=== PATIENT | male | born 1940 | race Caucasian/White ===

== ENCOUNTER 2017-05-12 06:38 | Emergency (ER) | payer MEDICARE, OTHER ==
[~2017-05-12] VITALS: Ht 177.8 cm; Wt 79.4 kg
[~2017-05-12 06:38] MED LIST: ACETAMINOPHEN500 M1 PO; AMLODIPINE BESYL5 MG PO; ASPIRIN EC81 MG PO; ATENOLOL100 MG PO; ATENOLOL50 MG PO; CELECOXIB200 MG PO; CIPRO500 MG PO; COUMADIN2.5 MG PO; COZAAR25 MG PO; FLAGYL500 MG PO; HYDROCODON-ACE1 EA11 PO; LOVENOX80 MG SUB-Q; MIRALAX17 GM PO; NORCO 5-325 TA1 EACH PO; NUCYNTA50 MG PO; OMEGA 3-6-9 11200 M1 PO; OMEPRAZOLE20 MG PO; OXYCODONE HCL5 MG PO; SIMVASTATIN80 MG PO; WARFARIN SODIU2.5 MG PO; XARELTO10 MG PO; XARELTO20 MG PO
== END 2017-05-12 07:12 | disposition home or self-care (01) ==
LOC: ED 06:38
DX: S00.411A Abrasion of right ear, initial encounter (principal); I48.91 Unspecified atrial fibrillation; E78.00 Pure hypercholesterolemia, unspecified; I25.2 Old myocardial infarction; I10 Essential (primary) hypertension; Z95.5 Presence of coronary angioplasty implant and graft; Z96.641 Presence of right artificial hip joint; Z85.828 Personal history of other malignant neoplasm of skin; Z87.891 Personal history of nicotine dependence; Z79.82 Long term (current) use of aspirin; Z79.01 Long term (current) use of anticoagulants; Z79.899 Other long term (current) 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; X58.XXXA Exposure to other specified factors, initial encounter
CPT/HCPCS: 99282

== ENCOUNTER 2017-11-28 11:13 | Inpatient (IN) | payer MEDICARE, OTHER ==
[~2017-11-28] VITALS: Ht 177.8 cm; Wt 79.4 kg
[~2017-11-28 11:13] MED LIST changes: +COZAAR100 MG PO; -COZAAR25 MG PO
[2017-11-28] MEDS ORDERED: ELIQUIS5 MG PO (11:33)
[2017-11-28] MEDS ORDERED: AMLODIPINE BESYL5 MG PO (11:34)
--- NOTE | 2017-11-28 18:40 | NUR ---
PT ARRIVED TO FLOOR FROM ED VIA STRETCHER. ORIENTED TO ROOM AND CALL LIGHT. ASSESSMENT COMPLETE. VITAL SIGNS TAKEN. PLACED ON TELE.
--- NOTE | 2017-11-28 19:00 | NUR ---
BEDSIDE REPORT RECEIVED FROM MICHELLE JAQUEZ. PT AWAKE, LYING IN BED, IV BOLUS INFUSING WNL. GIVEN BLANKET REQUESTED. CALL LIGHT IN REACH.
--- NOTE | 2017-11-28 20:31 | NUR ---
VITALS AND I&OS DONE AND CHARTED. FRESH ICE GIVEN. BEDSIDE TABLE AND CALL LIGHT WITHIN REACH.
--- NOTE | 2017-11-28 20:31 | NUR ---
PT ASSESSMENT COMPLETE AT THIS TIME, HR IRREGULAR 80S, BP 94/57 (65), AFEBRILE. PT DENIES ANY PAIN. IV MAGNESIUM AND IVF INFUSING WNL, FLUID BOLUS COMPLETE. PT ALERT AND ORIENTED X 4. BRUISING NOTED IN LOWER BACK POST OP, INCISIONS CDI NO REDNESS NOTED. LUNGS CLEAR THROUGHOUT ALL LOBES. PT HAS ICE WATER, PERSONAL SUPPLIES IN REACH. ON TELE. CALL LIGHT IN REACH. EDUCATED PT ON VS MONITORING, VERBALIZED UNDERSTANDING.
--- NOTE | 2017-11-28 20:42 | NUR ---
DR. LOPEZ NOTIFIED OF BP 98/58 MANUAL, URINE OUTPUT 250 MLS LAST FOUR HOURS. TLEPHONE ORDER TO LEAVE FLUID AT 100 ML/HR. WILL CONTINUE TO MONITOR.
--- NOTE | 2017-11-28 21:19 | NUR ---
SECOND BAG MG PIGGYBACK INFUSING WITH IVF AT THIS TIME WNL. URINAL EMPTIED 275 ML CLEAR YELLOW URINE. PT HAS NO REQUESTS AT THIS TIME, AWAKE, WATCHING TV. CALL LIGHT NEXT TO PT.
--- NOTE | 2017-11-28 21:28 | NUR ---
VITALS DONE AND CHARTED. PT NEEDS NOTHING ELSE AT THIS TIME.
--- NOTE | 2017-11-28 22:52 | NUR ---
PHONE CALL FROM PTS , UPDATED ON PT STATUS. PT APPEARS TO BE SLEEPING AT THIS TIME, EYES CLOSED BREATHING NON-LABORED.
--- NOTE | 2017-11-28 23:29 | NUR ---
MAGNESIUM PIGGYBACK COMPLETE AT THIS TIME, IVF INFUSING WNL. PT AWAKENS TO VOICE. VITALS COMPLETE AT THIS TIME BP 93/70 (76), HR IRREGULAR 68-74. URINAL EMPTIED AT THIS TIME. CALL LIGHT IN REACH, LIGHTS OFF IN ROOM.
--- NOTE | 2017-11-28 23:33 | NUR ---
VITALS DONE AND CHARTED. INFORMED HIS RN GILDARDO.
--- NOTE | 2017-11-28 23:39 | NUR ---
PHONED, NOTIFIED OF BP 93/70 (76), URINE OUTPUT 625 ML OVER LAST FOUR HOURS. ORDER TO CONTINUE IVF AT 100 ML/HR, CALL WITH MG LEVEL, NOTIFY MD OF BP <90.
--- NOTE | 2017-11-29 00:08 | NUR ---
LAB CALLED, NOTIFIED OF MG ORDER FOR 0005, JAVIER WILL BE UP TO DRAW LAB.
--- NOTE | 2017-11-29 00:30 | NUR ---
BURNING SUPERVISOR NOW IN PT ROOM FOR MAGNESIUM LAB DRAW.
--- NOTE | 2017-11-29 01:25 | NUR ---
PHONED, NOTIFIED OF PT'S MAGNESIUM LAB 2.9, ORDER TO KEEP IVF AT 100 ML/HR UNLESS BP <90 SYSTOLIC, THEN TO ADMINISTER IVF BOLUS 500 ML LR OVER HOUR. ORDER READ BACK.
--- NOTE | 2017-11-29 01:36 | NUR ---
PT ASSESSMENT COMPLETE. BP 101/64, HR 77-85 IRREGULAR, LUNGS CLEAR THROUGHOUT ALL LOBES. IVF INFUSING WNL, LINE FLUSHED PT REPORTS SOME DISCOMFORT, GOOD BLOOD RETURN, FLUSHED WNL, ASSISTED PT TO REPOSITION ARM ON PILLOW. URINAL EMPTIED 300 ML CLEAR YELLOW URINE. PT HAS NO C/O PAIN. CALL LIGHT IN REACH. NO REQUESTS AT THIS TIME. WILL CONTINUE TO MONITOR.
--- NOTE | 2017-11-29 03:35 | NUR ---
PT APPEARS TO BE SLEEPING, EYES CLOSED, VISIBLE CHEST RISE EQUAL BILATERALLY. IVF INFUSING. HR 70-78 ON TELE. LIGHTS OFF IN ROOM.
--- NOTE | 2017-11-29 05:26 | NUR ---
VITALS AND I&O DONE AND CHARTED. GARBAGES EMPTIED. ROOM CLEANED UP. BEDSIDE TABLE AND CALL LIGHT WITHIN REACH. PT NEEDS NOTHING ELSE AT THIS TIME.
--- NOTE | 2017-11-29 05:43 | NUR ---
URINAL EMPTIED, 275 YELLOW URINE. VITALS COMPLETE, BP 104/67, AFEBRILE, HR 84-88, SPO2 95% ON RA. PT REQUESTING HEARING AID BATTERIES, WILL CONTACT TO BRING IN. PHOTO GRAPHICS LIBRARIAN IN ROOM AT THIS TIME FOR LAB DRAW. PT GIVEN MENU. CALL LIGHT IN REACH.
--- NOTE | 2017-11-29 05:51 | NUR ---
PT RECEIVED 3 2G MAGNESIUM PIGGYBACKS THIS SHIFT, IVF INFUSING THROUGHOUT SHIFT. HR IRREGULAR, ON TELE 5. PT DENIES PAIN. IN BED THROUGHOUT SHIFT, USING URINAL FOR QUANITY SUFFICIENT VOIDS.
--- NOTE | 2017-11-29 06:16 | NUR ---
PT GIVEN COFFEE REQUESTED, ASSISTED TO REPOSITION IN BED. BREAKFAST ORDER TAKEN. CALL LIGHT IN REACH, IVF INFUSING.
--- NOTE | 2017-11-29 06:56 | NUR ---
PT REPORTED 5/10 PAIN IN RIGHT SHOLDER. PRN TYLENOL GIVEN.
--- NOTE | 2017-11-29 08:45 | NUR ---
PATIENT RESTING IN BED, FAMILY AND RN IN ROOM. CALL LIGHT IN REACH. NO OTHER NEEDS AT THIS TIME.
--- NOTE | 2017-11-29 09:15 | NUR ---
PT AWAKE IN BED, ATE ALL OF BREAKFAST. AT BEDSIDE. PT ALERT AND ORIENTED. DENIES PAIN, NAUSEA, SOB, OR OTHER CONCERNS. ORTHOSTATIC BP OBTAINED. PT DENIED DIZZINESS OR LIGHT HEADEDNESS. IV INFUSING IN RIGHT AC. CALL LIGHT WITHIN REACH.
--- NOTE | 2017-11-29 09:25 | NUR ---
PATIENT RESTING IN BED, TALKING ON PHONE. FAMILY IN ROOM. PATIENT CALL LIGHT INREACH. RN COMING AND GOING FROM ROOM. NO OTHER NEEDS AT THIS TIME.
--- NOTE | 2017-11-29 09:30 | NUR ---
PT MEDICATED WITH TYLENOL FOR C/O OF RIGHT SHOULDER PAIN. PT STATES IT IS ARHTRITIS THAT IS FLARED UP FROM THE POSTITION OF IV. REQUESTS NEW IV IF POSSIBLE. WILL ATTEMPT.
--- NOTE | 2017-11-29 10:01 | NUR ---
PATIENT SITTING UP IN BED. PATIENT WASHED HANDS AND FACE AND PERFORMED ORAL CARE. PATIENTS IN ROOM. RN NOTIFIED OF BLOOD PRESSURE OUT OF NORMAL LIMITS. CALL LIGHT IN REACH, FRESH ICE WATER AT BEDSIDE TABLE. NO OTHER NEEDS AT THIS TIME.
--- NOTE | 2017-11-29 11:28 | NUR ---
PT IN BED, ALERT AND ORIENTED. HIS IS BY HIS SIDE. BOTH VERY PLEASANT AND WELCOMING. THIS APPEARS TO BE A LITTLE DIFFICULT FOR BOTH OF THEM, YESTERDAY WAS PT'S 'S .DAY. GOOD VISIT, WAITING FOR DR LOPEZ-PT REQUESTED PRAYER. I WILL CONTINUE TO FOLLOW NEEDED
--- NOTE | 2017-11-29 11:30 | NUR ---
NEW IV ATTEMPTED TWICE BY THIS RN UNSUCCESSFUL. NEW 22G IV STARTED IN RIGHT FOREARM BY JULIO CESAR Taylor RN. OLD RIGHT AC IV DC'D BY ASSOCIATE PROFESSOR OF COMMUNICATION STUDENT WITH SUPERVISION BY CARLA MARTINEZ.
--- NOTE | 2017-11-29 13:10 | NUR ---
PT RESTING IN BED WATCHING TV. IV INFUSING WNL IN RIGHT FA. AT BEDSIDE. PT GIVEN WARM PACK FOR RIGHT SHOULDER AND FRESH ICE WATER. CALL LIGHT WITHIN REACH.
[2017-11-29] MEDS ORDERED: TENORMIN100 MG PO (14:37)
--- NOTE | 2017-11-29 14:38 | NUR ---
Medications reconciled with patient. Discrepancies correct to reflect patient's current home medications at admission
--- NOTE | 2017-11-29 16:21 | EKG ---
[facility] [address] [place], [place] [address] Signed Atrial fibrillation Low voltage QRS Abnormal ECG When compared with ECG of 28-NOV-2017 11:28, (Unconfirmed) No significant change was found Confirmed by DO LOPEZ MD ([id number]) on 11/29/2017 4:21:33 PM Electronically Signed By: DO LOPEZ MD 11/29/17 1621 PATIENT NAME: HUMZA ETIENNE Electrocardiogram DATE OF : 40 PHYSICIAN: DO LOPEZ MD REPORT #: [id number] REPORT IS CONFIDENTIAL AND NOT TO BE RELEASED WITHOUT AUTHORIZATION
--- NOTE | 2017-11-29 16:21 | EKG ---
[facility] [address] [facility] [place], [place] [address] Signed Atrial fibrillation Low voltage QRS Abnormal ECG No previous ECGs available Confirmed by DO LOPEZ MD ([id number]) on 11/29/2017 4:21:08 PM Electronically Signed By: DO LOPEZ MD 11/29/17 1621 PATIENT NAME: HUMZA ETIENNE Electrocardiogram DATE OF : 40 PHYSICIAN: DO LOPEZ MD REPORT #: [id number] REPORT IS CONFIDENTIAL AND NOT TO BE RELEASED WITHOUT AUTHORIZATION
--- NOTE | 2017-11-29 16:30 | NUR ---
PT CONT TO C/O RIGHT SHOULDER PAIN. NOTIFIED DR. LOPEZ OF INCREASE IN CHRONIC RIGHT SHOULDER ARTHRITIS PAIN. ORDER FOR VOLTAREN CREAM. CREAM APPLIED AND MEDICATED WITH TYLENOL. AT BEDSIDE. CALL LIGHT WITHIN REACH.
--- NOTE | 2017-11-29 18:24 | NUR ---
PT ATE ALL OF DINNER, DESIREE WELL. ORTHOSTATIC VS TAKEN, PT DENIED DIZZINESS OR LIGHT HEADEDNESS UPON STANDING. LINENS CHANGED PT HAD SMALL SMEAR OF BM IN BED. PT BACK TO BED. AT BEDSIDE. CALL LIGHT WITHIN REACH.
--- NOTE | 2017-11-29 19:00 | NUR ---
BEDSIDE REPORT RECEIVED FROM MICHELLE NEGRETE. PT AKAKE, LYING IN BED, IVF INFUSING WNL. ON TELE 5, HR 78-86, IRREGULAR. PT REQUESTING ICE WATER, NO ADDL REQUESTS, CALL LIGHT IN REACH.
--- NOTE | 2017-11-29 20:16 | NUR ---
PT ASSESSMENT COMPLETE AT THIS TIME, HR IRREGULAR 82-91, PT ALERT AND ORIENTED X 4, HEARING AIDS IN. VITALS COMPLETE AT THIS TIME, BP 95/60, SPO2 97% ON RA. LUNGS CLEAR THROUGHOUT ALL LOBES. PT C/O 4/10 SHOULDER PAIN, PRN TYLENOL ADMINISTERED AT THIS TIME. URINAL EMPTIED. IVF INFSUING WNL, FLUSHED WNL, GOOD BLOOD RETURN. PT HAS CALL LIGHT IN REACH. NO ADDL REQUESTS AT THIS TIME.
--- NOTE | 2017-11-29 21:46 | NUR ---
CALL LIGHT ANSWERED, IV PUMP BEEPING, INFUSING WNL AT THIS TIME, PT AWAKE WATCHING TV, NO REQUESTS. LIGHTS OFF IN ROOM.
--- NOTE | 2017-11-29 23:52 | NUR ---
CHECKED ON PT, APPEARS TO BE SLEEPING, EYES CLOSED, BREATHING NON-LABORED. HR 89-94, IRREGULAR ON TELE 5. LIGHTS OFF IN ROOM.
--- NOTE | 2017-11-30 01:26 | NUR ---
CALL LIGHT ANSWERED, URINAL EMPTIED 700 ML CLEAR YELLOW URINE. PT RATES PAIN IN RIGHT SHOULDER /, PRN DICLOFENAC APPLIED PER PT REQUEST. NEW BAG IVF INFUSING WNL. HR IRREGULAR, 74-84. LUNGS CLEAR THROUGHOUT. BTS ACTIVE X 4, ABD SOFT. VITALS COMPLETE. NO REQUESTS AT THIS TIME, LIGHTS OFF IN ROOM. CALL LIGHT IN REACH.
--- NOTE | 2017-11-30 04:24 | NUR ---
PT APPEARS TO BE SLEEPING AT THIS TIME, EYES CLOSED, BREATHING NON-LABORED, IVF INFUSING. LIGHTS OFF IN ROOM.
--- NOTE | 2017-11-30 05:00 | NUR ---
IVF INFUSING THROUGHOUT SHIFT WNL, SUFFICIENT URINARY OUTPUT, USING URINAL. PT IN BED THROUGHOUT SHIFT. VITALS Q4H. ON TELE 5. PRN TYLENOL AND DICLOFENAC FOR R SHOULDER PAIN.
--- NOTE | 2017-11-30 06:15 | NUR ---
ORTHOSTATIC VITALS COMPLETE AT THIS TIME, PT TOLERATED WELL, DENIES DIZZINESS AND WEAKNESS, FWW FOR SUPPORT. PRN TYLENOL ADMINISTERED AT THIS TIME FOR SHOULDER PAIN. PT GIVEN COFFEE REQUESTED. URINAL EMPTIED. IVF INFUSING WNL. CALL LIGHT IN REACH.
--- NOTE | 2017-11-30 07:35 | NUR ---
BEDSIDE REPORT RECEIVED FROM GILDARDO MARTINEZ. WHITE BOARD UPDATED. PATIENT LYING AWAKE IN BED. TELE [address] REFUSING BEERS WITH MEALS. IVF INFUSING AT 100ML/HR.
--- NOTE | 2017-11-30 08:05 | NUR ---
PATIENT CALLED TO BE ASSISTED TO CHAIR. USED FWW AND SBA TO TRANSFER. PT EATING BREAKFAST SITTING UP IN CHAIR. IVF INFUSING. BELONGINGS WITHIN REACH. CALL LIGHT NEXT TO PATIENT'S LEFT HIP. PATIENT HAS TV ON. LINENS CHANGED BY THIS RN. URINE EMPTIED AND MARKED ON I&O SHEET. ADMINISTERED MORNING MEDICATIONS.
--- NOTE | 2017-11-30 09:41 | NUR ---
AMBULATED PATIENT IN HALLWAY. SBA WITH FWW. TOLERATED WELL. NO DIZZINESS OR SOB NOTED. VISITOR AT BEDSIDE.
[2017-11-30] MEDS ORDERED: METOPROLOL SUC100 MG PO (10:09)
[2017-11-30] MEDS ORDERED: DICLOFENAC SOD100 G1 TOP (10:10)
[2017-11-30] MEDS ORDERED: CALCIUM CARBON500 MG PO (10:10)
[2017-11-30] MEDS ORDERED: VITAMIN D1000 UNIT PO (10:11)
--- NOTE | 2017-11-30 11:00 | NUR ---
PT SITTING IN CHAIR, BY HIS SIDE. PT STATED HE WAS WAITING FOR DR LOPEZ- HOPING TO GET CLEARANCE FOR DC. DURING VISIT-DR LOPEZ CAME IN. I LEFT TO ALLOW DR TO CARE FOR PT. WILL FOLLOW NEEDED
== END 2017-11-30 11:50 | disposition home or self-care (01) | DRG 312 ==
LOC: ED 11:13 → MS 11:15
PROVIDERS: ADMIT Internal Medicine
DX: I95.2 Hypotension due to drugs (principal); N17.9 Acute kidney failure, unspecified; E86.0 Dehydration; D63.8 Anemia in other chronic diseases classified elsewhere; E83.42 Hypomagnesemia; E87.6 Hypokalemia; I10 Essential (primary) hypertension; I25.10 Atherosclerotic heart disease of native coronary artery without angina pectoris; I48.2 Chronic atrial fibrillation; E78.5 Hyperlipidemia, unspecified; K21.9 Gastro-esophageal reflux disease without esophagitis; E83.51 Hypocalcemia; E55.9 Vitamin D deficiency, unspecified
CPT/HCPCS: 36415; 80053; 81001; 82306; 82607; 82728; 82746; 83540; 83735; 84466; 84484; 85025; 85045; 93005; 93010; J3475; J7040; J7120

== ENCOUNTER 2019-05-16 19:15 | Emergency (ER) | payer MEDICARE, OTHER ==
[~2019-05-16] VITALS: Ht 175.3 cm; Wt 74.8 kg
--- OUTSIDE RECORDS SUMMARY | ~2019-05-16 | XMS | Encounter Summary ---
Demographics + + + | Address | [address] | | | [place] [address] | + + + | Home Phone | | + + + | Preferred Language | Unknown | + + + | Marital Status | | + + + | Pentecostalism Affiliation | Unknown | + + + | Race | Unknown | + + + | Ethnic Group | Unknown | + + + Author + + + | Author | [facility] | | | and [place] | + + + | Organization | [facility] | | | and [place] | + + + | Address | Unknown | + + + | Phone | Unavailable | + + + Support + + + + + | Name | Relationship | Address | Phone | + + + + + | Uday Oconnell | ECON | Unknown | | + + + + + | Eulalia Oconnell | ECON | [address] | | | | | [place] | | | | | [phone] | | + + + + + | Anthony Oconnell | ECON | Unknown | | + + + + + | Sari Marina | ECON | Unknown | | + + + + + Care Team Providers + +------+ + | Care Decker Operator Name | Role | Phone | + +------+ + | Niki Will MD | PCP | | + +------+ + Encounter Details +--------+ + + + + | Date | Type | Department | Care Team | Description | +--------+ + + + + | 02/16/ | Orders Only | [facility] | Provider, | Mixed | | 2019 | | GENERIC OP | MD [address] | hyperlipidemia; | | | | CONVERSION [address] | [address] | Encounter for | | | | [address], | [place] [address] | therapeutic drug | | | | [place] [address] | | level monitoring; | | | | [phone] | | Encounter for | | | | | | screening for other | | | | | | suspected endocrine | | | | | | disorder; Essential | | | | | | (primary) | | | | | | hypertension | +--------+ + + + + Social History + + + +--------+ + | Tobacco Use | Types | Packs/Day | Years | Date | | | | | Used | | + + + +--------+ + | Former Smoker | Cigarettes | 1 | 15 | Quit: 07/12/1991 | + + + +--------+ + + +-------+---+--------+ | Smokeless Tobacco: | Snuff | | Quit: | | Former User | | | 1991 | + +-------+---+--------+ + + +---------+ + | Alcohol Use | Drinks/We | oz/Week | Comments | | | ek | | | + + +---------+ + | Yes | 14 | 8.4 | Alcoholic Drinks/day: 3 balck velvets and | | | Shots of | | coke per night | | | liquor | | | + + +---------+ + + + + | Sex Assigned at | Date Recorded | | | | + + + | Not on file | | + + + + + + + | Job Start Date | Occupation | Industry | + + + + | Not on file | Not on file | Not on file | + + + + + + + + | Travel History | Travel Start | Travel End | + + + + + + | No recent travel history available. | + + documented as of this encounter Plan of Treatment + +--------+ + + | Name | Priori | Associated Diagnoses | Order Schedule | | | ty | | | + +--------+ + + | Comprehensive Metabolic Panel | Routin | Mixed | Expected: | | | e | hyperlipidemia | 09/08/2018, Expires: | | | | Encounter for | 09/01/2019 | | | | therapeutic drug | | | | | level monitoring | | + +--------+ + + | Lipid Panel | Routin | Mixed | Expected: | | | e | hyperlipidemia | 09/08/2018, Expires: | | | | | 03/01/2020 | + +--------+ + + | Thyroid Panel with TSH | Routin | Encounter for | Expected: | | | e | screening for other | 09/08/2018, Expires: | | | | suspected endocrine | 09/01/2019 | | | | disorder | | + +--------+ + + | Basic Metabolic Panel | Routin | Encounter for | Expected: | | | e | therapeutic drug | 10/16/2018, Expires: | | | | level monitoring | 09/15/2019 | | | | Essential (primary) | | | | | hypertension | | + +--------+ + + | Digoxin Level | Routin | Encounter for | Expected: | | | e | therapeutic drug | 10/16/2018, Expires: | | | | level monitoring | 09/16/2019 | + +--------+ + + documented as of this encounter Visit Diagnoses + + | Diagnosis | + + | Mixed hyperlipidemia | + + | Encounter for therapeutic drug level monitoring Encounter for therapeutic drug | | monitoring | + + | Encounter for screening for other suspected endocrine disorder | + + | Essential (primary) hypertension Unspecified essential hypertension | + + documented in this encounter"
--- OUTSIDE RECORDS SUMMARY | ~2019-05-16 | XMS | Clinical Summary ---
Demographics + + + | Address | [address] | | | [place] [address] | + + + | Home Phone | | + + + | Preferred Language | Unknown | + + + | Marital Status | | + + + | Voodoo Affiliation | Unknown | + + + | Race | Unknown | + + + | Ethnic Group | Unknown | + + + Author + + + | Author | [facility] | | | and [place] | + + + | Organization | [facility] | | [...] [place] | | | | | [place] | | | | | [address] | | + + + + + | Anthony Oconnell | ECON | Unknown | | + + + + + | Sari Marina | ECON | Unknown | | + + + + + Care Team Providers + +------+ + | Care Pantry Cook Name | Role | Phone | + +------+ + | Niki Will MD | PCP | | + +------+ + Allergies No Known Allergies Medications + + + +---------+------+------+-------+ | Medication | Sig | Dispensed | Refills | Star | End | Statu | | | | | | t | Date | s | | | | | | Date | | | + + + +---------+------+------+-------+ | simvastatin | Take 80 mg by mouth | | 0 | | | Activ | | (ZOCOR) 80 mg tablet | Daily. | | | | | e | + + + +---------+------+------+-------+ | omeprazole | Take 40 mg by mouth | | 0 | | | Activ | | (PRILOSEC) 40 MG | every morning | | | | | e | | capsule | (before breakfast). | | | | | | + + + +---------+------+------+-------+ | [place]-3 Fatty | Take 1 capsule by | | 0 | | | Activ | | Acids (FISH OIL) | mouth Daily. | | | | | e | | 1200 MG CAPS | | | | | | | + + + +---------+------+------+-------+ | apixaban (ELIQUIS) | Take 5 mg by mouth 2 | | 0 | | | Activ | | 5 mg tablet | times daily. | | | | | e | + + + +---------+------+------+-------+ | metoprolol | Take 200 mg by mouth | | 0 | 07/2 | | Activ | | succinate | Daily. | | | 6/20 | | e | | (TOPROL-XL) 100 mg | | | | 18 | | | | ER tablet | | | | | | | + + + +---------+------+------+-------+ | aspirin 81 mg | Take 81 mg by mouth | | 0 | | | Activ | | chewable tablet | Daily. | | | | | e | + + + +---------+------+------+-------+ | metoprolol | Take 150 mg by | | 0 | 03/12 | | Activ | | succinate | mouth. | | | 08/31 | | e | | (TOPROL-XL) 50 mg 24 | | | | 18 | | | | hr tablet | | | | | | | + + + +---------+------+------+-------+ | albuterol 90 | | | 0 | 04/2 | | Activ | | mcg/puff inhaler | | | | 03/31 | | e | | | | | | 19 | | | + + + +---------+------+------+-------+ | Aspirin-Calcium | Take 81 mg by mouth | | 0 | | | Activ | | Carbonate (LEROY | daily | | | | | e | | WOMENS) 81-777 MG | | | | | | | | TABS | | | | | | | + + + +---------+------+------+-------+ | atorvaSTATin | Take 1 tablet by | | 0 | /1 | | Activ | | (LIPITOR) 40 mg | mouth nightly. | | | 0/20 | | e | | tablet | | | | 19 | | | + + + +---------+------+------+-------+ | digoxin (LANOXIN) | Take 1 tablet by | | 0 | 04/1 | 1 | Activ | | 125 mcg tablet | mouth daily. | | | 5/20 | 4 | e | | | | | | 19 | 20 | | + + + +---------+------+------+-------+ | digoxin (LANOXIN) | | | 11 | 04/2 | | Activ | | 125 mcg tablet | | | | 8/20 | | e | | | | | | 19 | | | + + + +---------+------+------+-------+ | furosemide (LASIX) | Take 1 tablet by | | 0 | 02/2 | 06/0 | Activ | | 20 mg tablet | mouth 3 (three) | | | 2/20 | 9/20 | e | | | times a week. | | | 19 | 20 | | + + + +---------+------+------+-------+ | furosemide (LASIX) | | | 4 | 05/0 | | Activ | | 40 mg tablet | | | | 20 | | e | | | | | | 19 | | | + + + +---------+------+------+-------+ | hydrocortisone | Take 10 mg by mouth | | 0 | 04/2 | | Activ | | (CORTEF) 10 mg | 2 (two) times daily. | | | 2/20 | | e | | tablet | Take 10 mg in am | | | 19 | | | | | and 5 mg at night | | | | | | + + + +---------+------+------+-------+ | hydrocortisone | | | 3 | 04/2 | | Activ | | (CORTEF) 10 mg | | | | 2/20 | | e | | tablet | | | | 19 | | | + + + +---------+------+------+-------+ | magnesium oxide | Take 100 mg by mouth | | 0 | | | Activ | | (MAG-OX) 400 mg | daily. | | | | | e | | tablet | | | | | | | + + + +---------+------+------+-------+ | potassium chloride | Take 1 tablet by | | 0 | 02/2 | | Activ | | (KLOR-CON M20) 20 | mouth 3 (three) | | | 2/20 | | e | | mEq ER tablet | times a week. take | | | 19 | | | | | with furosemide 20 | | | | | | | | mg three time per | | | | | | | | week | | | | | | + + + +---------+------+------+-------+ | apixaban (ELIQUIS | Take 5 mg by mouth | | 0 | | | Activ | | STARTER PACK) 5 mg | daily | | | | | e | | tablet | | | | | | | + + + +---------+------+------+-------+ | aspirin 81 MG | Take 81 mg by mouth | | 0 | | | Activ | | tablet | daily with | | | | | e | | | breakfast. | | | | | | + + + +---------+------+------+-------+ | metoprolol | Take 1 tablet by | | 0 | 07/2 | | Activ | | succinate | mouth 2 (two) times | | | 6/20 | | e | | (TOPROL-XL) 100 mg | daily. | | | 18 | | | | ER tablet | | | | | | | + + + +---------+------+------+-------+ | omeprazole | Take 20 mg by mouth | | 0 | | | Activ | | (PRILOSEC) 20 mg | every morning before | | | | | e | | capsule | breakfast. 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 | 09/16/2018 | + + + | History of PTCA | 09/16/2018 | + + + | Essential hypertension | 09/15/2018 | + + + | Adrenal insufficiency | 09/02/2018 | + + + | Atrial fibrillation | 09/02/2018 | + + + | Coronary atherosclerosis | 09/02/2018 | + + + + + | Overview: Overview: status post stenting of left circumflex | | coronary artery with a bare-metal stent in 1999 following acute | | inferior myocardial infarction, with most recent cardiac | | catheterization on August 28 2014 showed mild in-stent | | restenosis and the moderate disease in the left anterior | | descending artery with negative FFR., | + + + + + | Pituitary abnormality | 09/02/2018 | + + + | Anticoagulant long-term use | 09/01/2018 | + + + | Chronic atrial fibrillation with RVR | 09/01/2018 | + + + + + | Overview: Overview: | | Per 08/2018 event monitor with average HR 110 bpm | + + + + + | Osteoarthritis of multiple joints | 09/01/2018 | + + + | Risk factors for obstructive sleep apnea | 09/01/2018 | + + + | S/P angioplasty with stent | | + + + | Arthritis | | + + + | High cholesterol | | + + + | High blood pressure | | + + + | Heart attack | | + + + Encounters +--------+ + + + + | Date | Type | Specialty | Care Team | Description | +--------+ + + + + | 02/16/ | Orders Only | | Provider, | Mixed | | 2019 | | | Historical, MD | hyperlipidemia; | | | | | | Encounter for | | | | | | therapeutic drug | | | | | | level monitoring; | | | | | | Encounter for | | | | | | screening for other | | | | | | suspected endocrine | | | | | | disorder; Essential | | | | | | (primary) | | | | | | hypertension | +--------+ + + + + from Last 3 Months Family History + + +------+ + | Medical History | Relation | Name | Comments | + + +------+ + | No known problems | Brother | | | + + +------+ + | Diabetes | Father | | | + + +------+ + | Heart failure | Father | | | + + +------+ + | High blood pressure | Father | | | + + +------+ + | Heart failure | Father | | | + + +------+ + | Hypertension | Father | | | + + +------+ + | No known problems | Maternal | | | | | Grandfath | | | | | er | | | + + +------+ + | No known problems | Maternal | | | | | Grandmoth | | | | | er | | | + + +------+ + | Osteoporosis | Mother | | | + + +------+ + | Heart disease | Mother | | | + + +------+ + | No known problems | Paternal | | | | | Grandfath | | | | | er | | | + + +------+ + | No known problems | Paternal | | | | | Grandmoth | | | | | er | | | + + +------+ + | No known problems | Sister | | | + + +------+ + | Coronary artery | Neg Hx | | | | disease | | | | + + +------+ + + +------+ + + | Relation | Name | Status | Comments | + +------+ + + | Brother | | | | + +------+ + + | Father | | | | + +------+ + + | Father | | | CHF | | | | (Age | | | | | 95) | | + +------+ + + | Father | | | | + +------+ + + | Maternal Grandfather | | | | + +------+ + + | Maternal Grandmother | | | | + +------+ + + | Mother | | | | + +------+ + + | Mother | | Alive | heart disease | + +------+ + + | Mother | | | | + +------+ + + | Paternal Grandfather | | | | + +------+ + + | Paternal Grandmother | | | | + +------+ + + | Sister | | | | + +------+ + + Social History + + + [...] | | Former User | | | 1990 | + +-------+---+--------+ + + +---------+ + [...] recent travel history available. | + + Last Filed Vital Signs + + + + | Vital Sign | Reading | Time Taken | + + + + | Blood Pressure | 122/76 | 02/16/2019 1013 PDT | + + + + | Pulse | 74 | 02/16/20191012 PDT | + + + + | Temperature | 35.7 C (96.2 F) | 11/07/2017729 PDT | + + + + | Respiratory Rate | 18 | 02/16/20191012 PDT | + + + + | Oxygen Saturation | 98% | 11/07/2017834 PDT | + + + + | Inhaled Oxygen | - | - | | Concentration | | | + + + + | Weight | 75.2 kg (165 lb 11.2 | 02/16/20191012 PDT | | | oz) | | + + + + | Height | 175.3 cm (5' 9") | 02/16/2019 1013 PDT | + + + + | Body Mass Index | 24.47 | 02/16/2019 1013 PDT | + + + + Plan of Treatment + + + + + | Health Maintenance | Due Date | Last Done | Comments | + + + + + | Vaccine: | | | | | Dtap/Tdap/Td (1 - | 0 | | | | Tdap) | | | | + + + + + | Vaccine: Zoster (2 | | 08/21/2008 | | | of 3) | 9 | | | + + + + + | Adult Annual | | | | | Wellness Visit | 5 | | | + + + + + | Vaccine: | | 06/25/2016 | | | Pneumococcal 65+ | 7 | | | | Low/Medium Risk (2 | | | | | of 2 - PCV13) | | | | + + + + + | Vaccine: Influenza | | 03/13/2018, 02/18/2017, | | | (#1) | 9 | 04/15/2016, Additional history | | | | | exists | | + + + + + Implants + +--------+--------+ +--------+--------+--------+ | Implanted | Type | Area | Manufacture | Device | Shelf | Model | | | | | r | | Expira | / | | | | | | Identi | tion | Serial | | | | | | fier | Date | / Lot | + +--------+--------+ +--------+--------+--------+ | Jose Sext Solera [id number] - | Generi | Left: | MEDTRONIC - | | | [id number] | | [id number]: Qty: 2 on | c | Spine | MEDT | | | [id number] / | | 11/05/2017 by Diego Toro | | Lumbar | | | | / | | DO Janene | | | | | | | + +--------+--------+ +--------+--------+--------+ | Spcr Trnscntl 22 Wd Lg 10d 11 | Generi | Left: | GLOBUS | | 05/26/ | 375.57 | | - [id number]: Qty: 1 | c | Spine | MEDICAL - | | 2021 | 1 / | | on 11/05/2017 by Muna, | | Lumbar | GLBU | | | /[id number] | | Diego A, DO | | | | | | KD | + +--------+--------+ +--------+--------+--------+ | Putty Kathe 5cc Dbm - | Graft | Left: | [employer]IC - | | 07/14/ | [id number] | | [id number]: Qty: 1 | | Spine | MEDT | | 2021 | /[id number] | | on 11/05/2017 by Muna, | | Lumbar | | | | [id number] | | Diego Watters DO | | | | | | / | + +--------+--------+ +--------+--------+--------+ | Screw Cn Mas 6.5x65 Cc - | Screw | Left: | [employer]IC - | | | [id number] | | [id number]: Qty: 2 on | | Spine | MEDT | | | [id number] | | 11/05/2017 by Diego Toro | | Lumbar | | | | / / | | DO Janene | | | | | | | + +--------+--------+ +--------+--------+--------+ | Screw Cn Mas 8.5x60 Cc - | Screw | Left: | [employer] - | | | [id number] | | [id number]: Qty: 2 on | | Spine | MEDT | | | [id number] | | 11/05/2017 by Diego Toro | | Lumbar | | | | / / | | DO Janene | | | | | | | + +--------+--------+ +--------+--------+--------+ | Set Scrw Ns G5 Brk Off Ti | Screw | Left: | [employer] - | | | [id number] | | 4.75 - [id number]: | | Spine | MEDT | | | 0 / / | | Qty: 4 on 11/05/2017 by | | Lumbar | | | | | | Diego Toro DO | | | | | | | + +--------+--------+ +--------+--------+--------+ | Graft Infuse Bone Kit Xs - | | | SOFAMOR | | 10/09/ | [id number] | | [id number]: Qty: 1 on | | | LINETTEEK - DIV | | 2014 | 0 / | | 11/28/2013 by Diego Toro | | | [employer]IC | | | /[id number] | | DO Janene | | | - SFDK | | | 06AAA | + +--------+--------+ +--------+--------+--------+ | Imp Spn Cage Cpstn 26x9mm - | | | [employer] - | | 09/29/ | [id number] | | [id number]: Qty: 2 on | | | MEDT | | 2021 | 6 / | | 11/28/2013 by Diego Toro | | | | | | /[id number] | | A, DO | | | | | | 513 | + +--------+--------+ +--------+--------+--------+ | Screw 7.5x50mm Sextant - | | | [employer]IC - | | | [id number] | | [id number]: Qty: 2 on | | | MEDT | | | [id number] | | 11/28/2013 by Diego Toro | | | | | | / / | | DO Janene | | | | | | | + +--------+--------+ +--------+--------+--------+ | Set Scrw Ns G5 Brk Off Ti | | | SOFAMOR | | | [id number] | | 4.75 - [id number]: | | | LINETTEEK - DIV | | | 0 / / | | Qty: 5 on 11/28/2013 by | | | [employer] | | | | | Diego Toro DO | | | - SFDK | | | | + +--------+--------+ +--------+--------+--------+ | Cannulated ScrewImplanted: | | N/A: | [employer]IC - | | | [id number] | | Qty: 3 on 11/28/2013 by | | Spine | MEDT | | | [id number] | | Diego Toro DO | | Lumbar | | | | / / | + +--------+--------+ +--------+--------+--------+ | Imp Jose Sext 4.75x65 Solera - | | N/A: | SOFAMOR | | | [id number] | | [id number]: Qty: 2 | | Spine | DANEK - DIV | | | 5065 / | | on 11/28/2013 by Muna, | | Lumbar | [employer] | | | / | | Diego Watters DO | | | - SFDK | | | | + +--------+--------+ +--------+--------+--------+ | Chips Cancellous 30cc - | | | OSTEOTECH - | | | [id number] | | [id number]: Qty: 1 on | | | OSTT | | | / / | | 11/28/2013 | | | | | | | + +--------+--------+ +--------+--------+--------+ Results Not on filefrom Last 3 Months Insurance + +--------+ +--------+ +---------+--------+ | Payer | Benefi | Subscriber | Effect | Phone | Address | Type | | | t Plan | ID | eric | | | | | | / | | Dates | | | | | | Group | | | | | | + +--------+ +--------+ +---------+--------+ | MEDICARE | MEDICA | [id number] | 07/12/19 | [phone] | | Medica | | | RE | | 06-Pre | 5 | | re | | | PART A | | sent | | | | | | AND B | | | | | | + +--------+ +--------+ +---------+--------+ | [employer] | MUTUAL | [id number] | 09/10/19 | [phone] | | Indemn | | | OF | | 19-Pre | 0 | | ity | | | [place] | | sent | | | | + +--------+ +--------+ +---------+--------+ + +--------+ +--------+ + + | Guarantor Name | Accoun | Relation to | Date | Phone | Billing Address | | | t Type | Patient | of | | | | | | | | | | + +--------+ +--------+ + + | Luis Fernando Oconnell | Person | Self [birth year] | [address] | | | al/Fam | | 1941 | [phone] | [place] | | | [place] | | | [address] (Home) | [phone] | + +--------+ +--------+ + + | Luis Fernando Oconnell | Person | Self [birth year] | [address] | | | al/Fam | | 1941 | [phone] | [place] | | | [place] | | | [address] (Home) | [phone] | + +--------+ +--------+ + + Advance Directives Patient has advance care planning documents, and code status on file. For more information, please contact:[facility] [place] [address] + + + + + | Code Status | Date | Date | Comments | | | Activated | Inactivated | | + + + + + | Full Code | 11/05/2017 | 11/07/2017 | | | | 21:17 | 12:40 | | + + + + + + + + +---+ | | | | | + + + +---+ | Full Code | 11/28/2013 | 11/30/2013 | | | | 18:06 | 13:03 | | + + + +---+
--- OUTSIDE RECORDS SUMMARY | ~2019-05-16 | XMS | Clinical Summary ---
Demographics + + + | Address | [address] | | | [place] [address] | + + + | Home Phone | | + + + | Preferred Language | Unknown | + + + | Marital Status | | + + + | Hindu Affiliation | Unknown | + + + | Race | Unknown | + + + | Ethnic Group | Unknown | + + + Author + + + | Author | [facility] (Historical as of | | | 02-25-19) | + + + | Organization | [facility] (Historical as of | | | 02-25-19) | + + + | Address | Unknown | + + + | Phone | Unavailable | + + + Support + + + + + | Name | Relationship | Address | Phone | + + + + + | Eulalia Oconnell | ECON | [address] | | | | | [place] | | | | | [phone] | | + + + + + | Uday Oconnell | ECON | Unknown | | + + + + + Care Team Providers + +------+ + | Care Yarn Twister Name | Role | Phone | + +------+ + | Niki Will MD | PP | | + +------+ + Allergies No Known Allergies Current Medications + + +--------+---------+------+------+-------+ | Prescription | Sig. | Disp. | Refills | Star | End | Statu | | | | | | t | Date | s | | | | | | Date | | | + + +--------+---------+------+------+-------+ | acetaminophen | Take 500 mg by mouth | | | | | Activ | | (TYLENOL) 500 MG | every 6 (six) hours | | | | | e | | tablet | as needed for Pain. | | | | | | + + +--------+---------+------+------+-------+ | aspirin 81 MG | Take 81 mg by mouth | | | | | Activ | | tablet | daily with | | | | | e | | | breakfast. | | | | | | + + +--------+---------+------+------+-------+ | omeprazole | Take 20 mg by mouth | | | | | Activ | | (PRILOSEC) 20 MG | every morning before | | | | | e | | capsule | breakfast. | | | | | | + + +--------+---------+------+------+-------+ | apixaban (ELIQUIS) | Take 5 mg by mouth 2 | | | | | Activ | | 5 MG tablet | (two) times daily. | | | | | e | + + +--------+---------+------+------+-------+ | hydrocortisone | Take 10 mg by mouth | | | | | Activ | | (CORTEF) 10 MG | 2 (two) times daily. | | | | | e | | tablet | Take 10 mg in am | | | | | | | | and 5 mg at night | | | | | | + + +--------+---------+------+------+-------+ | magnesium oxide | Take 400 mg by mouth | | | | | Activ | | (MAG-OX) 400 MG | daily. | | | | | e | | tablet | | | | | | | + + +--------+---------+------+------+-------+ | digoxin (LANOXIN) | Take 1 tablet by | 90 | 3 | 04/1 | 04/1 | Activ | | 0.125 MG tablet | mouth daily. | tablet | | 5/20 | 4/20 | e | | | | | | 19 | 20 | | + + +--------+---------+------+------+-------+ | metoprolol | Take 1 tablet by | 180 | 3 | 04/1 | | Activ | | (TOPROL-XL) 100 MG | mouth 2 (two) times | tablet | | 5/20 | | e | | 24 hr tablet | daily. | | | 19 | | | + + +--------+---------+------+------+-------+ | atorvastatin | Take 1 tablet by | 90 | 3 | 06/1 | | Activ | | (LIPITOR) 40 MG | mouth nightly. | tablet | | 0/20 | | e | | tablet | | | | 19 | | | + + +--------+---------+------+------+-------+ | potassium chloride | Take 10 mEq by mouth | | | | | Activ | | (K-DUR) 10 MEQ | 3 (three) times a | | | | | e | | tablet | week. | | | | | | + + +--------+---------+------+------+-------+ | furosemide (LASIX) | Take 40 mg by mouth | | | | | Activ | | 40 MG tablet | 3 (three) times a | | | | | e | | | week. 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) | 09/16/2018 | + + + | Essential hypertension | 09/15/2018 | + + + | Adrenal insufficiency (HCC) | 09/02/2018 | + + + | Pituitary abnormality (HCC) | 09/02/2018 | + + + | Anticoagulant long-term use | 09/01/2018 | + + + | Osteoarthritis of multiple joints | 09/01/2018 | + + + | Risk factors for obstructive sleep apnea | 09/01/2018 | + + + | Persistent atrial fibrillation (HCC) | 12/05/2014 | + + + | Chronic back pain | | + + + | CAD (coronary artery disease) | | + + + + + | Overview: status post stenting of left circumflex coronary | | artery with a bare-metal stent in 2000 following acute inferior | | myocardial infarction, with most recent cardiac catheterization | | on August 28 2014 showed mild in-stent restenosis and the | | moderate disease in the left anterior descending artery with | | negative FFR., | + + + +---+ | Hyperlipidemia | | + +---+ | Arrhythmia | | + +---+ + + | Overview: ? Atrial Fib/flutter | + + Resolved Problems + + + + | Problem | Noted | Resolved | | | Date | Date | + + + + | Chronic atrial fibrillation with RVR ([facility]) | 09/01/19 | | | | 19 | 9 | + + + + + + | Overview: Per 08/2018 event monitor with average HR 110 bpm | + + + + + + | History of adrenal insufficiency | 09/01/19 | | | | 19 | 9 | + + + + + + | Overview: 06/[address] [facility] 06/28 when | | diagnosed with adrenal insufficiency treated with hydrocortisone. | + + + + + + | Tachycardia with heart rate 121-140 beats per minute | 07/28/19 | | | | 19 | 9 | + + + + | CAD in [place] artery | 08/31/19 | | | | 17 | 8 | + + + + | Encounter for pre-operative cardiovascular clearance | 08/31/19 | | | | 17 | 9 | + + + + | A-fib | 12/06/19 | | | | 15 | 9 | + + + + | Abnormal stress ECG | 08/22/19 | | | | 15 | 9 | + + + + Encounters +--------+---------+ + + + | Date | Type | Specialty | Care Team | Description | +--------+---------+ + + + | 02/16/ | Office | | Frances Junior | Persistent atrial | | 2019 | Visit | | MANPREET Smith | fibrillation (HCC) | | | | | | (Primary Dx); | | | | | | Coronary artery | | | | | | disease involving | | | | | | [place] coronary | | | | | | artery of [place] | | | | | | heart without angina | | | | | | pectoris; History | | | | | | of PTCA; Essential | | | | | | hypertension; Mixed | | | | | | hyperlipidemia; | | | | | | Anticoagulant | | | | | | long-term use; | | | | | | Ascending aorta | | | | | | dilatation (HCC); | | | | | | Encounter for | | | | | | monitoring digoxin | | | | | | therapy; Mild | | | | | | pulmonary | | | | | | hypertension (HCC); | | | | | | Adrenal | | | | | | insufficiency (HCC); | | | | | | Hypopituitarism due | | | | | | to empty sella | | | | | | syndrome (HCC) | +--------+---------+ + + + from Last 3 Months Family History + + +------+ + | Medical History | Relation | Name | Comments | + + +------+ + | Heart failure | Father | | | + + +------+ + | Hypertension | Father | | | + + +------+ + | Heart disease | Mother | | | + + +------+ + | Coronary Artery | Neg Hx | | | | Disease | | | | + + +------+ + + +------+ + + | Relation | Name | Status | Comments | + +------+ + + | Father | | | CHF | | | | (Age | | | | | 95) | | + +------+ + + | Mother | | Alive | heart disease | + +------+ + + Social History + +-------+ +--------+ + | Tobacco Use | Types | Packs/Day | Years | Date | | | | | Used | | + +-------+ +--------+ + | Former Smoker | | 1 | 30 | Quit: 09/01/1989 | + +-------+ +--------+ + + +---+---+--------+ | Smokeless Tobacco: | | | Quit: | | Former User | | | 1985 | + +---+---+--------+ + + +---------+ + | Alcohol Use | Drinks/We | oz/Week | Comments | | | ek | | | + + +---------+ + | Yes | 21 | 12.6 | 3 balck velvets and coke per night | | | Standard | | | | | drinks or | | | | | | | | | | equivalen | | | | | t | | | + + +---------+ + + + + | Sex Assigned at | Date Recorded | | | | + + + | Not on file | | + + + Last Filed Vital Signs + + + + | Vital Sign | Reading | Time Taken | + + + + | Blood Pressure | 122/76 | 02/16/2019 10:05 AM PDT | + + + + | Pulse | 74 | 02/16/2019 10:05 AM PDT | + + + + | Temperature | 36.7 C (98 F) | 08/28/2014 8:13 PM PST | + + + + | Respiratory Rate | 18 | 02/16/2019 10:05 AM PDT | + + + + | Oxygen Saturation | 99% | 02/16/2019 10:05 AM PDT | + + + + | Inhaled Oxygen | - | - | | Concentration | | | + + + + | Weight | 75.2 kg (165 lb 11.2 | 02/16/2019 10:05 AM PDT | | | oz) | | + + + + | Height | 175.3 cm (5' 9") | 02/16/2019 10:05 AM PDT | + + + + | Body Mass Index | 24.47 | 02/16/2019 10:05 AM PDT | + + + + Plan of Treatment + + + + + | Health Maintenance | Due Date | Last Done | Comments | + + + + + | Vaccine: | | | | | Dtap/Tdap/Td (1 - | 0 | | | | Tdap) | | | | + + + + + | Vaccine: Zoster (1 | | | | | of 2) | 1 | | | + + + + + | Vaccine: | | | | | Pneumococcal 65+ | 6 | | | | Low/Medium Risk (1 | | | | | of 2 - PCV13) | | | | + + + + + | Vaccine: Influenza | | | | | (#1) | 9 | | | + + + + + Procedures + +--------+ + + + | Procedure Name | Priori | Date/Time | Associated Diagnosis | Comments | | | ty | | | | + +--------+ + + + | EKG STANDARD 12 LEAD | Routin | 02/16/2019 | Persistent atrial | Results for this | | | e | 10:11 AM | fibrillation (HCC) | procedure are in the | | | | PDT | Coronary artery | results section. | | | | | disease involving | | | | | | [place] coronary | | | | | | artery of [place] | | | | | | heart without angina | | | | | | pectoris History | | | | | | of PTCA Essential | | | | | | hypertension Mixed | | | | | | hyperlipidemia | | | | | | Anticoagulant | | | | | | long-term use | | | | | | Ascending aorta | | | | | | dilatation (HCC) | | | | | | Encounter for | | | | | | monitoring digoxin | | | | | | therapy Mild | | | | | | pulmonary | | | | | | hypertension (HCC) | | | | | | Adrenal | | | | | | insufficiency (HCC) | | | | | | Hypopituitarism due | | | | | | to empty sella | | | | | | syndrome (HCC) Risk | | | | | | factors for | | | | | | obstructive sleep | | | | | | apnea | | + +--------+ + + + from Last 3 Months Results EKG STANDARD 12 LEAD (02/16/2019 10:11 AM) + + + + + | Component | Value | Ref Range | Performed At | + + + + + | Ventricular Rate | 74 | BPM | [facility] | + + + + + | Atrial Rate | 62 | BPM | [facility] | + + + + + | QRS Duration | 80 | ms | [facility] | + + + + + | Q-T Interval | 362 | ms | [facility] | + + + + + | QTC Calculation | 401 | ms | [facility] | | (Jefry) | | | | + + + + + | Calculated T [place] | -26 | degrees | [facility] | + + + + + | Diagnosis | Please refer to | | [facility] | | | Providers office visit | | | | | note for Providers | | | | | Interpretation.Confirmed | | | | | by [facility] [place] Read Only, | | | | | [facility] Mindy ([id number]), | | | | | assistant editor Toni Cooney | | | | | ([id number]) on 02/16/2019 | | | | | 11:10:03 AM | | | + + + + + + + + + + | Performing | Address | City/State/Zipcode | Phone Number | | Organization | | | | + + + + + | [facility] | [address] | [place] [address] | | + + + + + from Last 3 Months Insurance + +--------+ +------+-------+ + | Payer | Benefi | Subscriber | Type | Phone | Address | | | t Plan | ID | | | | | | / | | | | | | | Group | | | | | + +--------+ +------+-------+ + | MEDICARE | MEDICA | [id number] | | | [place] [phone] | | | RE | | | | [place] [id number] | | | IP-OP | | | | | + +--------+ +------+-------+ + | [employer] [place] | MUTUAL | [id number] | | | | | | [place] | | | | | | | [place] | | | | | + +--------+ +------+-------+ + + +--------+ +--------+ + + | Guarantor Name | Accoun | Relation to | Date | Phone | Billing Address | | | t Type | Patient | of | | | | | | | | | | + +--------+ +--------+ + + | LUIS FERNANDO OCONNELL | Person | Self [birth year] Home: | [address] | | | al/Fam | | 1941 | [phone] | [place] | | | [place]aln | | | [phone] | [phone] | + +--------+ +--------+ + +
--- OUTSIDE RECORDS SUMMARY | ~2019-05-16 | XMS | Clinical Summary ---
Demographics + + + | Address | [address] | | | [place] [address] | + + + | Home Phone | | + + + | Preferred Language | Unknown | + + + | Marital Status | | + + + | Alevism Affiliation | Unknown | + + + | Race | Unknown | + + + | Ethnic Group | Unknown | + + + Author + + + | Author | [facility] [employer] [facility] (Historical as of | | | 02-25-19) | + + + | Organization | [facility] [employer] (Historical as of | | | 02-25-19) [...] [place] | | | | | [address] | | + + + + + | Uday Oconnell | ECON | Unknown | | + + + + + Care Team Providers + +------+ + | Care Sales Vendor Name | Role | Phone | + [...] + | Chronic atrial fibrillation with RVR ([facility]) | 09/01/19 | | | | 19 [...] + + + + | CAD in [place] artery | 08/31/19 | | | | [...] | 02/16/ | Office | | Frances Juniro | Persistent atrial | | 2019 | Visit | | MANPREET Smith | fibrillation (HCC) | | | | | | (Primary Dx); | | | | | | Coronary artery | | | | | | disease involving | | | | | | [place] coronary | | | | | | artery of [place] | | | | | | heart [...] involving | | | | | | [place] coronary | | | | | | artery of [place] | | | | | | heart [...] + + + + | Calculated T [place] | -26 | degrees | [facility] | + + + + + | Diagnosis | Please refer to | | [facility] | | | Providers office visit | | | | | note for Providers | | | | | Interpretation.Confirmed | | | | | by [facility] [place] Read Only, | | | | | [facility] Mindy ([id number]), | | | | | design editor Toni Cooney | | | | | ([id number]) on 02/16/2019 | | | | | 11:10:03 AM | | | + + + + + + + + + + | Performing | Address | City/State/Zipcode | Phone Number | | Organization | | | | + + + + + | [facility] | [address] | [place] [address] | | + + + + + [...] +------+-------+ + | MEDICARE | MEDICA | [id number] | | | [place] [phone] | | | RE | | | | [place] [phone] | | | IP-OP | | | | | + +--------+ +------+-------+ + | [employer] [place] | MUTUAL | [id number] | | | | | | [place] | | | | | | | [place] | | | | | + +--------+ [...] Self | [birth year] | Home: | [address] | | | al/Fam | | 1941 | [phone] | [place] | | | [place] | | | [phone] | [phone] | + +--------+ +--------+ + +
--- OUTSIDE RECORDS SUMMARY | ~2019-05-16 | XMS | Encounter Summary ---
Demographics + + + | Address | [address] | | | [place] [address] | + + + | Home Phone | | + + + | Preferred Language | Unknown | + + + | Marital Status | | + + + | Advent Affiliation | Unknown | + + + | Race | Unknown | + + + | Ethnic Group | Unknown | + + + Author + + + | Author | [facility] (Historical as of | | | 02-25-19) | + + + | Organization | [facility] (Historical as of | | | 02-25-19) [...] [place] | | | | | [id number] | | + + + + + | Uday Oconnell | ECON | Unknown | | + + + + + Care Team Providers + +------+ + | Care Display Coordinator Name | Role | Phone | + +------+ + | Niki Will MD | PCP | | + +------+ + Reason for Visit + + + | Reason | Comments | + + + | Follow-up | 2 month | + + + Encounter Details +--------+---------+ + + + | Date | Type | Department | Care Team | Description | +--------+---------+ + + + | 02/16/ | Office | [facility] | Frances Junior | Persistent atrial | | 2019 | Visit | Cardiology [facility] | [address] | fibrillation (HCC) | | | | [address] | Mindy Fenton | (Primary Dx); | | | | [facility] [address] | [place] [address] | Coronary artery | | | | [place] [address] | [phone] | disease involving | | | | [phone] | | [place] coronary | | | | | | artery of [place] | | | | | | heart [...] syndrome (HCC) | +--------+---------+ + + + Social History + +-------+ +--------+ [...] on file | | + + + as of this encounter Last Filed Vital Signs + + + + | Vital Sign | Reading | Time Taken | + + + + | Blood Pressure | 122/76 | 02/16/2019 10:05 AM PDT | + + + + | Pulse | 74 | 02/16/2019 10:05 AM PDT | + + + + | Temperature | - | - | + + + + | Respiratory [...] AM PDT | + + + + in this encounter Instructions Patient Instructions - Frances Junior ARNP - 02/16/2019 10:[address] Metcalf if you should have steroid injection to your shoulder Your Echo looked improved today , and your heart rate better controlled See me back in 6 months, and bring medications again, that was really helpfulin this encoun ter Progress Notes Frances Junior ARNP - 02/16/2019 10:00 AM PDTFormatting of this note may be differen t from the original. Date of visit: 02/16/2019 Primary Care Physician: Niki Will CHIEF COMPLAINT: Chief Complaint Patient presents with Follow-up 2 month HISTORY OF PRESENT ILLNESS: Mr. Luis Fernando Parnell is a 78 year old man who is here today for 6 month follow up, and for the results of his Echo He is a patient of who is his primary kitchen steward/stewardess ,and last seen by him on when he ordered event monitor for Afib with RVR . I saw him last 12/19/2018, when I ordered him an Echo to follow-up on his enlarged ascend ing aorta, and mild pulmonary hypertension, and asked him to bring in medications to all cl inic visits, as missing some of prescribed medications, and told him to reduce or quit his a lcohol consumption to decrease his risk of bleeding with chronic anticoagulation. 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 Shakila Metcalf, and degenerative j oint disease, and poor short term memory. His [id number] VASC score is 5( age, HTN, CAD, TIA) and anticoagulated on Eliquis 5 mg BID, a nd again denies any bleeding today. His current and previous testing and procedures are detailed below Per Dr. Patiño's documentation, he was admitted to [facility] in [facility] on in mid 06/2018 for muscle weakness and generalized malaise with colitis that was complica melonie by diarrhea and dehydration. Eventually, he was also diagnosed with Daljit's disease with adrenal insufficiency, and he was treated with hydrocortisone. Today he reports overall he feels well, and denies any chest pain, palpitations, dizzi ness,or syncope. He also denies any signs or symptoms of stroke or TIA, or any ER visits, barber rgery, or hospitalization since last seen. He reports he has not noticed much difference to his heart rate, but also reports he did n ot notice when it was in the 140's . He reports his previous pedal edema remains resolved with furosemide 3 times per week. He reports continues to seeing wire brush operator, Dr. 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 He brought all his medications to the clinic, and personally reviewed by me, and he see ms to be taking all of his prescriptions as ordered. 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 . He quit smoking in 1989 with a 36-grjb-pxva history, and also previously chewed tobacco wh ich he quit in 1984. He reports has reduced his alcohol to 1-2 mixed drinks per day with less alcohol , as prev iously drank 3 mixed drinks per day, but not interested in quitting. He denies any use of recreational or illicit drugs, and drinks 2 servings of coffee karen y.. 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 REVIEW OF SYSTEMS: Negative except for pertinent items noted in HPI. Constitutional: Denies fatigue or unexplained weight loss. Appetite is good. Weight is st able. Denies night sweats fevers or chills HENT: Denies nosebleeds. Bilateral hearing aids . Denies dysphagia Eyes: Early cataracts . Denies visual disturbance or double vision. Respiratory/Sleep:reports ongoing mild GARRETT: Denies cough . Denies hemoptysis or excessive sputum production. His reports snoring and apnea spells ,denies orthopnea, PND. Cardiovascular: lower leg swelling edema improved with lasix 3 times per week. Denies chest pain, palpitations. Denies history of rheumatic fever. Denies claudication .Gastrointestina l: history of GERD, on PPI . Denies nausea, vomiting, abdominal pain and blood in stool. Genitourinary: Denies hematuria. 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 Denies rash or lesions Neurological: Reports possible TIA around 2010 when in [place] with transient visual disturb ance ,resolved, did not seek ER f/u. Denies history of stroke. Denies history of seizures. Denies dizziness, syncope and numbness. Hematological/Oncology . Bruises easily. Denies bleeding history of Skin cancer only Endocrine: Eureka's disease with adrenal insuffiencey diagnosed 06/[address] Metcalf in [place] Denies diabetes or thyroid disease. Denies excessive thirst or hunger. Psychiatric/Behavioral: denies any history of depression or anxiety or other psychiatric il lness. Vaccines: Current on 04/2018 flu vaccine. Current on post 65 pneumonia vaccine. Habits/Social : history of smoking, quit 1989, smoked 1 ppd x 30 years, also chewed tobacco , and quit 1984, . EtOH use: drinks 2 black velvet and cokes per day . Drinks 2 servings of caffeine daily . Denies recreational or illicit drug use. . Lives in [place] . 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 to 2nd 27 years . 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 Outpatient Medications Prior to Visit Medication Sig Dispense Refill acetaminophen (TYLENOL) 500 MG tablet Take 500 mg by mouth every 6 (six) hours as neede d for Pain. apixaban (ELIQUIS) 5 MG tablet Take 5 mg by mouth 2 (two) times daily. aspirin 81 MG tablet Take 81 mg by mouth daily with breakfast. atorvastatin (LIPITOR) 40 MG tablet Take 1 tablet by mouth nightly. 90 tablet 3 digoxin (LANOXIN) 0.125 MG tablet Take 1 tablet by mouth daily. 90 tablet 3 hydrocortisone (CORTEF) 10 MG tablet Take 10 mg by mouth 2 (two) times daily. Take 10 m g in am and 5 mg at night magnesium oxide (MAG-OX) 400 MG tablet Take 400 mg by mouth daily. metoprolol (TOPROL-XL) 100 MG 24 hr tablet Take 1 tablet by mouth 2 (two) times daily. 180 tablet 3 omeprazole (PRILOSEC) 20 MG capsule Take 20 mg by mouth every morning before breakfast. furosemide (LASIX) 20 MG tablet Take 1 tablet by mouth 3 (three) times a week. (Patient not taking: Reported on 02/16/2019) 39 tablet 3 potassium chloride SA (K-DUR,KLOR-CON) 20 MEQ tablet Take 1 tablet by mouth 3 (three) t imes a week. take with furosemide 20 mg three time per week (Patient not taking: Reported on 02/16/2019) 39 tablet 3 No facility-administered medications prior to visit. PHYSICAL EXAM: Wt Readings from Last 3 Encounters: 02/16/19 75.2 kg (165 lb 11.2 oz) 12/19/18 76.9 kg (169 lb 9.6 oz) 10/24/18 78.5 kg (173 lb) Temp Readings from Last 3 Encounters: 08/28/14 98 F (36.7 C) (Oral) BP Readings from Last 3 Encounters: 02/16/19 122/76 12/19/18 120/74 10/24/18 132/76 Pulse Readings from Last 3 Encounters: 02/16/19 74 12/19/18 88 10/24/18 93 GENERAL: Well developed, well nourished, in no distress. Appears approximately stated age . HEENT: Normocephalic, atraumatic. EYES: PERRL, EOM normal. MOUTH: Oral mucosae moist, dentition adequate, no lesions noted NECK: No JVD, lymphadenopathy, thyromegaly, bruits. Carotid pulses are 2+ bilaterally LUNGS/CHEST: Clear bilaterally, with no rales, rhonchi or wheezing noted, respirations unl abored HEART: Nondisplaced PMI, irregularly irregular rhythm with controlled rate, accelerating a nd decelerating during auscultation, S2 normal. soft 2/6 murmur LLB towards apex,no rubs o r gallops noted. ABDOMEN: Soft, nontender, no organomegaly, masses or bruits. Bowel sounds are normal in a ll 4 quadrants. The abdominal aortic pulsation is not palpable. EXTREMITIES: No pedal edema. Radial pulses 2+ bilaterally. Femoral pulses are 2+ bilater ally without bruits. DP and PT pulses are 2+ bilaterally. No clubbing. Venous insufficienc y. SKIN: Warm and dry, capillary refill is normal, no lesions. NEUROLOGIC: Awake, alert and oriented x 3. No focal motor or sensory deficits. PSYCHIATRIC: Appropriate, affect appears normal DATA: Blood tests: Lab Results Component Value Date WBC 7.1 08/28/2014 RBC 4.35 08/28/2014 HGB 13.7 08/28/2014 HCT 41.2 08/28/2014 PLT 212 08/28/2014 Lab Results Component Value Date NA 139 08/28/2014 K 3.9 08/28/2014 CL 105 08/28/2014 CO2 27 08/28/2014 ANIONGAP 12 08/28/2014 GLUF 92 08/28/2014 BUN 17 08/28/2014 CREATININE 1.20 08/28/2014 BCR 14 08/28/2014 CA 8.7 08/28/2014 EGFR >60 08/28/2014 Lab Results Component Value Date GLUF 92 08/28/2014 No results found for: BNP, CKTOTAL, TSH, CRP No results found for: METF, NMETFX, TFNMFX, [id number], [id number], TOTEPI CARDIAC PROCEDURES/IMAGING Last angiogram : 08/28/2014: ( post positive stress test) : Ttsw-tn-orlyeylg 3-vessel coron harry artery disease with mild in-stent restenosis in the left circumflex artery and only a mo derate lesion by fractional flow reserve (0.88)on the mid-LAD, EF 60%. CORONARY ANGIOGRAPHY: right dominant .Left Main: bifurcates into LAD and left circumflex, no Disease.LAD: gqci-ro-ytpfscjc st enosis Proximally, more wjtjjpoc-vn-olcpez stenosis in mid-vessel ,rest of the vessel was fr ee of disease.Principal diagonal branches free of disease.Left CX: 30% stenosis, stent in th e mid-vessel 30% in-stent restenosis, rest of the vessel was free of disease. RCA: domina nt vessel and had a 20% to 30% diffuse disease with no obstructive lesion. Last Stress test: 12/28/2017: low-risk stress test with no significant perfusion defect wright jose ejection fraction is reduced. Of note the patient is in atrial flutter with rapid ventri cular response. REST DATA: HR: 130 bpm BP: 131/98. Resting EKG showed atrial flutter with low voltage and rapid ventricular rate. STRESS DATA: Peak heart rate 169 bpm, Peak BP: 139/105. Symptoms alicja rtness of breath and lightheaded Stress EKG showed atrial flutter with rapid ventricular rat e. EJECTION FRACTION: Rest EF: 38% Stress EF: 42% IMAGING: SPECT images showed normal perfu sarah pattern both at rest and during exercise. (SSS: 0 SRS: 0 SDS: 0 TID: 1.11). Gated SPEC T images showed lysed hypokinesis and normal wall thickening. RV function appears normal.Co mparison with previous Nuclear stress test from 07/2014 showed the reversible anterior wall is no longer seen. Stress test 07/26/2014: Abnormal stress test with reversible anterior defect . DATA: REST D GILMA: HR: 75 bmp BP: 141 / 89. Resting EKG showed atrial fibrillation with controlled ventric ular rate. STRESS DATA: Peak heart rate 97 bpm, Peak BP: 144/91. Symptoms none Stress EKG showed age o f fibrillation with nonspecific ST abnormalities.EJECTION FRACTION: Rest EF: 54% Stress EF: 58% IMAGING:SPECT images showed moderate size reversible anterior apical defect with mild in tensity. (SSS: 3 SRS: 0 SDS: 3 TID: 0.97).Gated SPECT images showed normal wall motions, alicja wed thickening. RV function appears normal. VASCULAR TESTING AND PROCEDURES: none ECHO Last echo: 12/19/2018: ([facility]) atrial fibrillation. Technically adequate study. EF 55-60%. LV normal in size and wall thickness. No regional wall motion abnormalities. Atrial fibri llation prevents assessment of diastolic function. RV normal in size and function. Mild LA E. RA WNL. Aortic valve trileaflet, mild AI, mild calcification, no aortic stenosis. Mode rate MR, mild thickening and calcification of anterior mitral valve leaflet. Tricuspid valv e normal, mild TR. No pulmonary hypertension, RVSP 30.51 mmHg. Trace PI. No pericardial e ffusion. IVC WNL, normal CVP. Aortic root is dilated limited to sinus of Valsalva measurin g up to 4.2 cm. No mass, no clot, no ASD, no VSD. Echo: 12/16/2017: Atrial fib. Technically adequate study. EF 55-60 percent. LV normal in s ize and wall thickness. No regional wall motion abnormalities. RV normal in size and funct ion. Moderate left atrial enlargement, mild LETY. Aortic valve trileaflet, trace AI, no aor tic stenosis. Mitral valve normal, mild MR. Tricuspid valve normal, mild TR. Borderline p ulmonary hypertension, RVSP 35.64 mmHg. Trace PI. No pericardial or pleural effusion. IVC WNL, CVP 5-10. Sinus of Valsalva dilatation measuring 42 mm. Echo 07/20/2014: Atrial fibrillation, technically adequate study, EF 60-65 percent. LV pierce l in size with mild left ventricular hypertrophy. No regional wall motion abnormalities. R V normal in size. Mild right atrial enlargement, RA 5.3 cm. Aortic valve trileaflet, trace AI, no aortic stenosis. Mitral valve normal, mild MR. Tricuspid valve normal, mild TR. M ild pulmonary hypertension, RVSP 37.86 mmHg. IVC WNL, CVP 5-10. Aortic root, ascending aor ta, and aortic arch are normal EKG/EVENT MONITOR Holter Monitor: 24-hour: 08/11/2018-08/12/2018:( metoprolol XL 150 mg daily) Atrial fib 65 pe rcent, average rate 130 bpm, range 110-152 bpm, longest episode 15 hours and 46 minutes. No sinus rhythm, no pauses or blocks, 0.03 % ventricular ectopy with fastest beat 159 bpm, no supraventricular tachycardia EK08/31/2016: Atrial fib with CVR. Low voltage QRS to limb leads, and V1 Rate 79 bpm, QR S 70 ms, QTC 454 ms, tracing personally reviewed by ct EK07/28/2018: Atrial fibrillation with RVR, low voltage QRS to limb leads, and V1. Rate 141 bpm, QRS 76 ms, QTC 499 ms, tracing personally reviewed by ct EK09/14/2018:(metoprolol XL 100 mg BID) atrial fibrillation with RVR, low voltage QRS to l imb leads, and V1. Rate 102 bpm, QRS 76 ms, QTC 466 ms, tracing personally reviewed by ct EK10/24/2018: (metoprolol XL 100 mg BID and Digoxin 125 mcg)Atrial fibrillation w/ contro lled ventricular response and one PVC. Rate 90 bpm, QRS 82 ms, QTC 418 ms , tracing person ally reviewed by me, and compared to EKG performed in September, rate is better controlled and s table low voltage QRS EK12/19/2018:(metoprolol XL 100 mg BID and Digoxin 125 mcg) Atrial fibrillation controlle d ventricular response low voltage QRS leads II, V1, V3 and lateral leads. Rate 90 bpm, QRS 82 ms, QTC 430 ms, tracing personally reviewed by me, and compared to EKG performed in [facility], rate is better controlled and stable low voltage QRS. Similar morphology to EKG perfo rmed in October EK02/16/2019:(metoprolol XL 100 mg BID and Digoxin 125 mcg) Atrial fib with controlled negra tricular response. Low voltage QRS, stable, nonspecific ST and T wave abnormalities, stable . Rate 74 bpm, QRS 80 ms, QTC 401 ms, tracing personally reviewed by me and no significant change since EKG performed in December 2018, except rate better controlled LABS Labs: 08/01/2018: CMP: Sodium 141, potassium 3.8, chloride 100, glucose 97, BUN 15, creatini ne 1.19, GFR 59, AST 16, ALT 13, alk phos 80, total bilirubin 0.6, albumin 3.3, magnesium 1. 2 Labs: 09/12/2018: Lipids:( atorvastatin 40 mg) Cholesterol 186, triglycerides 106, HDL 69, LD L 96, VLDL 21, ratio 2.7, non-HDL cholesterol 117. CMP: Sodium 139, potassium 4.4, chloride 101, glucose 125, BUN 27, creatinine 1.07, GFR 67, AST 14, ALT 11, alk phos 82, albumin 4. Thyroid: TSH 3.76, T4 1 0.35, T3 81.41 Labs: 10/13/2018: Lipids::( atorvastatin 40 mg) Cholesterol 184, triglycerides 186, HDL 51.9, LDL 95. CMP: Sodium 137, potassium 4.2, chloride 97, glucose 125, BUN 19, creatinine 1.24, AST 19, ALT 21, alk phos 65, total bili 0.6, GFR 56, albumin 3.8 Labs: : 10/20/2018: BMP: Sodium 141, potassium 4, chloride 101, glucose 122, BUN 26, creatin ine 1.18, GFR 60. Digoxin 1.21 Labs: 11/24/2018: Thyroid: TSH 2.89, T4 1.38. T3 3.26 prolactin 14.74. FSH 9.23, LH 3.92 I GF-1:57.07. Cortisol a.m. 2.27. ACTH 2.94. ASSESSMENT & PLAN: He was here today for 6 month follow up, and for the results of his Echo. He has problems as detailed below. His Echo performed on January 17 as detailed above, and reports a normal EF of 55-60%, RV norm al in size and function, mildly enlarged left atrium, improved from moderate enlargement pre viously, normal right atrium, improved from mildly enlarged previously, mild AI increased fr om trace previously moderate MR increased from mild previously mild TR which is stable, and resolution of previous borderline pulmonary hypertension, and sinus of Valsalva dilatation i s stable at 42 mm His EKG performed today shows atrial fib with now controlled ventricular response at 74 bpm, and otherwise no significant change from previous EKG's. I reviewed Echo and EKG with him, and discussed with him that his heart rate now seems well controlled on current medications, and with treatment of his Eureka's disease. I made no changes to cardiac medications today, and he should continue digoxin 125 mcg, m etoprolol XL 100 mg BID for heart function and rate control, magnesium oxide 400 mg daily, atorvastatin 40 mg qhs for hyperlipidemia, aspirin 81 mg daily for coronary artery disease,a nd Eliquis 5 mg bid for stroke prevention, furosemide 20 mg 3 times a week, with potassium 10 mEq 3 times per week for pedal edema, I again advised him to decrease his alcohol to 1 per day or stop ,and he reports has red uced to 2 mixed drinks per day with much less alcohol, but not interested in quitting. I will see him back in 6 months, but sooner if needed. 1. Persistent atrial fibrillation (HCC) 2. Coronary artery disease involving [place] coronary artery of [place] heart without angina pectoris 3. History of PTCA 4. Essential hypertension 5. Mixed hyperlipidemia 6. Anticoagulant long-term use 7. Ascending aorta dilatation (HCC) 8. Encounter for monitoring digoxin therapy 9. Mild pulmonary hypertension (HCC) 10. Adrenal insufficiency (HCC) 11. 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 Risk factors for obstructive sleep apnea Orders Placed This Encounter Procedures Electrocardiogram, 12-lead The following portions of the patient's history were personally reviewed by me and updated as appropriate: EKG tracings, other specialty provider and PCP notes,any Hospital admission and discharge summaries, any ER records , current and previous cardiac testing and procedure reports and d gilma, medication bottles brought to visit today Allergies, current medications.labs Family history, past medical history, past social history, past surgical history. Problem list. MANPREET Lance [facility] Cardiology 02/16/2019in this encounter Plan of Treatment Not on fileas of this encounter Procedures + +--------+ + + + | [...] involving | | | | | | [place] coronary | | | | | | artery of [place] | | | | | | heart [...] | | + +--------+ + + + in this encounter Results EKG STANDARD 12 LEAD (02/16/2019 10:11 [...] | ms | [facility] | | (Bezet) | | | | + + + + + | Calculated T [place] | -26 | degrees | [facility]KG | + + + + + | Diagnosis | Please refer to | | [facility] | | | Providers office visit | | | | | note for Providers | | | | | Interpretation.Confirmed | | | | | by [facility] [place] Read Only, | | | | | [facility] Mindy ([id number]), | | | | | visual effects editor Toni Cooney | | | | | ([id number]) on 02/16/2019 | | | | | 11:10:03 AM | | | + + + + + + + + + + | Performing | Address | City/State/Zipcode | Phone Number | | Organization | | | | + + + + + | [facility] | [address] | [place] [phone] | | + + + + + in this encounter Visit Diagnoses + + | Diagnosis | + + | Persistent atrial fibrillation (HCC) - Primary | + + | Atrial fibrillation | + + | Coronary artery disease involving [place] coronary artery of [place] heart without | | angina pectoris | + + | History of PTCA | + + | Postsurgical percutaneous transluminal coronary angioplasty status | + + | Essential hypertension | + + | Unspecified essential hypertension | + + | Mixed hyperlipidemia | + + | Anticoagulant long-term use | + + | Encounter for long-term (current) use of anticoagulants | + + | Ascending aorta dilatation (HCC) | + + | Thoracic aortic ectasia | + + | Encounter for monitoring digoxin therapy | + + | Encounter for therapeutic drug monitoring | + + | Mild pulmonary hypertension (HCC) | + + | Other chronic pulmonary heart diseases | + + | Adrenal insufficiency (HCC) | + + | Glucocorticoid deficiency | + + | 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
--- OUTSIDE RECORDS SUMMARY | ~2019-05-16 | XMS | Encounter Summary ---
Demographics + + + | Address | [address] | | | [place] [address] | + + + | Home Phone | | + + + | Preferred Language | Unknown | + + + | Marital Status | | + + + | Hoahaoism Affiliation | Unknown | + + + | Race | Unknown | + + + | Ethnic Group | Unknown | + + + Author + + + | Author | [facility] [employer] (Historical as of | | | 02-25-19) | + + + | Organization | [facility] [employer] (Historical as of | | | 02-25-19) [...] [place] | | | | | [address] | | + + + + + | Uday Oconnell | ECON | Unknown | | + + + + + Care Team Providers + +------+ + | Care Import Customer Service Manager Name | Role | Phone | + [...] | | 2019 | Visit | Cardiology [place] | MANPREET [address] | fibrillation (HCC) | | | | [address] | Mindy Fenton | (Primary Dx); | | | | [facility] [address] | [place] [address] | Coronary artery | | | | [place] [address] | [phone] | disease involving | | | | [phone] | | miami coronary | | | | | | artery of miami | | | | | | heart [...] a patient of who is 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 Shakila Metcalf, and degenerative j oint disease, and poor short term memory. His [id number] VASC score is 5( age, HTN, CAD, TIA) and anticoagulated on Eliquis 5 mg BID, a nd again denies any bleeding today. His current and previous testing and procedures are detailed below Per Dr. Patiño's documentation, he was admitted to [facility] in [facility] on in mid 06/2018 for muscle weakness [...] per week. He reports continues to seeing collision estimator, Dr. Metcalf in [place] for follow-up on h is Arion's disease. He brought all his medications to the clinic, and personally reviewed by me, and he see ms to be taking all of his prescriptions as ordered. 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 . 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 REVIEW OF SYSTEMS: [...] bleeding history of Skin cancer only Endocrine: Arion's disease with adrenal insuffiencey diagnosed 06/[address] Metcalf in [place] Denies diabetes or thyroid disease. Denies excessive [...] or illicit drug use. . Lives in [place] . Owns [employer] with brother, and runs 2 [employer], and pretty active. to 2nd 27 years . 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 Outpatient Medications Prior to [...] No results found for: METF, NMETFX, TFNMFX, [id number], YOJLBR42BRT, TOTEPI CARDIAC PROCEDURES/IMAGING Last angiogram : 08/28/2014: ( post positive stress test) : Kcpk-pd-cahyyjnt 3-vessel coron harry artery disease with mild in-stent restenosis in the left circumflex artery and only a mo derate lesion by fractional flow reserve (0.88)on the mid-LAD, EF 60%. CORONARY ANGIOGRAPHY: right dominant .Left Main: bifurcates into LAD and left circumflex, no Disease.LAD: akcf-si-rwkqfmuh st enosis Proximally, more ksawsvxz-qn-tnjqec stenosis in mid-vessel ,rest of the vessel [...] QTC 454 ms, tracing personally reviewed by pr EK07/28/2018: Atrial fibrillation with RVR, low voltage QRS to limb leads, and V1. Rate 141 bpm, QRS 76 ms, QTC 499 ms, tracing personally reviewed by pr EK09/14/2018:(metoprolol XL 100 mg BID) atrial fibrillation with RVR, low voltage QRS to l imb leads, and V1. Rate 102 bpm, QRS 76 ms, QTC 466 ms, tracing personally reviewed by pr EK10/24/2018: (metoprolol XL 100 mg BID and [...] me, and compared to EKG performed in [facility], rate is better controlled and stable low [...] current medications, and with treatment of his Arion's disease. I made no changes to cardiac [...] fibrillation (HCC) 2. Coronary artery disease involving miami coronary artery of miami heart without angina pectoris 3. History of [...] past surgical history. Problem list. MANPREET Lance [facility] Cardiology 02/16/2019in this encounter Plan of [...] involving | | | | | | miami coronary | | | | | | artery of miami | | | | | | heart [...] + + + + | Calculated T [place] | -26 | degrees | [facility] EKG | + + + + + | Diagnosis | Please refer to | | [facility] EKG | | | Providers office visit | | | | | note for Providers | | | | | Interpretation.Confirmed | | | | | by [facility] Read Only, | | | | | [facility] ([id number]), | | | | | department editor Toni Cooney | | | | | ([id number]) on 02/16/2019 | | | | | 11:10:03 AM | | | + + + + + + + + + + | Performing | Address | City/State/Zipcode | Phone Number | | Organization | | | | + + + + + | [facility] | [address] | [place] [address] | | + + + + + in this encounter Visit Diagnoses + + | Diagnosis | + + | Persistent atrial fibrillation (HCC) - Primary | + + | Atrial fibrillation | + + | Coronary artery disease involving miami coronary artery of miami heart without | | angina pectoris | [...]
--- OUTSIDE RECORDS SUMMARY | ~2019-05-16 | XMS | Encounter Summary ---
Demographics + + + | Address | [address] | | | [place] [address] | + + + | Home Phone | | + + + | Preferred Language | Unknown | + + + | Marital Status | | + + + | Alevism Affiliation | Unknown | + + + | Race | Unknown | + + + | Ethnic Group | Unknown | + + + Author + + + | Author | [facility] | | | and [place] | + + + | Organization | [facility] | | | and [...] [place] | | | | | [address] | | + + + + + | Anthony Oconnell | ECON | Unknown | | + + + + + | Sari Marina | ECON | Unknown | | + + + + + Care Team Providers + +------+ + | Care Recycler Forklift Driver Truck Driver Name | Role | Phone | + [...] Encounter for | | | | [address], | [place] [address] | therapeutic drug | | | | [place] [address] | | level monitoring; | | | | [phone] | | Encounter for | | | [...]
--- OUTSIDE RECORDS SUMMARY | ~2019-05-16 | XMS | Clinical Summary ---
Demographics + + + | Address | [address] | | | [place] [address] | + + + | Home Phone | | + + + | Preferred Language | Unknown | + + + | Marital Status | | + + + | Mandaeism Affiliation | Unknown | + + + | Race | Unknown | + + + | Ethnic Group | Unknown | + + + Author + + + | Author | [facility] | | | and [place] | + + + | Organization | [facility] | | | and [...] [place] | | | | | [address] | | + + + + + | Anthony Oconnell | ECON | Unknown | | + + + + + | Sari Marina | ECON | Unknown | | + + + + + Care Team Providers + +------+ + | Care Kennel Helper Name | Role | Phone | + [...] | | + + + +---------+------+------+-------+ | [place]-3 Fatty | Take 1 capsule by | [...] + +--------+--------+ +--------+--------+--------+ | Jose Sext Solera [id number] - | Generi | Left: | [employer] - | | | [id number] | | [id number]: Qty: 2 on | c | Spine [...] | 05/26/ | 375.57 | | - [id number]: Qty: 1 | c | Spine | MEDICAL - | | 2021 | 1 / | | on 11/05/2017 by Muna, | | Lumbar | GLBU | | | /[id number] | | Diego A, DO | | | | | | KD | + +--------+--------+ +--------+--------+--------+ | Putty Kathe 5cc Dbm - | Graft | Left: | [employer] - | | 07/14/ | [id number] | | [id number]: Qty: 1 | | Spine | MEDT | | 2021 | [id number] | | on 11/05/2017 by Muna, | | Lumbar | | | | 3-047 | | Diego Watters DO | | | | | | / | + +--------+--------+ +--------+--------+--------+ | Screw Cn Mas 6.5x65 Cc - | Screw | Left: | [employer] - | | | [id number] | | [id number]: Qty: 2 on | | Spine | MEDT | | | [id number] | | 11/05/2017 by Diego Toro | | Lumbar | | | | / / | | DO Janene | | | | | | | + +--------+--------+ +--------+--------+--------+ | Screw Cn Mas 8.5x60 Cc - | Screw | Left: | [employer] - | | | [id number] | | [id number]: Qty: 2 on | | Spine | MEDT | | | [id number] | | 11/05/2017 by Diego Toro | | Lumbar | | | | / / | | DO Janene | | | | | | | + +--------+--------+ +--------+--------+--------+ | Set Scrw Ns G5 Brk Off Ti | Screw | Left: | [employer] - | | | [id number] | | 4.75 - [id number]: | | Spine | MEDT | | | 0 / / | | Qty: 4 on 11/05/2017 by | | Lumbar | | | | | | Diego Toro DO | | | | | | | + +--------+--------+ +--------+--------+--------+ | Graft Infuse Bone Kit Xs - | | | SOFAMOR | | 10/09/ | [id number] | | [id number]: Qty: 1 on | | | LINETTEEK - DIV | | 2014 | 0 / | | 11/28/2013 by Diego Toor | | | [employer] | | | /[id number] | | DO Janene | | | - SFDK | | | 06AAA | + +--------+--------+ +--------+--------+--------+ | Imp Spn Cage Cpstn 26x9mm - | | | [employer] - | | 09/29/ | [id number] | | [id number]: Qty: 2 on | | | MEDT | | 2021 | 6 / | | 11/28/2013 by Diego Toro | | | | | | /[id number] | | A, DO | | | | | | 513 | + +--------+--------+ +--------+--------+--------+ | Screw 7.5x50mm Sextant - | | | [employer] - | | | [id number] | | [id number]: Qty: 2 on | | | MEDT | | | [id number] | | 11/28/2013 by Diego Toro | | | | | | / / | | DO Janene | | | | | | | + +--------+--------+ +--------+--------+--------+ | Set Scrw Ns G5 Brk Off Ti | | | SOFAMOR | | | [id number] | | 4.75 - [id number]: | | | LINETTEEK - DIV | | | 0 / / | | Qty: 5 on 11/28/2013 by | | | [employer] | | | | | Diego Toro DO | | | - SFDK | | | | + +--------+--------+ +--------+--------+--------+ | Cannulated ScrewImplanted: | | N/A: | [employer]IC - | | | [id number] | | Qty: 3 on 11/28/2013 by | | Spine | MEDT | | | [id number] | | Diego Toro DO | | Lumbar | | | | / / | + +--------+--------+ +--------+--------+--------+ | Imp Jose Sext 4.75x65 Solera - | | N/A: | SOFAMOR | | | [id number] | | [id number]: Qty: 2 | | Spine | DANEK - DIV | | | 5065 / | | on 11/28/2013 by Muna, | | Lumbar | [employer] | | | / | | Diego Watters DO | | | - SFDK | | | | + +--------+--------+ +--------+--------+--------+ | Chips Cancellous 30cc - | | | OSTEOTECH - | | | [id number] | | [id number]: Qty: 1 on | | | OSTT [...] +--------+ +---------+--------+ | MEDICARE | MEDICA | [id number] | 07/12/19 | [phone] | | Medica | | | RE | | 06-Pre | 5 | | re | | | PART A | | sent | | | | | | AND B | | | | | | + +--------+ +--------+ +---------+--------+ | [employer] [place] | MUTUAL | [id number] | 09/10/19 | [phone] | | Indemn | | | OF | | 19-Pre | 0 | | ity | | | [place] | | sent | | | | [...] | | al/Fam | | 1941 | [phone] | [place] | | | [place] | | | 5 (Home) | [phone] | + +--------+ +--------+ + + | Luis Fernando Oconnell | Person | Self | [birth year] | [address] | | | al/Fam | | 1941 | [phone] | [place] | | | [place] | | | 5 (Home) | [phone] | + +--------+ +--------+ + + Advance Directives Patient has advance care planning documents, and code status on file. For more information, please contact:[facility] [place] [address] + + + + + | Code [...]
[~2019-05-16 19:15] MED LIST changes: +CALCIUM CARBON500 MG PO; +DICLOFENAC SOD100 G1 TOP; +ELIQUIS5 MG PO; +HYDROCORTISONE10 MG PO; +METOPROLOL SUC100 MG PO; +METOPROLOL SUC200 MG PO; +TENORMIN100 MG PO; +TOPROL XL100 MG PO; +VITAMIN D1000 UNIT PO
[2019-05-16] MEDS ORDERED: IMIQUIMOD1 EACH TOP (19:36)
== END 2019-05-16 21:09 | disposition home or self-care (01) ==
LOC: ED 19:15
DX: L76.22 Postprocedural hemorrhage of skin and subcutaneous tissue following other procedure (principal); I48.91 Unspecified atrial fibrillation; E78.00 Pure hypercholesterolemia, unspecified; I25.2 Old myocardial infarction; I10 Essential (primary) hypertension; Z87.891 Personal history of nicotine dependence; Z79.899 Other long term (current) 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; Z79.82 Long term (current) use of aspirin
CPT/HCPCS: 85025; 99283

== ENCOUNTER 2020-12-02 07:54 | Emergency (ER) | payer MEDICARE, OTHER ==
[~2020-12-02] VITALS: Ht 175.3 cm; Wt 75.8 kg
[~2020-12-02 07:54] MED LIST changes: +IMIQUIMOD1 EACH TOP
[2020-12-02] MEDS ORDERED: LIPITOR40 MG PO (08:49)
[2020-12-02] MEDS ORDERED: PREDNISONE20 MG PO (10:46)
--- NOTE | 2020-12-03 09:36 | EKG ---
[facility] [address] [place], [place] [address] Signed Atrial fibrillation Nonspecific ST abnormality Abnormal ECG When compared with ECG of 28-NOV-2017 15:21, No significant change was found Confirmed by DO LOPEZ MD ([id number]) on 12/03/2020 9:36:39 AM Electronically Signed By: DO LOPEZ MD 12/03/20 0936 PATIENT NAME: HUMZA ETIENNE Electrocardiogram DATE OF : 40 PHYSICIAN: DO LOPEZ MD REPORT #: [id number] REPORT IS CONFIDENTIAL AND NOT TO BE RELEASED WITHOUT AUTHORIZATION
== END 2020-12-02 11:07 | disposition home or self-care (01) ==
LOC: ED 07:54
DX: M54.5 Low back pain (principal); R06.02 Shortness of breath; X50.1XXA Overexertion from prolonged static or awkward postures, initial encounter; I48.91 Unspecified atrial fibrillation; E78.00 Pure hypercholesterolemia, unspecified; I25.2 Old myocardial infarction; I10 Essential (primary) hypertension; Z85.828 Personal history of other malignant neoplasm of skin; Z87.891 Personal history of nicotine dependence; Z79.899 Other long term (current) 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; Z79.82 Long term (current) use of aspirin
CPT/HCPCS: 71046; 72100; 80053; 83880; 84484; 85025; 93005; 93010; 96374; 99284-25; J1100

== ENCOUNTER 2020-12-11 12:04 | Emergency (ER) | payer MEDICARE, OTHER ==
[~2020-12-11 12:04] MED LIST changes: +LIPITOR40 MG PO; +PREDNISONE20 MG PO
--- OUTSIDE RECORDS SUMMARY | 2020-12-11 12:10 | XMS ---
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 Security Spanish Translator Events No recent Security Events currently on file CRITERIA MET - [facility] - 2 Visits in 30 Days CARE PROVIDERS [place] [facility] 12/02/2020-Current PHONE: [phone] Adonis has no Care Guidelines for this patient. Care History Medical/Surgical 12/02/2020 [facility] - Patient is currently established with [facility]. If patient is seen in the ED during business hours. Please contact CHWs at [facility]. Care Recommendation: If this patient has had 5 or more Emergency Department visits in the last 12 months.\T\nbsp; Patient will require education on the scope and purpose of the ED as an acute care provider not a Primary Care Provider and should not be utilized for chronic conditions.\T\nbsp; These are guidelines and the provider should exercise clinical judgment when providing care. E.D. VISIT COUNT (12 MO.) 2 [facility] TOTAL 2 NOTE: Visits indicate total known visits. 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
--- NOTE | 2020-12-11 16:38 | EKG ---
[facility] [address] [place], [place] [address] Signed Atrial fibrillation with rapid ventricular response Inferior infarct , age undetermined Abnormal ECG When compared with ECG of 02-DEC-2020 08:16, No significant change was found Confirmed by JOSE BELTRAN MD ([id number]) on 12/11/2020 4:38:12 PM Electronically Signed By: JOSE BELTRAN MD 12/11/20 1638 PATIENT NAME: HUMZA ETIENNE Electrocardiogram DATE OF : 40 PHYSICIAN: JOSE BELTRAN MD REPORT #: [id number] REPORT IS CONFIDENTIAL AND NOT TO BE RELEASED WITHOUT AUTHORIZATION
== END 2020-12-11 14:28 | disposition home or self-care (01) ==
LOC: ED 12:04
DX: S00.93XA Contusion of unspecified part of head, initial encounter (principal); S00.01XA Abrasion of scalp, initial encounter; W18.39XA Other fall on same level, initial encounter; I48.91 Unspecified atrial fibrillation; E78.00 Pure hypercholesterolemia, unspecified; I25.10 Atherosclerotic heart disease of native coronary artery without angina pectoris; I10 Essential (primary) hypertension; Z79.899 Other long term (current) 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; Z79.82 Long term (current) use of aspirin; Z85.828 Personal history of other malignant neoplasm of skin
CPT/HCPCS: 70450; 71045; 72070; 72125; 80053; 81001; 83735; 84484; 85025; 85610; 85730; 90471; 90715; 93005; 93010; 99284-25

== ENCOUNTER 2020-12-14 07:24 | Emergency (ER) | payer MEDICARE, OTHER ==
[~2020-12-14] VITALS: Ht 175.3 cm; Wt 75.8 kg
--- OUTSIDE RECORDS SUMMARY | 2020-12-14 07:28 | XMS ---
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 Security Auto Air Conditioning Installer Events No recent Security Events currently on file CRITERIA MET - [facility] - 2 Visits in 30 Days CARE PROVIDERS [place] [facility] 12/02/2020-Current PHONE: [phone] Adonis has no Care Guidelines for this patient. Care History Medical/Surgical 12/02/2020 [facility] - Patient is currently established with [facility]. If patient is seen in the ED during business hours. Please contact CHWs at [facility]. Care Recommendation: If this patient has had [...] providing care. E.D. VISIT COUNT (12 MO.) 4 [facility] TOTAL 4 NOTE: Visits indicate total known visits. ED/C VISIT TRACKING (12 MO.) 12/14/2020 07:25 [facility] [place] TYPE: Emergency COMPLAINT: - FOOT PAIN/ SWELLING 12/13/2020 17:38 [facility] [place] TYPE: Emergency COMPLAINT: - FALL, LT FOOT BRUISING 12/11/2020 12:05 [facility] [place] TYPE: Emergency COMPLAINT: - FALL 12/02/2020 07:55 [facility] [place] TYPE: Emergency COMPLAINT: - BACK PN DIAGNOSES: - Personal history of nicotine dependence - Low back pain - Essential (primary) hypertension - care home (current) use of aspirin - Personal history of other malignant neoplasm of skin - Unspecified atrial fibrillation - Overexertion from prolonged static or awkward postures, initial encounter - 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
[2020-12-14] MEDS ORDERED: LOSARTAN POTASS50 MG PO (07:46)
[2020-12-14] MEDS ORDERED: BACITRACIN28.4 GM TOP (09:50)
== END 2020-12-14 10:16 | disposition home or self-care (01) ==
LOC: ED 07:24
DX: S90.32XA Contusion of left foot, initial encounter (principal); S90.31XA Contusion of right foot, initial encounter; W18.31XA Fall on same level due to stepping on an object, initial encounter; I48.91 Unspecified atrial fibrillation; E78.00 Pure hypercholesterolemia, unspecified; I25.2 Old myocardial infarction; I10 Essential (primary) hypertension; Z79.899 Other long term (current) 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; Z79.82 Long term (current) use of aspirin; Z85.828 Personal history of other malignant neoplasm of skin
CPT/HCPCS: 73610; 73630; 73700; 80048; 85025; 85610; 85730; 99283-25

== ENCOUNTER 2020-12-17 14:21 | Inpatient (IN) | payer MEDICARE, OTHER ==
[~2020-12-17] VITALS: Ht 175.3 cm; Wt 71.7 kg
[~2020-12-17 14:21] MED LIST changes: +BACITRACIN28.4 GM TOP; +LOSARTAN POTASS50 MG PO
--- OUTSIDE RECORDS SUMMARY | 2020-12-17 14:24 | XMS ---
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 Security Box Car Loader Events No recent Security Events currently on file CRITERIA MET - [facility] - 2 Visits in 30 Days CARE PROVIDERS [place] [facility] 12/02/2020-Current PHONE: [phone] Adonis has no Care Guidelines for this patient. Care History Medical/Surgical 12/02/2020 [facility] - Patient is currently established with [facility]. If patient is seen in the ED during business hours. Please contact CHWs at [facility]. Care Recommendation: If this patient has had [...] providing care. E.D. VISIT COUNT (12 MO.) 5 [facility] TOTAL 5 NOTE: Visits indicate total known visits. ED/C VISIT TRACKING (12 MO.) 12/17/2020 14:[address] 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 - Essential (primary) hypertension - Contusion of right foot, initial encounter - Pure hypercholesterolemia, unspecified - Personal history of other malignant neoplasm of skin - Old myocardial infarction - Contusion of left foot, initial encounter - Other [facility] (current) 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 - Fall on same level due to stepping on an object, initial encounter - Unspecified atrial fibrillation 12/13/2020 17:38 [facility] [place] TYPE: Emergency COMPLAINT: - FALL, LT FOOT BRUISING 12/11/2020 12:05 [facility] [place] TYPE: Emergency COMPLAINT: - FALL DIAGNOSES: - Abrasion of scalp, initial encounter - Personal history of other malignant neoplasm of skin - Pure hypercholesterolemia, unspecified - Other fall on same level, initial encounter - Atherosclerotic heart disease of holy cross coronary artery without angina pectoris - Unspecified atrial fibrillation - Other roasterman (current) 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 - Contusion of unspecified part of head, initial encounter - Essential (primary) hypertension - [facility] (current) use of aspirin 12/02/2020 07:55 [facility] [place] TYPE: Emergency COMPLAINT: - BACK PN DIAGNOSES: - Personal history of nicotine dependence - Low back pain - Essential (primary) hypertension - [facility] (current) use of aspirin - Personal history of other malignant neoplasm of skin - Unspecified atrial fibrillation - Overexertion from prolonged static or awkward postures, initial encounter - Other roasterman (current) 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 - Shortness of breath - Old myocardial infarction - Pure hypercholesterolemia, unspecified INPATIENT VISIT TRACKING (12 MO.) No inpatient visits to display in this time frame [id number]
--- NOTE | 2020-12-17 20:21 | NUR ---
ADMIT THIS 80 YR OLD MALE TO CCU FROM ED PER STRETCHER AT 1900. IS AWAKE ALERT, NO ACUTE DISTRESS. HR 120-130 AFIB. GIVEN PO 50MG METOPROLOL, MAGNESIUM REPLACEMENT STARTED. GIVEN 40MG LASIX IV AND HAS VOIDED X2 ALREADY. BREATH TONES HAVE CRACKLES R BASE 1/3 UP, CLEAR LEFT. HAS MULT BRUISES NAKUL ON ARMS. MULT SCABS ON ARMS. L ELBOW HAS REDDENED AREA UNDERNEATH ALONG WITH BRUISING. BRUISE ANT CHEST. THE TOP OF THE LEFT FOOT HAS A HEMATOMA FROM RECENT FALL, AREA IS OPEN AND OOZING BLOOD. COVERED WITH VASELINE GAUZE, GAUZE AND WRAPPED WITH KERLEX. FOOT IS COOL AND EDEMATOUS. R FOOT ASLO BRUISED WITH SMALLER OPEN AREA THAT IS OOZING BLOOD, DRESSED L FOOT. LOWER EXREMETIES ARE BRUISED TO KNEES AND ARE COOL WITH QUESTIONABLE MOTTLING AROUND KNEES. HANDS ARE ALSO COOL TO TOUCH. HR WILL INC TO 160'S BRIEFLY WHEN PT IS USING URINAL. GIVEN GRANOLA BARS PER REQUEST. INFORMED OF FLUID RESTRICTION.
--- NOTE | 2020-12-17 21:45 | NUR ---
RESTING BED WATCHING TV. HR NOW 90'S. HAS HAD GOOD RESPONSE TO LASIX .
--- NOTE | 2020-12-18 00:05 | NUR ---
SLEEPING OFF AND ON. VOIDING FREQ. ASSESSMENT DONE.
--- NOTE | 2020-12-18 02:20 | NUR ---
AWAKENED FOR MED. HR HAS BEEN 100-115. C/O INC PAIN L ELBOW, GIVEN 500MG TYLENOL PO.
--- NOTE | 2020-12-18 04:34 | NUR ---
SLEEPING AT THIS TIME. HR 80-90'S
--- NOTE | 2020-12-18 07:26 | NUR ---
REPORT RECEIVED FROM NIGHTSHIFT RN. PT LAYING IN BED AWAKE WATCHING TV. PT IN NO APPARENT DISTRESS AT THIS TIME, WILL CONTINUE PLAN OF CARE.
--- NOTE | 2020-12-18 08:10 | NUR ---
THIS RN IN TO ASSESS PT AND ADMINISTER ORDERED MEDICATIONS. PT LAYING IN BED AND IS ALERT AND ORIENTED WATCHING TV. ORDERED MEDICATIONS ADMINISTERED AT THIS TIME ALONG WITH PRN TYLENOL. PT HAD COMPLAINTS OF PAIN IN HIS LEFT ELBOW 01/18. PT WAS THEN REPOSITIONED UP IN BED FOR HIS BREAKFAST. ASSESSMENT COMPLETED AT THIS TIME. REDNESS NOTED AT LEFT ELBOW AND DRAINAGE PRESENT ON ON TOP OF L FOOT OVER DRESSING. PT NOW SITTING UP IN BED AT THIS TIME AWAKE AND ALERT. PT REPORTS NO FURTHER NEEDS AT THIS TIME, WILL CONTINUE PLAN OF CARE. CALL LIGHT IN REACH, BED IN LOWEST POSITION.
--- NOTE | 2020-12-18 08:39 | NUR ---
breakfast taken in to pt. graphics production specialist put butter and jam on muffins for him.
--- NOTE | 2020-12-18 09:40 | NUR ---
DR. LOPEZ IN ROOM TO ASSESS PT AND UPDATE ON PLAN OF CARE. PHYSICAL THERAPY ALSO IN ROOM TO WORK WITH PT. PT REPORTS NO FURTHER NEEDS AT THIS TIME, WILL CONTINUE PLAN OF CARE.
--- NOTE | 2020-12-18 10:01 | NUR ---
pt. walked using a walker and help from OT to sit in chair. bed linens changed, room picked up. television service engineer noticed right lower leg was starting to weep in one spot, rn was notified. no other needs at this time. call light with in reach
--- NOTE | 2020-12-18 10:18 | NUR ---
THIS RN IN TO ADMINISTER ADDITIONAL 25 MG OF METOPROLOL. PT SITTING IN BEDSIDE CHAIR WATCHING TV ALERT AND ORIENTED. MEDICATION ADMINISTERED AT THIS TIME. PT REPORTS HAVING 5/10 PAIN AT THIS TIME BUT DENIES WANTING ANY HOT OR COLD PACKS. PT ASSISTED IN REPOSITIONING IN CHAIR FOR COMFORT. PT REPORTS NO FURTHER NEEDS AT THIS TIME WHEN ASKED, WILL CONTINUE PLAN OF CARE. CALL LIGHT IN REACH, BED IN LOWEST POSITION.
--- NOTE | 2020-12-18 10:56 | NUR ---
P.T WORKING WITH PT. AT THIS TIME. HR NOTED TO INCREASE OT 150'S WITH EXERTION. RN IN TO CHECK ON PT. PT STANDING UP WALKING WITH PHYSICAL THERAPIST USING THE FWW. PT IS ALERT AND ORIENTED AND DENIES ANY DIZZYNESS OR LIGHTHEADEDNESS. PT REPORTS NO FURTHER NEEDS AT THIS TIME, WILL CONTINUE PLAN OF CARE.
[2020-12-18] MEDS ORDERED: METOPROLOL SUC100 MG PO (11:04)
[2020-12-18] MEDS ORDERED: CLOPIDOGREL75 MG PO (11:05)
--- NOTE | 2020-12-18 11:09 | NUR ---
THIS RN IN TO CHECK ON PT AFTER DOING PHYSICAL THERAPY. PT SITTING AT BEDSIDE CHAIR AWAKE AND ALERT. PT REPORTS NO LIGHTHEADEDNESS OR DIZZYNESS AT THIS TIME, HR AT 100-115. PT VITALS TAKEN AT THIS TIME. PT REPORTS NO FURTHER NEEDS AT THIS TIME WHEN ASKED. WILL CONTINUE PLAN OF CARE. CALL LIGHT IN REACH, BED IN LOWEST POSITION.
[2020-12-18] MEDS ORDERED: LASIX40 MG PO (11:43)
[2020-12-18] MEDS ORDERED: K-TAB ER20 MEQ PO (11:47)
[2020-12-18] MEDS ORDERED: MAGOX 400400 MG PO (11:48)
--- NOTE | 2020-12-18 12:02 | NUR ---
Medications reconciled using pharmacy records and patient interview
--- NOTE | 2020-12-18 12:10 | NUR ---
THIS RN IN TO ASSESS PT AND TAKE VITALS. PT SITTING AT BEDSIDE CHAIR AT THIS TIME AWAKE AND ALERT. PT ASSESSED AT THIS TIME. HANDS AND FEET ARE COLD, PULSES PRESENT, CAP REFILL UNDER 2 SECONDS. LUNGS SOUND MORE CLEAR BUT SPORADIC CRACKLES PRESENT IN LOWER BASES. PT DENIES SOB AT THIS TIME. IMAGING IN TO DO AN ECHO AT THIS TIME. PT HELPED TO STAND UP. PT USED URINAL AT THIS TIME TO VOID AND THEN WAS ABLE TO USED THE FWW TO WALK OVER TO THE BED. PT NOW LAYING IN BED ON SIDE GETTING AN ECHO DONE. PT REPORTS NO FURTHER NEEDS AT THIS TIME, WILL CONTINUE PLAN OF CARE.
--- NOTE | 2020-12-18 12:45 | NUR ---
ECHO COMPLETED AT THIS TIME. THIS RN IN TO BRING PT'S LUNCH TO HIM AND HELP HIM SIT UP. PT NOW IN BED SITTING UP EATING LUNCH, AT BEDSIDE. PT REPORTS NO FURTHER NEEDS AT THIS TIME WHEN ASKED, WILL CONTINUE PLAN OF CARE. CALL LIGHT IN REACH, BED IN LOWEST POSITION.
--- NOTE | 2020-12-18 13:13 | NUR ---
THIS RN IN TO CHECK ON PT. PT LAYING IN BED EATING LUNCH AT THIS TIME, AT BEDSIDE. PT REPORTS NO NEEDS AT THIS TIME. PT STATES HIS LEFT ELBOW PAIN IS ONLY AT A 3/10 AT THIS TIME AND DENIES THE NEED FOR PRN PAIN MEDICATION. PT SPO2 SPOT CHECKED AND WAS 100% ON ROOM AIR. PT REPORTS NO FURTHER NEEDS AT THIS TIME, WILL CONTINUE PLAN OF CARE. CALL LIGHT IN REACH.
--- NOTE | 2020-12-18 13:34 | EKG ---
[facility] [address] [facility] [place] [address] Signed Atrial fibrillation with rapid ventricular response Nonspecific ST abnormality Abnormal ECG When compared with ECG of 11-DEC-2020 12:42, Criteria for Inferior infarct are no longer present Nonspecific T wave abnormality, worse in Inferior leads Confirmed by DO LOPEZ MD ([id number]) on 12/18/2020 1:34:35 PM Electronically Signed By: DO LOPEZ MD 12/18/20 1334 PATIENT NAME: LOWELLHUMZA Electrocardiogram DATE OF : 40 PHYSICIAN: DO LOPEZ MD REPORT #: [id number] REPORT IS CONFIDENTIAL AND NOT TO BE RELEASED WITHOUT AUTHORIZATION
--- NOTE | 2020-12-18 15:05 | NUR ---
THIS RN IN TO CHECK ON PT. PT LAYING IN BED AWAKE AND ALERT. DRESSING ON L FOOT WAS SOILED WITH BLOOD AND WAS CHANGED. ALLEVYNS PLACED ON BOTH FEET AND WRAPPED WITH GUAZE TO HOLD IN PLACE. PT REPORTS NO FURTHER NEEDS AT THIS TIME AND WAS PROVIDED WITH WARM BLANKETS. CALL LIGHT IN REACH, BED IN LOWEST POSITION, WILL CONTINUE PLAN OF CARE.
--- NOTE | 2020-12-18 16:17 | NUR ---
PT IS SEEN FOR A WOUND CONSULT OF BILATERAL FEET. PT HAS HEMATOMAS WITH BLISTERS PRESENT AFTER A FALL. THE WOUND IS CURRENTLY DRESSED IN ALLEVYN AND WRAPPED IN GAUZE. THESE DRESSINGS ARE REMOVED AND REPLACED WITH SILVER NON-ADHESIVE FOAM, SECURED IN PLACE WITH KERLEX. DRESSINGS TO BE CHANGED EVERY 3-4 DAYS OR NEEDED FOR SOILAGE.
--- NOTE | 2020-12-18 16:34 | NUR ---
THIS RN IN TO ASSESS PT AND TAKE VITALS. PT LAYING IN BED AWAKE AND ALERT. VITALS TAKEN AT THIS TIME AND PT ASSESSED. LUNGS ARE MORE CLEAR WITH FINE CRACKLES PRESENT IN BASES BILATERALLY. PT REPORTS NO SHORTNESS OF BREATH WHEN ASKED. MICHELLE SANDOVAL IN TO HELP REPOSITION PT UP IN BED. PT NOW SITTING UP IN BED AND REPORTS NO FURTHER NEEDS WHEN ASKED, WILL CONTINUE PLAN OF CARE. CALL LIGHT IN REACH, BED IN LOWEST POSITION.
--- NOTE | 2020-12-18 17:10 | NUR ---
THIS RN IN TO ADMINISTER SCHEDULED MEDICATION. PT AWAKE AND ALERT LAYING IN BED. PT STARTED ON SCHEDULED IV ABX AND SCHEDULED MED ADMINISTERED (SEE MAR). PT DINNER ALSO BROUGHT IN AT THIS TIME. PT REPORTS NO FURTHER NEEDS AND IS NOW SITTING UP IN BED EATING DINNER, WILL CONTINUE PLAN OF CARE, CALL LIGHT IN REACH.
--- NOTE | 2020-12-18 18:58 | NUR ---
THIS RN IN TO CHECK ON PT. IV ABX COMPLETE, PT SALINE LOCKED AT THIS TIME. PT AWAKE AND ALERT LAYING IN BED. PT REPORTS NO FURTHER NEEDS WHEN ASKED, WILL CONTINUE PLAN OF CARE.
--- NOTE | 2020-12-18 20:41 | NUR ---
PATIENT PROVIDED WITH EVENING MEDICATIONS. VERBALIED UNDERSTANDING OF EACH MED. VS STABLE. HR 108-112. ASSISTED PATIENT TO REPOSITION IN BED. LUNG SOUNDS ARE CLEAR IN UPPER LOBES AND FINE CRACKLES IN DARCI BASES. TOLERATING ROOM AIR. DENIES PAIN. DRESSING ON DARCI FEET ARE INTACT. REDNESS NOTED ON LEFT ELBOW, ELEVATED ON A PILLOW. URNAL EMPTIED FOR SMALL AMOUNT OF CLEAR YELLOW URINE. PATIENT DENIED ANY FURTHER NEEDS AT THIS TIME. CALL LIGHT IN REACH.
--- NOTE | 2020-12-18 22:30 | NUR ---
PATIENT APPEARS TO BE SLEEPING SOUNDLY. VS STABLE. HR 95-105. CALL LIGHT IN REACH.
--- NOTE | 2020-12-19 00:15 | NUR ---
PATIENT SLEEPING SOUNDLY. URNAL EMPTIED. VS STABLE. PATIENT APPEARS COMFORTABLE. DRESSING ON FOOT CDI. ALLOWED PATIENT TO SLEEP. CALL LIGHT IN REACH.
--- NOTE | 2020-12-19 02:28 | NUR ---
IN TO GIVE SCHEDULE METOPROLOL PER EMAR, VITAL SIGNS STABLE. PT SLEEPING BUT WOKE EASILY AND SWALLOWED PILLS WITHOUT ISSUE. URINAL EMPTIED. PT DENIES FURTHER NEEDS.
--- NOTE | 2020-12-19 03:51 | NUR ---
RECEIVED REPORT FROM CCU RN. PATIENT AND BELONGINGS XFERED TO ROOM 119 FORM CCU. PATIENT EDUCATED ON NEW ROOM AND PLAN OF CARE. PATIENT DENIES ANY QUESTIONS. PATIENT DENIES ANY NEEDS. CALL ELI RIVERA.
--- NOTE | 2020-12-19 05:40 | NUR ---
IN TO ASSIST WITH I&Os, STANDING WEIGHT TAKEN, PT BOOSTED, FRESH ICE WATER GIVEN, NO FURTHER NEEDS AT THIS TIME
--- NOTE | 2020-12-19 05:57 | NUR ---
PATIENT ASSESMENT COMPLETED. PATIENTS WEIGHT OBTAINED AND RECORDED. VITALS TAKEN AND RECORDED. INTAKE AND OUPUT RECORDED. PATIENT IS RESTING IN BED WATCHING TV. PATIENT DENIES ANY NEEDS AT THIS TIME. CALL LIGHT AND BELINGINGS ARE WITHIN REACH.
--- NOTE | 2020-12-19 09:30 | NUR ---
PT UP WORKING W/ PHYSICAL THERAPY. CCU CALLED, HR 187. PT BACK TO CHAIR. POST PONING THERAPY. DR LOPEZ AWARE, 45 MG PO CARDIZEM ORDERED AND GIVEN.
--- NOTE | 2020-12-19 09:40 | NUR ---
It was my pleasure to round with Mr. Oconnell this morning. Mr. Oconnell reports that he is happy with his care in the facility, and he feels like "the nurse's are treating me well." He is concerned with the infection in his elbow, while he admits that the pain has been "pretty well controlled" he is concerned with the healing process, and expresses concern with the slowness of the healing. He is aware that he is on antibiotics for the infection, and I encouraged him to express his concerns with the physician when he is in the room to check on Mr. Oconnell. No other concerns were expressed at this time.
--- NOTE | 2020-12-19 11:09 | NUR ---
DR LOPEZ IN TO SEE PT. BLE BRUISING AND SKIN ALSO APPEARS MOTTLED ON LOWER EXT, W/ CAP REFILL 5 SEC. PT SOB W/ ACTIVTY, SATING 91% ON RA. HR 95-115 ON TELE 8, RHYTHM SHOWS A FIB. PT DENIES CHEST PAIN. MD AWARE. PULSE OX FOR NARE OR EAR LOBE ORDERED FOR [facility].
--- NOTE | 2020-12-19 17:03 | NUR ---
Spoke with Luis Fernando and he lives with his in a 1 story home. He has ramp, walker, and shower chair. They have a house keeper 2 x per week Pt does the shopping. He denies financial issues. Discussed place- ment on discharge for rehab. Pt does not want to discuss this at this time. Informed this was a suggestion by the Dr. Tripp. Pt states he will consider rehab.
--- NOTE | 2020-12-19 19:15 | NUR ---
SHIFT REPORT RECEIVED FROM DAYSHIFT MICHELLE PARRISH AT BEDSIDE, pt AWAKE AND RESTING IN BED. NO NEEDS VERBALIZED, CALL LIGHT IN REACH. BOARD UPDATED.
--- NOTE | 2020-12-19 20:18 | NUR ---
PATIENTS IV PUMP IS ALARMING. PATIENTS ABX HAS COMPLETED INFUSING. PATIENT IS NOW SL PER ORDER. URINAL EMPTIED. PATIENT DENIES ANY NEEDS. CALL LIGHT IN REACH.
--- NOTE | 2020-12-19 20:30 | NUR ---
ASSESSMENT COMPLETE, SCHEDULED MEDS GIVEN (SEE EMAR). VSS, pt AWAKE AND ON RA. NO DISTRESS NOTED, DENIES PAIN AND NAUSEA. NO FURTHER NEEDS, CALL LIGHT IN REACH. pt BOOSTED IN BED, ALARM ON FOR SAFETY. IV SITE WNL, FLUSHES EASILY.
--- NOTE | 2020-12-20 00:38 | NUR ---
pt RESTING QUIETLY IN BED WITH EYES CLOSED, RR EVEN AND UNLABORED. NO DISTRESS NOTED. pt APPEARS COMFORTABLE, CALL LIGHT IN REACH.
--- NOTE | 2020-12-20 01:32 | NUR ---
IN TO EMPTY URINAL FOR PT, PT BACK TO RESTIGN AT THIS TIME WITH NO FURTHER NEEDS
--- NOTE | 2020-12-20 01:58 | NUR ---
REPORT GIVEN TO MICHELLE CAMPOS TO RESUME CARE FOR pt AT THIS TIME.
--- NOTE | 2020-12-20 02:19 | NUR ---
PATIENTS VITALS TAKEN AND RECORDED. PATIENTS SCHEDULED MEDICATIONS GIVEN PER ORDER. PATIENT HAS BEEN HAVING PAUSES NOTICED ON THE TELE. DISCUSSED WITH CANDELARIA MARTINEZ IN CCU AND BOTTLE PACKER. PATIENTS LOPRESSOR WITHHELD AT THIS TIME. PATIENT DENIES ANY PAIN. NO NEEDS NOTED. CALL LIGHT IN REACH.
--- NOTE | 2020-12-20 03:48 | NUR ---
PATIENT IS RESTING IN BED WITH EYES CLOSED. PATIENT IS ON TELE#8 , HR 79
--- NOTE | 2020-12-20 05:30 | NUR ---
VITALS TAKEN AND RECORDED. INTAKE AND OUPUT RECORDED. PATIENT IS RESTING IN BED. PATIENT DENIES ANY NEEDS. CALL LIGHT IN REACH.
--- NOTE | 2020-12-20 09:45 | NUR ---
PT WAS STANDING AT SIDE OF BED WORKING WITH OT WHEN HR INCREASED TO 190. DR. DAWSON AWARE AND CALLUM DOSE ADJUSTED.
--- NOTE | 2020-12-20 09:49 | NUR ---
PATIENT UP WITH PT, NOTIFIED BY CCU THAT PATIENTS HR WAS ELEVATED. 2PA, GOT PATIENT BACK INTO BED, LEFT ARM PROPPED ON PILLOW. VITALS AND I&OS CHARTED. ICE WATER PROVIDED. MICHELLE PARRISH NOTIFIED OF CCU CALL. CALL LIGHT IN REACH
--- NOTE | 2020-12-20 11:23 | NUR ---
HELPED PHYSICAL THERAPY PULL PATIENT UP IN BED. EMPTIED PATIENT'S URINAL. CHANGED HIS PILLOW CASE ON HIS CHAIR.
--- NOTE | 2020-12-20 11:52 | NUR ---
PT ALERT, ORIENTED AND LAYING IN BED WITH TV ON. PT REMEMBERED ME FROM PREVIOUS ADMISSION. 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 CAN'T CLIMB ON BIG EQUIP- MENT BUT HAS ADJUSTED TO OTHER JOBS LESS STRENUOUS. C/O LEG SWELLING AND INFECTION IN HIS L ELBOW. DOES FEEL GOOD [facility]. HOPES TO IMPROVE ENOUGH TO DC THIS WEEKEND. GAVE PT A G.POST, HE REQUESTED PRAYER. WILL CONTINUE TO FOLLOW AND THANKED ME FOR THE VISIT
--- NOTE | 2020-12-20 16:00 | NUR ---
DRESSING TO BILAT FEET CHANGED. CLEANSED W/ NS. PICTURES TAKEN AND PLACED ON CHART. UNABLE TO COMPARE LEFT FOOT WOUND THERE WERE NO PRIOR PICTURES. A&D OINTMENT TO FEET, ALLEVYN SILVER FOAM PLACED TO TOP OF LEFT FOOT AND WRAPPED W/ KERLIX, SECURED W/ TAPE. DR. DAWSON SHOWN PICTURES. ATTEMPTED TO REACH WOUND NURSE THAT IS FOLLOWING PT IN DAY SURGERY TO F/U W/ PT, RN NOT WORKING TODAY. RIGHT FOOT HAS BLISTER SMALLER THAN DIME SIZE ON TOP OF FOOT, LEFT OPEN TO AIR. PT TOLERATED WELL. PT UP TO CHAIR AND GROUND SUPPORT AGENT TO CHANGE LINENS AND GOWN.
--- NOTE | 2020-12-20 16:57 | NUR ---
Spoke with pt and reminded of our discussion from yesterday. He states he will not go to a SNF, he will consider OP therapy, but has not made up his mind. Pt states he has been in a SNF and has also been with his in a SNF, he never wants to go back. Will discuss with and review plan on Wednesday.
--- NOTE | 2020-12-20 19:34 | NUR ---
SHIFT REPORT RECEIVED FROM FRANCOIS MARTINEZ. PT RESTING IN BED. NO NEEDS AT THIS TIME. CALL LIGHT IN REACH.
--- NOTE | 2020-12-20 20:00 | NUR ---
VS COMPLETED. SCHEDULED MED PROVIDED. NO OTHER NEEDS. CALL LIGHT IN REACH.
--- NOTE | 2020-12-20 21:55 | NUR ---
IN TO GET VITALS WITH RN, URINAL EMPTIED AT THIS TIME, NO FURTHER NEEDS
--- NOTE | 2020-12-20 22:00 | NUR ---
ASSESSMENT, VS AND I&O COMPLETED. GCS 15, A&O X4. PT IS [place]. LUNGS CLEAR IN UPPER LOBES, DIMINISHED IN LOWER LOBES. HEART TONES IRREGULAR, HR AFIB @ 100. ABD SOFT, NONTENDER, BOWEL TONES ACTIVE. CMS INTACT. ARMS AND LEGS HAVE MANY AREAS OF BRUISING, ABRASIONS AND SCABS ALL OPEN TO AIR. MOTTLING NOTED FEET TO KNEES. ALLEVYN ON COCCYX RED BUT BLANCHABLE AREA. FEET HAVE BRUISING ON TOP AND BOTTOM. DORSAL LEFT FOOT HAS RED OPEN WOUND COVERED IN GAUZE AND WRAPPED, 2+ EDEMA. RIGHT DORSAL FOOT HAS SMALL INTACT BLISTER, COVERED WITH SOCK. PULSES STEADY BUT FAINT. IV WNL, CDI, FLUSHED WELL. PT DENIES PAIN. SCHEDULED MEDS PROVIDED. NO OTHER NEEDS AT THIS TIME. PT ENCOURAGED TO LAY SIDE TO SIDE TO GET OFF COCCYX, PT VERBALIZES UNDERSTANDING. CALL LIGHT IN REACH.
--- NOTE | 2020-12-20 23:00 | NUR ---
PT RESTING IN BED, CALL LIGHT IN REACH.
--- NOTE | 2020-12-21 01:00 | NUR ---
PT RESTINDG IN BED, CALL LIGHT IN REACH.
--- NOTE | 2020-12-21 02:45 | NUR ---
ASSESSMNET AND VS COMPLETED. SCHEDULED MED PROVIDED. TELE HR AFIB @ 80. HEART TONES IRREGULAR. LUNGS CLEAR IN UPPER LOBES, DIMINISHED IN LOWER LOBES. ABD SOFT, NONTENDER, BOWEL TONES ACTIVE. PT REPORTS TINGLING IN TIPS OF FINGERS AND TOES, SAYS HE HAS TINGLING OFTEN. RLE 1+ EDEMA, LLE TRACE EDEMA. WOUNDS AND DRESSING UNCHANGED, PULSE AND MOTOR INTACT IN FEET AND HANDS. BRUISING AND ABRASIONS UNCHANGED. REDNESS NOTED AT ELBOW. IV WNL. NO OTHER NEEDS. CALL LIGHT IN REACH.
--- NOTE | 2020-12-21 05:00 | NUR ---
PT RESTING IN BED, EYES CLOSED. CALL LIGHT IN REACH.
--- NOTE | 2020-12-21 06:30 | NUR ---
IN TO GET VITALS, I&Os, DAILY WEIGHT, EMPTIED URINAL, ICE WATER REFILLED AT THIS TIME, NO FURTHER NEEDS
--- NOTE | 2020-12-21 08:40 | NUR ---
IN TO GIVE PT MORNING MEDICATIONS. SITTING UP IN CHAIR FOR BREAKFAST. VSS. HR STABLE W/ AMBULATION EVEN PRIOR TO MORNING DOSE OF CARDIZEM AND METOPROLOL. BUN AND CR ELEVATED THIS MORNING AND DR DAWSON REDUCED LASIX DOSE TO 40 MG IV. ASSESSMENT COMPLETE. LUNG SOUNDS CLEAR, DIM IN BASES. PT IS ALERT AND ORIENTED X4, VERY [place] AND HAS HEARING AIDS IN PLACE. BOWELS ARE ACTIVE, PT CONTINUES TO TOLERATE REGULAR DIET AND DENIES NAUSEA. LAST BM 12/20. +2 PITTING EDEMA IN BILAT ANKLES, LLE DRESSING REMAINS C,D,I. PT SBA W/ FWW. TELE 8 CONTINUES TO SHOW A FIB W/ HR 90-105. PT GIVEN CALL LIGHT, DENIES FURTHER NEEDS.
--- NOTE | 2020-12-21 09:30 | NUR ---
MAGNESIUM LAB 1.6, ORDERS TO GIVE 3 G IV MAG, NOW INFUSING.
--- NOTE | 2020-12-21 10:47 | NUR ---
PATIENT IN CHAIR TALKING WITH VISITOR. VITALS AND I&O'S CHARTED. AM CARE DONE. CALL LIGHT IN REACH. NO FURTHER NEEDS AT THIS TIME.
--- NOTE | 2020-12-21 11:30 | NUR ---
PHYSICAL THERAPY IN WORKING WITH PT. HR STABLE, PT TOLERATING WELL.
--- NOTE | 2020-12-21 13:00 | NUR ---
IN TO HANG IV VANCO FOR INFUSION, LAC IV REMAINS PATENT, NO REDNESS OR SWELLING TO SITE. PT IS BACK IN BED HE HAS BEEN UP IN CHAIR FOR MOST THE MORNING. TOLERATED PHYSICAL THERAPY WELL AND IS REPORTEDLY PROGRESSING PER PT. CONTINUES TO BE 1PA SBA, ALTHOUGH HE IS AT TIMES ABLE TO GET UP FROM CHAIR ON HIS OWN W/ WALKER. PT CALLS APPROPRIATELY. REMAINS ALERT AND ORIENTED X4. ALLEVYN TO COCCYX CDI. PT C/O LESS OF BOTTOM SORENESS TODAY. STATES HE WOULD LIKE TO REST FOR A BIT IN BED. CALL LIGHT IN REACH.
--- NOTE | 2020-12-21 14:51 | NUR ---
VANCO INFUSION COMPLETE, LAC IV SALINE LOCKED. PT SLEEPING, CHEST RISE/FALL VISUALIZED. HR IN 60'S WHILE SLEEPING.
--- NOTE | 2020-12-21 18:27 | NUR ---
DR CAMPOS IN TO DRAIN HEMATOMAS ON BOTH FEET. DRESSED W/ PACKING, XEROFORM, GAUZE, ABD, KERLIX AND COBAN ON BOTH FEET. PT TOLERATED MODERATELY WELL. TYLENOL GIVEN FOR BILAT FEET PAIN, PT DENIED NEED FOR FURTHER PAIN MEDICATION. SITTING UP IN BED. VSS. I/0'S CHARTED. PT HAS HAD SUFFICIENT URINE OUTPUT AND REMAINS WELL WITHIN THE 1600 ML FLUID RESTRICTION. DENIES FURTHER NEEDS. CALL LIGHT IN REACH.
--- NOTE | 2020-12-21 19:30 | NUR ---
SHIFT REPORT FROM NURSE PARRISH. PT IS AWAKE AND ALERT IN BED, REQUESTS A WARM BLANKET WHICH IS PROVIDED. CALL LIGHT WITHIN REACH.
--- NOTE | 2020-12-21 20:31 | NUR ---
IN ROOM FOR EVENING ASSESSMENT AND SATURATOR. PT IS AWAKE AND ALERT IN BED, REPORTS NO PAIN. VSS ALTHOUGH SYSTOLIC BP 101 WHICH REQUIRES HOLDING CARDIZEM AT THIS TIME. BLE EDEMA REMAINS PITTING MID CALF TO FEET. WOUND DRESSINGS BILATERAL FEET CDI. PT IS TOLERATING FLUID RESTRICTION WELL. IV FLUSHES WELL. LUNG SOUNDS CLEAR, CMS INTACT, BOWEL TONES ACTIVE. PER DAY SHIFT, PT HAD LARGE BM SO HELD EVENING BOWEL MEDS. REPOSITIONED PT IN BED, PT DENIES FURTHER NEEDS AT THIS TIME. CALL LIGHT WITHIN REACH.
--- NOTE | 2020-12-21 21:50 | NUR ---
CALL LIGHT ANSWERED, HOB LOWERED FOR pt COMFORT. URINAL EMPTIED, 150MLS CLEAR YELLOW URINE NOTED. NO FURTHER NEEDS, CALL LIGHT IN REACH.
--- NOTE | 2020-12-21 23:59 | NUR ---
CHECKED ON PT. PT APPEARS TO BE SLEEPING WITH EYES CLOSED, EVEN UNLABORED BREATHING NOTED. CALL LIGHT WITHIN REACH.
--- NOTE | 2020-12-22 02:10 | NUR ---
0200 CARDIZEM ADMINISTERED. PT WAS USING URINAL THIS PT ENTERED ROOM. 300ML URINE EMPTIED. BP SYSTOLICALLY 124 SO CARDIZEM GIVEN. NO FURTHER NEEDS AT THIS TIME. CALL LIGHT WITHIN REACH.
--- NOTE | 2020-12-22 04:52 | NUR ---
IN ROOM TO CHANGE TELE BATTERY, EMPTY URINAL. PT WAS ASLEEP THIS ENTERS ROOM BUT DOES AWAKE TO ACTIVITY. NO CARE NEEDS AT THIS TIME. CALL LIGHT WITHIN REACH.
--- NOTE | 2020-12-22 06:19 | NUR ---
IN ROOM FOR MORNING ASSESSMENT, VITALS, WEIGHT. VSS. NO CHANGE TO BLE EDEMA, LUNG SOUNDS CLEAR. URINE OUTPUT GOOD; FLUID RESTRICTION WAY UNDER DAILY LIMIT. PT DENIES FURTHER NEEDS, CALL LIGHT WITHIN REACH.
--- NOTE | 2020-12-22 08:58 | NUR ---
Patient sitting up in bed eating breakfast. alert and oriented x4. Patient denies pain at this time. Patient on tele; heart rate 80-90's. Patient reports he slept well last night. Personal supplies and call light within reach.
--- NOTE | 2020-12-22 10:01 | NUR ---
Patient walked in hallway with this RN. Pt tolerated well, standby assist with walker.
--- NOTE | 2020-12-22 11:25 | NUR ---
Patient had an 8 beat run of v-tach per CCU report. Vital signs taken at this time and stable. Patient denies sob and chest pain. Patient is asymptomatic at this time. Patient reports feeling well. Dr. Altamirano to be notified.
--- NOTE | 2020-12-22 14:01 | NUR ---
Patient sitting up in chair visiting with his . Patient denies pain at this time. Patient has no reported needs. Personal supplies and call light within reach.
--- NOTE | 2020-12-22 16:53 | NUR ---
DRESSING CHANGE COMPLETED WITH DR CAMPOS TO DORSUM OF LEFT AND RIGHT FOOT WOUNDS. CLEANED WITH WOUND CLEANSER AND GAUZE. FLUSHED WOUNDS WITH NORMAL SALINE. COVERED WITH XERFORM, GAUZE, ABD AND WRAPPED WITH CAST PADDING AND COBAN. PT TOLERATED DRESSING CHANGE WITH C/O OF PAIN.
--- NOTE | 2020-12-22 19:10 | NUR ---
SHIFT REPORT FROM NURSE COLLIER. PT AWAKE IN BED, DENIES NEEDS AT THIS TIME. CALL LIGHT WITHIN REACH.
--- NOTE | 2020-12-22 19:44 | NUR ---
PT C/O "STINGING" PAIN IN FEET. 500MG PO TYLENOL ADMINISTERED AT THIS TIME.
--- NOTE | 2020-12-22 20:56 | NUR ---
IN ROOM FOR EVENING MEDS, VITALS, ASSESSMENT. PT IS A/O X4, AWAKE BUT STATES HE IS READY TO SLEEP. THIS RN OFFERED TO WALK PT IN HALLS; PT DECLINES. VSS. FEET BANDAGES CDI. BLE 2+ PITTING STILL. PT REFUSES BOWEL MEDS HE "DOESNT WANT TO GET UP TO HAVE A BM" TONIGHT. PT STATES HE IS LOOKIG FORWARD TO GOING HOME TOMORROW. CALL LIGHT WITHIN REACH. BED ADJUSTED. NO FURTHER NEEDS AT THIS TIME.
--- NOTE | 2020-12-22 23:28 | NUR ---
ROUNDS: PT APPEARS TO BE SLEEPING; EYES CLOSED, EVEN BREATHING NOTED. CALL LIGHT WITHIN REACH.
--- NOTE | 2020-12-23 01:25 | NUR ---
CHECKED ON PT: PT AWAKE; EMPTIED URINAL OF CLEAR YELLOW URINE. PT DENIES NEEDS AT THIS TIME. CALL LIGHT WITHIN REACH.
--- NOTE | 2020-12-23 04:41 | NUR ---
ROUNDS: PT AWAKE THIS NURSE ENTERS ROOM. URINAL EMPTIED; DENIES FURTHER NEEDS AT THIS TIME. CALL LIGHT WITHIN REACH.
--- NOTE | 2020-12-23 05:27 | NUR ---
IN ROOM FOR MORNING ASSESSMENT, VITALS. VSS. PT UP TO STANDING SCALE, BED REFRESHED. FRESH WARM BLANKET PROVIDED PER REQUEST. BLE 2-3+ PITTING DESPITE FURTHER KILO WEIGHT LOSS. FEET BANDAGES CDI. CMS INTACT, BOWEL TONES ACTIVE, LUNG SOUNDS CLEAR. COFFEE PROVIDED WITHIN 1600ML FLUID RESTRICTION. CALL LIGHT WITHIN REACH.
--- NOTE | 2020-12-23 07:05 | NUR ---
Report received from Maty MARTINEZ. Pt resting in bed, A+O, states no needs at this time. Will continue plan of care.
--- NOTE | 2020-12-23 07:52 | NUR ---
PT AWAKE IN BED WATCHING TV. WHITE BOARD UPDATED, COFFEE GIVEN, WARM CLOTH GIVEN FOR FACE. CALL LIGHT WITHIN REACH. NO FURTHER NEEDS AT THIS TIME.
--- NOTE | 2020-12-23 08:25 | NUR ---
Scheduled medications administered, assessment complete. Pt states no pain at this time, no needs. Breakfast completed. VSS, A+O. Dressings to BLE C/D/I. Reviewed plan of care with pt who is agreeable. Call light in reach
[2020-12-23] MEDS ORDERED: METOPROLOL SUC100 MG PO (08:55)
[2020-12-23] MEDS ORDERED: CEPHALEXIN500 MG PO (08:55)
[2020-12-23] MEDS ORDERED: DILTIAZEM 24HR180 M1 PO (08:56)
[2020-12-23] MEDS ORDERED: HYDROCORTISONE10 MG PO (09:05)
[2020-12-23] MEDS ORDERED: LASIX40 MG PO (09:05)
[2020-12-23] MEDS ORDERED: LIPITOR40 MG PO (09:05)
[2020-12-23] MEDS ORDERED: MAGOX 400400 MG PO (09:05)
[2020-12-23] MEDS ORDERED: K-TAB ER20 MEQ PO (09:05)
[2020-12-23] MEDS ORDERED: ELIQUIS5 MG PO (09:05)
--- NOTE | 2020-12-23 10:30 | NUR ---
Spoke with Luis Fernando, he plans on dc to home today. He has seen Dr. Bird and has an appt. His will pick him up when he gets dressed. He states pharmacy was here and explained meds. He denies questions and just wants to go home. Staff state they are awaiting his for dc. Updated Luis Fernando and he states his broke her leg a year ago and she will not walk into the hospital. Rn notified and will given instructions to pt abd in the car.
--- NOTE | 2020-12-23 10:39 | NUR ---
PT DISCHARGED TO HOME, TEACHING AND INSTRUCTIONS PROVIDED, PT VERBALIZES UNDERSTANDING AND ALL QUESTIONS ANSWERED. DISCHARGED VIA WHEELCHAIR WITH ALL BELONGINGS IN HAND. VITALS STABLE, A+O WITH NO PAIN OR NEEDS.
--- NOTE | 2020-12-24 13:19 | NUR ---
Heart Failure follow up phone call: Spoke to Luis Fernando Oconnell , previously he wanted to DC cardiac rehab due to other problems. I encouraged him to call op PT as ordered upon DC . He wants to get his feet healed first and agrees to see Dr Bird tomorrow. No questions about DC med changes. Recommended he continue daily weight monitoring.
--- NOTE | 2021-01-14 10:30 | NUR ---
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 He has 4 steps with rails into his trialer . He uses a cpap and has 02 in the home. He also has a walker from a previous surgery. He does not use his walker, but holds onto asencio and furniture when he walks. He uses inhalers. Plans on dc to home when cleared medically. works, but he does not see this as an issues. 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
== END 2020-12-23 10:39 | disposition home or self-care (01) | DRG 988 ==
LOC: ED 14:21 → MS 18:31 → CCU 18:31 → MS 12-19 04:01
PROVIDERS: ADMIT Internal Medicine; ATTEND Internal Medicine
PROC: 0J9R0ZZ Drainage of Left Foot Subcutaneous Tissue and Fascia, Open Approach (ICD-10-PCS; principal; 2020-12-21)
PROC: 0JCQ0ZZ Extirpation of Matter from Right Foot Subcutaneous Tissue and Fascia, Open Approach (ICD-10-PCS; 2020-12-21)
DX: I11.0 Hypertensive heart disease with heart failure (principal); E27.40 Unspecified adrenocortical insufficiency; L03.114 Cellulitis of left upper limb; I96 Gangrene, not elsewhere classified; I50.33 Acute on chronic diastolic (congestive) heart failure; Z20.822 Contact with and (suspected) exposure to COVID-19; I48.91 Unspecified atrial fibrillation; K21.9 Gastro-esophageal reflux disease without esophagitis; E78.5 Hyperlipidemia, unspecified; R29.6 Repeated falls; S90.822A Blister (nonthermal), left foot, initial encounter; S90.821A Blister (nonthermal), right foot, initial encounter; S90.31XA Contusion of right foot, initial encounter; W19.XXXA Unspecified fall, initial encounter; Z79.899 Other long term (current) 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; Z79.01 Long term (current) use of anticoagulants; Z79.82 Long term (current) use of aspirin
CPT/HCPCS: 36415; 80048; 80053; 80202; 82550; 83605; 83735; 83880; 84484; 85025; 85610; 93005; 93010; 93306; 93925; 97110; 97116; 97162; 97165; 97530; 99285-25; C9803; J1940; J3370; J3475; J7060; U0003

== ENCOUNTER 2021-04-23 07:30 | Day surgery (SDC) | payer MEDICARE, OTHER ==
[~2021-04-23] VITALS: Ht 175.3 cm; Wt 69.1 kg
[~2021-04-23 07:30] MED LIST changes: +BAYER CHEWABLE81 MG PO; +CEPHALEXIN500 MG PO; +CLOPIDOGREL75 MG PO; +DIGOX125 MCG PO; +DILTIAZEM 24HR180 M1 PO; +K-TAB ER20 MEQ PO; +LASIX40 MG PO; +LIPITOR80 MG GT; +MAGOX 400400 MG PO; +VENTOLIN HFA18 GM INH
--- NOTE | 2021-04-23 10:19 | NUR ---
04/23/21 Sonia9 Thania Gramajo 1012-PATIENT ARRIVED TO PACU ON 6L MASK RR EVEN NONAROUSABLE, LAYING LEFT LATERAL. ABDOMEN SOFT. IVF INFUSING. AFIB
--- NOTE | 2021-04-24 07:31 | OR ---
[facility] [address], [place] [address] Signed DATE OF OPERATION: 04/23/2021 SURGEON: Nubia Yu MD PREOPERATIVE DIAGNOSES: 1. Personal history of colonic polyps. 2. Diverticulosis. POSTOPERATIVE DIAGNOSES: 1. 10 mm polyp at 80 cm (snare). 2. 4 mm polyps x3, proximal right colon. 3. 4 mm polyp distal right colon. 4. 4 mm polyp at 32 cm. 5. Moderate sigmoid diverticulosis. 6. Moderate internal hemorrhoids. PROCEDURE: Colonoscopy with hot biopsy and snare polypectomy. ESTIMATED BLOOD LOSS: None. INDICATIONS: Luis Fernando is an 80-year-old gentleman, asked to see me for followup colonoscopy. In 2011, he underwent a colonoscopy with Dr. Mosqueda and had an adenomatous polyp removed along with hyperplastic polyps. He was also known to have diverticulosis. Apparently, he has a history of adenomatous polyps prior to that. He thinks he had one colonoscopy prior to 2011. I helped him with a colonoscopy in 2016. We removed an adenomatous polyp from the cecum and of course we noted his diverticulosis. Luis Fernando currently has no specific lower GI complaints. In the office, I gave Luis Fernando a booklet on colonoscopy. We had reviewed the nature of that test. He understands there is risk including, but not limited to gas bloating, crampy abdominal pain, bleeding, perforation requiring surgery, and missed diagnosis. We also discussed the need for IV conscious sedation. Luis Fernando's health has been declining and he has chronic atrial fibrillation along with Daljit's disease. He is known to have coronary artery disease with a prior [place] and has a cardiac stent. Given those findings, we asked that he has monitored anesthesia care with propofol infusion. He had expressed understanding and wished to proceed. PROCEDURE NOTE: Luis Fernando was taken into our endoscopy suite and placed in the left lateral decubitus Electronically Signed By: NUBIA YU MD 04/24/21 0731 PATIENT NAME: LUIS FERNANDO ETIENNE OPERATIVE REPORT DATE OF : 40 REPORT #: [id number] PHYSICIAN: NUBIA YU MD PCP: NIKI DRAKE MD REPORT IS CONFIDENTIAL AND NOT TO BE RELEASED WITHOUT AUTHORIZATION [facility] [address] [place], [place] [address] Signed position. He was given IV sedation with propofol per our nurse drum tester. A digital rectal exam was performed and this showed moderate induration to the prostate gland. The adult colonoscope was introduced and advanced under direct visualization of the camera. We approached the polyp at 80 cm in spasm, so we gave 1 mg IV glucagon. That helped with the colonic spasm. He also received 60 mg of Solu-Medrol IV preop. He also received preoperative antibiotics because of his hip replacements. We used a combination of a snare and hot biopsy forceps to remove the polyp at 80 cm. The scope was then bent, advanced all around into the cecum itself. We could easily see the appendiceal orifice and the ileocecal valve. The scope was then slowly withdrawn. We took pictures throughout for photodocumentation. The rest of the polyps were removed with the help of hot biopsy forceps. Again, he has moderate diverticula in the sigmoid colon. They were moderate in size, moderate in number, and scattered about. Once in the rectum, the scope had been retroflexed, he does have moderate internal hemorrhoid columns. After this, the gas was suctioned out and colonoscope removed. Luis Fernando tolerated the procedure quite well. RECOMMENDATIONS: I will see Luis Fernando back in my office in 7 to 14 days to review his results. He would generally stay on the 5-year rotation. If he is within 8-10 years of the end of his life, he can discontinue colonoscopies. Nubia Yu MD ALB/MODL /[id number] cc: MD Niki Esparza MD Copies: NUBIA YU MD ~ Electronically Signed By: NUBIA YU MD 04/24/21 0731 PATIENT NAME: LUIS FERNANDO ETIENNE OPERATIVE REPORT DATE OF : 40 REPORT #: [id number] PHYSICIAN: NUBIA YU MD PCP: NIKI DRAKE MD REPORT IS CONFIDENTIAL AND NOT TO BE RELEASED WITHOUT AUTHORIZATION
== END 2021-04-23 11:04 | disposition home or self-care (01) ==
LOC: OPS 07:30 → DS 07:30 → OPS 08:55 → DS 09:30 → OPS 11:04
PROVIDERS: ATTEND Colon & Rectal Surgery
PROC: 0DBE8ZZ Excision of Large Intestine, Via Natural or Artificial Opening Endoscopic (ICD-10-PCS; 2021-04-23)
PROC: 0DBF8ZZ Excision of Right Large Intestine, Via Natural or Artificial Opening Endoscopic (ICD-10-PCS; principal; 2021-04-23 08:55)
DX: D12.2 Benign neoplasm of ascending colon (principal); K57.30 Diverticulosis of large intestine without perforation or abscess without bleeding; K64.8 Other hemorrhoids; I25.10 Atherosclerotic heart disease of native coronary artery without angina pectoris; I48.20 Chronic atrial fibrillation, unspecified; E27.1 Primary adrenocortical insufficiency; I25.2 Old myocardial infarction; I10 Essential (primary) hypertension; Z95.5 Presence of coronary angioplasty implant and graft; Z96.643 Presence of artificial hip joint, bilateral; Z87.891 Personal history of nicotine dependence; Z79.01 Long term (current) use of anticoagulants; Z79.82 Long term (current) use of aspirin
CPT/HCPCS: 88305; J0690; J1610; J2704; J2920; J7121

== ENCOUNTER 2021-09-05 14:29 | Emergency (ER) | payer MEDICARE, OTHER ==
[~2021-09-05] VITALS: Ht 175.3 cm; Wt 70.8 kg
[~2021-09-05 14:29] MED LIST changes: +ACETAMINOPHEN500 MG PO; +FUROSEMIDE40 MG PO; -LIPITOR80 MG GT; +LIPITOR80 MG PO
[2021-09-05] MEDS ORDERED: DOXYCYCLINE MO100 MG PO (14:51)
== END 2021-09-05 16:31 | disposition home or self-care (01) ==
LOC: ED 14:29
DX: S41.111A Laceration without foreign body of right upper arm, initial encounter (principal); M70.22 Olecranon bursitis, left elbow; I48.91 Unspecified atrial fibrillation; E78.00 Pure hypercholesterolemia, unspecified; I25.2 Old myocardial infarction; I10 Essential (primary) hypertension; Z85.828 Personal history of other malignant neoplasm of skin; Z79.01 Long term (current) use of anticoagulants; Z79.899 Other long term (current) 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; X58.XXXA Exposure to other specified factors, initial encounter
CPT/HCPCS: 99283

== ENCOUNTER 2021-12-22 12:00 | Emergency (ER) | payer MEDICARE, OTHER ==
[~2021-12-22] VITALS: Ht 175.3 cm; Wt 70.8 kg
[~2021-12-22 12:00] MED LIST changes: +DOXYCYCLINE MO100 MG PO
[2021-12-22] MEDS ORDERED: K-TAB10 MEQ PO (14:46)
--- NOTE | 2021-12-22 21:29 | EKG ---
[facility] [address] [place] [address] Signed Atrial fibrillation Inferior infarct , age undetermined Abnormal ECG When compared with ECG of 17-DEC-2020 17:23, Vent. rate has decreased BY 45 BPM Inferior infarct is now present Confirmed by JOSE BELTRAN MD ([id number]) on 12/22/2021 9:29:43 PM Electronically Signed By: JOSE BELTRAN MD 12/22/212128 PATIENT NAME: LOWELLHUMZA REYMUNDO Electrocardiogram DATE OF : 40 PHYSICIAN: JOSE BELTRAN MD REPORT #: [id number] REPORT IS CONFIDENTIAL AND NOT TO BE RELEASED WITHOUT AUTHORIZATION
== END 2021-12-22 15:07 | disposition home or self-care (01) ==
LOC: ED 12:00
DX: I11.0 Hypertensive heart disease with heart failure (principal); I50.9 Heart failure, unspecified; I48.91 Unspecified atrial fibrillation; E78.00 Pure hypercholesterolemia, unspecified; I25.2 Old myocardial infarction; I10 Essential (primary) hypertension; Z79.899 Other long term (current) 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
CPT/HCPCS: 36415; 71045; 80053; 83735; 83880; 84484; 85025; 85060; 93005; 93010; 99285-25

== ENCOUNTER 2022-03-25 10:20 | Day surgery (SDC) | payer MEDICARE, OTHER ==
[~2022-03-25] VITALS: Ht 175.3 cm; Wt 68.2 kg
[~2022-03-25 10:20] MED LIST changes: +B COMPLEX1 EACH PO; +COZAAR50 MG PO; +JARDIANCE25 MG PO; +K-TAB10 MEQ PO
--- NOTE | 2022-03-27 14:07 | PATH ---
[facility] [address] [place], [place] [address] Signed SPECIMEN(S): A BONE MARROW - CORE SPECIMEN(S): B BONE MARROW - ASPIRATION SPECIMEN(S): C FLOW CYTOMETRY IN BM EDTA CLINICAL HISTORY: 81-year-old male with chronic leukocytosis and anemia. 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 - Granulocytic shift toward immaturity including myelocytes. - Negative for circulating blasts. - Mild normocytic, normochromic anemia. Bone marrow aspirate smears, clot section/cell block, and trephine biopsy: - Slightly hypercellular bone marrow with minimal dyspoiesis. - Mild increase in bone marrow reticulin fibrosis (MF-1). - Negative for increase in plasma cells or infiltrative bone marrow processes. - Please see Diagnostic Comment. DIAGNOSTIC COMMENT: Patient history of leukocytosis and negative BCR/ABL is noted. The current bone marrow evaluation is significant for slight hypercellularity and minimal dyserythropoiesis. Findings are not diagnostic of myelodysplastic syndrome (MDS). Correlation with pending cytogenetic studies and FISH panel for MDS will be helpful for further classification/diagnosis. This case is reviewed and dictated by Alee Butts MD. A board-certified hematopathologist. NA:smn:C2NR PERIPHERAL BLOOD: HEMOGRAM ([facility]; 03/25/2022): WBC 16.1 K/uL, RBC 4.07 M/uL, HGB 10.7 g/dL, HCT 34.2%, MCV 84.0 fL, MCH 26.2 pg, MCHC 31.2 g/dL, RDW 18.3%, PLT 295 K/uL. DIFFERENTIAL COUNT (manual): 75% neutrophils, 4% myelocytes, 15% lymphocytes, 6% monocytes. Review of peripheral blood smear and CBC data demonstrate that the RBCs are slightly decreased in number with mild normocytic, normochromic anemia present. No nucleated RBCs are encountered. No rouleaux formation is identified. WBCs are increased in number with neutrophilia present. The granulocytes show shift toward immaturity including PATIENT NAME: HUMZA ETIENNE PATHOLOGY DATE OF : 40 REPORT #: [id number] PHYSICIAN: CAROL PATHOLOGY PCP: ORLANDO DRAKE MD REPORT IS CONFIDENTIAL AND NOT TO BE RELEASED WITHOUT AUTHORIZATION [facility] [address] [place], [place] [address] Signed occasional metamyelocytes. No blasts are identified. The platelets are normal in number and unremarkable in morphology. BONE MARROW: BONE MARROW ASPIRATE SMEARS AND TOUCH IMPRINTS: The bone marrow aspirate smears are adequately cellular for evaluation. Trilineage hematopoiesis is present with progressive ordinary maturation. The M:E ratio appears normal. No increase of blasts is identified. Minimal dyserythropoiesis is noted characterized by occasional nuclear budding. The megakaryocytes are scattered with occasional evenly lobated forms seen. BONE MARROW DIFFERENTIAL: 2% blasts, 2% promyelocytes, 7% myelocytes, 46% segmented neutrophils, 8% lymphocytes, 1% monocytes, 2% eosinophils, 1% basophils, 1% plasma cells, and 30% erythroid. BONE MARROW CORE BIOPSY AND CLOT SECTION: The bone marrow core biopsy demonstrates slightly hypercellular bone marrow for age with an averaging cellularity of 30%. Trilineage hematopoiesis is present with ordinary maturation. There is no increase in blasts noted. No lymphoid aggregates, granulomas, or metastatic tumor cells present. The megakaryocytes are scattered and appear normal in number and distribution. The clot section shows similar findings. SPECIAL STAINS (with appropriately active control): - Iron (aspirate smears): Present, decreased, negative for ring sideroblasts. - Iron (clot section): Absent, negative for ring sideroblasts. - Reticulin stain (block A1): Mild increase in bone marrow reticulin fibrosis (MF-1). IMMUNOHISTOCHEMICAL STAINS (performed on block A1 with appropriately active control): - CD34: Highlights scattered positive cells with no increase in blasts noted. - CD117: Highlights scattered positive cells with no increase in blasts noted. - MPO: Highlights myeloid precursors. - CD71: Highlights erythroid precursors. - Factor VIII: Highlights megakaryocytes. NA:smn FLOW CYTOMETRY: Bone marrow aspirate, flow cytometry: - No increase in blasts (0.4% myeloblasts). - Normal myeloid maturation. - Monocytes with variable marking. PATIENT NAME: HUMZA ETIENNE PATHOLOGY DATE OF : 40 REPORT #: [id number] PHYSICIAN: CAROL PATHOLOGY PCP: ORLANDO DRAKE MD REPORT IS CONFIDENTIAL AND NOT TO BE RELEASED WITHOUT AUTHORIZATION [facility] [address] [place], [place] [address] Signed - No atypical lymphoid cell population. - See Comment. COMMENT: The monocytes are not increased with some increase in CD56 expression noted. No other hematopoietic abnormality is detected in this study. Correlation with clinical, morphologic, and genetic findings is recommended for full interpretation and to assess for disease processes not fully examined by flow cytometry analysis, including myelodysplastic syndrome and myeloproliferative neoplasm. FLOW CYTOMETRY ANALYSIS: FLOW DIFFERENTIAL (% Total CD45 vs. SSC gating): Myeloid 86%; Lymphoid 7%; Monocyte 3%; Dim CD45/Blast: 0.4%. Cell Count: 3.8 x 10*3/uL. POPULATION ANALYSIS: BLASTS: Analysis of the dim CD45 gate demonstrates 0.4% myeloblasts by CD34/CD117. LYMPHOID CELLS: The lymphocyte gate comprises 7% of total events and includes 65% T-cells with a CD4:CD8 ratio of 1.7:1 and normal farnsworth T-cell antigen expression. 5% of lymphocytes are polyclonal B-cells with a kappa:lambda ratio of 2.0:1. The remainders are NK-cells. MYELOID CELLS: The myeloid population comprises 86% of the total events. No aberrant immunophenotypic expression is detected. MONOCYTES: The monocyte population comprises 3% of the total events. Monocytes are not increased. Some increased CD56 expression is observed. PLASMA CELLS: 0.4% plasma cells are detected in the screening gate neg-dimCD45/CD38. Plasma cells are CD45 dim and positive for CD19. ANTIBODIES USED: KAPPA, LAMBDA, CD20, CD10, CD19, CD23, CD38, CD16, CD56, CD8, CD5, CD2, CD4, CD7, CD3, CD14, CD33, CD13, HLADR, CD34, CD117, CD15, CD45. TOTAL ANTIBODIES USED: 23. JNB FINAL DIAGNOSIS PERFORMED BY: Alee Butts MD, FACP, Mar 26 2022 10:59AM CYTOGENETICS: Pending, to be reported by addendum. FISH ANALYSIS: Pending, to be reported by addendum. GROSS DESCRIPTION: Two specimens are received in two containers, labeled "JH." A. The specimen, labeled "JH, bone marrow core biopsy," is received in PATIENT NAME: HUMZA ETIENNE PATHOLOGY DATE OF : 40 REPORT #: [id number] PHYSICIAN: CAROL PATHOLOGY PCP: ORLANDO DRAKE MD REPORT IS CONFIDENTIAL AND NOT TO BE RELEASED WITHOUT AUTHORIZATION [facility] [address] [place], [place] [address] Signed formalin and consists of one pink-reeder, needle core, bone tissue fragment that measures 1.4 cm in length and up to 0.1 cm in diameter. Specimen is left for decalcification in Immunocal prior to processing. Specimen is entirely submitted in cassette (A1). B. The specimen, labeled "JH, bone marrow clot," is received in formalin and consists of coagulated blood that measures 2.0 x 1.2 x 0.6 cm. Specimen is entirely submitted in cassette (B1). JS (under the direct supervision of a pathologist) The Gross Description was prepared using a voice recognition system. The report was reviewed for accuracy; however, sound-alike word errors, addition and/or deletions may occur. If there is any question about this report, please contact Client Services. ADDITIONAL NOTES: Immunohistochemical and/or in situ hybridization studies were performed on this case with the appropriate positive controls that react as expected. This test was developed and its performance characteristics determined by [facility]. It has not been cleared or approved by the U.S. Food and Drug Administration. The FDA has determined that such clearance or approval is not necessary. This test is used for clinical purposes. It should not be regarded as investigational or for research. [facility] is certified under the Clinical Laboratory Improvement Amendments of 1988 (CLIA) as qualified to perform high complexity clinical laboratory testing. This assay has not been validated for specimens that have been decalcified. In this case, certain antibodies were performed by both immunohistochemistry and flow cytometry analysis because flow cytometry analysis did not fully explain all the light microscopic findings. Immunohistochemistry aided in the analysis. Both methods are deemed medically necessary in this case. This test was developed and its performance characteristics determined by [facility]. It has not been cleared or approved by the US Food and Drug Administration. The FDA does not require this test to go through premarket FDA review. This test is used for clinical purposes. It should not be regarded as investigational or for research. This laboratory is certified under the Clinical Laboratory Improvement Amendments (CLIA) as qualified to perform high complexity clinical laboratory testing. PERFORMING LABORATORY: PATIENT NAME: HUMZA ETIENNE PATHOLOGY DATE OF : 40 REPORT #: [id number] PHYSICIAN: CAROL RICE PCP: ORLANDO DRAKE MD REPORT IS CONFIDENTIAL AND NOT TO BE RELEASED WITHOUT AUTHORIZATION [address] [address] Signed The technical component was performed by [facility], [address] [place] [address] (CLIA#: [id number]). Professional interpretation was performed by [facility], [facility], [address] [place], [place] [id number] (CLIA#: [id number]) The technical component was performed by [facility], [address] [place] [id number] (CLIA# [id number]). Professional interpretation was performed by [facility], [facility], [address] [place] [address] (CLIA#: [id number]) IMAGES: [id number]: [id number]: [id number] Diagnostician: Mann Cano MD Pathologist Electronically Signed 03/27/2022 Copies: ~ PATIENT NAME: LOWELLHUMZA REYMUNDO PATHOLOGY DATE OF : 40 REPORT #: [id number] PHYSICIAN: CAROL PATHOLOGY PCP: ORLANDO DRAKE MD REPORT IS CONFIDENTIAL AND NOT TO BE RELEASED WITHOUT AUTHORIZATION
== END 2022-03-25 12:55 | disposition home or self-care (01) ==
LOC: OPS 10:20 → DS 10:20 → OPS 12:00
PROVIDERS: ATTEND Specialist
PROC: 07JT3ZZ Inspection of Bone Marrow, Percutaneous Approach (ICD-10-PCS; principal; 2022-03-25 12:00)
DX: D46.9 Myelodysplastic syndrome, unspecified (principal); I25.2 Old myocardial infarction; I11.0 Hypertensive heart disease with heart failure; I48.91 Unspecified atrial fibrillation; I50.9 Heart failure, unspecified; I25.10 Atherosclerotic heart disease of native coronary artery without angina pectoris; Z95.5 Presence of coronary angioplasty implant and graft; Z96.641 Presence of right artificial hip joint; Z87.891 Personal history of nicotine dependence
CPT/HCPCS: 00520; 36415; 80053; 82668; 82728; 83540; 83550; 83615; 84466; 85025; 85045; 88184; 88185; 88305; 88311; 88313; 88341; 88342; 88377; J2704; J7121

== ENCOUNTER 2022-04-22 07:58 | Day surgery (SDC) | payer MEDICARE, OTHER ==
[~2022-04-22] VITALS: Ht 175.3 cm; Wt 67.3 kg
--- NOTE | 2022-04-22 10:13 | NUR ---
04/22/22 Thania Lozano 1007-PATIENT ARRIVED TO PACU ON 3L NC RR EVEN. PATIENT LAYING SUPINE HOB SLIGHTLY ELEVATED. AFIB. PATIENT NONAROUSABLE. ABDOMEN SOFT. IVF INFUSING. 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 GLUCOSE 109
--- NOTE | 2022-04-23 06:49 | OR ---
[facility] [address] [place], [place] [address] Signed DATE OF OPERATION: 04/22/2022 SURGEON: Nubia Yu MD PREOPERATIVE DIAGNOSIS: Normocytic anemia. POSTOPERATIVE DIAGNOSES: 1. Hiatal hernia (43-39 cm). 2. GE junction at 39 cm. 3. Diffuse gastritis. 4. proximal pyloric bulb. 5. Retained food in stomach. 6. 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 PROCEDURE: EGD with CLOtest and biopsies of the pyloric bulb and antrum. ESTIMATED BLOOD LOSS: None. INDICATIONS: Luis Fernando is an 81-year-old gentleman asked to see me for upper endoscopy. He has been under evaluation for normocytic anemia. He underwent colonoscopy [place] [address] Mosqueda. He had colon polyps and diverticulosis. I helped him with colonoscopy in 2015 and 2020. He had polyps and diverticulosis both times. He has been under evaluation by his head tennis professional, Dr. Roscoe Palomo. Initially, there was some concern for myelodysplastic syndrome. He is still awaiting the final results of his bone marrow biopsy on March 25, 2022. However, from the pathology report, this seemed less likely. In the meantime, he was asked to see me for upper endoscopy because of the ongoing anemia. He has no upper GI complaints. He is extremely hard of hearing, having been around heavy equipment his whole life. In fact, he is waiting to undergo cochlear implant in [place], [place] here soon. In the office, I gave Luis Fernando a pamphlet on upper endoscopy. We had reviewed the nature of that test. He understands there is risk including, but not limited to gas bloating, crampy abdominal pain, bleeding, perforation requiring surgery, and missed diagnosis. Because of his advanced age, frail nature and advanced medical issues including coronary artery disease, hypertension, atrial fibrillation, diabetes, and so forth, we did have an anesthesia provider help us with increased monitoring and sedation with propofol. He had expressed understanding and wished to proceed. Electronically Signed By: NUBIA YU MD 04/23/22 0649 PATIENT NAME: LUIS FERNANDO ETIENNE OPERATIVE REPORT DATE OF : 40 REPORT #: [id number] PHYSICIAN: NUBIA YU MD PCP: ORLANDO DRAKE MD REPORT IS CONFIDENTIAL AND NOT TO BE RELEASED WITHOUT AUTHORIZATION [facility] [address] [place], [place] [address] Signed PROCEDURE NOTE: Luis Fernando was taken into our endoscopy suite and placed in the supine semi-recumbent position. He was given preoperative antibiotics for his hip replacements. A bite block was utilized for the case. He was given monitored anesthesia care with propofol per our nurse liner checker. The adult gastroscope was introduced and advanced under direct visualization of the camera without difficulty. We found that he had retained food in his stomach. Apparently, he had some coffee this morning as well. I am not sure when he ate last. He had diffuse erythematous changes in the stomach. The adult gastroscope took some pressure to get through a slightly stenotic opening to the pyloric channel. We were out in the 2nd portion of the duodenum. The duodenum was unremarkable. As we came back into the pyloric channel, just inside the pyloric channel appears to be a small lobulated mass. We took three biopsies of this mass. It seemed to be soft and little friable. We went ahead and took a biopsy of the antrum for pathologic review and it seemed a little firm. We also took another biopsy from the antrum for CLOtest. Upon retroflexion of the scope, we can see he has a moderate sized hiatal hernia. It measured out around 43 back to 39 cm. The scope was withdrawn up through the area of the GE junction, which was compliant without stricture. We saw no gastric or esophageal varices. The Z-line is not particularly disrupted. There was no Gutiérrez's mucosa. No distal esophagitis. The middle and upper esophagus were unremarkable. After this, the gas was suctioned out and the adult gastroscope was removed. Luis Fernando tolerated this procedure quite well. RECOMMENDATIONS: We are going to order a CEA level, alpha fetoprotein level and CA 19-9 level in our recovery room. I will have Luis Fernando back in my office in the next week or two for followup. Nubia Yu MD ALB/MODL /[id number] cc: MD Roscoe Slade MD Electronically Signed By: NUBIA YU MD 04/23/22 0649 PATIENT NAME: LUIS FERNANDO ETIENNE OPERATIVE REPORT DATE OF : 40 REPORT #: [id number] PHYSICIAN: NUBIA YU MD PCP: ORLANDO DRAKE MD REPORT IS CONFIDENTIAL AND NOT TO BE RELEASED WITHOUT AUTHORIZATION [facility] [address] [place], [place] [address] Signed Nubia Yu MD Copies: ROSCOE PALOMO MD, ANDREW L MD ~ Electronically Signed By: NUBIA YU MD 04/23/22 0649 PATIENT NAME: LUIS FERNANDO ETIENNE OPERATIVE REPORT DATE OF : 40 REPORT #: [id number] PHYSICIAN: NUBIA YU MD PCP: ORLANDO DRAKE MD REPORT IS CONFIDENTIAL AND NOT TO BE RELEASED WITHOUT AUTHORIZATION
--- NOTE | 2022-04-28 10:47 | PATH ---
[facility] [address] [place], [place] [address] Signed SPECIMEN(S): A PYLORIC BIOPSY SPECIMEN(S): B ANTRUM BIOPSY SPECIMEN SOURCE: A. PYLORIC BIOPSY B. ANTRUM BIOPSY CLINICAL HISTORY: Anemia. Post-op DX: Pyloric bulb mass, hiatal hernia. Esophagogastroduodenoscopy. FINAL PATHOLOGIC DIAGNOSIS: A. Pylorus, biopsy: - Peptic duodenitis. B. Antrum, biopsy: - No significant histopathologic alterations. COMMENT: Regarding specimen A, sections show a chronic active duodenitis, Gilda gland hyperplasia and focal foveolar metaplasia. These findings are consistent with the diagnosis of peptic duodenitis. Blunted finger-like villi are present, and there is no villous atrophy or crypt hyperplasia. There is no evidence of microorganisms, abnormal infiltrates or neoplasia. The mild Gilda gland hyperplasia may have made this lesion appear as a mass at the time of endoscopy. Regarding specimen B, the sections through the gastric biopsies show fragments of histologically unremarkable antral and oxyntic mucosa. There is no evidence of acute or chronic inflammation. There is no evidence of H. pylori, intestinal metaplasia, abnormal infiltrates or neoplasia. TWK:caw:C2NR MICROSCOPIC EXAMINATION: Histologic sections of all submitted blocks are examined by light microscopy. These findings, together with the gross examination, support the pathologic diagnosis. GROSS DESCRIPTION: Two specimens are received in two containers, labeled "HJ ." A. The specimen, labeled "HJ #1," is received in formalin and consists of three reeder soft tissue fragments that measure 0.3 cm in greatest dimension. The PATIENT NAME: HUMZA ETIENNE PATHOLOGY DATE OF : 40 REPORT #: [id number] PHYSICIAN: CAROL RICE PCP: ORLANDO DRAKE MD REPORT IS CONFIDENTIAL AND NOT TO BE RELEASED WITHOUT AUTHORIZATION [facility] [address] [place], [place] [address] Signed specimen is entirely submitted in cassette (A1). B. The specimen, labeled "HJ #2," is received in formalin and consists of one reeder soft tissue fragment that measures 0.2 cm in greatest dimension. The specimen is entirely submitted in cassette (B1). KV (under the direct supervision of a pathologist) The Gross Description was prepared using a voice recognition system. The report was reviewed for accuracy; however, sound-alike word errors, addition and/or deletions may occur. If there is any question about this report, please contact Client Services. PERFORMING LABORATORY: The technical component was performed by [facility], [address] [place] [id number] (CLIA# [id number]). The professional interpretation was performed by [facility], [facility], [address] [place] [address] (CLIA#: [id number]). Diagnostician: Mann Cano MD Pathologist Electronically Signed 04/28/2022 Copies: ~ PATIENT NAME: HUMZA ETIENNE PATHOLOGY DATE OF : 40 REPORT #: [id number] PHYSICIAN: CAROL RICE PCP: ORLANDO DRAKE MD REPORT IS CONFIDENTIAL AND NOT TO BE RELEASED WITHOUT AUTHORIZATION
== END 2022-04-22 10:55 | disposition home or self-care (01) ==
LOC: OPS 07:58 → DS 07:58 → OPS 08:50 → DS 10:30 → OPS 10:55
PROVIDERS: ATTEND Colon & Rectal Surgery
PROC: 0DB78ZX Excision of Stomach, Pylorus, Via Natural or Artificial Opening Endoscopic, Diagnostic (ICD-10-PCS; principal; 2022-04-22 08:50)
DX: D64.9 Anemia, unspecified (principal); K44.9 Diaphragmatic hernia without obstruction or gangrene; K29.70 Gastritis, unspecified, without bleeding; K31.1 Adult hypertrophic pyloric stenosis; K29.80 Duodenitis without bleeding; I48.91 Unspecified atrial fibrillation; I11.0 Hypertensive heart disease with heart failure; I50.9 Heart failure, unspecified; E11.9 Type 2 diabetes mellitus without complications; I25.2 Old myocardial infarction; I25.10 Atherosclerotic heart disease of native coronary artery without angina pectoris
CPT/HCPCS: 36415; 82105; 82378; 86301; 87077; 88305; J0690; J2704; J7121

== ENCOUNTER 2022-05-10 15:51 | Emergency (ER) | payer MEDICARE, OTHER ==
[~2022-05-10] VITALS: Ht 175.3 cm; Wt 67.1 kg
[2022-05-10] MEDS ORDERED: COLACE100 MG PO (17:29)
[2022-05-10] MEDS ORDERED: HYDROCODON-ACE1 EA10 PO (17:29)
--- NOTE | 2022-05-13 15:30 | EKG ---
[facility] [address] [place] [address] Signed Atrial fibrillation Minimal voltage criteria for LVH, may be normal variant ( R in aVL ) Inferior infarct (cited on or before 11-DEC-2020) Anterior infarct , age undetermined Abnormal ECG When compared with ECG of 22-DEC-2021 12:43, No significant change was found Confirmed by DO LOPEZ MD ([id number]) on 05/13/2022 3:29:59 PM Electronically Signed By: DO LOPEZ MD 05/13/22 1530 PATIENT NAME: HUMZA ETIENNE Electrocardiogram DATE OF : 40 PHYSICIAN: DO LOPEZ MD REPORT #: [id number] REPORT IS CONFIDENTIAL AND NOT TO BE RELEASED WITHOUT AUTHORIZATION
== END 2022-05-10 18:29 | disposition home or self-care (01) ==
LOC: ED 15:51
DX: M19.012 Primary osteoarthritis, left shoulder (principal); I48.91 Unspecified atrial fibrillation; E78.00 Pure hypercholesterolemia, unspecified; I25.2 Old myocardial infarction; I10 Essential (primary) hypertension; Z79.899 Other long term (current) 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
CPT/HCPCS: 36415; 73030; 80053; 84484; 85025; 93005; 93010; 99284-25; A9270

== ENCOUNTER 2022-06-27 12:09 | Inpatient (IN) | payer OTHER, MEDICARE ==
[~2022-06-27] VITALS: Ht 175.3 cm; Wt 64.5 kg
[~2022-06-27 12:09] MED LIST changes: +COLACE100 MG PO; +HYDROCODON-ACE1 EA10 PO; +TOPROL XL25 MG PO
--- OUTSIDE RECORDS SUMMARY | 2022-06-27 12:12 | XMS ---
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 Events No recent Security Events currently on file CRITERIA MET - [facility] - [facility] - 2 Visits in 30 Days CARE PROVIDERS HENRIK WALLACE Financial Services Associate: Foot \T\ Ankle Surgery Current PHONE: [phone] PATRICE CAMERON Internal Medicine Current PHONE: [phone] ORLANDO DRAKE [facility] 12/02/2020-Current PHONE: Unknown MIGUELANGEL OATES Nurse Practitioner: Family Current PHONE: Unknown ELIZABETH LOO Internal Medicine Current PHONE: [phone] YANI SNIDER Nurse Practitioner: Family Current PHONE: [phone] GRICELDA TINSLEY Nurse Practitioner Current FRACIS[place] PHONE: [phone] [facility] Current PHONE: Unknown SINA GRANT Family Medicine Current PHONE: [phone] Adonis has no Care Guidelines for this patient. Care History Medical/Surgical 12/02/2020 [facility] - Patient is currently established with [facility]. If patient is seen in the ED during business hours. Please contact CHWs at [facility]. Care Recommendation: If this patient has had [...] providing care. E.D. VISIT COUNT (12 MO.) [address] [place], [place] [address] [facility] TOTAL 7 NOTE: Visits indicate total known visits. ED/UCC VISIT TRACKING (12 MO.) 06/27/2022 12:09 [facility] TYPE: Emergency COMPLAINT: - FALL 06/08/2022 15:21 [facility] TYPE: Emergency COMPLAINT: - EMS P3 Transfer: Femur Fx DIAGNOSES: - Fracture of unspecified part of neck of unspecified femur, initial encounter for closed fracture - femur fx - Fall 06/07/2022 20:12 [facility] TYPE: Emergency COMPLAINT: - FALL DIAGNOSES: - Essential (primary) hypertension - Old myocardial infarction - shelter (current) use of anticoagulants - Fall on same level from slipping, tripping and stumbling without subsequent striking against object, initial encounter - Other [facility] (current) 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 - Periprosthetic fracture around internal prosthetic right hip joint, initial encounter - Pain in right hip - Contact with and (suspected) exposure to COVID-19 - Laceration without foreign body of right elbow, initial encounter - Unspecified fracture of shaft of right femur, initial encounter for closed fracture - Unspecified atrial fibrillation 05/10/2022 15:51 [facility] [place] TYPE: Emergency COMPLAINT: - LT SHOULDER PAIN DIAGNOSES: - Pain in left shoulder - Old myocardial infarction - Other [facility] (current) 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 - Primary osteoarthritis, left shoulder - Pure hypercholesterolemia, unspecified - Unspecified atrial fibrillation - Essential (primary) hypertension 12/22/2021 12:00 [facility] [place] TYPE: Emergency COMPLAINT: - HIGH B/P, SOB DIAGNOSES: - Essential (primary) hypertension - Hypertensive heart disease with heart failure - Heart failure, unspecified - Shortness of breath - Pure hypercholesterolemia, unspecified - Unspecified atrial fibrillation - Other [facility] (current) 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 - Old myocardial infarction 09/05/2021 14:30 [facility] [place] TYPE: Emergency COMPLAINT: - WOUND CHECK DIAGNOSES: - Laceration without foreign body of right upper arm, initial encounter - Pure hypercholesterolemia, unspecified - Olecranon bursitis, left elbow - Old myocardial infarction - Essential (primary) hypertension - Personal history of other malignant neoplasm of skin - Other [facility] (current) 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 - Exposure to other specified factors, initial encounter - Unspecified atrial fibrillation - shelter (current) use of anticoagulants 07/07/2021 18:16 [facility] [place] TYPE: Emergency COMPLAINT: - FALL INPATIENT VISIT TRACKING (12 MO.) 06/08/2022 15:21 [facility] TYPE: General Medicine COMPLAINT: - EMS P3 Transfer: Femur Fx DIAGNOSES: - Atherosclerotic heart disease of [place] coronary artery without angina pectoris 07/09/2021 13:15 [facility] TYPE: Medical Surgical COMPLAINT: - INTRACTABLE PAIN DIAGNOSES: - Gastro-esophageal reflux disease without esophagitis - Old myocardial infarction - Contusion of right hip, initial encounter - Repeated falls - Atherosclerotic heart disease of [place] coronary artery without angina pectoris - Acute kidney failure, unspecified - Acute kidney failure, unspecified - Pain in right hip - Paroxysmal atrial fibrillation - Unspecified fall, initial encounter - Atherosclerotic heart disease of [place] coronary artery without angina pectoris - Chronic kidney disease, unspecified - Presence of right artificial hip joint - Elevation of levels of liver transaminase levels - Cellulitis of unspecified part of limb - Paroxysmal atrial fibrillation - Other [facility] (current) 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 - Unspecified adrenocortical insufficiency - Presence of right artificial hip joint - Cellulitis of unspecified part of limb - Other specified postprocedural states - Gastro-esophageal reflux disease without esophagitis - Hyperlipidemia, unspecified - Chronic diastolic (congestive) heart failure - Personal history of other malignant neoplasm of skin - Unspecified adrenocortical insufficiency - Hypertensive heart and chronic kidney disease with heart failure and stage 1 through stage 4 chronic kidney disease, or unspecified chronic kidney disease - Repeated falls - Hyperlipidemia, unspecified - Chronic diastolic (congestive) heart failure - Chronic kidney disease, unspecified - Contact with and (suspected) exposure to COVID-19 - shelter (current) use of anticoagulants - Personal history of other malignant neoplasm of skin - Other [facility] (current) 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 - shelter (current) use of anticoagulants - Presence of coronary angioplasty implant and graft - Hypertensive heart and chronic kidney disease with heart failure and stage 1 through stage 4 chronic kidney disease, or unspecified chronic kidney disease - Old myocardial infarction - Presence of coronary angioplasty implant and graft - Unspecified fall, initial encounter - Other specified postprocedural states - Elevation of levels of liver transaminase levels - Contusion of right hip, initial encounter [email or web address]
[2022-06-27] MEDS ORDERED: HYDROCORTISONE5 MG PO (12:42)
[2022-06-27] MEDS ORDERED: ELIQUIS2.5 MG PO (12:43)
[2022-06-27] MEDS ORDERED: FERROUS SULFAT325 M2 PO (12:44)
[2022-06-27] MEDS ORDERED: ROXICODONE15 MG PO (12:45)
[2022-06-27] MEDS ORDERED: TAMIFLU75 MG PO (12:46)
--- NOTE | 2022-06-27 16:45 | NUR ---
REPORT RECIEVED FROM ER NURSE. I TRANSPORTED PATIENT FROM ER TO CCU VIA STRETCHER. IS PALE, IS ABLE TO FOLLOW COMMANDS. C/O RIGHT HIP PAIN AND OVERALL DISCOMFORT. ACCUCHECK 100. PATIENT RECIEVED 3 LITER OF IVF IN ER. WILL RECIEVE 3 UNITS OF PRBC'S THIS EVENING. 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 ABOD IS TENDER WITH PALPATION. DENIES NAUSEA. PATIENT SAID HE HAS BEEN HAVING DARK TARRY STOOLS FOR THE PAST 3 DAYS. PATEINT WAS FOUND ON THE FLOOR THIS AM AROUNG 0500. PATIENT SAID HE WAS LAYING ON THE FLOOR FOR 6 HOURS. HAD RECENT SURGERY ON RIGHT HIP. HAS A WHITE LONG DRESSING TO HIP. SKIN TEAR X 2 TO RIGHT FA, SKINNED RIGHT KNEE, SKINNED AREA ON LEFT TOP OF FOOT. ALLEVYN PLACED TO COCCYX, AREA IS REDDENED, WITH 2 SMALL OPEN AREAS. PHOTO TAKEN. MOST RECENT HGB-4. FAMILY MEMBERS ARE IN ROOM.
--- NOTE | 2022-06-27 17:00 | NUR ---
ALLRED CATH PLACED PER ORDERS. FIRST UNIT PRBC'S HUNG. TXA.VITK, IVABX X 2 TO BE INFUSED.
--- NOTE | 2022-06-27 19:02 | EKG ---
[facility] [address] [place] [address] Signed Atrial fibrillation with rapid ventricular response Low voltage QRS Inferior infarct (cited on or before 11-DEC-2020) Cannot rule out Anterior infarct (cited on or before 22-DEC-2021) Abnormal ECG When compared with ECG of 10-MAY-2022 16:20, Vent. rate has increased BY 49 BPM Nonspecific T wave abnormality has replaced inverted T waves in Inferior leads Nonspecific T wave abnormality now evident in Lateral leads Confirmed by DO LOPEZ MD ([id number]) on 06/27/2022 7:02:36 PM Electronically Signed By: DO LOPEZ MD 06/27/221901 PATIENT NAME: HUMZA ETIENNE Electrocardiogram DATE OF : 40 PHYSICIAN: DO LOPEZ MD REPORT #: [id number] REPORT IS CONFIDENTIAL AND NOT TO BE RELEASED WITHOUT AUTHORIZATION
--- NOTE | 2022-06-27 20:15 | NUR ---
2 OF 3 UNIT PRBC FINISHED; PATIENT RESTING IN BED WITH FAMILY IN ROOM. VS STABLE. TOLERATING 2L NC. REPORTS PAIN IN RIGHT HIPS. ASSISTED TO REPOSITIION PATIENT. IV ABX INFUSING; SITES WNL X2. ALLRED HAS ADEQUATE HOURLY URINE OUTPUT. RIGHT HIP DRESSING NOTED TO HAVE SMALL AMOUNT OF DRAINAGE. SKIN TEARS ON RIGHT UPPER ARM COVERED WITH NON-ADHEARANT AND COBAN.
--- NOTE | 2022-06-27 21:00 | NUR ---
3 0F 3 UNITS PRBC STARTED AND NO SIGN OF REACTION AFTER THE FIRST 15 MINS. INCREASED RATE TO 200 ML/HR. IV SITE WNL. IV ABX FINISHED. PATIENT REPORTS BEING INCONTINENT OF STOOL. 2PA TO TURN PATIENT. SMALL SMEAR OF BLACK BM NOTED, NOT ENOUGH FOR OCCULT STOOL TEST IT HAS MOSTLY ABSORBED INTO ATTEND. BARRIER CREAM APPLIED TO GROIN AND TESTICLES. ALYVEN IN PLACE ON COCCYX. ALLRED CARE DONE. PATIENT TURNED SLIGHTLY TO HIS LEFT SIDE. CALL LIGHT IN REACH. PATIENT DENIED FURTHER NEEDS.
--- NOTE | 2022-06-27 22:45 | NUR ---
3 OF 3 UNITS OF PRBC FINISHED. NO SIGN OF RECATION. VS STABLE. LAB IN TO DRAW BLOOD. PATIENT SL FOR THIS. DR. DELANEY ALSO IN TO SEE PATIENT.
--- NOTE | 2022-06-28 00:54 | NUR ---
PATIENT RESTING IN BED. WAKES EASILY WHEN RN ENTERS ROOM. DENIES ANY CONCERNS. HOB ELEAVTED IN BED. OCCATIONALLY WATCHING TV. LIGHTS DIMMED. VS STABLE. HR 80'S; A.FIB. ADEQUATE URINE OUTPUT. IV SITE WNL; IVF PER ORDER. PATIENT DENIED PAIN OR GI UPSET. REPOSITIONED SLIGHTLY FOR SKIN PROTECTION. CALL LIGHT IN REACH.
--- NOTE | 2022-06-28 01:42 | NUR ---
PATIENT REPORTS PAIN IN HIS PENIS. ALLRED TUBING MIGHT HAVE BEEN PULLING SLIGHTLY; PATIENT FELT RELEIF WITH ALLRED WAS FLUSHED AND REPOSITIONED. PATIENT ASSISTED TO REPOSITION IN BED. VS STABLE. CALL LIGHT IN REACH.
--- NOTE | 2022-06-28 03:00 | NUR ---
accu check done. patient resting in bed with eyes closed. wakes easily when rn enters the room. assisted to reposition. patient denied further needs. call light in reach.
--- NOTE | 2022-06-28 04:42 | NUR ---
scheduled meds provided per order. patient woke briefly while RN in room; denied any needs. vs stable. urine output qs; more clear yellow now. iv site wnl, fluids per order. call light in reach. tolerating room air. hr 80's; A fib
--- NOTE | 2022-06-28 07:14 | NUR ---
patient had small black stool; attends changed. barrier cream applied. bishop emptied. patient repositioned.
--- NOTE | 2022-06-28 07:30 | NUR ---
REPORT RECIEVED. PATIENT IS RESTFUL IN BED. IVF PATENT.
--- NOTE | 2022-06-28 08:00 | NUR ---
AWAKE, ASSESSMENT DONE, STATES HE IS FEELING BETTER THIS MORNING. DENIES PAIN. ALLRED CATH PATENT WITH CLEAR YELLOW URINE NOTED. ASKING FOR COFFEE, EXPLAINED TO PATIENT TO WHY HE IS NOT ABLE TO HAVE COFFEE. ICE CHIPS GIVEN FOR ORAL COMFORT. NO ACTIVE BLEEDING NOTED.
--- NOTE | 2022-06-28 08:05 | NUR ---
ACCUCHECK 139. NO INSULIN GIVEN.
--- NOTE | 2022-06-28 09:24 | NUR ---
WATCHING TV, IS W/O COMPLAINTS. NO CHANGES.
--- NOTE | 2022-06-28 11:50 | NUR ---
LEFT HIP DRESSING CHANGED. DR LOPEZ LOOKED AT INCISION, ASHER ARE INTACT, IRRITATION AT PROXIMAL AREA OF INCISION IS NOTED.
--- NOTE | 2022-06-28 12:00 | NUR ---
DR. LOPEZ HERE TO SEE PATEINT. ORDERS RECIEVED. PATIENT IN ROOM, IS AWARE OF PLAN. ASSESSMENT UNCHANGED.
--- NOTE | 2022-06-28 12:43 | NUR ---
WATCHING TV, IS IN THE ROOM.
[2022-06-28] MEDS ORDERED: SENOKOT8.6 MG PO (14:15)
[2022-06-28] MEDS ORDERED: MIRALAX17 GM PO (14:17)
[2022-06-28] MEDS ORDERED: VITAMIN C500 M1 PO (14:19)
[2022-06-28] MEDS ORDERED: ONDANSETRON ODT8 MG PO (14:38)
--- NOTE | 2022-06-28 14:49 | NUR ---
MED REC COMPLETE
--- NOTE | 2022-06-28 19:26 | NUR ---
PATIENT IS RESTING. REPORT TO NEXT SHIFT. HAS BEEN SLEEPING SINCE CLEAR LIQUIDS ORDERED. HAS ONLY TAKEN LIQIDS WITH MEDICATIONS. BRIGIDA PATENT.
--- NOTE | 2022-06-28 20:30 | NUR ---
PT MOVED TO ROOM 107. REPORT RECIEVED FROM CANDELARIA MARTINEZ. IV FLUIDS AND MEDS INFUSING. CALL LIGHT IN REACH, RAILS UP.
--- NOTE | 2022-06-28 22:30 | NUR ---
PT RESTING IN BED, WATCHING TV. NO NEEDS AT THIS TIME. CALL LIGHT IN REACH.
--- NOTE | 2022-06-28 23:00 | NUR ---
ASSESSMENT, VS AND I&O COMPLETED. PT VERY [place] TRIBE, IV SAFETY AND CARE EDUCATION PROVIDED. GCS 15, A&O TO ALL BUT DATE. LUNGS DIM IN ALL LOBES, OCCASSIONAL NONPRODUCTIVE COUGH. ABD SOFT, TENDER, BOWEL TONES ACTIVE. PT HAS COOL EXTREMITIES, FRAGILE SKIN. SKIN TEARS ON ARMS AND BUTTOCKS COVERED. RIGHT HIP SURGERY SITE COVERED. NUMBNESS, TINGLING AND WEAKNESS IN LOWER EXTREMITIES, CHRONIC. IVs WNL, CDI, FLUSHED WELL, IV FLUIDS AND MEDS INFUSING PER ORDER. LAC AREA REINFORCED WITH A WASHCLOTH AND COBAN PT KEEPS BENDING HIS ARM AND STOPPING INFUSIONS, EDUCATION PROVIDED. ICE WATER AND WARM BLANKET PROVIDED. SCHEDULED MEDS PROVIDED. PRN PAIN MED PROVIDED FOR 4/10 RIGHT HIP PAIN. NO OTHER NEEDS AT THIS TIME. CALL LIGHT IN REACH, RAILS UP.
--- NOTE | 2022-06-29 | NUR ---
PT RESTING IN BED, EYES CLOSED. RR EVEN, UNLABORED. IV FLUIDS INFUSING PER ORDER. CALL LIGHT IN REACH.
--- NOTE | 2022-06-29 02:21 | NUR ---
CANELO RN IN ROOM TO PROVIDED PRN PAIN MEDS FOR RIGHT HIP. PT REPOSITIONED. IV FLUIDS INFUSING PER ORDER. ASSESSMENT COMPLETED. LUNGS HAVE EXPIRATORY WHEEZE IN ALL LOBES. IVs WNL, IV FLUIDS INFUSING PER ORDER. CBG 203.NO OTHER NEEDS AT THIS TIME. CALL LIGHT IN REACH.
--- NOTE | 2022-06-29 03:37 | NUR ---
PT RESTING IN BED, EYES CLOSED. RR EVEN, UNLABORED. NEW BAG OF IV FLUIDS PROVIDED. RAILS UP, CALL LIGHT IN REACH.
--- NOTE | 2022-06-29 04:30 | NUR ---
PT RESTING IN BED, HAS REPOSITIONED SELF. RR EVEN, UNLABORED. CALL LIGHT IN REACH.
--- NOTE | 2022-06-29 05:04 | NUR ---
PT IN BED SLEEPING. VITALS AND IS AND OS COMPLETE. ALLRED EMPTIED. NO FURTHER NEEDS. CALL LIGHT WITHIN REACH
--- NOTE | 2022-06-29 05:28 | NUR ---
ORTHOSTATIC VS COMPLETED, NEGATIVE. PT WAS ABLE TO STAND, 2PA FWW, FOR SEVERAL MINUTES. CNAs IN ROOM TO COMPLETED CARES. IV WNL, IV FLUIDS INFUSING PER ORDER.
--- NOTE | 2022-06-29 06:17 | NUR ---
PT RESTING IN BED, REPOSITIONED. IV FLUIDS INFUSING PER ORDER. NO OTHER NEEDS AT THIS TIME. CALL LIGHT IN REACH.
--- NOTE | 2022-06-29 06:38 | NUR ---
PT RESTING IN BED, EYES CLOSED. RR EVEN, UNLABORED. CALL LIGHT IN REACH.
--- NOTE | 2022-06-29 07:00 | NUR ---
REPORT RECIEVED FROM MICHELLE JOHN. PT LAYING ON LEFT SIDE, WHICH HE FAVORS. RESTING WITH EYES CLOSED.
--- NOTE | 2022-06-29 09:56 | NUR ---
ADMINISTERED SCHEDULED IV MEDS. PT NPO ATT AND STATES HIS ONLYNEED IS TO DRINK SOMETHING. ROLLED PT TO OTHER SIDE AND PLACED PILLOW UNDER SIDE. ALSO PLACED FEET IN PILLOWS HIS SKIN IS VERY FRAGILE.
--- NOTE | 2022-06-29 10:40 | NUR ---
PT IN BED. VITALS AND IS AND OS COMPLETE. PT TURNED ONTO R SIDE. ALLRED EMPTIED. NO FURTHER NEEDS. CALL LIGHT WITHIN REACH.
--- NOTE | 2022-06-29 11:35 | NUR ---
PATIENT'S IS UPSET ABOUT THE CARE GIVEN AT [facility]. WANTS TO TAKE PATIENT HOME WHEN THE PATINT IS DISCHARGED, NOT BACK TO [facility]. WILL TRY TO ARRANGE IN HOME CARE GIVERS. FAMILY HAS ARRANGED WHEELCHAIR,WALKER,HOSPITAL BED AND RAMPS AND RAILS WHERE NEEDED.
--- NOTE | 2022-06-29 12:58 | NUR ---
ADMINISTERED MEDS WITH SMALL SIP OF WATER. PT HAS AND VISITOR IN ROOM. AWAKE AND ANSWERS QUESTIONS APPROP. VERY [place] THOUGH. CHANGED POSITION IN BED.
--- NOTE | 2022-06-29 14:30 | NUR ---
REMOVED PT ASHER ON HIS HIP PER DR LOPEZ. MICHELLE ALVAREZ ASSISTED PT TO ROLL. PT TOLERATED WELL THOUGH SOME HAD GROWN OVER A BIT. REMAINS IN ROOM.
--- NOTE | 2022-06-29 14:44 | NUR ---
PT ALERT, [place] AND SUPPORTED BY HIS JJ. GAVE COMFORT, JJ INFORMED OF DIFFICULTIES PT HAD AT [facility]. VERY PLEASED WITH THE CARE HE HAS RECEIVED HERE AT [facility]. 1 YR SOBREITY, BOTH SEEM VERY PLEASED WITH THEIR DECISION. PT REQUESTED PRAYER, GAVE Miya.POST. WILL FOLLOW
--- NOTE | 2022-06-29 19:24 | NUR ---
06/29/221923 Vicki Mosley 1916 TO PACU, RESP EVEN UNLABORED. MAINTAINS AIRWAY ON OWN.
--- NOTE | 2022-06-29 19:25 | NUR ---
REPORT RECEIVED FROM OFFGOING RNJULIO CESAR. PT IN SURGERY SUITE.
--- NOTE | 2022-06-29 20:00 | NUR ---
PT ARRIVES TO FLOOR FROM SURGERY. PT MOVED TO THE BED WITH TRANSFER SHEET BY STAFF. PT TOLERATED WELL. MD TO ROOM, DISCUSSED PROCEDURE WITH PT. PT DIET ADVANCE TOLERATED AND IV SL PER . MARISELA PROVIDED. PT ASSESSMENT COMPLETE. PT DENIES PAIN, [place], OR SOB. LUNG SOUNDS WITH EXPIRATORY WHEEZE THROUGHOUT. BT'S ACTIVE. ABD FIRM. NONTENDER TO PALPATION. ALLRED CATH DRAINING CLEAR YELLOW URINE. VARIOUS SKIN TEARS PRESENT TO BILATERAL ARMS, LEGS, POSTERIOR R HIP. SKIN FRAGILE. IV FLUSHED X2 WITH 10 ML NS. WNL. VS OBTAINED. WNL. PT DENIES FURTHER NEEDS AT THIS TIME. CALL LIGHT IN REACH.
--- NOTE | 2022-06-29 20:06 | NUR ---
pt BACK FROM SURGERY, TRANSFERRED TO HOSPITAL BED. MD IN pt ROOM. VSS. PRIMARY RN IN ROOM.
--- NOTE | 2022-06-29 21:21 | NUR ---
POST OP VSS. pt RESTING IN BED. WATER PROVIDED. CALL LIGHT IN REACH.
--- NOTE | 2022-06-29 21:50 | NUR ---
PHONE CALL FROM pt'S JJ. STATES THAT HUMZA TOLD HER HE WILL BE DISCHARGED TOMORROW. UPDATED THAT NO DOCUMENTATION STATING
--- NOTE | 2022-06-29 22:52 | NUR ---
PT ROUNDING. PT RESTING IN BED WITH EYES CLOSED. RESPIRATIONS EVEN AND UNLABORED. PT APPEARS TO BE SLEEPING. CALL LIGHT IN REACH.
--- NOTE | 2022-06-29 23:10 | NUR ---
field underwriter to room for post op vital signs. pt resting in bed with eyes closed. wakes easily to touch. pt denies needs at this time. call light in reach.
--- NOTE | 2022-06-30 00:15 | NUR ---
PT ROUNDING. PT RESTING IN BED WITH EYES CLOSED. DOES NOT WAKE WHILE MANAGER SERVICES AT THE BEDSIDE. RESPIRATIONS EVEN AND UNLABORED. CALL LIGHT IN REACH.
--- NOTE | 2022-06-30 01:45 | NUR ---
PT ASSESSMENT COMPLETE. PT RESTING IN BED WITH EYES CLOSED.W AKES EASILY TO TOUCH. VS OBTAINED. WNL. PT DENIES PAIN, NAUSEA, OR SOB. LUNG SOUNDS WITH EXPIRATORY WHEEZE THROUGHOUT, RHONCI PRESENT TO BILATERAL LOWER LOBES, DOES NOT CLEAR WITH COUGH. BT'S ACTIVE. ABD NON TENDER TO PALPATION. SKIN ASSESSMENT UNCHANGED FROM PREVIOUS. IV SL. PT PROVIDED WITH JELLO PER REQUEST. DENIES FURTHER NEEDS. CALL LIGHT IN REACH.
--- NOTE | 2022-06-30 03:30 | NUR ---
PT ROUNDING. PT RESTING IN BED WITH EYES CLOSED. RESPIRATIONS EVEN AND UNLABORED. PT APPEARS TO BE SLEEPING. CALL LIGHTIN REACH.
--- NOTE | 2022-06-30 05:49 | NUR ---
RN SURGICAL TO ROOM FOR SCHEDULED MEDICATION ADMINISRATION. PT RESTING WITH EYES CLOSED. WAKES EASILY TO TOUCH. PT REQUESTS COFFEE. PROVIDED. DENIES FURTHER NEEDS AT THIS TIME. CALL LIGHTIN REACH.
--- NOTE | 2022-06-30 07:15 | NUR ---
bedside report from dave sinha, pt boosted up in bed, denies needs, [place]. call light in reach.
--- NOTE | 2022-06-30 07:48 | NUR ---
PT IN BED. BS TAKEN. PT REPOS ONTO L SIDE. FRESH ICE WATER GIVEN. NO FURTHER NEEDS. CALL LIGHT WITHIN REACH.
--- NOTE | 2022-06-30 08:36 | NUR ---
PT ASSESSMENT DONE - LEFT FOOT WITH SKIN TEAR NOTED TO TOP/ COVERED. PT [place], ALERT, TAKES PO MEDS WELL. R HIP WNL. CMS GOOD, IV FLUSHED AFTER MEDS. PO INTAKE OK.
--- NOTE | 2022-06-30 10:01 | NUR ---
AWAKE EATING BREAKFAST. AT HOME AND WILL BE IN LATER BECAUSE OF ROAD CONDITIONS. WILL TALK TO PATIENT AND LATER TODAY WHEN IS ABLE TO MAKE IT TO THE HOSPITAL [place].
--- NOTE | 2022-06-30 10:30 | NUR ---
rounding on pt, eyes closed, resp even, call light in reach.
--- NOTE | 2022-06-30 11:05 | NUR ---
PT AWAKEN BREIFLY FOR PO CARAFATE - DENIES NEEDS. CALL LIGHT IN REACH.
--- NOTE | 2022-06-30 12:08 | NUR ---
IN WITH DR THOMAS PT AND . DISCUSSED PLAN OF CARE FOR PRIVATE IN RESEARCH ASSOCIATE. BS = 114. PT DENIES NEEDS. NOT N/V,
--- NOTE | 2022-06-30 12:39 | NUR ---
PT MOVED TO ROOM 113 FOR [facility] TO HAVE 107 INSERVICE. PT AGREEABLE - AWARE AND HERE, PT PROVIDED LUNCH.
--- NOTE | 2022-06-30 13:37 | NUR ---
PT IN BED. AT BEDSIDE. PT CO PAIN. RN HAD BEEN NOTIFIED PREVIOUSLY PER PT . VITALS AND IS AND OS COMPLETE. NO FURTHER NEEDS AT THIS TIME. CALL LIGHT WITHIN REACH
--- NOTE | 2022-06-30 14:24 | NUR ---
PATIENT WAS ADMITTED TO [facility] FOR REHAB.THE WAS NOT HAPPY WITH HIS CARE SO SHE TOOK HIM OUT OF [place] TO TAKE HIM HOME. PATIENT HAD MEDICAL ISSUES SO HE WAS ADMITTED TO [facility]. REFUSES TO HAVE PATIENT RETURN TO [facility] AND WANTS TO TAKE PATIENT HOME WHEN DISCHARED. NOT READY TO TAKE PATIENT HOME. STATES SHE CAN NOT DO CARE OF HER AND WILL NEED HELP AT HOME. NO ARRANGMENTS BY HAVE BEEN DONE TO TAKE HUMZA HOME. HANDOUT GIVEN TO OF HOW TO HIRE CAREGIVER HELP. TRYING TO GET HOME READY TO BE A SAFE DISCHARGE. SO FAR NO CARE GIVERS HAVE BEEN HIRED. IM LETTER WILL BE GIVEN TO PATIENT TO BE SIGN TO WORK WITH THE [facility] TO PREPARE FOR A SAFE DISCHARGE.
--- NOTE | 2022-06-30 14:28 | NUR ---
PT ALERT, ORIENTED AND RN JULIO CESAR CARING FOR PT. PT SYS HE FEELS BETTER TODAY, AT BS. PT HOPES TO DC TOMORROW. GAVE ENCOURAGEMENT AND BLESSING, WILL FOLLOW
--- NOTE | 2022-06-30 15:41 | NUR ---
PATIENT CALLED TO GET CLEANED UP. THIS ACCOUNTING CLERK AND RN JULIO CESAR Martins WENT IN TO CHECK PATIENT. PATIENT HAD LARGE INCONT. BM. WILLI CARE, CATH CARE, SKIN CARE DONE. BED BATH GIVEN WITH WARM BATH WIPES. NEW ATTENDS AND GOWN. PATIENT THEN TRANSFERED TO CHAIR, 2PA PIVOT TRANSFER. LINENS CHANGED. CALL LIGHT IN REACH. NO FURTHER NEEDS AT THIS TIME.
--- NOTE | 2022-06-30 15:45 | NUR ---
assisted airfield manager with bed bath, linen change and trsf 2 person to . pt tollerated well. thick dark bm noted. bishop care done. skin with 2 sm open scrape like abrasions on each buttocks under a pink allyven - changed and cleaned. replaced with new. cream to groin for barrier.
--- NOTE | 2022-06-30 16:41 | NUR ---
pt medicated po for pt eval and treat - 5/10 pain right leg. pt in and working with pt currently.
--- NOTE | 2022-06-30 19:34 | NUR ---
RECEIVED REPORT FROM DAY SHIFT RN. PATIENT IS RESTING IN BED WATCHING TV. PATIENT DENIES ANY NEEDS. CALL LIGHT IN REACH.
--- NOTE | 2022-06-30 20:51 | NUR ---
PLACED CALL TO MD CONCERNING PATIENT HAVING NO SS INSULIN ODERED. VERBAL ORDER RECEIVED VERIFIED ORDER USING THE READBACK METHOD.
--- NOTE | 2022-06-30 21:23 | NUR ---
PATIENT ASSESMENT COMPLETED. PATIENT IS REPOSITIONED IN BED. PATIENTS VITALS TAKEN AND RECORDED. ALLRED EMPTIED AND ALLRED CARE COMPELTED. PATIENTS INTAKE AND OUTPUT RECORDED. PATIENT RATES PAIN AT A 2/10 AND DENIES THE NEED FROM PAIN MEDICATION AT THIS TIME. PATIENT HAS PILLOW UNDER LEFT HIP. OM MEDS GIVEN PER ORDER. IV FLUSHED AND SL PER ORDER. PATIENT DENIES ANY FURTHER NEEDS. CALL LIGHT IN REACH.
--- NOTE | 2022-06-30 22:56 | NUR ---
PATIENT IS RESTING IN BED WITH EYES, RR 16. CALL LIGHT IN REACH. PILLOW REMOVED FROM UNDER PATIENTS LEFT HIP. CALL LIGHT IN REACH.
--- NOTE | 2022-07-01 00:23 | NUR ---
PATIENT REPOSITIONED W/PILLOW UNDER RIGHT HIP. PATIENT IS RESTING IN BED W/EYES CLOSED, RR 16. CALL LIGHT IN REACH.
--- NOTE | 2022-07-01 02:06 | NUR ---
PATIENT REPOSITIONED IN BED. PATIENT IS NOW FLOATED ON PILLOWS ON UNDER EACH HIP. PATIENT DENIES ANY FURTHER NEEDS. CALL LIGHT IN REACH.
--- NOTE | 2022-07-01 04:35 | NUR ---
PATIENT REPOSITIONED IN BED. PATIENT DENIES ANY PAIN. PATIENT DENIES ANY FURTHER NEEDS. CALL IGHT IN REACH.
--- NOTE | 2022-07-01 05:55 | NUR ---
PATIENT REPOSITIONED AND NOW HAS ILLOW UNDER RIGHT HIP. VITALS TAKEN AND RECORDED. ALLRED EMPTIED. INTAKE AND OUTPUT RECORDED. PATIENT DENIES ANY PAIN. AM MEDS GIVEN PER ORDER. NO NEEDS NOTED. CALL LIGHT IN REACH. LAB IN ROOM.
--- NOTE | 2022-07-01 07:00 | NUR ---
report from dianne sinha, pt resting in bed, eyes closed, resp reg. call light in reach.
--- NOTE | 2022-07-01 07:33 | NUR ---
PT UP IN CHAIR. IN ROOM TO TAKE BS. BS TAKEN. NO FURTHER NEEDS AT THIS JENNIFER. CALL LIGHT WITHIN REACH.
--- NOTE | 2022-07-01 08:16 | NUR ---
DR DELANEY HERE NOTIFIED OF MG LEVEL - DEFER TO HOSPITALIST FOR REPLACEMENT - DR THOMAS NOTIFIED BY THIS RN.
--- NOTE | 2022-07-01 10:30 | NUR ---
in room with , pt and dc airport planner jeannie. pt decided with to try to go to facility for safe dc placement. pt up in and aj ensure given and coffee to , agree that this is a safe option for pt with 2 person assist and continue therapy.
--- NOTE | 2022-07-01 11:00 | NUR ---
SPOKE WITH FAMILY ABOUT THE PATIENT'S PLAN OF CARE. PATIENT HAS DECIDED TO GO TO A GROUP HOME. PATIENT IS REQUESTING [facility]. CHART HAS BEEN SENT FOR REVIEW TO BE PLACED IN NEW SITE.
--- NOTE | 2022-07-01 11:22 | NUR ---
pt 2 person trsf from to [facility] dark loose bm noted. cleaned then tsf to bed for rest. in room. happy with news that facility may have a bed for the pt.
--- NOTE | 2022-07-01 12:34 | NUR ---
in room with pt, dr lee and . iv mg started. pt sleepy but awakened and boosted up for lunch.
--- NOTE | 2022-07-01 14:03 | NUR ---
pt reclined in bed, resp rate reg. at bedside, wm blkt given to her. denies needs.
--- NOTE | 2022-07-01 14:23 | NUR ---
TRIED TO VISIT-STAFF ATTENDING TO PT AND ON PHONE. WILL CHECK BACK
--- NOTE | 2022-07-01 16:43 | NUR ---
PT STATED HIS ALLRED WAS BOTHERING HIM AGAIN. ASKED IF IT BOTHERED HIM AT [facility] AND HE STATED HE DID NOT HAVE ONE THERE PREVIOUSLY THOUGHT. SPOKE WITH DR THOMAS AND OBTAINED ORDER TO REMOVE IT WAS PLACED BY PREVIOUS ORDER FOR URINARY MONITORING.
--- NOTE | 2022-07-01 16:48 | NUR ---
BRIGIDA CAMPBELL BY THIS B2B SALES PROFESSIONAL UPON MICHELLE Taylor'S REQUEST. AMOUNT OF URINE IN BAG AT THE TIME IS CHARTED. URINAL PROVIDED. CALL LIGHT IN REACH. NO FURTHER NEEDS AT THIS TIME.
--- NOTE | 2022-07-01 16:53 | CONS ---
[facility] [address], [place] [address] Signed DATE OF CONSULTATION: 06/27/2022 REQUESTING PHYSICIAN: Do Lopez MD PROBLEM: Presumed GI bleeding. HISTORY OF PRESENT ILLNESS: This 81-year-old white man is extremely hard of hearing. Nevertheless, he is alert and oriented and able to provide history. He was admitted by Dr. Lopez at approximately 5:15 p.m. having recent hospitalization for right hip periprosthetic fracture while on anticoagulation with apixaban and found having fallen and found on the floor. This was at [facility]. He presented to the emergency room and was found to have multiple medical problems including atrial fibrillation with rapid ventricular response. He had significant renal abnormalities with elevated creatinine and the patient had black tarry stools. The patient has had no nausea or vomiting and denies any abdominal pain. PAST MEDICAL HISTORY: Does include atrial fibrillation with chronic anticoagulation as previously described, history of coronary stenting, hypertension, creatinine elevation of 1.5, type 2 diabetes, and primary adrenal cortical insufficiency. He is being treated with stress dose steroid hydrocortisone 100 mg IV q.8 hours. His laboratory studies at presentation showed an INR of 1.62, creatinine of 2.27, potassium of 6.0. White count of 15.6 with hematocrit of 25 with a hemoglobin of 7.8. Subsequent hemoglobin level was 4.5. He did undergo chest x-ray, which was normal. A CT scan of the head chronic senescent changes, but no other abnormality noted. Right hip x-ray showing a fracture extending from the subtrochanteric right femur. This appears unlikely to be new. There was an existing lateral femoral plate and screw hardware. Shoulder view on the right is normal. PHYSICAL EXAMINATION: GENERAL: An elderly white man who looks to be in no distress at this time. He is reasonably alert, oriented, but extremely hard of hearing. VITAL SIGNS: Showed a temperature of 95.8 previously 98.9 at 12 noon. Blood pressure is 122/66, respirations between 16 and 25, O2 saturation on room air is 96%. NECK: Trachea is midline he has no hoarseness. CHEST: Shows normal respiratory excursion without tachypnea at this time. Electronically Signed By: JUAN DELANEY MD 07/01/22 1654 PATIENT NAME: HUMZA ETIENNE CONSULTATION DATE OF : 40 REPORT #: [id number] PHYSICIAN: JUAN DELANEY MD PCP: ORLANDO DRAKE MD REPORT IS CONFIDENTIAL AND NOT TO BE RELEASED WITHOUT AUTHORIZATION [facility] [address], [place] [address] Signed ABDOMEN: Soft easily palpated. There is no ascites, tenderness or mass. EXTREMITIES: Not thoroughly examined, though he has no pedal edema that I can see. LABORATORY DATA: Lab study as previously noted showed most recently at 4:00 p.m. a hemoglobin of 4.6 with a hematocrit of 14.1, previously 25, platelet count was 193,000, previously 345,000. Serology is noted to show influenza type A positive. Urinalysis is still pending. Toxicology pending. ASSESSMENT: The patient has had "black tarry stool." An abdominal and pelvic CT scan was performed, which showed acute sigmoid diverticulitis and endobronchial filling defects and bronchial wall thickening with peripheral nodularity of the lung bases. Review of the x-ray shows a highly calcified aorta of the thoracic portion, calcific arterial changes, no evidence of splenic injury, relatively large stomach with fair amount of fluid within it. Gallbladder is present and normal as is the liver. There is no sign of intraabdominal fluid. On my exam, he has degenerative changes of the lumbar spine and metal fragments in it related to previous intervention. I see no colonic mass particularly and although there were a few scattered diverticula, I do not really see excessive mesenteric stranding. This may be in distinction to the radiologist admittedly. The patient has significant anemia. The source of his ground level fall at the detention is uncertain, but may well be related to the syncopal episode related to hypotension from acute GI blood loss. Transfusion therapy is underway under the direction of Dr. Lopez, the admitting physician. Endoscopic evaluation will be appropriate once fully stabilized. In distinction to my original thought, I would recommend upper endoscopy be performed either prior to or concurrently to colonoscopy as an upper gastrointestinal source would more likely be demonstrative of a bleeding source and colonoscopy. The colonic findings are rather under whelming as regard to diverticulosis in my opinion. Discussed this with the patient to the best level I could, given his difficulty with hearing. There is no urgency to endoscopic evaluation at present anyway. MD KAMARI Boyd/AUGUSTINEL /[id number] cc: Do Lopez MD Electronically Signed By: JUAN DELANEY MD 07/01/22 1653 PATIENT NAME: LOWELLHUMZA CONSULTATION DATE OF : 40 REPORT #: [id number] PHYSICIAN: JUAN DELANEY MD PCP: ORLANDO DRAKE MD REPORT IS CONFIDENTIAL AND NOT TO BE RELEASED WITHOUT AUTHORIZATION [address] [place], [place] [address] Signed Copies: DO LOPEZ MD ~ Electronically Signed By: JUAN DELANEY MD 07/01/22 1653 PATIENT NAME: HUMZA ETIENNE CONSULTATION DATE OF : 40 REPORT #: [id number] PHYSICIAN: JUAN DELANEY MD PCP: ORLANDO DRAKE MD REPORT IS CONFIDENTIAL AND NOT TO BE RELEASED WITHOUT AUTHORIZATION
--- NOTE | 2022-07-01 16:53 | OR ---
[facility] [place] [facility] [address], [place] [address] Signed DATE OF OPERATION: 06/29/2022 SURGEON: Juan Delaney MD PREOPERATIVE DIAGNOSES: 1. Recent syncopal episode, ground-level fall with anemia, hematocrit 25, and melena. 2. Concurrent influenza A. POSTOPERATIVE DIAGNOSES: 1. Recent syncopal episode, ground-level fall with anemia, hematocrit 25, and melena. 2. Concurrent influenza A. 3. Erosive duodenitis and distal esophagitis with proximal gastritis. No sign of active bleeding. PROCEDURE: Esophagogastroduodenoscopy with biopsy. ANESTHESIA: Intravenous sedation, propofol infusion; Imelda Nguyễn CRNA. INDICATIONS: This 81-year-old white man was admitted by Dr. Lopez on 06/27/2022, having suffered a ground-level fall. He was recuperating at a local care facility following a hip fracture with pinning. He is chronically anticoagulated with apixaban related to atrial fibrillation. Associated with his ground-level fall and transferred to the emergency room for evaluation, he was noted to have tarry black stool consistent with melena. He was concurrently found to have influenza A. He has been treated with Tamiflu and IV fluids and so forth, and now is to undergo upper endoscopy. The patient says he underwent colonoscopy in April and May of this year by Dr. Shravan Yu. I am unable to confirm that study only that upper endoscopy was performed at that time showing duodenitis and some gastritis. Notably, he has had no hematemesis. He is admitted to undergo upper endoscopy with propofol sedation. Understands the risks of bleeding, infection, failure to diagnose the underlying problem, and other unforeseen complications. Understands and he wishes to proceed. It is noted that he is extremely hard of hearing, but does understand the rationale and the risks related to endoscopic evaluation at this time. FINDINGS: Upper endoscopy did demonstrate distal esophagitis without active bleeding. There were no varices. There was duodenal erosive inflammatory change. CLOtest was negative 15 Electronically Signed By: JUAN DELANEY MD 07/01/22 1653 PATIENT NAME: HUMZA ETIENNE OPERATIVE REPORT DATE OF : 40 REPORT #: [id number] PHYSICIAN: JUAN DELANEY MD PCP: ORLANDO DRAKE MD REPORT IS CONFIDENTIAL AND NOT TO BE RELEASED WITHOUT AUTHORIZATION [facility] [place] [facility] [address], [place] [address] Signed minutes postprocedure. There was mild proximal gastritis as well. There was no sign of active bleeding or clot currently. DESCRIPTION OF PROCEDURE: The patient was brought to the endoscopy suite and placed in the semi-recumbent position, given intravenous sedation with full cardiopulmonary monitoring by the shirt bander. After satisfactory sedation, a bite block was placed and an Olympus video upper endoscope passed in the hypopharynx. The vocal cords appeared normal. There was no sign of blood in the hypopharynx. The scope was advanced to the esophagus, throughout its length was reasonably normal except in the distal portion, which showed some chronic esophagitis and scarring (ulcerative esophagitis with healing). The scope was passed to the stomach, which was insufflated with air. Bilious fluid was noted. There was no sign of blood or clot. Rugal folds were normal. The antrum showed chronic inflammatory change. The scope was passed into the duodenum, which showed erosive changes, but no evidence of active bleeding and no deep ulceration. Biopsies were obtained there. The scope was then withdrawn to the distal stomach in the antrum and biopsies obtained for both RAVI and pathologic testing. Retroflexed view was undertaken confirming small hiatal hernia proximally. There was some proximal gastritis, but no active bleeding. The scope was withdrawn and biopsies taken of the distal esophagus. The scope was withdrawn, removed and the patient taken to the recovery room in good condition. CONCLUDING DIAGNOSES: The findings would be enough to account for melena if the patient was fully anticoagulated (as he was), in particular considering he has been treated for at least 48 hours with antiulcer medication. Consideration is made for colonoscopy; it is unclear if he actually had colonoscopy several months ago as he had described. I will review his medical record to affirm or refute that. If he has not undergone colonoscopy in quite some time, consideration would have to be made for bowel prep and colonoscopy thereafter. MD KAMARI Boyd/MODL /[id number] Electronically Signed By: JUAN DELANEY MD 07/01/22 1653 PATIENT NAME: HUMZA ETIENNE OPERATIVE REPORT DATE OF : 40 REPORT #: [id number] PHYSICIAN: JUAN DELANEY MD PCP: ORLANDO DRAKE MD REPORT IS CONFIDENTIAL AND NOT TO BE RELEASED WITHOUT AUTHORIZATION [address] [address] Signed cc: MD Do Slade MD Copies: DO LOPEZ MD ~ Electronically Signed By: JUAN DELANEY MD 07/01/22 1653 PATIENT NAME: LOWELLHUMZA OPERATIVE REPORT DATE OF : 40 REPORT #: [id number] PHYSICIAN: JUAN DELANEY MD PCP: ORLANDO DRAKE MD REPORT IS CONFIDENTIAL AND NOT TO BE RELEASED WITHOUT AUTHORIZATION
--- NOTE | 2022-07-01 17:18 | NUR ---
PT SITTING UP IN BED. FAMILY MEMBER PRESENT IN ROOM. VITALS AND IS AND OS COMPLETE. ICE WATER REFRESHED. NO FURTHER NEEDS. CALL LIGHT WITHIN REACH
--- NOTE | 2022-07-01 17:52 | NUR ---
COVID SWAB COLLECTED SENT TO THE LAB
--- NOTE | 2022-07-01 19:59 | NUR ---
BEDSIDE REPORT FROM DAYSHIFT RN. PATIENT APPEARS TO BE SLEEPING, WITH EYES CLOSED. CALL LIGHT WITHIN REACH.
--- NOTE | 2022-07-01 23:48 | NUR ---
Awake in bed watching t.v. Did a set of vitals. Got him some fresh water and some apple juice.
--- NOTE | 2022-07-02 01:03 | NUR ---
Rotated pillow from left side to right side.
--- NOTE | 2022-07-02 04:01 | NUR ---
PATIENT APPEARS TO BE RESTING WITH EYES CLOSED. REPOSITIONED TO RIGHT SIDE. ATTEND C/D/I. DENIES ANY NEEDS AT THIS TIME. CALL LIGHT WITHIN REACH. VERBALIZED TO PATIENT PLAN TO DO WOUND CARE CONSULTATION THIS MORNING WITH WOUNDS ON COCKYX, PATIENT VERBALIZED OKAY.
--- NOTE | 2022-07-02 05:00 | NUR ---
WOUND CONSULT DONE. SEE COMPLEX WOUND ASSESMENT. ADMINISTERED 5MG OXYCODONE PO PER SEP. PATIENT HAS SKIN TEAR TO RIGHT UPPER ARM, 2X STAGE 2 PRESSURE ULCERS TO COCCYX, AND FRICTION INJURY TO RIGHT LATERAL HIM IN CLOSE PROXIMITY TO SURGICAL SITE. DRESSING ORDERS FOR WOUNDS INPUTED INTO COMPUTER. PATIENT IS ABLE TO COMMUNICATE AND UNDERSTAND WITH THE USE OF THE HEARING AID. PATIENT RESTED WELL THROUGHOUT NIGHT, TOLERATED BEING TURNED EVERY 2 HOURS.
--- NOTE | 2022-07-02 08:00 | NUR ---
Faxed orders, covid test, and PASRR to Kady at [facility]. Called and scheduled van for transport at 0930. Called Eulalia, pts , she is on her way here with pts clothing and personal items. In and spoke Luis Fernando and he is ready to go to [facility] for rehab.
--- NOTE | 2022-07-02 08:45 | NUR ---
REPORT RECEIVED FROM NIGHT RN AND PT. CARE RESUMED. PT. DENIES PAIN OR SOB. MORNING MEDS ADMIN AND ASSESSMENT COMPLETED. IV X2 REMOVED. AT BEDSIDE. GROUP BURNER MACHINE IN TO ASSIST WITH DRESSING.
[2022-07-02] MEDS ORDERED: AMOX TR-K CLV1 EACH PO (09:09)
[2022-07-02] MEDS ORDERED: OXYCODONE HCL5 MG PO (09:12)
[2022-07-02] MEDS ORDERED: HYDROCORTISONE10 MG PO ×2 (09:13)
--- NOTE | 2022-07-02 09:45 | NUR ---
REPORT CALLED TO REHAB. VITALS STABLE AND MORNING MEDS ADMIN. IV X2 REMOVED WITH CATH INTACT. EDUCATION PROVIDED.
== END 2022-07-02 09:35 | DRG 368 ==
LOC: ED 12:09 → CCU 15:44 → MS 15:44
PROVIDERS: Surgery; ADMIT Internal Medicine; ATTEND Family Medicine
PROC: 30233N1 Transfusion of Nonautologous Red Blood Cells into Peripheral Vein, Percutaneous Approach (ICD-10-PCS; 2022-06-27)
PROC: 0DB98ZX Excision of Duodenum, Via Natural or Artificial Opening Endoscopic, Diagnostic (ICD-10-PCS; 2022-06-29)
PROC: 0DB38ZX Excision of Lower Esophagus, Via Natural or Artificial Opening Endoscopic, Diagnostic (ICD-10-PCS; principal; 2022-06-29 16:30)
DX: K20.91 Esophagitis, unspecified with bleeding (principal); K27.4 Chronic or unspecified peptic ulcer, site unspecified, with hemorrhage; K29.71 Gastritis, unspecified, with bleeding; K29.81 Duodenitis with bleeding; N17.9 Acute kidney failure, unspecified; D62 Acute posthemorrhagic anemia; E87.20 Acidosis, unspecified; K57.32 Diverticulitis of large intestine without perforation or abscess without bleeding; Z20.822 Contact with and (suspected) exposure to COVID-19; E27.1 Primary adrenocortical insufficiency; J10.1 Influenza due to other identified influenza virus with other respiratory manifestations; N18.31 Chronic kidney disease, stage 3a; I48.91 Unspecified atrial fibrillation; E87.5 Hyperkalemia; I12.9 Hypertensive chronic kidney disease with stage 1 through stage 4 chronic kidney disease, or unspecified chronic kidney disease; E11.22 Type 2 diabetes mellitus with diabetic chronic kidney disease; R74.01 Elevation of levels of liver transaminase levels; E83.42 Hypomagnesemia; E78.00 Pure hypercholesterolemia, unspecified; Z96.641 Presence of right artificial hip joint; Z85.828 Personal history of other malignant neoplasm of skin; Z98.890 Other specified postprocedural states; Z79.01 Long term (current) use of anticoagulants; Z79.899 Other long term (current) 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
CPT/HCPCS: 36415; 70450; 71045; 73030; 73502; 74176; 80048; 80053; 80076; 81001; 82553; 82570; 83036; 83605; 83735; 84132; 84300; 84550; 85025; 85610; 85730; 86850; 86900; 86901; 86922; 87502; 93005; 93010; 97110; 97162; 97166; 97530; C9113; C9803; J0692; J1160; J1720; J1815; J2001; J2270; J2704; J3430; J3475; J3480; J7030; J7060; J7070; J7121; P9016; U0003

== ENCOUNTER 2022-11-05 13:58 | Inpatient (IN) | payer OTHER, MEDICARE ==
[~2022-11-05] VITALS: Ht 175.3 cm; Wt 61.8 kg
[~2022-11-05 13:58] MED LIST changes: +ALBUTEROL2.5 MG/3 M INH; +AMOX TR-K CLV1 EACH PO; +ELIQUIS2.5 MG PO; +FERROUS SULFAT325 M2 PO; +GLUCOSE GEL38 GM PO; +HYDROCORTISONE5 MG PO; +MICATIN14 GM TOP; +MILK OF MA400 MG/5 M PO; +ONDANSETRON ODT8 MG PO; +ROXICODONE15 MG PO; +SENOKOT8.6 MG PO; +SUCRALFATE1 GM PO; +TAMIFLU75 MG PO; +THEREMS-M TABL1 EACH PO; +VITAMIN C500 M1 PO; +VOLTAREN ARTHRI20 GM TOP
--- OUTSIDE RECORDS SUMMARY | 2022-11-05 14:00 | XMS ---
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 Security Cost Control Analyst Events No recent Security Events currently on file CRITERIA MET - 6 ED Visits in 6 Months - PDMP CARE PROVIDERS HENRIK WALLACE Clinical Program Manager: Foot \T\ Ankle Surgery Current PHONE: [phone] PATRICE CAMERON Internal Medicine Current PHONE: [phone] ORLANDO DRAKE [facility] 12/02/2020-Current PHONE: Unknown MIGUELANGEL OATES Nurse Practitioner: Family Current PHONE: Unknown ELIZABETH LOO Internal Medicine Current PHONE: [phone] YANI SNIDER Nurse Practitioner: Family Current PHONE: [phone] GRICELDA TINSLEY Nurse Practitioner Current FRACISCO PHONE: [phone] [facility] Current PHONE: Unknown SINA GRANT Family Medicine Current PHONE: [phone] Adonis has no Care Guidelines for this patient. Care History Medical/Surgical 12/02/2020 [facility] - Patient is currently established with [facility]. If patient is seen in the ED during business hours. Please contact CHWs at [facility]. Care Recommendation: If this patient [...] providing care. E.D. VISIT COUNT (12 MO.) 3 [facility] 6 [facility] [address] [facility] TOTAL 10 NOTE: Visits indicate total known visits. ED/UCC VISIT TRACKING (12 MO.) 11/05/2022 13:58 [facility] [place] TYPE: Emergency COMPLAINT: - SWELLING/BODY PART 09/01/2022 15:22 [facility] [place] TYPE: Emergency COMPLAINT: - [facility] DIAGNOSES: - Acute respiratory failure with hypoxia - Fluid overload, unspecified - Other pulmonary embolism without acute cor pulmonale - Paroxysmal atrial fibrillation - Pleural effusion, not elsewhere classified - Cough - Shortness of Breath [facility] DIAGNOSES: - Acute bronchiolitis due to respiratory syncytial virus - Candidiasis of skin and nail - COVID-19 - Diaper dermatitis - Cough - Skin Redness (Due To Rash) 07[facility]11[facility]22 [facility] DIAGNOSES: - Unspecified sprain of left wrist, initial encounter - Unspecified sprain of right wrist, initial encounter - Wrist Pain 06/27/2022 12:09 [facility] TYPE: Emergency COMPLAINT: - FALL 06/08/2022 15:21 [facility] TYPE: Emergency COMPLAINT: - EMS P3 Transfer: Femur Fx DIAGNOSES: - Fracture of unspecified part of neck of unspecified femur, initial encounter for closed fracture - Fall - femur fx 06/07/2022 20:12 [facility] [place] TYPE: Emergency COMPLAINT: - FALL DIAGNOSES: - Contact with and (suspected) exposure to COVID-19 - Essential (primary) hypertension - Fall on same level from slipping, tripping and stumbling without subsequent striking against object, initial encounter - Laceration without foreign body of right elbow, initial encounter - intermediate school teacher (current) use of anticoagulants - Old myocardial infarction - Other terminal operations manager (current) 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 - Pain in right hip - Periprosthetic fracture around internal prosthetic right hip joint, initial encounter - Unspecified atrial fibrillation - Unspecified fracture of shaft of right femur, initial encounter for closed fracture 05/10/2022 15:51 [facility] [place] TYPE: Emergency COMPLAINT: - LT SHOULDER PAIN DIAGNOSES: - Essential (primary) hypertension - Old myocardial infarction - Other fdc (current) 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 - Pain in left shoulder - Primary osteoarthritis, left shoulder - Pure hypercholesterolemia, unspecified - Unspecified atrial fibrillation 12/22/2021 12:00 [facility] [place] TYPE: Emergency COMPLAINT: - HIGH B/P, SOB DIAGNOSES: - Essential (primary) hypertension - Heart failure, unspecified - Hypertensive heart disease with heart failure - Old myocardial infarction - Other terminal operations manager (current) 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 - Pure hypercholesterolemia, unspecified - Shortness of breath - Unspecified atrial fibrillation INPATIENT VISIT TRACKING (12 MO.) 09/01/2022 15:23 [facility] [place] TYPE: Observation COMPLAINT: - ATRIAL FIBRILLATION WITH RVR DIAGNOSES: - Chronic atrial fibrillation, unspecified - COVID-19 - Hypokalemia - Iron deficiency anemia, unspecified - Non-pressure chronic ulcer of left calf with fat layer exposed - Non-pressure chronic ulcer of left heel and midfoot with fat layer exposed - Non-pressure chronic ulcer of other part of left foot with fat layer exposed - Non-pressure chronic ulcer of skin of other sites with fat layer exposed - Other terminal operations manager (current) 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 - Primary adrenocortical insufficiency - Syncope and collapse - Type 2 diabetes mellitus with foot ulcer - Type 2 diabetes mellitus with other skin ulcer 2022 18:02 [facility] TYPE: Medical Surgical DIAGNOSES: - Acute on chronic diastolic (congestive) heart failure - Acute on chronic systolic (congestive) heart failure - Acute respiratory failure with hypoxia - Fluid overload, unspecified - Other pulmonary embolism without acute cor pulmonale - Paroxysmal atrial fibrillation - Pleural effusion, not elsewhere classified - Unspecified atrial fibrillation 06/27/2022 15:[address] [facility] [place] TYPE: Medical Surgical COMPLAINT: - MARCIE,GI BLEEDING,HIGH AFIB RVR DIAGNOSES: - Acidosis, unspecified - Acidosis, unspecified - Acute kidney failure, unspecified - Acute kidney failure, unspecified - Acute posthemorrhagic anemia - Acute posthemorrhagic anemia - Chronic kidney disease, stage 3 unspecified - Chronic kidney disease, stage 3a - Chronic kidney disease, stage 3a - Chronic or unspecified peptic ulcer, site unspecified, with hemorrhage - Chronic or unspecified peptic ulcer, site unspecified, with hemorrhage - Contact with and (suspected) exposure to COVID-19 - Contact with and (suspected) exposure to COVID-19 - Diverticulitis of large intestine without perforation or abscess without bleeding - Diverticulitis of large intestine without perforation or abscess without bleeding - Duodenitis with bleeding - Duodenitis with bleeding - Elevation of levels of liver transaminase levels - Elevation of levels of liver transaminase levels - Esophagitis, unspecified with bleeding - Esophagitis, unspecified with bleeding - Essential (primary) hypertension - Gastritis, unspecified, with bleeding - Gastritis, unspecified, with bleeding - Gastrointestinal hemorrhage, unspecified - Hyperkalemia - Hyperkalemia - Hypertensive chronic kidney disease with stage 1 through stage 4 chronic kidney disease, or unspecified chronic kidney disease - Hypertensive chronic kidney disease with stage 1 through stage 4 chronic kidney disease, or unspecified chronic kidney disease - Hypomagnesemia - Hypomagnesemia - Influenza due to other identified influenza virus with other respiratory manifestations - Influenza due to other identified influenza virus with other respiratory manifestations - penitentiary (current) use of anticoagulants - intermediate school teacher (current) use of anticoagulants - Other terminal operations manager (current) 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 - Other terminal operations manager (current) 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 - Other specified postprocedural states - Other specified postprocedural states - Personal history of other malignant neoplasm of skin - Personal history of other malignant neoplasm of skin - Presence of right artificial hip joint - Presence of right artificial hip joint - Primary adrenocortical insufficiency - Primary adrenocortical insufficiency - Pure hypercholesterolemia, unspecified - Pure hypercholesterolemia, unspecified - Type 2 diabetes mellitus with diabetic chronic kidney disease - Type 2 diabetes mellitus with diabetic chronic kidney disease - Type 2 diabetes mellitus without complications - Unspecified atrial fibrillation 06/08/2022 15:21 [facility] TYPE: General Medicine COMPLAINT: - EMS P3 Transfer: Femur Fx DIAGNOSES: - Atherosclerotic heart disease of [place] coronary artery without angina pectoris [email or web address]
[2022-11-05 17:12] VITALS: BP 99/70
--- NOTE | 2022-11-05 18:17 | NUR ---
Patient admitted to CCU from ED via stretcher by this RN after bedside report received from Chas MARTINEZ. Patient transferred from ED [facility] to inpatient bed. Undressed and placed in gown. Skin assessment completed. Patient reports he is resting comfortably. Call light in reach. Side rails up x2 for safety and use of bed controls. Patient provided dinner tray. Denies any other needs at this time.
--- NOTE | 2022-11-05 18:30 | NUR ---
PATIENT RESTING IN BED. PATIENT MEDICATIONS GIVEN. PATIENT WORKING ON HIS DINNER AT THIS TIME. PATIENT IS WEARING THE NASAL CLIP OXIMETER D/T OTHER OXIMETERS NOT READING. RT AT THE BEDSIDE TO PLACE ON PATIENT. JAUNEN HAS URINAL. PATIENT IS HARD OF HEARING AND HAS BILATERAL HEARING AIDS PRESENT. ALVARO RN IN TO ASSIST PATIENT NEEDED. PATIENT HAS CALL LIGHT AND CALLS APPROPRIATELY.
--- NOTE | 2022-11-05 18:39 | EKG ---
[facility] [address] [place] [id number] Signed Atrial fibrillation with rapid ventricular response with premature ventricular or aberrantly conducted complexes Possible Inferior infarct , age undetermined Cannot rule out Anterior infarct , age undetermined Abnormal ECG When compared with ECG of 01-SEP-2022 15:30, Minimal criteria for Anterior infarct are now present Borderline criteria for Inferior infarct are now present Non-specific change in ST segment in Lateral leads Nonspecific T wave abnormality now evident in Anterior leads Confirmed by DO LOPEZ MD ([id number]) on 11/05/2022 6:38:56 PM Electronically Signed By: DO LOPEZ MD 11/05/22 1839 PATIENT NAME: HUMZA ETIENNE Electrocardiogram DATE OF : 40 PHYSICIAN: DO LOPEZ MD REPORT #: [id number] REPORT IS CONFIDENTIAL AND NOT TO BE RELEASED WITHOUT AUTHORIZATION
[2022-11-05 20:00] VITALS: BP 143/85
[2022-11-05 21:00] VITALS: BP 130/81
--- NOTE | 2022-11-05 23:42 | NUR ---
PLACED PATIENT ON 2 LNC.
[2022-11-06] VITALS (10 sets, daily range): BP systolic 116–141; BP diastolic 76–99
--- NOTE | 2022-11-06 04:21 | NUR ---
patient called for some ice water. voided in urinal
--- NOTE | 2022-11-06 06:17 | NUR ---
PATIENT IS AWAKE AND ALERT. RESTING IN BED. NO COMPLAINTS
--- NOTE | 2022-11-06 08:49 | NUR ---
IN PATIENT'S ROOM FOR BREAKFAST, EXPOSURE MACHINE OPERATOR AND VITALS. PT RESTING IN BED. CBG FOUND TO BE 74 - PT GIVEN ORANGE JUICE. PT STATES HE FEELS TIRED AND NOT READY TO GET UP OUT OF BED THIS MORNING. PT AGREEABLE TO GET UP FOR LUNCH AND DINNER. PT DENIES PAIN AND STATES HIS BREATHING IS "FINE". HR REMAINS ELEVATED, 120-140s AT THIS TIME, AFIB. AM MEDS GIVEN. WILL MONITOR HR CLOSELY. PT ALSO TAKEN OFF OXYGEN AND SP02 IS 95% ON ROOM AIR. DENIES FURTHER NEEDS - CALL LIGHT WITHIN REACH.
--- NOTE | 2022-11-06 09:46 | NUR ---
PATIENT RESTING AFTER HIS BREAKFAST, AND APPEARS COMFORTABLE IN NO ACUTE DISTRESS. PT REMAINS ON ROOM AIR, AND SP02 IS 91% CURRENTLY. WHILE PATIENT SLEEPING, SP02 NOTED TO DROP, LOW 80%. PT PLACED BACK ON 2 L NC WHILE RESTING. WILL CONTINUE TO MONITOR.
--- NOTE | 2022-11-06 09:52 | NUR ---
PATIENT RESTING IN BED, 02 SATURATIONS MAINTAINING AT 88% ON ROOM AIR. STUDENT NURSE, YANELY, PLACED PATIENT ON 2 LITERS NC. O2 SATURATIONS NOW AT 97%. PATIENT CONTINUES TO REST IN BED WITH EYES CLOSED. CALL LIGHT WITHIN REACH.
[2022-11-06] MEDS ORDERED: MAG-OXIDE400 MG PO (10:53)
[2022-11-06] MEDS ORDERED: TORSEMIDE20 MG PO (10:54)
--- NOTE | 2022-11-06 10:59 | NUR ---
PATIENT UP IN CHAIR AFTER GETTING WEIGHT, REQUIRED 2 PERSON PIVOT. PATIENT VISITING WITH SPOUSE. LINEN CHANGED. CALL LIGHT WITHIN REACH.
--- NOTE | 2022-11-06 11:11 | NUR ---
Patient is awake and alert, talking with his who is at bedside. Patient's O2 saturation has been 98% on 2 liters NC. Student nurse, Geri, turned off his O2 and his saturation is maintaining at 94%. Patient is up to chair at this time. Call light within reach.
[2022-11-06] MEDS ORDERED: POTASSIUM GLUCO90 MG PO (12:01)
--- NOTE | 2022-11-06 12:01 | NUR ---
PASTRYCOOK IN ROOM WITH PATIENT AND HIS DISCUSSING PLANS FOR AFTER D/C. MEDS GIVEN PER EMAR.
[2022-11-06] MEDS ORDERED: LOSARTAN POTASS50 MG PO (12:02)
[2022-11-06] MEDS ORDERED: VITAMIN B-121000 MCG PO (12:02)
[2022-11-06] MEDS ORDERED: ATORVASTATIN CA80 MG PO (12:03)
--- NOTE | 2022-11-06 12:06 | NUR ---
MED REC COMPLETE
--- NOTE | 2022-11-06 12:13 | NUR ---
BEBE PATIÑO IN VISITING WITH PT AND HIS . WILL FOLLOW
--- NOTE | 2022-11-06 12:49 | NUR ---
PATIENT UP TO BATHROOM TO HAVE A BM. PT'S REMAINS IN ROOM. PT ON 4 L 02 WHILE WALKING. PT WAS A 2 PERSON ASSIST TO BATHROOM.
--- NOTE | 2022-11-06 12:59 | NUR ---
PATIENT BACK TO CHAIR X2 PERSON ASSIST. OXYGEN T URNED BACK DOWN TO 2 L NC AFTER BACK IN CHAIR. PT WAS ABLE OT HAVE A SMALL BM BUT VOIDED A COUPLE TIMES IN THE TOILET HE STATES.
--- NOTE | 2022-11-06 14:00 | NUR ---
Spoke with pt and , Hannah. Both are well known to the hospital. Pt was recently discharged to home from a SNF. His toe was amputated recently also. HH is currently seeing pt 2 x per week. Pt and are very happy with this service. Pt has a ramp into his home and 0 steps. They both feel they have all the DME they need. The aid assists him to shower 2 x per week. His grandson visits nightly and helps with chores around the house. I gave them the [employer] brochure to hire a cg. They deny any financial issues. [facility] and [facility]. They are waiting on cochlear implants, this was cancelled due to a fall. Pt is very hard of hearing. Pt. and plan on dc to home when cleared medically. They deny needs or complaints. Family will assist. Per they have fiances to hire a cg if and when needed.
--- NOTE | 2022-11-06 15:13 | NUR ---
PATIENT USES CALL LIGHT AND REQUESTS TO GO BACK TOB ED TO REST BEFORE DINNER. PT IS A 2 PERSON ASSIST TO BED. PT REMAINS ON 2 L NC. HR HAS MOSTLY BEEN BELOW THE 90s, AFIB.
--- NOTE | 2022-11-06 17:11 | NUR ---
REPORT RECEIVED AT BEDSIDE AND PT. ARRIVED VIA STRETCHER. HE IS ALERT AND ORIENTED. AMBULATING WITH SBA. INTAKE COMPLETED. MEDS ADMIN. DISCUSSED SAFETY AND POC. CALL LIGHT IN REACH.
--- NOTE | 2022-11-06 18:34 | NUR ---
PT SUPINE IN BED WITH HOB ELEVATED, URINAL EMPTIED OF CLEAR YELLOW URINE, DINNER TRAY REMOVED AT PATIENT REQUEST,CALL LIGHT IN REACH NO FURTHER NEEDS AT THIS TIME
--- NOTE | 2022-11-06 19:44 | NUR ---
PT SITTING IN BED ALERT, HE IS USEING URINAL TO VOID, HE HAS NO REQUESTS AT THIS TIME OTHER THAN SNACKS.
--- NOTE | 2022-11-06 21:00 | NUR ---
PT PROVIDED SUGAR FREE JELLO FOR SNACK AFTER BEDSIDE GLUCOSE CHECK. PT HAS NO FURTHER NEEDS OR CONCERNS AT THIS TIME
--- NOTE | 2022-11-06 23:35 | NUR ---
PT RESTING QUIETLY IN BED NO DISTRESS NOTED, V/S STABLE
[2022-11-07] VITALS (7 sets, daily range): BP systolic 107–122; BP diastolic 66–88
--- NOTE | 2022-11-07 03:15 | NUR ---
PT HAD RUN OF 7 VENTRICULAR BEATS ON NIGHT CUSTODIAN. THIS RN INTO CHECK ON PT, HE IS ALERT TO RN OPENING ROOM DOOR. HE REPORTS HE FEELS FINE, RATE CONTROLLED AT THIS TIME IN AFIB
--- NOTE | 2022-11-07 08:28 | NUR ---
IN PATIENT'S ROOM FOR AM MEDS, BREAKFAST, VITALS AND ASSESSMENT. PT ASLEEP UPON ENTRY TO ROOM BUT AWAKENS EASILY. PT ON ROOM AIR AND SP02 IS 91-92%. PT APPEARS IN NO ACUTE DISTRESS. PT REMAINS IN AFIB, HR BETTER CONTROLLED AND CURRENTLY RANGING IN THE 90s. UP TO 100s WITH ACTIVITY. PT BOOSTED INB ED AND NOW EATING BREAKFAST. PT REPORTS NO DISCOMFORT, NO TROUBLE BREATHING AND DENIES PAIN. LEGS STILL HAVE 2-3+ PITTING EDEMA IN LOWER EXT. DAILY WEIGHT TO BE OBTAINED. PT ALERT AND ORIENTED X4. TAKES PO MEDS W/O DIFFICULTY. CALL LIGHT WITHIN REACH.
--- NOTE | 2022-11-07 09:31 | NUR ---
TRAY TAKEN AFTER PT EATS 100% OF BREAKFAST. CURTAINS OPENED IN ROOM. PT AGREEABLE TO UP TO CHAIR WHEN HIS ARRIVES. PT'S TO BRING IN HIS HOME MED OF JARDIANCE. DENIES FURTHER NEEDS. WEIGHT TO BE OBTAINED WHEN PT UP TO CHAIR.
--- NOTE | 2022-11-07 13:43 | NUR ---
PT WILL MOVE TO MEDICAL FLOOR ON TELEMETRY. PT AND JJ UPDATED ON THIS. PT GIVEN SCHEDULED MEDS PER EMAR. PT STARTING TO BECOME UNCOMFORTABLE SITTING IN CHAIR. PT REMAINS ON ROOM AIR AND SP02 WAS 97%. URINAL ON TRAY TABLE AND CALL LIGHT WITHIN REACH.
--- NOTE | 2022-11-07 15:02 | NUR ---
PATIENT REQUESTING TO GET UP TO BATHROOM TO TRY AND HAVE A BM. ONE PERSON ASSIST OUT OF CHAIR WITH FWW TO BATHROOM. PARTIAL BATH GIVEN WHILE PATIENT SITTING. NEW GOWN PLACED. 2 PERSON ASSIST TO GET PATIENT UP FROM TOILET AND GAIT BELT USED. PT WANTING TO REST IN BED AND WATCH THE [employer] GAME. PT NOW ON TELE #4, REMAINS IN AFIB. PT REMAISN ON ROOM AIR. WEIGHT OBTAINED AND PT REPORTS, "THAT'S FIVE LBS DOWN FROM YESTERDAY." PT NOTED TO BE 6 KG DOWN FROM ADMIT WEIGHT. PT TO TRANSFER TO MEDICAL FLOOR LATER TODAY.
--- NOTE | 2022-11-07 18:07 | NUR ---
PT TRANSFERED TO MED/SURG FROM CCU AT 1645. HAS HAD MULTIPLE HOSPITALIZATIONS AND A SKILLED STAY IN THE LAST 4 MONTHS. 2+ PITTING EDEMA IN LOWER LEGS, 1+ IN UPPER THIGHS. EAR PROBE WORKS FOR O2 SAT. 1600ML FLUID RESTRICTION, 800ML GIVEN TODAY. HEAVY 1-2 PERSON ASSIST WITH FWW. 2ND TOE AMPUTATED ON LEFT FOOT. ON TELE 4. NO BM X2 DAYS.
--- NOTE | 2022-11-07 19:19 | NUR ---
REPORT RECEIVED FROM DAY SHIFT RN. PT IS AWAKE AND ALERT IN BED WATCHING TV. HE HAS A CALL LIGHT AND TV CONTROL. KNOWSS WHEN TO CALL . NO NEEDS AT THIS TIME.
--- NOTE | 2022-11-07 19:49 | NUR ---
PT IS GIVEN A WARMED BLANKET AFTER ASSESSMENT. HE FEELS COMFORTABLE NOW.
--- NOTE | 2022-11-07 23:30 | NUR ---
ADJUSTED THE THERMOSTAT IN HIS ROOM, UP TO 72. PT REFUSED EXTRA BLANKETS.
--- NOTE | 2022-11-08 01:08 | NUR ---
PT USED HIS URINAL. VOIDED 150. NO OTHER NEEDS .
[2022-11-08 04:36] VITALS: BP 132/94
--- NOTE | 2022-11-08 07:49 | NUR ---
PT SLEEPING SOUNDLY AT TIME OF SHIFT REPORT. BREATHING EVEN AND UNLABORED, CALL LIGHT AND NEEDED ITEMS AT BEDSIDE.
[2022-11-08 09:12] VITALS: BP 134/91
--- NOTE | 2022-11-08 09:15 | NUR ---
PATIENT IN BED AFTER MEAL. VITALS AND I/O'S COMPLETED. PATIENT HAS NO OTHER REQUESTS AT THIS TIME. CALL LIGHT WITHIN REACH.
--- NOTE | 2022-11-08 11:17 | NUR ---
PT SITTING IN CHAIR VISITING WITH HIS . C/O BOTTOM BEING SORE. ALLEVYN REMOVED AREA IS RED BUT NOT OPEN. CLEANSED AND APPLIED BARRIER, PILLOW ADDED TO CHAIR BOTTOM. PT SITTING NOW AGREES HE IS COMFORTABLE. SPOKE WITH ABOUT HOME CARE FOR HIS BOTTOM WHEN HE RETURNS. SHE AGREES TO ASSIST WITH FREQUENT POSITION CHANGES AND WILLI WASH 2X DAILY AND PRN WITH BARRIER CREAM. ALL QUESTIONS ANSWERED.
--- NOTE | 2022-11-08 14:37 | NUR ---
PT HAS BEEN UP TO THE CHAIR ALL DAY, RETURNS TO THE BED NOW. REDNESS TO BOTTOM NOTED EARLIER MUCH IMPROVED AT THIS TIME. REMAINS IN THE ROOM AND WAS ABLE TO SPEAK TO DR LOPEZ WHEN HE MADE HIS VISIT EARLIER. NO FURTHER QUESTIONS. PT HAS CALL LIGHT AND NEEDED ITEMS IN REACH DENIES ANY NEEDS OF
[2022-11-08 15:03] VITALS: BP 121/65
--- NOTE | 2022-11-08 15:07 | NUR ---
PATIENT IN BED AFTER MEAL. VITALS AND I/O'S COMPLETED. URINAL EMPTIED. PT HAS NO OTHER REQUESTS AT THIS TIME. CALL LIGHT WITHIN REACH.
--- NOTE | 2022-11-08 15:35 | NUR ---
PT RESTING IN BED AGREES HE IS COMFORTABLE. LEAVES AFTER BEING HERE SEVERAL HOURS THIS SHIFT. CALL LIGHT AND OTHER ITEMS IN REACH PT DENIES NEEDS OF
[2022-11-08 17:45] VITALS: BP 143/68
--- NOTE | 2022-11-08 17:48 | NUR ---
PATIENT IN BED AFTER MEAL. VITALS AND I/O'S COMPLETED. PT HAS WATER IN CUP. PT HAS NO OTHER REQUESTS AT THIS TIME. CALL LIGHT WITHIN REACH.
--- NOTE | 2022-11-08 19:30 | NUR ---
RECEIVED REPORT FROM DAY NURSE. PT IS A/O, RESPIRATIONS EVEN AND REGULAR. WATCHING TELEVISION. DENIES NEEDS/COMPLAINTS ATT.
--- NOTE | 2022-11-08 20:30 | NUR ---
PT ASSESSMENT AND MEDICATION ADMINISTRATION COMPLETED. PT IS A/O, RESPIRATIONS EVEN AND REGULAR. REMAINS ON TELE WITH AFIB RHYTHM. PT DENIES NEEDS/COMPLAINTS ATT. CALL LIGHT WITHIN REACH.
--- NOTE | 2022-11-08 22:08 | NUR ---
ROUNDED ON PT. PT APPEARS TO BE SLEEPING COMFORTABLY. AWAKENS EASILY. REQUESTED TO USE URINAL. CALL LIGHT WITHIN REACH.
--- NOTE | 2022-11-09 02:02 | NUR ---
PT CALLED, REQUESTED SOMETHING FOR PAIN. STATES THAT HIS SHOULDERS, HANDS HURT. HAVING TROUBLE GETTING BACK TO SLEEP. TYLENOL ADMINISTERED. FEW ICE CUBES ADDED TO HIS CUP WATER, EMPTIED URINAL. UPDATED WHITE BOARD, WARM BLANKET PROVIDED, REQUESTED ROOM LITTLE WARMER. CALL LIGHT WITHIN REACH.
--- NOTE | 2022-11-09 03:01 | NUR ---
PT A/O, RESPIRATIONS EVEN AND REGULAR. DENIES NEEDS ATT. URINAL EMPTIED. CALL LIGHT WITHIN REACH.
[2022-11-09 05:43] VITALS: BP 133/78
--- NOTE | 2022-11-09 05:43 | NUR ---
pt resting in bed. vitals and is and os complete. pt declined restroom needs at this time. dw taken. 62.0 kg. pt linen changed by the fingerprinter. ice water provided and ok'd w rn. no needs. call light within reach
--- NOTE | 2022-11-09 06:05 | NUR ---
MEDICATION ADMINISTRATION COMPLETED. PT IS A/O, RESPIRATIONS EVEN AND REGULAR. STANDING WEIGHT COMPLETED. DENIES ANY NEEDS/COMPLAINTS ATT.
--- NOTE | 2022-11-09 07:15 | NUR ---
PT RESTING EYES CLOSED AT TIME OF SHIFT REPORT. BREATHING EVEN AND UNLABORED CALL LIGHT AND NEEDED ITEMS AT BEDSIDE.
[2022-11-09 09:00] VITALS: BP 122/60
--- NOTE | 2022-11-09 10:41 | NUR ---
PT UP AMBULATING WITH P/T APPEARS WELL TOLERATED NO C/O SOB, PAIN, OR OTHER DISCOMFORTS.
--- NOTE | 2022-11-09 10:53 | NUR ---
PT TO THE CHAIR FOR STRENGTHENING EXERCIZES WILL REMAIN THERE FOR LUNCH AND VISIT FROM .
--- NOTE | 2022-11-09 13:05 | NUR ---
PT ALERT, ORIENTED AND VISITING WITH HIS AT BS. PT HOPES TO DC TODAY, DR LOPEZ IN TO EXAMINE PT. GVE BLESSING WILL FOLLOW
--- NOTE | 2022-11-09 13:14 | NUR ---
BOTTOM CLEANSED AND BARRIER CREAM APPLIED. AREA IS RED BUT BLANCHABLE. REVIEWED PRESSURE RELIEF AND SKIN CARE WITH SHE VERBALIZES UNDERSTANDING. PT BACK TO REST IN BED PER REQUEST. CALL LIGHT AND NEEDED ITEMS IN REACH.
--- NOTE | 2022-11-09 13:27 | NUR ---
IN TO SEE PATIENT, PATIENT RESTING IN BED SHAVING. PATIENT STATES IS DOING WELL AND READY TO DISCHARGE. HE STATES HE HOPES HE WILL BE ABLE TO GO HOME TOMORROW. NO FURTHER NEEDS AT THIS TIME. NO CHANGE DISCHARGE PLAN AT THIS TIME. PATIENT WILL NEED PT RESUMPTION ORDER SENT TO [facility].
[2022-11-09 13:53] VITALS: BP 113/65
--- NOTE | 2022-11-09 14:22 | NUR ---
ANA SHER IN TAKING VSS. PT AWAKES TO MY VOICE. SAID HE PLANS ON DC TOMOROW. FEELING BETTER, ANA SHER NEEDING TO FINISH. GAVE BLESSING AND WILL FOLLOW.
--- NOTE | 2022-11-09 16:32 | NUR ---
PT TO THE SHOWER, STAFF ASSIST WITH CARES. PREFERS TO RETURN TO BED OPPOSED TO THE CHAIR. RESTING NOW TALKING ON THE PHONE WITH HIS
[2022-11-09 18:27] VITALS: BP 131/65
--- NOTE | 2022-11-09 18:35 | NUR ---
PT TOLERATES 100% OF EVENING MEAL. CONTINUES TO USE THE URINAL AND CALL APPROPRIATELY FOR OTHER NEEDS. PT DENIES NEEDS OF AT THIS TIME
--- NOTE | 2022-11-09 19:00 | NUR ---
REPORT RECEIVED FROM MICHELLE HOOKS. pt RESTING IN BED WATCHING TV. URINAL EMPTIED. pt DENIES NEEDS. CALL LIGHT IN REACH.
[2022-11-09 20:38] VITALS: BP 119/62
--- NOTE | 2022-11-09 21:01 | NUR ---
pt RESTING IN BED AWAKE, ALERT AND ORIENTED. VSS. SPO2 WNL ON RA. 1+ EDEMA BLE. ASSESSMENT COMPLETE. ALLOTTED ICE WATER PROVIDED. IV SITE FLUSHED WNL, SL. pt DENIES ANY PAIN. DENIES ADDITIONAL NEEDS. CALL LIGHT IN REACH.
--- NOTE | 2022-11-09 23:25 | NUR ---
pt RESTING IN BED WITH EYES CLOSED. BREATHING EQUAL AND UNLABORED. NO DISTRESS NOTED.
--- NOTE | 2022-11-09 23:45 | NUR ---
CALL LIGHT ANSWERED. URINAL EMPTIED. pt DENIES ADDITIONAL NEEDS.
--- NOTE | 2022-11-10 00:31 | NUR ---
CALL LIGHT ANSWERED. pt ACCIDENTALLY KNOCKED OVER DENTURE CUP. PROVIDED FOR pt'S UPPER DENTURES. NO ADDITIONAL REQUESTS.
--- NOTE | 2022-11-10 02:15 | NUR ---
pt RESTING IN BED WITH EYES CLOSED. BREATHING EQUAL AND UNLABORED. URINAL EMPTIED AND BACK ON TABLE. pt HAS CALL LIGHT IN REACH.
--- NOTE | 2022-11-10 05:00 | NUR ---
pt RESTING IN BED WITH EYES CLOSED. NO DISTRESS NOTED. BREATHING UNLABORED.
[2022-11-10 05:47] VITALS: BP 124/81
--- NOTE | 2022-11-10 06:05 | NUR ---
pt SLEEPING, AWAKENS TO VOICE FOR SCHEDULED MEDICATION, VS. VSS. pt DENIES PAIN. ASSESSMENT COMPLETE. LUNG SOUNDS CLEAR. 2+ EDEMA BLE. 1PA TO STAND FOR WEIGHT. UP TO CHAIR WHILE LINENS CHANGED, URINE SOAKED THROUGH TO MATTRESS. pt CLEANSED WITH WIPE. NEW GOWN ON. pt IN BED, CALL LIGHT AND PERSONAL SUPPLIES IN REACH. LEGS ELEVATED ON PILLOW.
--- NOTE | 2022-11-10 07:30 | NUR ---
RECIEVED REPORT FROM MICHELLE EWING. PT RESTING IN BED WITH EYES CLOSED.
--- NOTE | 2022-11-10 08:21 | NUR ---
PT WOKE FOR BREAKFAST AND FOOD. ADMINISTERED MORNING MEDS.
[2022-11-10 09:47] VITALS: BP 120/76
--- NOTE | 2022-11-10 09:47 | NUR ---
pt resting in chair. vitals and is and os complete. pt provided warm blanket. no needs. call light within reach
--- NOTE | 2022-11-10 11:45 | NUR ---
PT HAS MULTIPLE FAMILY IN ROOM. PT SLIGHTLY DISAPPOINTED TO BE NOT GOING HOME TODAY.
--- NOTE | 2022-11-10 13:35 | NUR ---
SPOKE ABOUT THE DISCHARGE PLAN. PATIENT STATES THE DOCTOR SAYS THAT THE PATIENT WILL STAY 1 MORE DAY. THE PLAN IS WHEN THE PATIENT IS MEDICALLY THE PATIENT WILL GO HOME WITH HIS . PATIENT DOES NOT WANT PLACEMENT AT THIS TIME.
--- NOTE | 2022-11-10 13:38 | NUR ---
CHECKING ON PT-HAS FAMILY IN WITH PT. HE IS SITTING IN THE CHAIR, EATING LUNCH. WILLIAM EXPRESSED DISAPPOINTMENT IN NOT BEING ABLE TO DC TODAY DR LOPEZ RECOMMENDED ONE MORE DAY DUE TO EXCESS RETENTION OF FLUIDS. PT REQUESTED A VISIT FROM HIS CLINICAL DENTAL TECHNICIAN. I WAS ABLE TO CONTACT HIM CLINICAL DENTAL TECHNICIAN WILL VISIT LATER TODAY. GAVE ENCOURAGEMENT, FAMILY REQUESTED PRAYER.
--- NOTE | 2022-11-10 14:11 | NUR ---
INFORMED PT HIS REEL STRIPPER WILL BE BY LATER TODAY TO VISIT. PT ACKNOWLEDGED.
[2022-11-10 14:39] VITALS: BP 115/65
[2022-11-10 17:42] VITALS: BP 137/96
--- NOTE | 2022-11-10 17:52 | NUR ---
PT APPEARS TO BE RESTING COMFORTABLY. CALL LIGHT IN REACH.
--- NOTE | 2022-11-10 19:20 | NUR ---
REPORT RECEIVED FROM MICHELLE HARRELL. pt SITTING UP IN BED EATING DINNER. URINAL EMPTIED. FROZEN ICEE PROVIDED. CALL LIGHT IN REACH.
[2022-11-10 21:19] VITALS: BP 122/72
--- NOTE | 2022-11-10 21:31 | NUR ---
pt SLEEPING, AWAKENS TO VOICE FOR MEDICATION ADMINISTRATION. VSS. ASSESSMENT COMPLETE. 1+ EDEMA BLE. pt REPOSITIONED IN BED, LEGS ELEVATED ON PILLOW. TRAY TABLE CLEARED, pt DID NOT CARE FOR DINNER. SF SNACK PROVIDED. CALL LIGHT AND PERSONAL SUPPLIES IN REACH.
--- NOTE | 2022-11-10 22:53 | NUR ---
CHECKED ON pt. RESTING IN BED WITH EYES CLOSED. BREATHING UNLABORED. NO DISTRESS NOTED.
--- NOTE | 2022-11-11 00:07 | NUR ---
pt RESTING IN BED WITH EYES CLOSED, RR 16. NO DISTRESS NOTED.
--- NOTE | 2022-11-11 02:09 | NUR ---
CHECKED ON pt. RESTING IN BED WITH EYES CLOSED. BREATHING EQUAL AND UNLABORED.
--- NOTE | 2022-11-11 03:29 | NUR ---
EMPTIED URINAL. PATIENT IS ASLEEP.
--- NOTE | 2022-11-11 03:55 | NUR ---
CHECKED ON pt, RESTING IN BED WITH EYES CLOSED. BREATHING UNLABORED.
[2022-11-11 06:15] VITALS: BP 119/83
--- NOTE | 2022-11-11 06:25 | NUR ---
pt SLEEPING, AWAKENS TO VOICE. VSS. STANDING WEIGHT. ASSISTED pt TO REPOSITION, TWO PILLOWS UNDER LEGS. ASSESSMENT COMPLETE, 2+ EDEMA BLE, PITTING. LUNG SOUNDS CLEAR THROUGHOUT. FRESH ICE WATER PROVIDED. BREAKFAST ORDER PLACED BY pt. CALL LIGHT IN REACH.
--- NOTE | 2022-11-11 07:45 | NUR ---
REPORT RECEIVED FROM NIGHT RN AND PT CARE RESUMED. PT IS ALERT AND ORIENTED TO ALL. DENIES PAIN OR SOB. ASSESSMENT COMPLETED AND MEDS ADMIN. PT. DENIES NEEDS AT THIS TIME. AWAITING BREAKFAST. CALL LIGHT IN REACH.
[2022-11-11 10:13] VITALS: BP 100/61
--- NOTE | 2022-11-11 10:19 | NUR ---
[facility] NOTIFED THAT THAT PATIEN MAY BE DC'D TODAY AND PATIENT NEEDS RESUMPTION OF HOME-HEALTH CARE.CHART COPIES SENT FOR REVIEW.
--- NOTE | 2022-11-11 12:03 | NUR ---
ROUNDING ON PT. HE IS WATCHING TV AND DENIES NEEDS AT THIS TIME AND AWAITING LUNCH. CALL LIGHT IN REACH.
[2022-11-11] MEDS ORDERED: DIGITEK125 MCG PO (12:08)
[2022-11-11] MEDS ORDERED: METOPROLOL SUC200 MG PO (12:09)
[2022-11-11] MEDS ORDERED: KLOR-CON 1010 MEQ PO (12:10)
--- NOTE | 2022-11-11 12:55 | NUR ---
PT ALERT, COGNITIVELY SEEMS SLOWER TODAY. SAID HE HOPES TO DC TODAY. GAVE ENCOURAGEMENT AND SUPPORT. PT WAS PLEASED HIS DEHYDROGENATION OPERATOR CAME TO VISIT. HAD PRAYER WITH PT, WILL FOLLOW
--- NOTE | 2022-11-11 14:12 | NUR ---
ALL DISCHARGE INSTRUCTIONS REVIEWED AND QUESTIONS ANSWERED. PT. LEFT WITH ALL BELONGINGS INCLUDING HOME MEDS. VITALS STABLE. IV REMOVED BY STUDENT RN AND WNL. PT. LEFT VIA WHEEL CHAIR WITH TAX APPRAISER.
== END 2022-11-11 13:55 | disposition home or self-care (01) | DRG 308 ==
LOC: ED 13:58 → CCU 16:23 → MS 11-07 16:30
PROVIDERS: ADMIT Internal Medicine; ATTEND Internal Medicine
DX: I48.21 Permanent atrial fibrillation (principal); I50.33 Acute on chronic diastolic (congestive) heart failure; E27.1 Primary adrenocortical insufficiency; D63.1 Anemia in chronic kidney disease; D50.9 Iron deficiency anemia, unspecified; Z20.822 Contact with and (suspected) exposure to COVID-19; E11.22 Type 2 diabetes mellitus with diabetic chronic kidney disease; K21.9 Gastro-esophageal reflux disease without esophagitis; I34.0 Nonrheumatic mitral (valve) insufficiency; I35.1 Nonrheumatic aortic (valve) insufficiency; N18.32 Chronic kidney disease, stage 3b; E78.00 Pure hypercholesterolemia, unspecified; Z96.641 Presence of right artificial hip joint; Z96.612 Presence of left artificial shoulder joint; I25.2 Old myocardial infarction; Z95.5 Presence of coronary angioplasty implant and graft; Z85.828 Personal history of other malignant neoplasm of skin; Z98.890 Other specified postprocedural states; Z79.891 Long term (current) use of opiate analgesic; Z79.01 Long term (current) use of anticoagulants; Z79.52 Long term (current) use of systemic steroids; Z79.899 Other long term (current) 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
CPT/HCPCS: 36415; 71045; 80048; 80053; 80162; 82728; 83036; 83735; 83880; 85025; 85060; 93005; 93010; 93306; 96374; 97110; 97116; 97162; 97530; 99284-25; A9270; J1160; J1815; J1940; J3475; U0003

== ENCOUNTER 2023-02-10 10:08 | Inpatient (IN) | payer MEDICARE, OTHER ==
[~2023-02-10] VITALS: Ht 175.3 cm; Wt 62.0 kg
--- OUTSIDE RECORDS SUMMARY | ~2023-02-10 | XMS | Continuity of Care Document ---
Demographics + + + | Address | [address] | | | [place] [address] | + + + | Preferred Language | Unknown | + + + | Marital Status | | + + + | Mosque Affiliation | Unknown | + + + | Race | White | + + + | Ethnic Group | Not or | + + + Author + + + | Author | [facility] | + + + | Organization | [facility] | + + + | Address | [address] | | | [place] [address] | + + + | Phone | | + + + Care Team Providers + + + + | Care Skid Wrapper Name | Role | Phone | + + + + Unavailable | Unavailable | + + + + Unavailable | Unavailable | + + + + Unavailable | Unavailable | + + + + Unavailable | Unavailable | + + + + Unavailable | Unavailable | + + + + Unavailable | Unavailable | + + + + Unavailable | Unavailable | + + + + Allergies and Intolerances + + + + + + | date | description | facility | reaction | severity | + + + + + + | (no date) | NO KNOWN | IHDE | (no reaction) | (no severity) | | | ALLERGIES | | | | + + + + + + Encounters No information. Functional Status No information. Immunizations + + + + | date | description | facility | + + + + | 2020-12-11 00:00 | Tdap | [facility] | + + + + | 2020-12-11 00:00 | Tdap | [facility] | + + + + | 2020-12-11 00:00 | Tdap | [facility] | + + + + | 2020-12-11 00:00 | Tdap | [facility] | + + + + Medications + + + + | date | description | facility | + + + + | 2022-09-04 00:00 | OXYCODONE HCL | [facility] | + + + + | 2022-11-11 00:00 | OXYCODONE HCL | [facility] | + + + + | 2014-09-20 00:00 | OXYCODONE HCL | [facility] | + + + + | 2014-09-20 00:00 | OXYCODONE HCL | [facility] | + + + + | 2014-09-20 00:00 | OXYCODONE HCL | [facility] | + + + + | 2014-09-20 00:00 | OXYCODONE HCL | [facility] | + + + + | 2022-07-02 00:00 | OXYCODONE HCL | [facility] | + + + + | 2014-09-20 00:00 | RIVAROXABAN | [facility] | + + + + | 2014-09-20 00:00 | RIVAROXABAN | [facility] | + + + + | 2014-09-20 00:00 | RIVAROXABAN | [facility] | + + + + | 2014-09-20 00:00 | RIVAROXABAN | [facility] | + + + + | 2022-03-25 00:00 | RIVAROXABAN | [facility] | + + + + | 2022-04-22 00:00 | RIVAROXABAN | [facility] | + + + + | 2022-05-10 00:00 | RIVAROXABAN | [facility] | + + + + | 2022-06-08 00:00 | RIVAROXABAN | [facility] | + + + + | 2022-09-04 00:00 | RIVAROXABAN | [facility] | + + + + | 2022-11-11 00:00 | RIVAROXABAN | [facility] | + + + + | 2022-03-25 00:00 | DIGOXIN | [facility] | + + + + | 2022-04-22 00:00 | DIGOXIN | [facility] | + + + + | 2022-05-10 00:00 | DIGOXIN | [facility] | + + + + | 2022-06-08 00:00 | DIGOXIN | [facility] | + + + + | 2022-05-10 00:00 | DOCUSATE SODIUM | [facility] | + + + + | 2022-11-11 00:00 | POTASSIUM GLUCONATE | [facility] | + + + + | 2022-09-04 00:00 | APIXABAN | [facility] | + + + + | 2022-11-11 00:00 | APIXABAN | [facility] | + + + + | 2020-12-23 00:00 | APIXABAN | [facility] | + + + + | 2020-12-23 00:00 | APIXABAN | [facility] | + + + + | 2022-03-25 00:00 | APIXABAN | [facility] | + + + + | 2022-04-22 00:00 | APIXABAN | [facility] | + + + + | 2022-05-10 00:00 | APIXABAN | [facility] | + + + + | 2022-06-08 00:00 | APIXABAN | [facility] | + + + + | 2022-09-04 00:00 | APIXABAN | [facility] | + + + + | 2022-11-11 00:00 | APIXABAN | [facility] | + + + + | 2020-12-23 00:00 | POTASSIUM CHLORIDE | [facility] | + + + + | 2020-12-23 00:00 | POTASSIUM CHLORIDE | [facility] | + + + + | 2020-12-23 00:00 | POTASSIUM CHLORIDE | [facility] | + + + + | 2020-12-23 00:00 | POTASSIUM CHLORIDE | [facility] | + + + + | 2022-03-25 00:00 | POTASSIUM CHLORIDE | [facility] | + + + + | 2022-04-22 00:00 | POTASSIUM CHLORIDE | [facility] | + + + + | 2022-05-10 00:00 | POTASSIUM CHLORIDE | [facility] | + + + + | 2022-06-08 00:00 | POTASSIUM CHLORIDE | [facility] | + + + + | 2022-09-04 00:00 | POTASSIUM CHLORIDE | [facility] | + + + + | 2022-11-11 00:00 | POTASSIUM CHLORIDE | [facility] | + + + + | 2022-03-25 00:00 | EMPAGLIFLOZIN | [facility] | + + + + | 2022-04-22 00:00 | EMPAGLIFLOZIN | [facility] | + + + + | 2022-05-10 00:00 | EMPAGLIFLOZIN | [facility] | + + + + | 2022-06-08 00:00 | EMPAGLIFLOZIN | [facility] | + + + + | 2022-09-04 00:00 | EMPAGLIFLOZIN | [facility] | + + + + | 2022-11-11 00:00 | EMPAGLIFLOZIN | [facility] | + + + + | 2020-12-14 00:00 | Bacitracin | [facility] | + + + + | 2020-12-14 00:00 | Bacitracin | [facility] | + + + + | 2020-12-14 00:00 | Bacitracin | [facility] | + + + + | 2020-12-14 00:00 | Bacitracin | [facility] | + + + + | 2022-03-25 00:00 | DOXYCYCLINE MONOHYDRATE | [facility] | + + + + | 2022-04-22 00:00 | DOXYCYCLINE MONOHYDRATE | [facility] | + + + + | 2022-05-10 00:00 | DOXYCYCLINE MONOHYDRATE | [facility] | + + + + | 2022-06-08 00:00 | DOXYCYCLINE MONOHYDRATE | [facility] | + + + + | 2022-09-04 00:00 | DOXYCYCLINE MONOHYDRATE | [facility] | + + + + | 2022-11-11 00:00 | DOXYCYCLINE MONOHYDRATE | [facility] | + + + + | 2022-03-25 00:00 | AMLODIPINE BESYLATE | [facility] | + + + + | 2022-04-22 00:00 | AMLODIPINE BESYLATE | [facility] | + + + + | 2022-05-10 00:00 | AMLODIPINE BESYLATE | [facility] | + + + + | 2022-06-08 00:00 | AMLODIPINE BESYLATE | [facility] | + + + + | 2022-09-04 00:00 | AMLODIPINE BESYLATE | [facility] | + + + + | 2022-11-11 00:00 | AMLODIPINE BESYLATE | [facility] | + + + + | 2022-03-25 00:00 | ATENOLOL | [facility] | + + + + | 2022-04-22 00:00 | ATENOLOL | [facility] | + + + + | 2022-05-10 00:00 | ATENOLOL | [facility] | + + + + | 2022-06-08 00:00 | ATENOLOL | [facility] | + + + + | 2022-09-04 00:00 | ATENOLOL | [facility] | + + + + | 2022-11-11 00:00 | ATENOLOL | [facility] | + + + + | 2022-03-25 00:00 | ATENOLOL | [facility] | + + + + | 2022-04-22 00:00 | ATENOLOL | [facility] | + + + + | 2022-05-10 00:00 | ATENOLOL | [facility] | + + + + | 2022-06-08 00:00 | ATENOLOL | [facility] | + + + + | 2022-09-04 00:00 | ATENOLOL | [facility] | + + + + | 2022-11-11 00:00 | ATENOLOL | [facility] | + + + + | 2018-07-06 00:00 | HYDROCORTISONE | [facility] | + + + + | 2018-07-06 00:00 | HYDROCORTISONE | [facility] | + + + + | 2018-07-06 00:00 | HYDROCORTISONE | [facility] | + + + + | 2018-07-06 00:00 | HYDROCORTISONE | [facility] | + + + + | 2020-12-23 00:00 | HYDROCORTISONE | [facility] | + + + + | 2020-12-23 00:00 | HYDROCORTISONE | [facility] | + + + + | 2022-07-02 00:00 | HYDROCORTISONE | [facility] | + + + + | 2022-07-02 00:00 | HYDROCORTISONE | [facility] | + + + + | 2022-09-04 00:00 | HYDROCORTISONE | [facility] | + + + + | 2022-11-11 00:00 | HYDROCORTISONE | [facility] | + + + + | 2022-03-25 00:00 | OMEPRAZOLE | [facility] | + + + + | 2022-04-22 00:00 | OMEPRAZOLE | [facility] | + + + + | 2022-05-10 00:00 | OMEPRAZOLE | [facility] | + + + + | 2022-06-08 00:00 | OMEPRAZOLE | [facility] | + + + + | 2022-11-11 00:00 | OMEPRAZOLE | [facility] | + + + + | 2022-11-11 00:00 | TORSEMIDE | [facility] | + + + + | 2021-07-10 00:00 | ACETAMINOPHEN | [facility] | + + + + | 2021-07-10 00:00 | ACETAMINOPHEN | [facility] | + + + + | 2021-07-10 00:00 | ACETAMINOPHEN | [facility] | + + + + | 2021-07-10 00:00 | ACETAMINOPHEN | [facility] | + + + + | 2022-03-25 00:00 | ACETAMINOPHEN | [facility] | + + + + | 2022-04-22 00:00 | ACETAMINOPHEN | [facility] | + + + + | 2022-05-10 00:00 | ACETAMINOPHEN | [facility] | + + + + | 2022-06-08 00:00 | ACETAMINOPHEN | [facility] | + + + + | 2022-09-04 00:00 | ACETAMINOPHEN | [facility] | + + + + | 2022-11-11 00:00 | ACETAMINOPHEN | [facility] | + + + + | 2022-09-04 00:00 | DEXTROSE | [facility] | + + + + | 2022-11-11 00:00 | MAGNESIUM OXIDE | [facility] | + + + + | 2022-03-25 00:00 | SIMVASTATIN | [facility] | + + + + | 2022-04-22 00:00 | SIMVASTATIN | [facility] | + + + + | 2022-05-10 00:00 | SIMVASTATIN | [facility] | + + + + | 2022-06-08 00:00 | SIMVASTATIN | [facility] | + + + + | 2022-09-04 00:00 | SIMVASTATIN | [facility] | + + + + | 2022-11-11 00:00 | SIMVASTATIN | [facility] | + + + + | 2022-03-25 00:00 | FUROSEMIDE | [facility] | + + + + | 2022-04-22 00:00 | FUROSEMIDE | [facility] | + + + + | 2022-05-10 00:00 | FUROSEMIDE | [facility] | + + + + | 2022-06-08 00:00 | FUROSEMIDE | [facility] | + + + + | 2022-09-04 00:00 | FUROSEMIDE | [facility] | + + + + | 2022-11-11 00:00 | FUROSEMIDE | [facility] | + + + + | 2022-03-25 00:00 | ATENOLOL | [facility] | + + + + | 2022-04-22 00:00 | ATENOLOL | [facility] | + + + + | 2022-05-10 00:00 | ATENOLOL | [facility] | + + + + | 2022-06-08 00:00 | ATENOLOL | [facility] | + + + + | 2022-09-04 00:00 | ATENOLOL | [facility] | + + + + | 2022-11-11 00:00 | ATENOLOL | [facility] | + + + + | 2015-08-13 00:00 | CIPROFLOXACIN HCL | [facility] | + + + + | 2015-08-13 00:00 | CIPROFLOXACIN HCL | [facility] | + + + + | 2015-08-13 00:00 | CIPROFLOXACIN HCL | [facility] | + + + + | 2015-08-13 00:00 | CIPROFLOXACIN HCL | [facility] | + + + + | 2018-06-29 00:00 | CIPROFLOXACIN HCL | [facility] | + + + + | 2018-06-29 00:00 | CIPROFLOXACIN HCL | [facility] | + + + + | 2018-06-29 00:00 | CIPROFLOXACIN HCL | [facility] | + + + + | 2018-06-29 00:00 | CIPROFLOXACIN HCL | [facility] | + + + + | 2015-08-13 00:00 | METRONIDAZOLE | [facility] | + + + + | 2015-08-13 00:00 | METRONIDAZOLE | [facility] | + + + + | 2015-08-13 00:00 | METRONIDAZOLE | [facility] | + + + + | 2015-08-13 00:00 | METRONIDAZOLE | [facility] | + + + + | 2018-06-29 00:00 | METRONIDAZOLE | [facility] | + + + + | 2018-06-29 00:00 | METRONIDAZOLE | [facility] | + + + + | 2018-06-29 00:00 | METRONIDAZOLE | [facility] | + + + + | 2018-06-29 00:00 | METRONIDAZOLE | [facility] | + + + + | 2020-12-23 00:00 | MAGNESIUM OXIDE | [facility] | + + + + | 2020-12-23 00:00 | MAGNESIUM OXIDE | [facility] | + + + + | 2022-03-25 00:00 | MAGNESIUM OXIDE | [facility] | + + + + | 2022-04-22 00:00 | MAGNESIUM OXIDE | [facility] | + + + + | 2022-05-10 00:00 | MAGNESIUM OXIDE | [facility] | + + + + | 2022-06-08 00:00 | MAGNESIUM OXIDE | [facility] | + + + + | 2022-09-04 00:00 | MAGNESIUM OXIDE | [facility] | + + + + | 2022-11-11 00:00 | MAGNESIUM OXIDE | [facility] | + + + + | 2022-09-04 00:00 | MAGNESIUM HYDROXIDE | [facility] | + + + + | 2022-11-11 00:00 | ATORVASTATIN CALCIUM | [facility] | + + + + | 2022-11-11 00:00 | DIGOXIN | [facility] | + + + + | 2022-09-04 00:00 | OSELTAMIVIR PHOSPHATE | [facility] | + + + + | 2022-11-11 00:00 | OSELTAMIVIR PHOSPHATE | [facility] | + + + + | 2022-03-25 00:00 | ATORVASTATIN | [facility] | + + + + | 2022-04-22 00:00 | ATORVASTATIN | [facility] | + + + + | 2022-05-10 00:00 | ATORVASTATIN | [facility] | + + + + | 2022-06-08 00:00 | ATORVASTATIN | [facility] | + + + + | 2022-09-04 00:00 | ASCORBIC ACID | [facility] | + + + + | 2022-03-25 00:00 | ASPIRIN | [facility] | + + + + | 2022-04-22 00:00 | ASPIRIN | [facility] | + + + + | 2022-05-10 00:00 | ASPIRIN | [facility] | + + + + | 2022-06-08 00:00 | ASPIRIN | [facility] | + + + + | 2022-09-04 00:00 | ASPIRIN | [facility] | + + + + | 2022-11-11 00:00 | ASPIRIN | [facility] | + + + + | 2020-12-23 00:00 | CEPHALEXIN | [facility] | + + + + | 2020-12-23 00:00 | CEPHALEXIN | [facility] | + + + + | 2020-12-23 00:00 | CEPHALEXIN | [facility] | + + + + | 2020-12-23 00:00 | CEPHALEXIN | [facility] | + + + + | 2022-03-25 00:00 | CEPHALEXIN | [facility] | + + + + | 2022-04-22 00:00 | CEPHALEXIN | [facility] | + + + + | 2022-05-10 00:00 | CEPHALEXIN | [facility] | + + + + | 2022-06-08 00:00 | CEPHALEXIN | [facility] | + + + + | 2022-09-04 00:00 | CEPHALEXIN | [facility] | + + + + | 2022-11-11 00:00 | CEPHALEXIN | [facility] | + + + + | 2022-11-11 00:00 | CYANOCOBALAMIN (VITAMIN | [facility] | | | B-12) | | + + + + | 2022-09-04 00:00 | Ferrous Sulfate | [facility] | + + + + | 2022-09-04 00:00 | ONDANSETRON | [facility] | + + + + | 2022-11-11 00:00 | ONDANSETRON | [facility] | + + + + | 2020-12-02 00:00 | predniSONE | [facility] | + + + + | 2020-12-02 00:00 | predniSONE | [facility] | + + + + | 2020-12-02 00:00 | predniSONE | [facility] | + + + + | 2020-12-02 00:00 | predniSONE | [facility] | + + + + | 2022-03-25 00:00 | FUROSEMIDE | [facility] | + + + + | 2022-04-22 00:00 | FUROSEMIDE | [facility] | + + + + | 2022-05-10 00:00 | FUROSEMIDE | [facility] | + + + + | 2022-06-08 00:00 | FUROSEMIDE | [facility] | + + + + | 2022-09-04 00:00 | FUROSEMIDE | [facility] | + + + + | 2022-09-04 00:00 | PANTOPRAZOLE SODIUM | [facility] | + + + + | 2022-09-04 00:00 | SUCRALFATE | [facility] | + + + + | 2022-09-04 00:00 | SENNOSIDES | [facility] | + + + + | 2020-12-23 00:00 | ATORVASTATIN | [facility] | + + + + | 2020-12-23 00:00 | ATORVASTATIN | [facility] | + + + + | 2020-12-23 00:00 | ATORVASTATIN | [facility] | + + + + | 2020-12-23 00:00 | ATORVASTATIN | [facility] | + + + + | 2022-03-25 00:00 | ATORVASTATIN | [facility] | + + + + | 2022-04-22 00:00 | ATORVASTATIN | [facility] | + + + + | 2022-05-10 00:00 | ATORVASTATIN | [facility] | + + + + | 2022-06-08 00:00 | ATORVASTATIN | [facility] | + + + + | 2022-09-04 00:00 | ATORVASTATIN | [facility] | + + + + | 2022-11-11 00:00 | ATORVASTATIN | [facility] | + + + + | 2022-11-11 00:00 | POTASSIUM CHLORIDE | [facility] | + + + + | 2022-09-04 00:00 | ALBUTEROL SULFATE | [facility] | + + + + | 2021-12-22 00:00 | POTASSIUM CHLORIDE | [facility] | + + + + | 2021-12-22 00:00 | POTASSIUM CHLORIDE | [facility] | + + + + | 2021-12-22 00:00 | POTASSIUM CHLORIDE | [facility] | + + + + | 2021-12-22 00:00 | POTASSIUM CHLORIDE | [facility] | + + + + | 2022-03-25 00:00 | ASPIRIN | [facility] | + + + + | 2022-04-22 00:00 | ASPIRIN | [facility] | + + + + | 2022-05-10 00:00 | ASPIRIN | [facility] | + + + + | 2022-06-08 00:00 | ASPIRIN | [facility] | + + + + | 2022-09-04 00:00 | ASPIRIN | [facility] | + + + + | 2022-11-11 00:00 | ASPIRIN | [facility] | + + + + | 2020-12-23 00:00 | DILTIAZEM HCL | [facility] | + + + + | 2020-12-23 00:00 | DILTIAZEM HCL | [facility] | + + + + | 2020-12-23 00:00 | DILTIAZEM HCL | [facility] | + + + + | 2020-12-23 00:00 | DILTIAZEM HCL | [facility] | + + + + | 2022-09-04 00:00 | Diclofenac Sodium | [facility] | + + + + | 2022-05-10 00:00 | HYDROCODONE | [facility] | | | BIT/ACETAMINOPHEN | | + + + + | 2014-07-30 00:00 | HYDROCODONE | [facility] | | | BIT/ACETAMINOPHEN | | + + + + | 2014-07-30 00:00 | HYDROCODONE | [facility] | | | BIT/ACETAMINOPHEN | | + + + + | 2014-07-30 00:00 | HYDROCODONE | [facility] | | | BIT/ACETAMINOPHEN | | + + + + | 2014-07-30 00:00 | HYDROCODONE | [facility] | | | BIT/ACETAMINOPHEN | | + + + + | 2015-08-13 00:00 | HYDROCODONE | [facility] | | | BIT/ACETAMINOPHEN | | + + + + | 2015-08-13 00:00 | HYDROCODONE | [facility] | | | BIT/ACETAMINOPHEN | | + + + + | 2015-08-13 00:00 | HYDROCODONE | [facility] | | | BIT/ACETAMINOPHEN | | + + + + | 2015-08-13 00:00 | HYDROCODONE | [facility] | | | BIT/ACETAMINOPHEN | | + + + + | 2014-09-20 00:00 | HYDROCODONE | [facility] | | | BIT/ACETAMINOPHEN | | + + + + | 2014-09-20 00:00 | HYDROCODONE | [facility] | | | BIT/ACETAMINOPHEN | | + + + + | 2014-09-20 00:00 | HYDROCODONE | [facility] | | | BIT/ACETAMINOPHEN | | + + + + | 2014-09-20 00:00 | HYDROCODONE | [facility] | | | BIT/ACETAMINOPHEN | | + + + + | 2022-03-25 00:00 | ALBUTEROL SULFATE | [facility] | + + + + | 2022-04-22 00:00 | ALBUTEROL SULFATE | [facility] | + + + + | 2022-05-10 00:00 | ALBUTEROL SULFATE | [facility] | + + + + | 2022-06-08 00:00 | ALBUTEROL SULFATE | [facility] | + + + + | 2022-09-04 00:00 | ALBUTEROL SULFATE | [facility] | + + + + | 2022-11-11 00:00 | ALBUTEROL SULFATE | [facility] | + + + + | 2022-03-25 00:00 | METOPROLOL SUCCINATE | [facility] | + + + + | 2022-04-22 00:00 | METOPROLOL SUCCINATE | [facility] | + + + + | 2022-05-10 00:00 | METOPROLOL SUCCINATE | [facility] | + + + + | 2022-06-08 00:00 | METOPROLOL SUCCINATE | [facility] | + + + + | 2022-09-04 00:00 | METOPROLOL SUCCINATE | [facility] | + + + + | 2022-11-11 00:00 | METOPROLOL SUCCINATE | [facility] | + + + + | 2022-03-25 00:00 | METOPROLOL SUCCINATE | [facility] | + + + + | 2022-04-22 00:00 | METOPROLOL SUCCINATE | [facility] | + + + + | 2022-05-10 00:00 | METOPROLOL SUCCINATE | [facility] | + + + + | 2022-06-08 00:00 | METOPROLOL SUCCINATE | [facility] | + + + + | 2022-09-04 00:00 | METOPROLOL SUCCINATE | [facility] | + + + + | 2022-11-11 00:00 | METOPROLOL SUCCINATE | [facility] | + + + + | 2022-11-11 00:00 | METOPROLOL SUCCINATE | [facility] | + + + + | 2022-09-04 00:00 | METOPROLOL SUCCINATE | [facility] | + + + + | 2022-11-11 00:00 | METOPROLOL SUCCINATE | [facility] | + + + + | 2014-09-20 00:00 | POLYETHYLENE GLYCOL 3350 | [facility] | + + + + | 2014-09-20 00:00 | POLYETHYLENE GLYCOL 3350 | [facility] | + + + + | 2014-09-20 00:00 | POLYETHYLENE GLYCOL 3350 | [facility] | + + + + | 2014-09-20 00:00 | POLYETHYLENE GLYCOL 3350 | [facility] | + + + + | 2022-09-04 00:00 | POLYETHYLENE GLYCOL 3350 | [facility] | + + + + | 2022-03-25 00:00 | LOSARTAN POTASSIUM | [facility] | + + + + | 2022-04-22 00:00 | LOSARTAN POTASSIUM | [facility] | + + + + | 2022-05-10 00:00 | LOSARTAN POTASSIUM | [facility] | + + + + | 2022-06-08 00:00 | LOSARTAN POTASSIUM | [facility] | + + + + | 2022-09-04 00:00 | LOSARTAN POTASSIUM | [facility] | + + + + | 2022-11-11 00:00 | LOSARTAN POTASSIUM | [facility] | + + + + | 2022-03-25 00:00 | LOSARTAN POTASSIUM | [facility] | + + + + | 2022-04-22 00:00 | LOSARTAN POTASSIUM | [facility] | + + + + | 2022-05-10 00:00 | LOSARTAN POTASSIUM | [facility] | + + + + | 2022-06-08 00:00 | LOSARTAN POTASSIUM | [facility] | + + + + | 2022-09-04 00:00 | LOSARTAN POTASSIUM | [facility] | + + + + | 2022-11-11 00:00 | LOSARTAN POTASSIUM | [facility] | + + + + | 2022-03-25 00:00 | LOSARTAN POTASSIUM | [facility] | + + + + | 2022-04-22 00:00 | LOSARTAN POTASSIUM | [facility] | + + + + | 2022-05-10 00:00 | LOSARTAN POTASSIUM | [facility] | + + + + | 2022-06-08 00:00 | LOSARTAN POTASSIUM | [facility] | + + + + | 2022-09-04 00:00 | LOSARTAN POTASSIUM | [facility] | + + + + | 2022-11-11 00:00 | LOSARTAN POTASSIUM | [facility] | + + + + | 2022-09-04 00:00 | MICONAZOLE NITRATE | [facility] | + + + + Problems + + + + | date | description | facility | + + + + | 2015-08-13 00:00 | Diverticulitis of large | [facility] | | | intestine | | + + + + | 2015-08-13 00:00 | Diverticulitis of large | [facility] | | | intestine | | + + + + | 2015-08-13 00:00 | Diverticulitis of large | [facility] | | | intestine | | + + + + | 2015-08-13 00:00 | Diverticulitis of large | [facility] | | | intestine | | + + + + | 2017-05-12 00:00 | Abrasion of ear canal | [facility] | + + + + | 2017-05-12 00:00 | Abrasion of ear canal | [facility] | + + + + | 2017-05-12 00:00 | Abrasion of ear canal | [facility] | + + + + | 2017-05-12 00:00 | Abrasion of ear canal | [facility] | + + + + | 2017-11-29 00:00 | Hypotension | [facility] | + + + + | 2017-11-29 00:00 | Hypotension | [facility] | + + + + | 2017-11-29 00:00 | Hypotension | [facility] | + + + + | 2017-11-29 00:00 | Hypotension | [facility] | + + + + | 2020-12-02 00:00 | Back pain | [facility] | + + + + | 2020-12-02 00:00 | Back pain | [facility] | + + + + | 2020-12-02 00:00 | Back pain | [facility] | + + + + | 2020-12-02 00:00 | Back pain | [facility] | + + + + | 2020-12-13 00:00 | Patient left without being | [facility] | | | seen | | + + + + | 2020-12-13 00:00 | Patient left without being | [facility] | | | seen | | + + + + | 2020-12-13 00:00 | Patient left without being | [facility] | | | seen | | + + + + | 2020-12-13 00:00 | Patient left without being | [facility] | | | seen | | + + + + | 2020-12-17 00:00 | Atrial fibrillation with | [facility] | | | rapid ventricular response | | + + + + | 2020-12-17 00:00 | Atrial fibrillation with | [facility] | | | rapid ventricular response | | + + + + | 2020-12-17 00:00 | Atrial fibrillation with | [facility] | | | rapid ventricular response | | + + + + | 2020-12-17 00:00 | Atrial fibrillation with | [facility] | | | rapid ventricular response | | + + + + | 2020-12-17 00:00 | Cellulitis of left elbow | [facility] | + + + + | 2020-12-17 00:00 | Cellulitis of left elbow | [facility] | + + + + | 2020-12-17 00:00 | Cellulitis of left elbow | [facility] | + + + + | 2020-12-17 00:00 | Cellulitis of left elbow | [facility] | + + + + | 2021-12-22 12:00 | Pure hypercholesterolemia, | [facility] | | | unspecified [facility] | + + + + | 2021-12-22 12:00 | Essential (primary) | [facility] | | | hypertension | [facility] | + + + + | 2021-12-22 12:00 | Hypertensive heart disease | [facility] | | | with heart failure | [facility] | + + + + | 2021-12-22 12:00 | Old myocardial infarction | [facility] | | | [facility] | + + + + | 2021-12-22 12:00 | Unspecified atrial | [facility] | | | fibrillation | [facility] | + + + + | 2021-12-22 12:00 | Heart failure, unspecified | [facility] | | | | [facility] | + + + + | 2021-12-22 12:00 | Shortness of breath | [facility] | | | | [employer] | + + + + | 2021-12-22 12:00 | 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) | [facility] | | | 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 | [employer] | + + + + | 2022-05-10 00:00 | Osteoarthritis of left | [facility] | | | shoulder | | + + + + | 2022-05-10 00:00 | Osteoarthritis of left | [facility] | | | shoulder | | + + + + | 2022-05-10 00:00 | Osteoarthritis of left | [facility] | | | shoulder | | + + + + | 2022-06-08 00:00 | Periprosthetic fracture of | [facility] | | | shaft of femur | | + + + + | 2022-06-08 00:00 | Periprosthetic fracture of | [facility] | | | shaft of femur | | + + + + | 2022-06-08 00:00 | Periprosthetic fracture of | [facility] | | | shaft of femur | | + + + + | 2022-06-12 09:56:20 | 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 | | | | pectoris | | + + + + | 2022-06-27 00:00 | Anemia | [facility] | + + + + | 2022-06-27 00:00 | Anemia | [facility] | + + + + | 2022-06-27 00:00 | Influenza due to influenza | [facility] | | | virus, type A, human | | + + + + | 2022-06-27 00:00 | Influenza due to influenza | [facility] | | | virus, type A, human | | + + + + | 2022-06-27 00:00 | Gastrointestinal | [facility] | | | hemorrhage | | + + + + | 2022-06-27 00:00 | Gastrointestinal | [facility] | | | hemorrhage | | + + + + | 2022-06-27 00:00 | Acute kidney injury | [facility] | + + + + | 2022-06-27 00:00 | Acute kidney injury | [facility] | + + + + | 2022-09-01 00:00 | Syncope | [facility] | + + + + | 2022-09-01 00:00 | Syncope | [facility] | + + + + | 2022-11-05 00:00 | Congestive heart failure | [facility] | + + + + Procedures + + + + | date | description | facility | + + + + | 2022-04-22 00:00 | EXCISION OF STOMACH, | [facility] | | | PYLORUS, ENDO, DIAGN | | + + + + | 2022-04-22 00:00 | EGD BIOPSY SINGLE/MULTIPLE | [facility] | | | | | + + + + | 2022-04-22 00:00 | Esophagogastroduodenoscopy | [facility] | | | (EGD) with closed biopsy | | + + + + | 2022-04-22 00:00 | Esophagogastroduodenoscopy | [facility] | | | (EGD) with closed biopsy | | + + + + Results/Labs +--------+--------+ +---------+--------+---------+ | test | date | facility | value | unit | notes | +--------+--------+ +---------+--------+---------+ + + | Result panel 1 | + + + + + + + + + | | 2022-03-23 | [facility] | NEGATIVE | (missing) | (missing) | | (unavailable | 07:52 | [facility] | | | + + + + + + + + + | Result panel 2 | + + + + + + + + + | | 2022-03-23 | [facility] | NEGATIVE | (missing) | (missing) | | (unavailable | 07:52 | [facility] | | | + + + + + + + + + | Result panel 3 | + + + + + +--------+ + + | | 2022-03-25 | [facility] | 16.1 | (missing) | (missing) | | (unavailable | 10:20 [facility] | | | | + + + +--------+ + + + + | Result panel 4 | + + + + + +--------+ + + | | 2022-03-25 | [facility] | 4.07 | (missing) | (missing) | | (unavailable | 10:20 [facility] | | | | + + + +--------+ + + + + | Result panel 5 | + + + + + +--------+ + + | | 2022-03-25 | [facility] | 10.7 | (missing) | (missing) | | (unavailable | 10:20 [facility] | | | + + + +--------+ + + + + | Result panel 6 | + + + + + +--------+ + + | | 2022-03-25 | [facility] | 34.2 | (missing) | (missing) | | (unavailable | 10:20 [facility] | | | + + + +--------+ + + + + | Result panel 7 | + + + + + +--------+ + + | | 2022-03-25 | [facility] | 84.0 | (missing) | (missing) | | (unavailable | 10:20 [facility] | | | + + + +--------+ + + + + | Result panel 8 | + + + + + +--------+ + + | | 2022-03-25 | [facility] | 26.2 | (missing) | (missing) | | (unavailable | 10:20 [facility] | | | + + + +--------+ + + + + | Result panel 9 | + + + + + +--------+ + + | | 2022-03-25 | [facility] | 31.2 | (missing) | (missing) | | (unavailable | 10:20 [facility] | | | + + + +--------+ + + + + | Result panel 10 | + + + + + +--------+ + + | | 2022-03-25 | [facility] | 18.3 | (missing) | (missing) | | (unavailable | 10:20 [facility] | | | + + + +--------+ + + + + | Result panel 11 | + + + + + +-------+ + + | | 2022-03-25 | [facility] | 295 | (missing) | (missing) | | (unavailable | 10:20 [facility] | | | + + + +-------+ + + + + | Result panel 12 | + + + + + +--------+ + + | | 2022-03-25 | [facility] | 80.0 | (missing) | (missing) | | (unavailable | 10:20 [facility] | | | + + + +--------+ + + + + | Result panel 13 | + + + + + +--------+ + + | | 2022-03-25 | [facility] | 11.5 | (missing) | (missing) | | (unavailable | 10:20 [facility] | | | + + + +--------+ + + + + | Result panel 14 | + + + + + +-------+ + + | | 2022-03-25 | [facility] | 7.6 | (missing) | (missing) | | (unavailable | 10:20 [facility] | | | + + + +-------+ + + + + | Result panel 15 | + + + + + +-------+ + + | | 2022-03-25 | [facility] | 0.6 | (missing) | (missing) | | (unavailable | 10:20 [facility] | | | | + + + +-------+ + + + + | Result panel 16 | + + + + + +-------+ + + | | 2022-03-25 | [facility] | 0.3 | (missing) | (missing) | | (unavailable | 10:20 [facility] | | | + + + +-------+ + + + + | Result panel 17 | + + + + + +-------+---------+ + | | 2022-03-25 | [facility] | 114 | mg/dL | (missing) | | (unavailable | 10:20 [facility] | | | + + + +-------+---------+ + + + | Result panel 18 | + + + + + +------+---------+ + | | 2022-03-25 | [facility] | 42 | mg/dL | (missing) | | (unavailable | 10:20 [facility] | | | + + + +------+---------+ + + + | Result panel 19 | + + + + + +--------+---------+ + | | 2022-03-25 | [facility] | 1.40 | mg/dL | (missing) | | (unavailable | 10:20 [facility] | | | + + + +--------+---------+ + + + | Result panel 20 | + + + + + +------+ + + | | 2022-03-25 | [facility] | 50 | (missing) | (missing) | | (unavailable | 10:20 [facility] | | | + + + +------+ + + + + | Result panel 21 | + + + + + +---------+ + + | | 2022-03-25 | [facility] | 30.00 | (missing) | (missing) | | (unavailable | 10:20 [facility] | | | + + + +---------+ + + + + | Result panel 22 | + + + + + +-------+ + + | | 2022-03-25 | [facility] | 143 | (missing) | (missing) | | (unavailable | 10:20 [facility] | | | + + + +-------+ + + + + | Result panel 23 | + + + + + +-------+ + + | | 2022-03-25 | [facility] | 4.5 | (missing) | (missing) | | (unavailable | 10:20 [facility] | | | + + + +-------+ + + + + | Result panel 24 | + + + + + +-------+ + + | | 2022-03-25 | [facility] | 104 | (missing) | (missing) | | (unavailable | 10:20 [facility] | | | + + + +-------+ + + + + | Result panel 25 | + + + + + +------+ + + | | 2022-03-25 | [facility] | 29 | (missing) | (missing) | | (unavailable | 10:20 [facility] | | | + + + +------+ + + + + | Result panel 26 | + + + + + +--------+ + + | | 2022-03-25 | [facility] | 14.5 | (missing) | (missing) | | (unavailable | 10:20 [facility] | | | + + + +--------+ + + + + | Result panel 27 | + + + + + +-------+---------+ + | | 2022-03-25 | [facility] | 8.4 | mg/dL | (missing) | | (unavailable | 10:20 [facility] | | | + + + +-------+---------+ + + + | Result panel 28 | + + + + + +-------+ + + | | 2022-03-25 | [facility] | 6.6 | (missing) | (missing) | | (unavailable | 10:20 [facility] | | | + + + +-------+ + + + + | Result panel 29 | + + + + + +-------+ + + | | 2022-03-25 | [facility] | 3.0 | (missing) | (missing) | | (unavailable | 10:20 [facility] | | | + + + +-------+ + + + + | Result panel 30 | + + + + + +-------+ + + | | 2022-03-25 | [facility] | 3.6 | (missing) | (missing) | | (unavailable | 10:20 [facility] | | | + + + +-------+ + + + + | Result panel 31 | + + + + + +--------+ + + | | 2022-03-25 | [facility] | 0.83 | (missing) | (missing) | | (unavailable | 10:20 [facility] | | | + + + +--------+ + + + + | Result panel 32 | + + + + + +------+ + + | | 2022-03-25 | [facility] | 17 | (missing) | (missing) | | (unavailable | 10:20 [facility] | | | + + + +------+ + + + + | Result panel 33 | + + + + + +------+ + + | | 2022-03-25 | [facility] | 20 | (missing) | (missing) | | (unavailable | 10:20 [facility] | | | + + + +------+ + + + + | Result panel 34 | + + + + + +------+ + + | | 2022-03-25 | [facility] | 82 | (missing) | (missing) | | (unavailable | 10:20 [facility] | | | + + + +------+ + + + + | Result panel 35 | + + + + + +-------+ + + | | 2022-03-25 | [facility] | 384 | (missing) | (missing) | | (unavailable | 10:20 [facility] | | | + + + +-------+ + + + + | Result panel 36 | + + + + + + + + + | | 2022-03-25 | [facility] | SEE SCANNED | (missing) | (missing) | | (unavailable | 10:20 [facility] | | | | + + + + + + + + + | Result panel 37 | + + + + + +--------+ + + | | 2022-03-25 | [facility] | 80.0 | (missing) | (missing) | | (unavailable | 10:20 [facility] | | | + + + +--------+ + + + + | Result panel 38 | + + + + + +--------+ + + | | 2022-03-25 | [facility] | 11.5 | (missing) | (missing) | | (unavailable | 10:20 [facility] | | | + + + +--------+ + + + + | Result panel 39 | + + + + + +-------+ + + | | 2022-03-25 | [facility] | 7.6 | (missing) | (missing) | | (unavailable | 10:20 [facility] | | | + + + +-------+ + + + + | Result panel 40 | + + + + + +-------+ + + | | 2022-03-25 | [facility] | 0.6 | (missing) | (missing) | | (unavailable | 10:20 [facility] | | | + + + +-------+ + + + + | Result panel 41 | + + + + + +-------+ + + | | 2022-03-25 | [facility] | 0.3 | (missing) | (missing) | | (unavailable | 10:20 [facility] | | | + + + +-------+ + + + + | Result panel 42 | + + + + + +-------+ + + | | 2022-03-25 | [facility] | 1.5 | (missing) | (missing) | | (unavailable | 10:20 [facility] | | | | + + + +-------+ + + + + | Result panel 43 | + + + + + +-------+ + + | | 2022-03-25 | [facility] | 384 | (missing) | (missing) | | (unavailable | 10:20 [facility] | | | + + + +-------+ + + + + | Result panel 44 | + + + + + + + + + | | 2022-03-25 | [facility] | SEE SCANNED | (missing) | (missing) | | (unavailable | 10:20 [facility] | | | | + + + + + + + + + | Result panel 45 | + + + + + + + + + | | 2022-03-25 | [facility] | SEE SCANNED | (missing) | (missing) | | (unavailable | 10:20 [facility] | | | | + + + + + + + + + | Result panel 46 | + + + + + + + + + | | 2022-03-25 | [facility] | SEE SCANNED | (missing) | (missing) | | (unavailable | 10:20 [facility] | | | | + + + + + + + + + | Result panel 47 | + + + + + +------+ + + | | 2022-03-25 | [facility] | 98 | (missing) | (missing) | | (unavailable | 12:45 | [facility] | | | | + + + +------+ + + + + | Result panel 48 | + + + + + +-----+ + + | | 2022-04-15 | [facility] | 1 | (missing) | (missing) | | (unavailable | 10:23 [facility] | | | + + + +-----+ + + + + | Result panel 49 | + + + + + +-----+ + + | | 2022-04-15 | [facility] | 1 | (missing) | (missing) | | (unavailable | 10:23 [facility] | | | | + + + +-----+ + + + + | Result panel 50 | + + + + + + + + + | | 2022-04-15 | [facility] | PRESENT | (missing) | (missing) | | (unavailable | 10:23 [facility] | | | | + + + + + + + + + | Result panel 51 | + + + + + + + + + | | 2022-04-15 | [facility] | PRESENT | (missing) | (missing) | | (unavailable | 10:23 [facility] | | | | + + + + + + + + + | Result panel 52 | + + + + + +--------+ + + | | 2022-04-15 | [facility] | 11.3 | (missing) | (missing) | | (unavailable | 10:23 [facility] | | | + + + +--------+ + + + + | Result panel 53 | + + + + + +--------+ + + | | 2022-04-15 | [facility] | 4.20 | (missing) | (missing) | | (unavailable | 10:23 [facility] | | | + + + +--------+ + + + + | Result panel 54 | + + + + + +--------+ + + | | 2022-04-15 | [facility] | 11.4 | (missing) | (missing) | | (unavailable | 10:23 [facility] | | | + + + +--------+ + + + + | Result panel 55 | + + + + + +--------+ + + | | 2022-04-15 | [facility] | 35.7 | (missing) | (missing) | | (unavailable | 10:23 [facility] | | | + + + +--------+ + + + + | Result panel 56 | + + + + + +--------+ + + | | 2022-04-15 | [facility] | 84.9 | (missing) | (missing) | | (unavailable | 10:23 [facility] | | | + + + +--------+ + + + + | Result panel 57 | + + + + + +--------+ + + | | 2022-04-15 | [facility] | 27.2 | (missing) | (missing) | | (unavailable | 10:23 [facility] | | | + + + +--------+ + + + + | Result panel 58 | + + + + + +--------+ + + | | 2022-04-15 | [facility] | 32.1 | (missing) | (missing) | | (unavailable | 10:23 [facility] | | | + + + +--------+ + + + + | Result panel 59 | + + + + + +--------+ + + | | 2022-04-15 | [facility] | 18.3 | (missing) | (missing) | | (unavailable | 10:23 [facility] | | | + + + +--------+ + + + + | Result panel 60 | + + + + + +-------+ + + | | 2022-04-15 | [facility] | 276 | (missing) | (missing) | | (unavailable | 10:23 [facility] | | | + + + +-------+ + + + + | Result panel 61 | + + + + + +------+ + + | | 2022-04-15 | [facility] | 70 | (missing) | (missing) | | (unavailable | 10:23 [facility] | | | | + + + +------+ + + + + | Result panel 62 | + + + + + +------+ + + | | 2022-04-15 | [facility] | 23 | (missing) | (missing) | | (unavailable | 10:23 [facility] | | | | + + + +------+ + + + + | Result panel 63 | + + + + + +-----+ + + | | 2022-04-15 | [facility] | 5 | (missing) | (missing) | | (unavailable | 10:23 [facility] | | | | + + + +-----+ + + + + | Result panel 64 | + + + + + +-----+ + + | | 2022-04-15 | [facility] | 1 | (missing) | (missing) | | (unavailable | 10:23 [facility] | | | | + + + +-----+ + + + + | Result panel 65 | + + + + + +-----+ + + | | 2022-04-15 | [facility] | 1 | (missing) | (missing) | | (unavailable | 10:23 [facility] | | | | + + + +-----+ + + + + | Result panel 66 | + + + + + + + + + | | 2022-04-15 | [facility] | MARKED | (missing) | (missing) | | (unavailable | 10:23 [facility] | | | | + + + + + + + + + | Result panel 67 | + + + + + + + + + | | 2022-04-15 | [facility] | PRESENT | (missing) | (missing) | | (unavailable | 10:23 [facility] | | | | + + + + + + + + + | Result panel 68 | + + + + + + + + + | | 2022-04-15 | [facility] | PRESENT | (missing) | (missing) | | (unavailable | 10:23 [facility] | | | | + + + + + + + + + | Result panel 69 | + + + + + +-------+---------+ + | | 2022-04-15 | [facility] | 147 | mg/dL | (missing) | | (unavailable | 10:23 [facility] | | | + + + +-------+---------+ + + + | Result panel 70 | + + + + + +------+---------+ + | | 2022-04-15 | [facility] | 50 | mg/dL | (missing) | | (unavailable | 10:23 [facility] | | | + + + +------+---------+ + + + | Result panel 71 | + + + + + +--------+---------+ + | | 2022-04-15 | [facility] | 1.61 | mg/dL | (missing) | | (unavailable | 10:23 [facility] | | | + + + +--------+---------+ + + + | Result panel 72 | + + + + + +------+ + + | | 2022-04-15 | [facility] | 43 | (missing) | (missing) | | (unavailable | 10:23 [facility] | | | + + + +------+ + + + + | Result panel 73 | + + + + + +---------+ + + | | 2022-04-15 | [facility] | 31.05 | (missing) | (missing) | | (unavailable | 10:23 [facility] | | | + + + +---------+ + + + + | Result panel 74 | + + + + + +-------+ + + | | 2022-04-15 | [facility] | 144 | (missing) | (missing) | | (unavailable | 10:23 [facility] | | | + + + +-------+ + + + + | Result panel 75 | + + + + + +-------+ + + | | 2022-04-15 | [facility] | 3.9 | (missing) | (missing) | | (unavailable | 10:23 [facility] | | | | + + + +-------+ + + + + | Result panel 76 | + + + + + +-------+ + + | | 2022-04-15 | [facility] | 104 | (missing) | (missing) | | (unavailable | 10:23 [facility] | | | + + + +-------+ + + + + | Result panel 77 | + + + + + +------+ + + | | 2022-04-15 | [facility] | 31 | (missing) | (missing) | | (unavailable | 10:23 [facility] | | | + + + +------+ + + + + | Result panel 78 | + + + + + +--------+ + + | | 2022-04-15 | [facility] | 12.9 | (missing) | (missing) | | (unavailable | 10:23 [facility] | | | + + + +--------+ + + + + | Result panel 79 | + + + + + +-------+---------+ + | | 2022-04-15 | [facility] | 8.7 | mg/dL | (missing) | | (unavailable | 10:23 [facility] | | | + + + +-------+---------+ + + + | Result panel 80 | + + + + + +-------+ + + | | 2022-04-15 | [facility] | 6.8 | (missing) | (missing) | | (unavailable | 10:23 [facility] | | | | + + + +-------+ + + + + | Result panel 81 | + + + + + +-------+ + + | | 2022-04-15 | [facility] | 3.3 | (missing) | (missing) | | (unavailable | 10:23 [facility] | | | | + + + +-------+ + + + + | Result panel 82 | + + + + + +-------+ + + | | 2022-04-15 | [facility] | 3.5 | (missing) | (missing) | | (unavailable | 10:23 [facility] | | | | + + + +-------+ + + + + | Result panel 83 | + + + + + +--------+ + + | | 2022-04-15 | [facility] | 0.94 | (missing) | (missing) | | (unavailable | 10:23 [facility] | | | | + + + +--------+ + + + + | Result panel 84 | + + + + + +-------+ + + | | 2022-04-15 | [facility] | 0.6 | (missing) | (missing) | | (unavailable | 10:23 [facility] | | | | + + + +-------+ + + + + | Result panel 85 | + + + + + +------+ + + | | 2022-04-15 | [facility] | 18 | (missing) | (missing) | | (unavailable | 10:23 [facility] | | | | + + + +------+ + + + + | Result panel 86 | + + + + + +------+ + + | | 2022-04-15 | [facility] | 23 | (missing) | (missing) | | (unavailable | 10:23 [facility] | | | | + + + +------+ + + + + | Result panel 87 | + + + + + +------+ + + | | 2022-04-15 | [facility] | 75 | (missing) | (missing) | | (unavailable | 10:23 [facility] | | | | + + + +------+ + + + + | Result panel 88 | + + + + + + + + + | | 2022-04-20 | [facility] | NEGATIVE | (missing) | (missing) | | (unavailable | 08:00 | [facility] | | | | + + + + + + + + + | Result panel 89 | + + + + + + + + + | | 2022-04-22 | [facility] | NEGATIVE | (missing) | (missing) | | (unavailable | 10:00 | [facility] | | | + + + + + + + + + | Result panel 90 | + + + + + +-------+ + + | | 2022-04-22 | [facility] | 109 | (missing) | (missing) | | (unavailable | 10:12 | [facility] | | | + + + +-------+ + + + + | Result panel 91 | + + + + + +-------+ + + | | 2022-04-22 | [facility] | 109 | (missing) | (missing) | | (unavailable | 10:12 [facility] | | | | + + + +-------+ + + + + | Result panel 92 | + + + + + + + + + | | 2022-04-22 | [facility] | SEE SCANNED | (missing) | (missing) | | (unavailable | 10:34 [facility] | | | | + + + + + + + + + | Result panel 93 | + + + + + + + + + | | 2022-04-22 | [facility] | SEE SCANNED | (missing) | (missing) | | (unavailable | 10:34 [facility] | | | | + + + + + + + + + | Result panel 94 | + + + + + + + + + | | 2022-04-22 | [facility] | SEE SCANNED | (missing) | (missing) | | (unavailable | 10:34 [facility] | | | | + + + + + + + + + | Result panel 95 | + + + + + +------+ + + | | 2022-05-10 | [facility] | 67 | (missing) | (missing) | | (unavailable | 16:20 [facility] | | | | + + + +------+ + + + + | Result panel 96 | + + + + + +------+ + + | | 2022-05-10 | [facility] | 24 | (missing) | (missing) | | (unavailable | 16:20 [facility] | | | | + + + +------+ + + + + | Result panel 97 | + + + + + +-----+ + + | | 2022-05-10 | [facility] | 8 | (missing) | (missing) | | (unavailable | 16:20 [facility] | | | | + + + +-----+ + + + + | Result panel 98 | + + + + + +-----+ + + | | 2022-05-10 | [facility] | 1 | (missing) | (missing) | | (unavailable | 16:20 [facility] | | | | + + + +-----+ + + + + | Result panel 99 | + + + + + + + + + | | 2022-05-10 | [facility] | PRESENT | (missing) | (missing) | | (unavailable | 16:20 | [facility] | | | | + + + + + + + + + | Result panel 100 | + + + + + + + + + | | 2022-05-10 | [facility] | PRESENT | (missing) | (missing) | | (unavailable | 16:20 | [facility] | | | | + + + + + + + + + | Result panel 101 | + + + + + +-------+---------+ + | | 2022-05-10 | [facility] | 143 | mg/dL | (missing) | | (unavailable | 16:20 | [facility] | | | | + + + +-------+---------+ + + + | Result panel 102 | + + + + + +------+---------+ + | | 2022-05-10 | [facility] | 38 | mg/dL | (missing) | | (unavailable | 16:20 [facility] | | | | + + + +------+---------+ + + + | Result panel 103 | + + + + + +--------+---------+ + | | 2022-05-10 | [facility] | 1.57 | mg/dL | (missing) | | (unavailable | 16:20 | [facility] | | | | + + + +--------+---------+ + + + | Result panel 104 | + + + + + +------+ + + | | 2022-05-10 | [facility] | 44 | (missing) | (missing) | | (unavailable | 16:20 [facility] | | | | + + + +------+ + + + + | Result panel 105 | + + + + + +---------+ + + | | 2022-05-10 | [facility] | 24.20 | (missing) | (missing) | | (unavailable | 16:20 | [facility] | | | | + + + +---------+ + + + + | Result panel 106 | + + + + + +-------+ + + | | 2022-05-10 | [facility] | 140 | (missing) | (missing) | | (unavailable | 16:20 [facility] | | | | + + + +-------+ + + + + | Result panel 107 | + + + + + +-------+ + + | | 2022-05-10 | [facility] | 4.0 | (missing) | (missing) | | (unavailable | 16:20 [facility] | | | | + + + +-------+ + + + + | Result panel 108 | + + + + + +-------+ + + | | 2022-05-10 | [facility] | 102 | (missing) | (missing) | | (unavailable | 16:20 | [facility] | | | | + + + +-------+ + + + + | Result panel 109 | + + + + + +------+ + + | | 2022-05-10 | [facility] | 29 | (missing) | (missing) | | (unavailable | 16:20 | [facility] | | | | + + + +------+ + + + + | Result panel 110 | + + + + + +--------+ + + | | 2022-05-10 | [facility] | 13.0 | (missing) | (missing) | | (unavailable | 16:20 | [facility] | | | | + + + +--------+ + + + + | Result panel 111 | + + + + + +-------+---------+ + | | 2022-05-10 | [facility] | 8.4 | mg/dL | (missing) | | (unavailable | 16:20 | [facility] | | | | + + + +-------+---------+ + + + | Result panel 112 | + + + + + +-------+ + + | | 2022-05-10 | [facility] | 6.6 | (missing) | (missing) | | (unavailable | 16:20 | [facility] | | | | + + + +-------+ + + + + | Result panel 113 | + + + + + +-------+ + + | | 2022-05-10 | [facility] | 2.9 | (missing) | (missing) | | (unavailable | 16:20 | [facility] | | | | + + + +-------+ + + + + | Result panel 114 | + + + + + +-------+ + + | | 2022-05-10 | [facility] | 3.7 | (missing) | (missing) | | (unavailable | 16:20 | [facility] | | | + + + +-------+ + + + + | Result panel 115 | + + + + + +--------+ + + | | 2022-05-10 | [facility] | 0.78 | (missing) | (missing) | | (unavailable | 16:20 | [facility] | | | + + + +--------+ + + + + | Result panel 116 | + + + + + +-------+ + + | | 2022-05-10 | [facility] | 0.5 | (missing) | (missing) | | (unavailable | 16:20 | [facility] | | | + + + +-------+ + + + + | Result panel 117 | + + + + + +------+ + + | | 2022-05-10 | [facility] | 11 | (missing) | (missing) | | (unavailable | 16:20 | [facility] | | | + + + +------+ + + + + | Result panel 118 | + + + + + +------+ + + | | 2022-05-10 | [facility] | 17 | (missing) | (missing) | | (unavailable | 16:20 | [facility] | | | + + + +------+ + + + + | Result panel 119 | + + + + + +------+ + + | | 2022-05-10 | [facility] | 82 | (missing) | (missing) | | (unavailable | 16:20 | [facility] | | | | + + + +------+ + + + + | Result panel 120 | + + + + + +--------+ + + | | 2022-05-10 | [facility] | 34.8 | (missing) | (missing) | | (unavailable | 16:20 | [facility] | | | + + + +--------+ + + + + | Result panel 121 | + + + + + +-----+ + + | | 2022-05-10 | [facility] | 1 | (missing) | (missing) | | (unavailable | 16:20 | [facility] | | | + + + +-----+ + + + + | Result panel 122 | + + + + + + + + + | | 2022-05-10 | [facility] | PRESENT | (missing) | (missing) | | (unavailable | 16:20 | [facility] | | | + + + + + + + + + | Result panel 123 | + + + + + +--------+ + + | | 2022-05-10 | [facility] | 34.8 | (missing) | (missing) | | (unavailable | 16:20 | [facility] | | | + + + +--------+ + + + + | Result panel 124 | + + + + + +--------+ + + | | 2022-05-10 | [facility] | 13.2 | (missing) | (missing) | | (unavailable | 16:20 | [facility] | | | + + + +--------+ + + + + | Result panel 125 | + + + + + +--------+ + + | | 2022-05-10 | [facility] | 3.50 | (missing) | (missing) | | (unavailable | 16:20 | [facility] | | | + + + +--------+ + + + + | Result panel 126 | + + + + + +-------+ + + | | 2022-05-10 | [facility] | 9.5 | (missing) | (missing) | | (unavailable | 16:20 | [facility] | | | + + + +-------+ + + + + | Result panel 127 | + + + + + +--------+ + + | | 2022-05-10 | [facility] | 29.2 | (missing) | (missing) | | (unavailable | 16:20 | [facility] | | | + + + +--------+ + + + + | Result panel 128 | + + + + + +--------+ + + | | 2022-05-10 | [facility] | 83.3 | (missing) | (missing) | | (unavailable | 16:20 | [facility] | | | + + + +--------+ + + + + | Result panel 129 | + + + + + +--------+ + + | | 2022-05-10 | [facility] | 27.2 | (missing) | (missing) | | (unavailable | 16:20 | [facility] | | | + + + +--------+ + + + + | Result panel 130 | + + + + + +--------+ + + | | 2022-05-10 | [facility] | 32.6 | (missing) | (missing) | | (unavailable | 16:20 | [facility] | | | + + + +--------+ + + + + | Result panel 131 | + + + + + +--------+ + + | | 2022-05-10 | [facility] | 18.9 | (missing) | (missing) | | (unavailable | 16:20 | [facility] | | | + + + +--------+ + + + + | Result panel 132 | + + + + + +-------+ + + | | 2022-05-10 | [facility] | 317 | (missing) | (missing) | | (unavailable | 16:20 | [facility] | | | + + + +-------+ + + + + | Result panel 133 | + + + + + +--------+ + + | | 2022-06-07 | [facility] | 14.4 | (missing) | (missing) | | (unavailable | 20:23 | [facility] | | | + + + +--------+ + + + + | Result panel 134 | + + + + + +--------+ + + | | 2022-06-07 | [facility] | 1.15 | (missing) | (missing) | | (unavailable | 20:23 | [facility] | | | + + + +--------+ + + + + | Result panel 135 | + + + + + +-------+---------+ + | | 2022-06-07 | [facility] | 120 | mg/dL | (missing) | | (unavailable | 20:23 | [facility] | | | + + + +-------+---------+ + + + | Result panel 136 | + + + + + +------+---------+ + | | 2022-06-07 | [facility] | 45 | mg/dL | (missing) | | (unavailable | 20:23 | [facility] | | | + + + +------+---------+ + + + | Result panel 137 | + + + + + +--------+---------+ + | | 2022-06-07 | [facility] | 1.53 | mg/dL | (missing) | | (unavailable | 20:23 | [facility] | | | + + + +--------+---------+ + + + | Result panel 138 | + + + + + +------+ + + | | 2022-06-07 | [facility] | 45 | (missing) | (missing) | | (unavailable | 20:23 | [facility] | | | + + + +------+ + + + + | Result panel 139 | + + + + + +---------+ + + | | 2022-06-07 | [facility] | 29.41 | (missing) | (missing) | | (unavailable | 20:23 | [facility] | | | + + + +---------+ + + + + | Result panel 140 | + + + + + +-------+ + + | | 2022-06-07 | [facility] | 141 | (missing) | (missing) | | (unavailable | 20:23 | [facility] | | | + + + +-------+ + + + + | Result panel 141 | + + + + + +-------+ + + | | 2022-06-07 | [facility] | 4.6 | (missing) | (missing) | | (unavailable | 20:23 | [facility] | | | + + + +-------+ + + + + | Result panel 142 | + + + + + +-------+ + + | | 2022-06-07 | [facility] | 105 | (missing) | (missing) | | (unavailable | 20:23 | [facility] | | | + + + +-------+ + + + + | Result panel 143 | + + + + + +------+ + + | | 2022-06-07 | [facility] | 26 | (missing) | (missing) | | (unavailable | 20:23 | [facility] | | | + + + +------+ + + + + | Result panel 144 | + + + + + +--------+ + + | | 2022-06-07 | [facility] | 14.6 | (missing) | (missing) | | (unavailable | 20:23 | [facility] | | | + + + +--------+ + + + + | Result panel 145 | + + + + + +-------+---------+ + | | 2022-06-07 | [facility] | 8.6 | mg/dL | (missing) | | (unavailable | 20:23 | [facility] | | | + + + +-------+---------+ + + + | Result panel 146 | + + + + + +-------+ + + | | 2022-06-07 | [facility] | 6.8 | (missing) | (missing) | | (unavailable | 20:23 | [facility] | | | + + + +-------+ + + + + | Result panel 147 | + + + + + +-------+ + + | | 2022-06-07 | [facility] | 3.1 | (missing) | (missing) | | (unavailable | 20:23 | [facility] | | | + + + +-------+ + + + + | Result panel 148 | + + + + + +-------+ + + | | 2022-06-07 | [facility] | 3.7 | (missing) | (missing) | | (unavailable | 20:23 | [facility] | | | + + + +-------+ + + + + | Result panel 149 | + + + + + +--------+ + + | | 2022-06-07 | [facility] | 0.84 | (missing) | (missing) | | (unavailable | 20:23 | [facility] | | | + + + +--------+ + + + + | Result panel 150 | + + + + + +-------+ + + | | 2022-06-07 | [facility] | 0.4 | (missing) | (missing) | | (unavailable | 20:23 | [facility] | | | + + + +-------+ + + + + | Result panel 151 | + + + + + +------+ + + | | 2022-06-07 | [facility] | 11 | (missing) | (missing) | | (unavailable | 20:23 | [facility] | | | + + + +------+ + + + + | Result panel 152 | + + + + + +------+ + + | | 2022-06-07 | [facility] | 20 | (missing) | (missing) | | (unavailable | 20:23 | [facility] | | | + + + +------+ + + + + | Result panel 153 | + + + + + +------+ + + | | 2022-06-07 | [facility] | 86 | (missing) | (missing) | | (unavailable | 20:23 | [facility] | | | + + + +------+ + + + + | Result panel 154 | + + + + + +-------+ + + | | 2022-06-07 | [facility] | 105 | (missing) | (missing) | | (unavailable | 20:23 | [facility] | | | + + + +-------+ + + + + | Result panel 155 | + + + + + +-------+ + + | | 2022-06-07 | [facility] | 185 | (missing) | (missing) | | (unavailable | 20:23 | [facility] | | | + + + +-------+ + + + + | Result panel 156 | + + + + + +------+ + + | | 2022-06-07 | [facility] | 55 | (missing) | (missing) | | (unavailable | 20:23 | [facility] | | | + + + +------+ + + + + | Result panel 157 | + + + + + +------+ + + | | 2022-06-07 | [facility] | <3 | (missing) | (missing) | | (unavailable | 20:23 | [facility] | | | + + + +------+ + + + + | Result panel 158 | + + + + + +--------+ + + | | 2022-06-07 | [facility] | 10.6 | (missing) | (missing) | | (unavailable | 20:25 | [facility] | | | + + + +--------+ + + + + | Result panel 159 | + + + + + +--------+ + + | | 2022-06-07 | [facility] | 3.87 | (missing) | (missing) | | (unavailable | 20:25 | [facility] | | | + + + +--------+ + + + + | Result panel 160 | + + + + + +--------+ + + | | 2022-06-07 | [facility] | 10.5 | (missing) | (missing) | | (unavailable | 20:25 | [facility] | | | + + + +--------+ + + + + | Result panel 161 | + + + + + +--------+ + + | | 2022-06-07 | [facility] | 32.9 | (missing) | (missing) | | (unavailable | 20:25 | [facility] | | | + + + +--------+ + + + + | Result panel 162 | + + + + + +--------+ + + | | 2022-06-07 | [facility] | 85.0 | (missing) | (missing) | | (unavailable | 20:25 | [facility] | | + + + +--------+ + + + + | Result panel 163 | + + + + + +--------+ + + | | 2022-06-07 | [facility] | 27.1 | (missing) | (missing) | | (unavailable | 20:25 | [facility] | | + + + +--------+ + + + + | Result panel 164 | + + + + + +--------+ + + | | 2022-06-07 | [facility] | 31.9 | (missing) | (missing) | | (unavailable | 20:25 | [facility] | | | + + + +--------+ + + + + | Result panel 165 | + + + + + +--------+ + + | | 2022-06-07 | [facility] | 20.7 | (missing) | (missing) | | (unavailable | 20:25 | [facility] | | + + + +--------+ + + + + | Result panel 166 | + + + + + +-------+ + + | | 2022-06-07 | [facility] | 280 | (missing) | (missing) | | (unavailable | 20:25 | [facility] | | | + + + +-------+ + + + + | Result panel 167 | + + + + + +------+ + + | | 2022-06-07 | [facility] | 76 | (missing) | (missing) | | (unavailable | 20:25 | [facility] | | | + + + +------+ + + + + | Result panel 168 | + + + + + +------+ + + | | 2022-06-07 | [facility] | 22 | (missing) | (missing) | | (unavailable | 20:25 | [facility] | | | + + + +------+ + + + + | Result panel 169 | + + + + + +-----+ + + | | 2022-06-07 | [facility] | 1 | (missing) | (missing) | | (unavailable | 20:25 | [facility] | | | + + + +-----+ + + + + | Result panel 170 | + + + + + +-----+ + + | | 2022-06-07 | [facility] | 1 | (missing) | (missing) | | (unavailable | 20:25 | [facility] | | | + + + +-----+ + + + + | Result panel 171 | + + + + + + + + + | | 2022-06-07 | [facility] | PRESENT | (missing) | (missing) | | (unavailable | 20:25 | [facility] | | | + + + + + + + + + | Result panel 172 | + + + + + + + + + | | 2022-06-08 | [facility] | NEGATIVE | (missing) | (missing) | | (unavailable | 00:17 | [facility] | | | + + + + + + + + + | Result panel 173 | + + + + + + + + + | | 2022-06-08 | [facility] | NEGATIVE | (missing) | (missing) | | (unavailable | 00:17 | [facility] | | | + + + + + + + + + | Result panel 174 | + + + + + + + + + | | 2022-06-08 | [facility] | NEGATIVE | (missing) | (missing) | | (unavailable | 00:17 | [facility] | | | + + + + + + + + + | Result panel 175 | + + + + + + + + + | | 2022-06-08 | [facility] | NEGATIVE | (missing) | (missing) | | (unavailable | 00:17 | [facility] | | | + + + + + + + + + | Result panel 176 | + + + + + + + + + | | 2022-06-08 | [facility] | NEGATIVE | (missing) | (missing) | | (unavailable | 06:17 | [facility] | | | + + + + + + + + + | Result panel 177 | + + + + + + + + + | | 2022-06-08 | [facility] | NEGATIVE | (missing) | (missing) | | (unavailable | 06:17 | [facility] | | | + + + + + + + + + | Result panel 178 | + + + + + + + + + | | 2022-06-08 | [facility] | NEGATIVE | (missing) | (missing) | | (unavailable | 06:17 | [facility] | | | + + + + + + + + + | Result panel 179 | + + + + + + + + + | | 2022-06-08 | [facility] | NEGATIVE | (missing) | (missing) | | (unavailable | 06:17 | [facility] | | | + + + + + + + + + | Result panel 180 | + + + + + + + + + | | 2022-06-08 | [facility] | NEGATIVE | (missing) | (missing) | | (unavailable | 06:17 | [facility] | | | + + + + + + + + + | Result panel 181 | + + + + + + + + + | | 2022-06-08 | [facility] | NEGATIVE | (missing) | (missing) | | (unavailable | 06:17 | [facility] | | | + + + + + + + + + | Result panel 182 | + + + + + + + + + | | 2022-06-08 | [facility] | NEGATIVE | (missing) | (missing) | | (unavailable | 06:17 | [facility] | | | + + + + + + + + + | Result panel 183 | + + + + + + + + + | | 2022-06-08 | [facility] | POSITIVE | (missing) | (missing) | | (unavailable | 06:17 | [facility] | | | + + + + + + + + + | Result panel 184 | + + + + + + + + + | | 2022-06-08 | [facility] | NEGATIVE | (missing) | (missing) | | (unavailable | 06:17 | [facility] | | | + + + + + + + + + | Result panel 185 | + + + + + + + + + | | 2022-06-08 | [facility] | NEGATIVE | (missing) | (missing) | | (unavailable | 06:17 | [facility] | | | + + + + + + + + + | Result panel 186 | + + + + + + + + + | | 2022-06-08 | [facility] | NEGATIVE | (missing) | (missing) | | (unavailable | 06:17 | [facility] | | | + + + + + + + + + | Result panel 187 | + + + + + + + + + | | 2022-06-08 | [facility] | NEGATIVE | (missing) | (missing) | | (unavailable | 06:17 | [facility] | | | + + + + + + + + + | Result panel 188 | + + + + + + + + + | | 2022-06-08 | [facility] | NEGATIVE | (missing) | (missing) | | (unavailable | 06:17 | [facility] | | | + + + + + + + + + | Result panel 189 | + + + + + +---------+ + + | | 2022-09-01 | [facility] | 7.375 | (missing) | (missing) | | (unavailable | 15:33:08 | [facility] | | | + + + +---------+ + + + + | Result panel 190 | + + + + + +--------+ + + | | 2022-09-01 | [facility] | 15.9 | (missing) | (missing) | | (unavailable | 16:12:08 | [facility] | | | + + + +--------+ + + + + | Result panel 191 | + + + + + +--------+ + + | | 2022-09-01 | [facility] | 1.32 | (missing) | (missing) | | (unavailable | 16:12:08 | [facility] | | | + + + +--------+ + + + + | Result panel 192 | + + + + + +--------+ + + | | 2022-09-01 | [facility] | 16.2 | (missing) | (missing) | | (unavailable | 16:12:08 [facility] | | | + + + +--------+ + + + + | Result panel 193 | + + + + + + + + + | | 2022-09-01 | [facility] | NEGATIVE | (missing) | (missing) | | (unavailable | 16:20:08 | [facility] | | | + + + + + + + + + | Result panel 194 | + + + + + + + + + | | 2022-09-01 | [facility] | NEGATIVE | (missing) | (missing) | | (unavailable | 16:20:08 | [facility] | | | + + + + + + + + + | Result panel 195 | + + + + + + + + + | | 2022-09-01 | [facility] | NEGATIVE | (missing) | (missing) | | (unavailable | 16:20:08 | [facility] | | | + + + + + + + + + | Result panel 196 | + + + + + + + + + | | 2022-09-01 | [facility] | NEGATIVE | (missing) | (missing) | | (unavailable | 16:20:08 | [facility] | | | + + + + + + + + + | Result panel 197 | + + + + + +-------+ + + | | 2022-09-02 | [facility] | 8.3 | (missing) | (missing) | | (unavailable | 05:23:08 | [facility] | | | + + + +-------+ + + + + | Result panel 198 | + + + + + + + + + | | 2022-09-02 | [facility] | (missing) | (missing) | (missing) | | (unavailable | 05:23:08 | [facility] | | | + + + + + + + + + | Result panel 199 | + + + + + +--------+ + + | | 2022-09-02 | [facility] | 3.57 | (missing) | (missing) | | (unavailable | 05:23:08 [facility] | | | + + + +--------+ + + + + | Result panel 200 | + + + + + +-------+ + + | | 2022-09-02 | [facility] | 8.2 | (missing) | (missing) | | (unavailable | 05:23:08 [facility] | | | + + + +-------+ + + + + | Result panel 201 | + + + + + +--------+ + + | | 2022-09-02 | [facility] | 26.0 | (missing) | (missing) | | (unavailable | 05:23:08 [facility] | | | + + + +--------+ + + + + | Result panel 202 | + + + + + +--------+ + + | | 2022-09-02 | [facility] | 72.9 | (missing) | (missing) | | (unavailable | 05:23:08 [facility] | | | + + + +--------+ + + + + | Result panel 203 | + + + + + +--------+ + + | | 2022-09-02 | [facility] | 23.1 | (missing) | (missing) | | (unavailable | 05:23:08 [facility] | | | + + + +--------+ + + + + | Result panel 204 | + + + + + +--------+ + + | | 2022-09-02 | [facility] | 31.6 | (missing) | (missing) | | (unavailable | 05:23:08 [facility] | | | + + + +--------+ + + + + | Result panel 205 | + + + + + +--------+ + + | | 2022-09-02 | [facility] | 21.4 | (missing) | (missing) | | (unavailable | 05:23:08 [facility] | | | + + + +--------+ + + + + | Result panel 206 | + + + + + +-------+ + + | | 2022-09-02 | [facility] | 360 | (missing) | (missing) | | (unavailable | 05:23:08 [facility] | | | + + + +-------+ + + + + | Result panel 207 | + + + + + +--------+ + + | | 2022-09-02 | [facility] | 56.7 | (missing) | (missing) | | (unavailable | 05:23:08 [facility] | | | + + + +--------+ + + + + | Result panel 208 | + + + + + +--------+ + + | | 2022-09-02 | [facility] | 25.1 | (missing) | (missing) | | (unavailable | 05:23:08 [facility] | | | + + + +--------+ + + + + | Result panel 209 | + + + + + +--------+ + + | | 2022-09-02 | [facility] | 14.9 | (missing) | (missing) | | (unavailable | 05:23:08 [facility] | | | + + + +--------+ + + + + | Result panel 210 | + + + + + +-------+ + + | | 2022-09-02 | [facility] | 2.9 | (missing) | (missing) | | (unavailable | 05:23:08 [facility] | | | + + + +-------+ + + + + | Result panel 211 | + + + + + +-------+ + + | | 2022-09-02 | [facility] | 0.4 | (missing) | (missing) | | (unavailable | 05:23:08 [facility] | | | + + + +-------+ + + + + | Result panel 212 | + + + + + +------+---------+ + | | 2022-09-02 | [facility] | 96 | mg/dL | (missing) | | (unavailable | 05:23:08 [facility] | | | + + + +------+---------+ + + + | Result panel 213 | + + + + + +------+---------+ + | | 2022-09-02 | [facility] | 42 | mg/dL | (missing) | | (unavailable | 05:23:08 [facility] | | | + + + +------+---------+ + + + | Result panel 214 | + + + + + +--------+---------+ + | | 2022-09-02 | [facility] | 1.09 | mg/dL | (missing) | | (unavailable | 05:23:08 [facility] | | | + + + +--------+---------+ + + + | Result panel 215 | + + + + + +------+ + + | | 2022-09-02 | [facility] | 68 | (missing) | (missing) | | (unavailable | 05:23:08 [facility] | | | + + + +------+ + + + + | Result panel 216 | + + + + + +---------+ + + | | 2022-09-02 | [facility] | 38.53 | (missing) | (missing) | | (unavailable | 05:23:08 [facility] | | | + + + +---------+ + + + + | Result panel 217 | + + + + + +-------+ + + | | 2022-09-02 | [facility] | 137 | (missing) | (missing) | | (unavailable | 05:23:08 [facility] | | | + + + +-------+ + + + + | Result panel 218 | + + + + + +-------+ + + | | 2022-09-02 | [facility] | 4.0 | (missing) | (missing) | | (unavailable | 05:23:08 [facility] | | | + + + +-------+ + + + + | Result panel 219 | + + + + + +-------+ + + | | 2022-09-02 | [facility] | 101 | (missing) | (missing) | | (unavailable | 05:23:08 [facility] | | | + + + +-------+ + + + + | Result panel 220 | + + + + + +------+ + + | | 2022-09-02 | [facility] | 29 | (missing) | (missing) | | (unavailable | 05:23:08 [facility] | | | + + + +------+ + + + + | Result panel 221 | + + + + + +--------+ + + | | 2022-09-02 | [facility] | 11.0 | (missing) | (missing) | | (unavailable | 05:23:08 [facility] | | | + + + +--------+ + + + + | Result panel 222 | + + + + + +-------+---------+ + | | 2022-09-02 | [facility] | 8.8 | mg/dL | (missing) | | (unavailable | 05:23:08 | [facility] | | | | + + + +-------+---------+ + + + | Result panel 223 | + + + + + +-------+---------+ + | | 2022-09-02 | [facility] | 4.8 | mg/dL | (missing) | | (unavailable | 05:23:08 | [facility] | | | | + + + +-------+---------+ + + + | Result panel 224 | + + + + + +-------+---------+ + | | 2022-09-02 | [facility] | 1.8 | mg/dL | (missing) | | (unavailable | 05:23:08 | [facility] | | | | + + + +-------+---------+ + + + | Result panel 225 | + + + + + +-------+ + + | | 2022-09-02 | [facility] | 6.2 | (missing) | (missing) | | (unavailable | 05:23:08 | [facility] | | | | + + + +-------+ + + + + | Result panel 226 | + + + + + +-------+ + + | | 2022-09-02 | [facility] | 2.1 | (missing) | (missing) | | (unavailable | 05:23:08 | [facility] | | | | + + + +-------+ + + + + | Result panel 227 | + + + + + +-------+ + + | | 2022-09-02 | [facility] | 4.1 | (missing) | (missing) | | (unavailable | 05:23:08 | [facility] | | | | + + + +-------+ + + + + | Result panel 228 | + + + + + +--------+ + + | | 2022-09-02 | [facility] | 0.51 | (missing) | (missing) | | (unavailable | 05:23:08 | [facility] | | | | + + + +--------+ + + + + | Result panel 229 | + + + + + +-------+ + + | | 2022-09-02 | [facility] | 0.3 | (missing) | (missing) | | (unavailable | 05:23:08 | [facility] | | | | + + + +-------+ + + + + | Result panel 230 | + + + + + +------+ + + | | 2022-09-02 | [facility] | 16 | (missing) | (missing) | | (unavailable | 05:23:08 | [facility] | | | | + + + +------+ + + + + | Result panel 231 | + + + + + +------+ + + | | 2022-09-02 | [facility] | 13 | (missing) | (missing) | | (unavailable | 05:23:08 | [facility] | | | | + + + +------+ + + + + | Result panel 232 | + + + + + +------+ + + | | 2022-09-02 | [facility] | 88 | (missing) | (missing) | | (unavailable | 05:23:08 | [facility] | | | | + + + +------+ + + + + | Result panel 233 | + + + + + + + + + | | 2022-09-04 | [facility] | POSITIVE | (missing) | (missing) | | (unavailable | 07:40:08 | [facility] | | | | + + + + + + + + + | Result panel 234 | + + + + + +-------+ + + | | 2022-09-04 | [facility] | 125 | (missing) | (missing) | | (unavailable | 09:39:08 | [facility] | | | | + + + +-------+ + + + + | Result panel 235 | + + + + + +--------+ + + | | 2022-11-05 | [facility] | 12.0 | (missing) | (missing) | | (unavailable | 14:05:07 | [facility] | | | | + + + +--------+ + + + + | Result panel 236 | + + + + + + + + + | | 2022-11-05 | [facility] | SEE | (missing) | (missing) | | (unavailable | 14:05:07 | [facility] COMMENTS | | [facility] ) | | [facility] | | | | + + + + + + + + + | Result panel 237 | + + + + + +--------+ + + | | 2022-11-05 | [facility] | 4.35 | (missing) | (missing) | | (unavailable | 14:05:07 | [facility] | | | | + + + +--------+ + + + + | Result panel 238 | + + + + + +-------+ + + | | 2022-11-05 | [facility] | 8.8 | (missing) | (missing) | | (unavailable | 14:05:07 | [facility] | | | | + + + +-------+ + + + + | Result panel 239 | + + + + + +--------+ + + | | 2022-11-05 | [facility] | 29.0 | (missing) | (missing) | | (unavailable | 14: | [facility] | | | | + + + +--------+ + + + + | Result panel 240 | + + + + + +--------+ + + | | 2022-11-05 | [facility] | 66.6 | (missing) | (missing) | | (unavailable | 14::07 | [facility] | | | | + + + +--------+ + + + + | Result panel 241 | + + + + + +--------+ + + | | 2022-11-05 | [facility] | 20.2 | (missing) | (missing) | | (unavailable | 14:05:07 | [facility] | | | | + + + +--------+ + + + + | Result panel 242 | + + + + + +--------+ + + | | 2022-11-05 | [facility] | 30.3 | (missing) | (missing) | | (unavailable | 14:05:07 [facility] | | | | + + + +--------+ + + + + | Result panel 243 | + + + + + +--------+ + + | | 2022-11-05 | [facility] | 22.9 | (missing) | (missing) | | (unavailable | 14:05:07 [facility] | | | | + + + +--------+ + + + + | Result panel 244 | + + + + + +-------+ + + | | 2022-11-05 | [facility] | 202 | (missing) | (missing) | | (unavailable | 14:05:07 [facility] | | | + + + +-------+ + + + + | Result panel 245 | + + + + + +--------+ + + | | 2022-11-05 | [facility] | 83.8 | (missing) | (missing) | | (unavailable | 14:05:07 [facility] | | | + + + +--------+ + + + + | Result panel 246 | + + + + + +-------+ + + | | 2022-11-05 | [facility] | 7.4 | (missing) | (missing) | | (unavailable | 14:05:07 [facility] | | | + + + +-------+ + + + + | Result panel 247 | + + + + + +-------+ + + | | 2022-11-05 | [facility] | 8.0 | (missing) | (missing) | | (unavailable | 14:05:07 [facility] | | | + + + +-------+ + + + + | Result panel 248 | + + + + + +-------+ + + | | 2022-11-05 | [facility] | 0.2 | (missing) | (missing) | | (unavailable | 14:05:07 [facility] | | | + + + +-------+ + + + + | Result panel 249 | + + + + + +-------+ + + | | 2022-11-05 | [facility] | 0.6 | (missing) | (missing) | | (unavailable | 14:05:07 [facility] | | | + + + +-------+ + + + + | Result panel 250 | + + + + + +-------+ + + | | 2022-11-05 | [facility] | 7.0 | (missing) | (missing) | | (unavailable | 14:05:07 [facility] | | | + + + +-------+ + + + + | Result panel 251 | + + + + + +-------+ + + | | 2022-11-05 | [facility] | 3.1 | (missing) | (missing) | | (unavailable | 14:05:07 [facility] | | | | + + + +-------+ + + + + | Result panel 252 | + + + + + +-------+ + + | | 2022-11-05 | [facility] | 3.9 | (missing) | (missing) | | (unavailable | 14:05:07 [facility] | | | + + + +-------+ + + + + | Result panel 253 | + + + + + +--------+ + + | | 2022-11-05 | [facility] | 0.79 | (missing) | (missing) | | (unavailable | 14:05:07 [facility] | | | + + + +--------+ + + + + | Result panel 254 | + + + + + +-------+ + + | | 2022-11-05 | [facility] | 0.6 | (missing) | (missing) | | (unavailable | 14::07 | [facility] | | | + + + +-------+ + + + + | Result panel 255 | + + + + + +------+ + + | | 2022-11-05 | [facility] | 21 | (missing) | (missing) | | (unavailable | 14::07 | [facility] | | | + + + +------+ + + + + | Result panel 256 | + + + + + +------+ + + | | 2022-11-05 | [facility] | 35 | (missing) | (missing) | | (unavailable | 14::07 | [facility] | | | + + + +------+ + + + + | Result panel 257 | + + + + + +-------+ + + | | 2022-11-05 | [facility] | 153 | (missing) | (missing) | | (unavailable | 14::07 | [facility] | | | + + + +-------+ + + + + | Result panel 258 | + + + + + +-------+ + + | | 2022-11-05 | [facility] | 7.3 | (missing) | (missing) | | (unavailable | 14:08:07 [facility] | | | + + + +-------+ + + + + | Result panel 259 | + + + + + + + + + | | 2022-11-05 | [facility] | NEGATIVE | (missing) | (missing) | | (unavailable | 15:45:07 | [facility] | | | + + + + + + + + + | Result panel 260 | + + + + + +-------+---------+ + | | 2022-11-06 | [facility] | 2.7 | mg/dL | (missing) | | (unavailable | 05:16:07 | [facility] | | | | + + + +-------+---------+ + + + | Result panel 261 | + + + + + +------+ + + | | 2022-11-06 | [facility] | 23 | (missing) | (missing) | | (unavailable | 05:16:07 [facility] | | | | + + + +------+ + + + + | Result panel 262 | + + + + + +-------+ + + | | 2022-11-06 | [facility] | 250 | (missing) | (missing) | | (unavailable | 05:16:07 [facility] | | | + + + +-------+ + + + + | Result panel 263 | + + + + + +-----+ + + | | 2022-11-06 | [facility] | 9 | (missing) | (missing) | | (unavailable | 05:16:07 [facility] | | | + + + +-----+ + + + + | Result panel 264 | + + + + + +-------+ + + | | 2022-11-06 | [facility] | 177 | (missing) | (missing) | | (unavailable | 05:16:07 [facility] | | | + + + +-------+ + + + + | Result panel 265 | + + + + + +-------+ + + | | 2022-11-07 | [facility] | 0.9 | (missing) | (missing) | | (unavailable | 05:00:07 | [facility] | | | + + + +-------+ + + + + | Result panel 266 | + + + + + + + + + | | 2022-11-07 | [facility] | 11/06/2022 | (missing) | (missing) | | (unavailable | 05:00:07 | [facility] | | | | + + + + + + + + + | Result panel 267 | + + + + + +-------+ + + | | 2022-11-08 | [facility] | 118 | (missing) | (missing) | | (unavailable | 11:45:07 | [facility] | | | + + + +-------+ + + + + | Result panel 268 | + + + + + +---------+ + + | | 2022-11-09 | [facility] | 46.89 | (missing) | (missing) | | (unavailable | 05:20:07 | [facility] | | | + + + +---------+ + + + + | Result panel 269 | + + + + + +-------+ + + | | 2022-11-09 | [facility] | 142 | (missing) | (missing) | | (unavailable | 05:20:07 | [facility] | | | + + + +-------+ + + + + | Result panel 270 | + + + + + +-------+ + + | | 2022-11-09 | [facility] | 3.9 | (missing) | (missing) | | (unavailable | 05:20:07 | [facility] | | | | + + + +-------+ + + + + | Result panel 271 | + + + + + +-------+ + + | | 2022-11-09 | [facility] | 107 | (missing) | (missing) | | (unavailable | 05:20:07 | [facility] | | | | + + + +-------+ + + + + | Result panel 272 | + + + + + +------+ + + | | 2022-11-09 | [facility] | 24 | (missing) | (missing) | | (unavailable | 05:20:07 | [facility] | | | | + + + +------+ + + + + | Result panel 273 | + + + + + +--------+ + + | | 2022-11-09 | [facility] | 14.9 | (missing) | (missing) | | (unavailable | 05:20:07 | [facility] | | | + + + +--------+ + + + + | Result panel 274 | + + + + + +-------+---------+ + | | 2022-11-09 | [facility] | 8.0 | mg/dL | (missing) | | (unavailable | 05:20:07 | [facility] | | | | + + + +-------+---------+ + + + | Result panel 275 | + + + + + +-------+---------+ + | | 2022-11-09 | [facility] | 129 | mg/dL | (missing) | | (unavailable | 05:20:07 | [facility] | | | + + + +-------+---------+ + + + | Result panel 276 | + + + + + +------+---------+ + | | 2022-11-09 | [facility] | 68 | mg/dL | (missing) | | (unavailable | 05:20:07 [facility] | | | + + + +------+---------+ + + + | Result panel 277 | + + + + + +--------+---------+ + | | 2022-11-09 | [facility] | 1.45 | mg/dL | (missing) | | (unavailable | 05:20:07 [facility] | | | + + + +--------+---------+ + + + | Result panel 278 | + + + + + +------+ + + | | 2022-11-09 | [facility] | 48 | (missing) | (missing) | | (unavailable | 05:20:07 | [facility] | | | | + + + +------+ + + Social History No information. Vital Signs + + + +---------+ | date | measurement | value | units | + + + +---------+ | 2022-03-23 00:00 | BMI | 22.2 | kg/m2 | + + + +---------+ | 2022-03-23 00:00 | height_metric | 175.26 | cm | + + + +---------+ | 2022-03-23 00:00 | height_standard | 69 | in | + + + +---------+ | 2022-03-23 00:00 | weight_metric | 68.18 | kg | + + + +---------+ | 2022-03-23 00:00 | weight_standard | 150.31 | lb | + + + +---------+ | 2022-03-25 00:00 | BP_diastolic | 78 | mmHg | + + + +---------+ | 2022-03-25 00:00 | BP_diastolic | 80 | mmHg | + + + +---------+ | 2022-03-25 00:00 | BP_systolic | 165 | mmHg | + + + +---------+ | 2022-03-25 00:00 | BP_systolic | 170 | mmHg | + + + +---------+ | 2022-03-25 00:00 | heart_rate | 64 | /min | + + + +---------+ | 2022-03-25 00:00 | heart_rate | 65 | /min | + + + +---------+ | 2022-03-25 00:00 | o2_saturation | 97 | % | + + + +---------+ | 2022-03-25 00:00 | o2_saturation | 98 | % | + + + +---------+ | 2022-03-25 00:00 | respiration_rate | 16 | /min | + + + +---------+ | 2022-03-25 00:00 | temperature_metric | 36.28 | C | | | | | | + + + +---------+ | 2022-03-25 00:00 | | 97.3 | F | | | temperature_standar | | | | | d | | | + + + +---------+ | 2022-04-15 00:00 | BMI | 21.9 | kg/m2 | + + + +---------+ | 2022-04-15 00:00 | height_metric | 175.26 | cm | + + + +---------+ | 2022-04-15 00:00 | height_standard | 69 | in | + + + +---------+ | 2022-04-15 00:00 | weight_metric | 67.27 | kg | + + + +---------+ | 2022-04-15 00:00 | weight_standard | 148.3 | lb | + + + +---------+ | 2022-04-22 00:00 | BP_diastolic | 70 | mmHg | + + + +---------+ | 2022-04-22 00:00 | BP_systolic | 147 | mmHg | + + + +---------+ | 2022-04-22 00:00 | heart_rate | 65 | /min | + + + +---------+ | 2022-04-22 00:00 | o2_saturation | 98 | % | + + + +---------+ | 2022-04-22 00:00 | respiration_rate | 16 | /min | + + + +---------+ | 2022-04-22 00:00 | temperature_metric | 36.28 | C | | | | | | + + + +---------+ | 2022-04-22 00:00 | | 97.3 | F | | | temperature_standar | | | | | d | | | + + + +---------+ | 2022-05-10 00:00 | BMI | 21.9 | kg/m2 | + + + +---------+ | 2022-05-10 00:00 | BP_diastolic | 80 | mmHg | + + + +---------+ | 2022-05-10 00:00 | BP_systolic | 148 | mmHg | + + + +---------+ | 2022-05-10 00:00 | heart_rate | 70 | /min | + + + +---------+ | 2022-05-10 00:00 | height_metric | 175.26 | cm | + + + +---------+ | 2022-05-10 00:00 | height_standard | 69 | in | + + + +---------+ | 2022-05-10 00:00 | o2_saturation | 98 | % | + + + +---------+ | 2022-05-10 00:00 | respiration_rate | 16 | /min | + + + +---------+ | 2022-05-10 00:00 | temperature_metric | 36.83 | C | | | | | | + + + +---------+ | 2022-05-10 00:00 | | 98.3 | F | | | temperature_standar | | | | | d | | | + + + +---------+ | 2022-05-10 00:00 | weight_metric | 67.13 | kg | + + + +---------+ | 2022-05-10 00:00 | weight_standard | 148 | lb | + + + +---------+ | 2022-06-08 00:00 | BP_diastolic | 83 | mmHg | + + + +---------+ | 2022-06-08 00:00 | BP_systolic | 125 | mmHg | + + + +---------+ | 2022-06-08 00:00 | heart_rate | 62 | /min | + + + +---------+ | 2022-06-08 00:00 | o2_saturation | 94 | % | + + + +---------+ | 2022-06-08 00:00 | respiration_rate | 15 | /min | + + + +---------+ | 2022-06-08 00:00 | temperature_metric | 36.44 | C | | | | | | + + + +---------+ | 2022-06-08 00:00 | | 97.6 | F | | | temperature_standar | | | | | d | | | + + + +---------+ | 2022-09-01 00:00 | BMI | 20.5 | kg/m2 | + + + +---------+ | 2022-09-01 00:00 | height_metric | 175.26 | cm | + + + +---------+ | 2022-09-01 00:00 | height_standard | 69 | in | + + + +---------+ | 2022-09-01 00:00 | weight_metric | 63 | kg | + + + +---------+ | 2022-09-01 00:00 | weight_standard | 138.89 | lb | + + + +---------+ | 2022-09-04 00:00 | BP_diastolic | 66 | mmHg | + + + +---------+ | 2022-09-04 00:00 | BP_systolic | 102 | mmHg | + + + +---------+ | 2022-09-04 00:00 | heart_rate | 94 | /min | + + + +---------+ | 2022-09-04 00:00 | o2_saturation | 100 | % | + + + +---------+ | 2022-09-04 00:00 | respiration_rate | 21 | /min | + + + +---------+ | 2022-09-04 00:00 | temperature_metric | 36.72 | C | | | | | | + + + +---------+ | 2022-09-04 00:00 | | 98.1 | F | | | temperature_standar | | | | | d | | | + + + +---------+ | 2022-11-11 00:00 | BMI | 20.1 | kg/m2 | + + + +---------+ | 2022-11-11 00:00 | BP_diastolic | 61 | mmHg | + + + +---------+ | 2022-11-11 00:00 | BP_systolic | 100 | mmHg | + + + +---------+ | 2022-11-11 00:00 | heart_rate | 92 | /min | + + + +---------+ | 2022-11-11 00:00 | height_metric | 175.26 | cm | + + + +---------+ | 2022-11-11 00:00 | height_standard | 69 | in | + + + +---------+ | 2022-11-11 00:00 | o2_saturation | 100 | % | + + + +---------+ | 2022-11-11 00:00 | respiration_rate | 20 | /min | + + + +---------+ | 2022-11-11 00:00 | temperature_metric | 36.17 | C | | | | | | + + + +---------+ | 2022-11-11 00:00 | | 97.1 | F | | | temperature_standar | | | | | d | | | + + + +---------+ | 2022-11-11 00:00 | weight_metric | 61.8 | kg | + + + +---------+ | 2022-11-11 00:00 | weight_standard | 136.25 | lb | + + + +---------+"
--- OUTSIDE RECORDS SUMMARY | ~2023-02-10 | XMS | Continuity of Care Document ---
Demographics + + + | Address | [address] | | | [place] [address] | + + + | Preferred Language | Unknown | + + + | Marital Status | | + + + | Faith Affiliation | Unknown | + + + | Race | White | + + + | Ethnic Group | Not or | + + + Author + + + | Author | [facility] | + + + | Organization | [facility] | + + + | Address | [address] | | | [place] [address] | + + + | Phone | | + + + Care Team Providers + + + + | Care Junior Accountant Name | Role | Phone | + [...] + | 2020-12-11 00:00 | Tdap | [facility] | + + + + | 2020-12-11 00:00 | Tdap | [facility] | + + + + | 2020-12-11 00:00 | Tdap | [facility] | + + + + | 2020-12-11 00:00 | Tdap | [facility] | + + + + Medications + + + + | date | description | facility | + + + + | 2022-09-04 00:00 | OXYCODONE HCL | [facility] | + + + + | 2022-11-11 00:00 | OXYCODONE HCL | [facility] | + + + + | 2014-09-20 00:00 | OXYCODONE HCL | [facility] | + + + + | 2014-09-20 00:00 | OXYCODONE HCL | [facility] | + + + + | 2014-09-20 00:00 | OXYCODONE HCL | [facility] | + + + + | 2014-09-20 00:00 | OXYCODONE HCL | [facility] | + + + + | 2022-07-02 00:00 | OXYCODONE HCL | [facility] | + + + + | 2014-09-20 00:00 | RIVAROXABAN | [facility] | + + + + | 2014-09-20 00:00 | RIVAROXABAN | [facility] | + + + + | 2014-09-20 00:00 | RIVAROXABAN | [facility] | + + + + | 2014-09-20 00:00 | RIVAROXABAN | [facility] | + + + + | 2022-03-25 00:00 | RIVAROXABAN | [facility] | + + + + | 2022-04-22 00:00 | RIVAROXABAN | [facility] | + + + + | 2022-05-10 00:00 | RIVAROXABAN | [facility] | + + + + | 2022-06-08 00:00 | RIVAROXABAN | [facility] | + + + + | 2022-09-04 00:00 | RIVAROXABAN | [facility] | + + + + | 2022-11-11 00:00 | RIVAROXABAN | [facility] | + + + + | 2022-03-25 00:00 | DIGOXIN | [facility] | + + + + | 2022-04-22 00:00 | DIGOXIN | [facility] | + + + + | 2022-05-10 00:00 | DIGOXIN | [facility] | + + + + | 2022-06-08 00:00 | DIGOXIN | [facility] | + + + + | 2022-05-10 00:00 | DOCUSATE SODIUM | [facility] | + + + + | 2022-11-11 00:00 | POTASSIUM GLUCONATE | [facility] | + + + + | 2022-09-04 00:00 | APIXABAN | [facility] | + + + + | 2022-11-11 00:00 | APIXABAN | [facility] | + + + + | 2020-12-23 00:00 | APIXABAN | [facility] | + + + + | 2020-12-23 00:00 | APIXABAN | [facility] | + + + + | 2022-03-25 00:00 | APIXABAN | [facility] | + + + + | 2022-04-22 00:00 | APIXABAN | [facility] | + + + + | 2022-05-10 00:00 | APIXABAN | [facility] | + + + + | 2022-06-08 00:00 | APIXABAN | [facility] | + + + + | 2022-09-04 00:00 | APIXABAN | [facility] | + + + + | 2022-11-11 00:00 | APIXABAN | [facility] | + + + + | 2020-12-23 00:00 | POTASSIUM CHLORIDE | [facility] | + + + + | 2020-12-23 00:00 | POTASSIUM CHLORIDE | [facility] | + + + + | 2020-12-23 00:00 | POTASSIUM CHLORIDE | [facility] | + + + + | 2020-12-23 00:00 | POTASSIUM CHLORIDE | [facility] | + + + + | 2022-03-25 00:00 | POTASSIUM CHLORIDE | [facility] | + + + + | 2022-04-22 00:00 | POTASSIUM CHLORIDE | [facility] | + + + + | 2022-05-10 00:00 | POTASSIUM CHLORIDE | [facility] | + + + + | 2022-06-08 00:00 | POTASSIUM CHLORIDE | [facility] | + + + + | 2022-09-04 00:00 | POTASSIUM CHLORIDE | [facility] | + + + + | 2022-11-11 00:00 | POTASSIUM CHLORIDE | [facility] | + + + + | 2022-03-25 00:00 | EMPAGLIFLOZIN | [facility] | + + + + | 2022-04-22 00:00 | EMPAGLIFLOZIN | [facility] | + + + + | 2022-05-10 00:00 | EMPAGLIFLOZIN | [facility] | + + + + | 2022-06-08 00:00 | EMPAGLIFLOZIN | [facility] | + + + + | 2022-09-04 00:00 | EMPAGLIFLOZIN | [facility] | + + + + | 2022-11-11 00:00 | EMPAGLIFLOZIN | [facility] | + + + + | 2020-12-14 00:00 | Bacitracin | [facility] | + + + + | 2020-12-14 00:00 | Bacitracin | [facility] | + + + + | 2020-12-14 00:00 | Bacitracin | [facility] | + + + + | 2020-12-14 00:00 | Bacitracin | [facility] | + + + + | 2022-03-25 00:00 | DOXYCYCLINE MONOHYDRATE | [facility] | + + + + | 2022-04-22 00:00 | DOXYCYCLINE MONOHYDRATE | [facility] | + + + + | 2022-05-10 00:00 | DOXYCYCLINE MONOHYDRATE | [facility] | + + + + | 2022-06-08 00:00 | DOXYCYCLINE MONOHYDRATE | [facility] | + + + + | 2022-09-04 00:00 | DOXYCYCLINE MONOHYDRATE | [facility] | + + + + | 2022-11-11 00:00 | DOXYCYCLINE MONOHYDRATE | [facility] | + + + + | 2022-03-25 00:00 | AMLODIPINE BESYLATE | [facility] | + + + + | 2022-04-22 00:00 | AMLODIPINE BESYLATE | [facility] | + + + + | 2022-05-10 00:00 | AMLODIPINE BESYLATE | [facility] | + + + + | 2022-06-08 00:00 | AMLODIPINE BESYLATE | [facility] | + + + + | 2022-09-04 00:00 | AMLODIPINE BESYLATE | [facility] | + + + + | 2022-11-11 00:00 | AMLODIPINE BESYLATE | [facility] | + + + + | 2022-03-25 00:00 | ATENOLOL | [facility] | + + + + | 2022-04-22 00:00 | ATENOLOL | [facility] | + + + + | 2022-05-10 00:00 | ATENOLOL | [facility] | + + + + | 2022-06-08 00:00 | ATENOLOL | [facility] | + + + + | 2022-09-04 00:00 | ATENOLOL | [facility] | + + + + | 2022-11-11 00:00 | ATENOLOL | [facility] | + + + + | 2022-03-25 00:00 | ATENOLOL | [facility] | + + + + | 2022-04-22 00:00 | ATENOLOL | [facility] | + + + + | 2022-05-10 00:00 | ATENOLOL | [facility] | + + + + | 2022-06-08 00:00 | ATENOLOL | [facility] | + + + + | 2022-09-04 00:00 | ATENOLOL | [facility] | + + + + | 2022-11-11 00:00 | ATENOLOL | [facility] | + + + + | 2018-07-06 00:00 | HYDROCORTISONE | [facility] | + + + + | 2018-07-06 00:00 | HYDROCORTISONE | [facility] | + + + + | 2018-07-06 00:00 | HYDROCORTISONE | [facility] | + + + + | 2018-07-06 00:00 | HYDROCORTISONE | [facility] | + + + + | 2020-12-23 00:00 | HYDROCORTISONE | [facility] | + + + + | 2020-12-23 00:00 | HYDROCORTISONE | [facility] | + + + + | 2022-07-02 00:00 | HYDROCORTISONE | [facility] | + + + + | 2022-07-02 00:00 | HYDROCORTISONE | [facility] | + + + + | 2022-09-04 00:00 | HYDROCORTISONE | [facility] | + + + + | 2022-11-11 00:00 | HYDROCORTISONE | [facility] | + + + + | 2022-03-25 00:00 | OMEPRAZOLE | [facility] | + + + + | 2022-04-22 00:00 | OMEPRAZOLE | [facility] | + + + + | 2022-05-10 00:00 | OMEPRAZOLE | [facility] | + + + + | 2022-06-08 00:00 | OMEPRAZOLE | [facility] | + + + + | 2022-11-11 00:00 | OMEPRAZOLE | [facility] | + + + + | 2022-11-11 00:00 | TORSEMIDE | [facility] | + + + + | 2021-07-10 00:00 | ACETAMINOPHEN | [facility] | + + + + | 2021-07-10 00:00 | ACETAMINOPHEN | [facility] | + + + + | 2021-07-10 00:00 | ACETAMINOPHEN | [facility] | + + + + | 2021-07-10 00:00 | ACETAMINOPHEN | [facility] | + + + + | 2022-03-25 00:00 | ACETAMINOPHEN | [facility] | + + + + | 2022-04-22 00:00 | ACETAMINOPHEN | [facility] | + + + + | 2022-05-10 00:00 | ACETAMINOPHEN | [facility] | + + + + | 2022-06-08 00:00 | ACETAMINOPHEN | [facility] | + + + + | 2022-09-04 00:00 | ACETAMINOPHEN | [facility] | + + + + | 2022-11-11 00:00 | ACETAMINOPHEN | [facility] | + + + + | 2022-09-04 00:00 | DEXTROSE | [facility] | + + + + | 2022-11-11 00:00 | MAGNESIUM OXIDE | [facility] | + + + + | 2022-03-25 00:00 | SIMVASTATIN | [facility] | + + + + | 2022-04-22 00:00 | SIMVASTATIN | [facility] | + + + + | 2022-05-10 00:00 | SIMVASTATIN | [facility] | + + + + | 2022-06-08 00:00 | SIMVASTATIN | [facility] | + + + + | 2022-09-04 00:00 | SIMVASTATIN | [facility] | + + + + | 2022-11-11 00:00 | SIMVASTATIN | [facility] | + + + + | 2022-03-25 00:00 | FUROSEMIDE | [facility] | + + + + | 2022-04-22 00:00 | FUROSEMIDE | [facility] | + + + + | 2022-05-10 00:00 | FUROSEMIDE | [facility] | + + + + | 2022-06-08 00:00 | FUROSEMIDE | [facility] | + + + + | 2022-09-04 00:00 | FUROSEMIDE | [facility] | + + + + | 2022-11-11 00:00 | FUROSEMIDE | [facility] | + + + + | 2022-03-25 00:00 | ATENOLOL | [facility] | + + + + | 2022-04-22 00:00 | ATENOLOL | [facility] | + + + + | 2022-05-10 00:00 | ATENOLOL | [facility] | + + + + | 2022-06-08 00:00 | ATENOLOL | [facility] | + + + + | 2022-09-04 00:00 | ATENOLOL | [facility] | + + + + | 2022-11-11 00:00 | ATENOLOL | [facility] | + + + + | 2015-08-13 00:00 | CIPROFLOXACIN HCL | [facility] | + + + + | 2015-08-13 00:00 | CIPROFLOXACIN HCL | [facility] | + + + + | 2015-08-13 00:00 | CIPROFLOXACIN HCL | [facility] | + + + + | 2015-08-13 00:00 | CIPROFLOXACIN HCL | [facility] | + + + + | 2018-06-29 00:00 | CIPROFLOXACIN HCL | [facility] | + + + + | 2018-06-29 00:00 | CIPROFLOXACIN HCL | [facility] | + + + + | 2018-06-29 00:00 | CIPROFLOXACIN HCL | [facility] | + + + + | 2018-06-29 00:00 | CIPROFLOXACIN HCL | [facility] | + + + + | 2015-08-13 00:00 | METRONIDAZOLE | [facility] | + + + + | 2015-08-13 00:00 | METRONIDAZOLE | [facility] | + + + + | 2015-08-13 00:00 | METRONIDAZOLE | [facility] | + + + + | 2015-08-13 00:00 | METRONIDAZOLE | [facility] | + + + + | 2018-06-29 00:00 | METRONIDAZOLE | [facility] | + + + + | 2018-06-29 00:00 | METRONIDAZOLE | [facility] | + + + + | 2018-06-29 00:00 | METRONIDAZOLE | [facility] | + + + + | 2018-06-29 00:00 | METRONIDAZOLE | [facility] | + + + + | 2020-12-23 00:00 | MAGNESIUM OXIDE | [facility] | + + + + | 2020-12-23 00:00 | MAGNESIUM OXIDE | [facility] | + + + + | 2022-03-25 00:00 | MAGNESIUM OXIDE | [facility] | + + + + | 2022-04-22 00:00 | MAGNESIUM OXIDE | [facility] | + + + + | 2022-05-10 00:00 | MAGNESIUM OXIDE | [facility] | + + + + | 2022-06-08 00:00 | MAGNESIUM OXIDE | [facility] | + + + + | 2022-09-04 00:00 | MAGNESIUM OXIDE | [facility] | + + + + | 2022-11-11 00:00 | MAGNESIUM OXIDE | [facility] | + + + + | 2022-09-04 00:00 | MAGNESIUM HYDROXIDE | [facility] | + + + + | 2022-11-11 00:00 | ATORVASTATIN CALCIUM | [facility] | + + + + | 2022-11-11 00:00 | DIGOXIN | [facility] | + + + + | 2022-09-04 00:00 | OSELTAMIVIR PHOSPHATE | [facility] | + + + + | 2022-11-11 00:00 | OSELTAMIVIR PHOSPHATE | [facility] | + + + + | 2022-03-25 00:00 | ATORVASTATIN | [facility] | + + + + | 2022-04-22 00:00 | ATORVASTATIN | [facility] | + + + + | 2022-05-10 00:00 | ATORVASTATIN | [facility] | + + + + | 2022-06-08 00:00 | ATORVASTATIN | [facility] | + + + + | 2022-09-04 00:00 | ASCORBIC ACID | [facility] | + + + + | 2022-03-25 00:00 | ASPIRIN | [facility] | + + + + | 2022-04-22 00:00 | ASPIRIN | [facility] | + + + + | 2022-05-10 00:00 | ASPIRIN | [facility] | + + + + | 2022-06-08 00:00 | ASPIRIN | [facility] | + + + + | 2022-09-04 00:00 | ASPIRIN | [facility] | + + + + | 2022-11-11 00:00 | ASPIRIN | [facility] | + + + + | 2020-12-23 00:00 | CEPHALEXIN | [facility] | + + + + | 2020-12-23 00:00 | CEPHALEXIN | [facility] | + + + + | 2020-12-23 00:00 | CEPHALEXIN | [facility] | + + + + | 2020-12-23 00:00 | CEPHALEXIN | [facility] | + + + + | 2022-03-25 00:00 | CEPHALEXIN | [facility] | + + + + | 2022-04-22 00:00 | CEPHALEXIN | [facility] | + + + + | 2022-05-10 00:00 | CEPHALEXIN | [facility] | + + + + | 2022-06-08 00:00 | CEPHALEXIN | [facility] | + + + + | 2022-09-04 00:00 | CEPHALEXIN | [facility] | + + + + | 2022-11-11 00:00 | CEPHALEXIN | [facility] | + + + + | 2022-11-11 00:00 | CYANOCOBALAMIN (VITAMIN | [facility] | | | B-12) | | + + + + | 2022-09-04 00:00 | Ferrous Sulfate | [facility] | + + + + | 2022-09-04 00:00 | ONDANSETRON | [facility] | + + + + | 2022-11-11 00:00 | ONDANSETRON | [facility] | + + + + | 2020-12-02 00:00 | predniSONE | [facility] | + + + + | 2020-12-02 00:00 | predniSONE | [facility] | + + + + | 2020-12-02 00:00 | predniSONE | [facility] | + + + + | 2020-12-02 00:00 | predniSONE | [facility] | + + + + | 2022-03-25 00:00 | FUROSEMIDE | [facility] | + + + + | 2022-04-22 00:00 | FUROSEMIDE | [facility] | + + + + | 2022-05-10 00:00 | FUROSEMIDE | [facility] | + + + + | 2022-06-08 00:00 | FUROSEMIDE | [facility] | + + + + | 2022-09-04 00:00 | FUROSEMIDE | [facility] | + + + + | 2022-09-04 00:00 | PANTOPRAZOLE SODIUM | [facility] | + + + + | 2022-09-04 00:00 | SUCRALFATE | [facility] | + + + + | 2022-09-04 00:00 | SENNOSIDES | [facility] | + + + + | 2020-12-23 00:00 | ATORVASTATIN | [facility] | + + + + | 2020-12-23 00:00 | ATORVASTATIN | [facility] | + + + + | 2020-12-23 00:00 | ATORVASTATIN | [facility] | + + + + | 2020-12-23 00:00 | ATORVASTATIN | [facility] | + + + + | 2022-03-25 00:00 | ATORVASTATIN | [facility] | + + + + | 2022-04-22 00:00 | ATORVASTATIN | [facility] | + + + + | 2022-05-10 00:00 | ATORVASTATIN | [facility] | + + + + | 2022-06-08 00:00 | ATORVASTATIN | [facility] | + + + + | 2022-09-04 00:00 | ATORVASTATIN | [facility] | + + + + | 2022-11-11 00:00 | ATORVASTATIN | [facility] | + + + + | 2022-11-11 00:00 | POTASSIUM CHLORIDE | [facility] | + + + + | 2022-09-04 00:00 | ALBUTEROL SULFATE | [facility] | + + + + | 2021-12-22 00:00 | POTASSIUM CHLORIDE | [facility] | + + + + | 2021-12-22 00:00 | POTASSIUM CHLORIDE | [facility] | + + + + | 2021-12-22 00:00 | POTASSIUM CHLORIDE | [facility] | + + + + | 2021-12-22 00:00 | POTASSIUM CHLORIDE | [facility] | + + + + | 2022-03-25 00:00 | ASPIRIN | [facility] | + + + + | 2022-04-22 00:00 | ASPIRIN | [facility] | + + + + | 2022-05-10 00:00 | ASPIRIN | [facility] | + + + + | 2022-06-08 00:00 | ASPIRIN | [facility] | + + + + | 2022-09-04 00:00 | ASPIRIN | [facility] | + + + + | 2022-11-11 00:00 | ASPIRIN | [facility] | + + + + | 2020-12-23 00:00 | DILTIAZEM HCL | [facility] | + + + + | 2020-12-23 00:00 | DILTIAZEM HCL | [facility] | + + + + | 2020-12-23 00:00 | DILTIAZEM HCL | [facility] | + + + + | 2020-12-23 00:00 | DILTIAZEM HCL | [facility] | + + + + | 2022-09-04 00:00 | Diclofenac Sodium | [facility] | + + + + | 2022-05-10 00:00 | HYDROCODONE | [facility] | | | BIT/ACETAMINOPHEN | | + + + + | 2014-07-30 00:00 | HYDROCODONE | [facility] | | | BIT/ACETAMINOPHEN | | + + + + | 2014-07-30 00:00 | HYDROCODONE | [facility] | | | BIT/ACETAMINOPHEN | | + + + + | 2014-07-30 00:00 | HYDROCODONE | [facility] | | | BIT/ACETAMINOPHEN | | + + + + | 2014-07-30 00:00 | HYDROCODONE | [facility] | | | BIT/ACETAMINOPHEN | | + + + + | 2015-08-13 00:00 | HYDROCODONE | [facility] | | | BIT/ACETAMINOPHEN | | + + + + | 2015-08-13 00:00 | HYDROCODONE | [facility] | | | BIT/ACETAMINOPHEN | | + + + + | 2015-08-13 00:00 | HYDROCODONE | [facility] | | | BIT/ACETAMINOPHEN | | + + + + | 2015-08-13 00:00 | HYDROCODONE | [facility] | | | BIT/ACETAMINOPHEN | | + + + + | 2014-09-20 00:00 | HYDROCODONE | [facility] | | | BIT/ACETAMINOPHEN | | + + + + | 2014-09-20 00:00 | HYDROCODONE | [facility] | | | BIT/ACETAMINOPHEN | | + + + + | 2014-09-20 00:00 | HYDROCODONE | [facility] | | | BIT/ACETAMINOPHEN | | + + + + | 2014-09-20 00:00 | HYDROCODONE | [facility] | | | BIT/ACETAMINOPHEN | | + + + + | 2022-03-25 00:00 | ALBUTEROL SULFATE | [facility] | + + + + | 2022-04-22 00:00 | ALBUTEROL SULFATE | [facility] | + + + + | 2022-05-10 00:00 | ALBUTEROL SULFATE | [facility] | + + + + | 2022-06-08 00:00 | ALBUTEROL SULFATE | [facility] | + + + + | 2022-09-04 00:00 | ALBUTEROL SULFATE | [facility] | + + + + | 2022-11-11 00:00 | ALBUTEROL SULFATE | [facility] | + + + + | 2022-03-25 00:00 | METOPROLOL SUCCINATE | [facility] | + + + + | 2022-04-22 00:00 | METOPROLOL SUCCINATE | [facility] | + + + + | 2022-05-10 00:00 | METOPROLOL SUCCINATE | [facility] | + + + + | 2022-06-08 00:00 | METOPROLOL SUCCINATE | [facility] | + + + + | 2022-09-04 00:00 | METOPROLOL SUCCINATE | [facility] | + + + + | 2022-11-11 00:00 | METOPROLOL SUCCINATE | [facility] | + + + + | 2022-03-25 00:00 | METOPROLOL SUCCINATE | [facility] | + + + + | 2022-04-22 00:00 | METOPROLOL SUCCINATE | [facility] | + + + + | 2022-05-10 00:00 | METOPROLOL SUCCINATE | [facility] | + + + + | 2022-06-08 00:00 | METOPROLOL SUCCINATE | [facility] | + + + + | 2022-09-04 00:00 | METOPROLOL SUCCINATE | [facility] | + + + + | 2022-11-11 00:00 | METOPROLOL SUCCINATE | [facility] | + + + + | 2022-11-11 00:00 | METOPROLOL SUCCINATE | [facility] | + + + + | 2022-09-04 00:00 | METOPROLOL SUCCINATE | [facility] | + + + + | 2022-11-11 00:00 | METOPROLOL SUCCINATE | [facility] | + + + + | 2014-09-20 00:00 | POLYETHYLENE GLYCOL 3350 | [facility] | + + + + | 2014-09-20 00:00 | POLYETHYLENE GLYCOL 3350 | [facility] | + + + + | 2014-09-20 00:00 | POLYETHYLENE GLYCOL 3350 | [facility] | + + + + | 2014-09-20 00:00 | POLYETHYLENE GLYCOL 3350 | [facility] | + + + + | 2022-09-04 00:00 | POLYETHYLENE GLYCOL 3350 | [facility] | + + + + | 2022-03-25 00:00 | LOSARTAN POTASSIUM | [facility] | + + + + | 2022-04-22 00:00 | LOSARTAN POTASSIUM | [facility] | + + + + | 2022-05-10 00:00 | LOSARTAN POTASSIUM | [facility] | + + + + | 2022-06-08 00:00 | LOSARTAN POTASSIUM | [facility] | + + + + | 2022-09-04 00:00 | LOSARTAN POTASSIUM | [facility] | + + + + | 2022-11-11 00:00 | LOSARTAN POTASSIUM | [facility] | + + + + | 2022-03-25 00:00 | LOSARTAN POTASSIUM | [facility] | + + + + | 2022-04-22 00:00 | LOSARTAN POTASSIUM | [facility] | + + + + | 2022-05-10 00:00 | LOSARTAN POTASSIUM | [facility] | + + + + | 2022-06-08 00:00 | LOSARTAN POTASSIUM | [facility] | + + + + | 2022-09-04 00:00 | LOSARTAN POTASSIUM | [facility] | + + + + | 2022-11-11 00:00 | LOSARTAN POTASSIUM | [facility] | + + + + | 2022-03-25 00:00 | LOSARTAN POTASSIUM | [facility] | + + + + | 2022-04-22 00:00 | LOSARTAN POTASSIUM | [facility] | + + + + | 2022-05-10 00:00 | LOS[facility] | [facility] | + + + + | 2022-06-08 00:00 | [facility] | [facility] | + + + + | 2022-09-04 00:00 | [facility] | [facility] | + + + + | 2022-11-11 00:00 | [facility] | [facility] | + + + + | 2022-09-04 00:00 | MICONAZOLE NITRATE | [facility] | + + + + Problems + + + + | date | description | facility | + + + + | 2015-08-13 00:00 | Diverticulitis of large | [facility] | | | intestine | | + + + + | 2015-08-13 00:00 | Diverticulitis of large | [facility] | | | intestine | | + + + + | 2015-08-13 00:00 | Diverticulitis of large | [facility] | | | intestine | | + + + + | 2015-08-13 00:00 | Diverticulitis of large | [facility] | | | intestine | | + + + + | 2017-05-12 00:00 | Abrasion of ear canal | [facility] | + + + + | 2017-05-12 00:00 | Abrasion of ear canal | [facility] | + + + + | 2017-05-12 00:00 | Abrasion of ear canal | [facility] | + + + + | 2017-05-12 00:00 | Abrasion of ear canal | [facility] | + + + + | 2017-11-29 00:00 | Hypotension | [facility] | + + + + | 2017-11-29 00:00 | Hypotension | [facility] | + + + + | 2017-11-29 00:00 | Hypotension | [facility] | + + + + | 2017-11-29 00:00 | Hypotension | [facility] | + + + + | 2020-12-02 00:00 | Back pain | [facility] | + + + + | 2020-12-02 00:00 | Back pain | [facility] | + + + + | 2020-12-02 00:00 | Back pain | [facility] | + + + + | 2020-12-02 00:00 | Back pain | [facility] | + + + + | 2020-12-13 00:00 | Patient left without being | [facility] | | | seen | | + + + + | 2020-12-13 00:00 | Patient left without being | [facility] | | | seen | | + + + + | 2020-12-13 00:00 | Patient left without being | [facility] | | | seen | | + + + + | 2020-12-13 00:00 | Patient left without being | [facility] | | | seen | | + + + + | 2020-12-17 00:00 | Atrial fibrillation with | [facility] | | | rapid ventricular response | | + + + + | 2020-12-17 00:00 | Atrial fibrillation with | [facility] | | | rapid ventricular response | | + + + + | 2020-12-17 00:00 | Atrial fibrillation with | [facility] | | | rapid ventricular response | | + + + + | 2020-12-17 00:00 | Atrial fibrillation with | [facility] | | | rapid ventricular response | | + + + + | 2020-12-17 00:00 | Cellulitis of left elbow | [facility] | + + + + | 2020-12-17 00:00 | Cellulitis of left elbow | [facility] | + + + + | 2020-12-17 00:00 | Cellulitis of left elbow | [facility] | + + + + | 2020-12-17 00:00 | Cellulitis of left elbow | [facility] | + + + + | [...] + + | 2021-12-22 12:00 | 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) | [facility] | | | 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 | [employer] | + + + + | 2022-05-10 00:00 | Osteoarthritis of left | [facility] | | | shoulder | | + + + + | 2022-05-10 00:00 | Osteoarthritis of left | [facility] | | | shoulder | | + + + + | 2022-05-10 00:00 | Osteoarthritis of left | [facility] | | | shoulder | | + + + + | 2022-06-08 00:00 | Periprosthetic fracture of | [facility] | | | shaft of femur | | + + + + | 2022-06-08 00:00 | Periprosthetic fracture of | [facility] | | | shaft of femur | | + + + + | 2022-06-08 00:00 | Periprosthetic fracture of | [facility] | | | shaft of femur | | + + + + | 2022-06-12 09:56:20 | 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 | | | | pectoris | | + + + + | 2022-06-27 00:00 | Anemia | [facility] | + + + + | 2022-06-27 00:00 | Anemia | [facility] | + + + + | 2022-06-27 00:00 | Influenza due to influenza | [facility] | | | virus, type A, human | | + + + + | 2022-06-27 00:00 | Influenza due to influenza | [facility] | | | virus, type A, human | | + + + + | 2022-06-27 00:00 | Gastrointestinal | [facility] | | | hemorrhage | | + + + + | 2022-06-27 00:00 | Gastrointestinal | [facility] | | | hemorrhage | | + + + + | 2022-06-27 00:00 | Acute kidney injury | [facility] | + + + + | 2022-06-27 00:00 | Acute kidney injury | [facility] | + + + + | 2022-09-01 00:00 | Syncope | [facility] | + + + + | 2022-09-01 00:00 | Syncope | [facility] | + + + + | 2022-11-05 00:00 | Congestive heart failure | [facility] | + + + + Procedures + + + + | date | description | facility | + + + + | 2022-04-22 00:00 | EXCISION OF STOMACH, | [facility] | | | PYLORUS, ENDO, DIAGN | | + + + + | 2022-04-22 00:00 | EGD BIOPSY SINGLE/MULTIPLE | [facility] | | | | | + + + + | 2022-04-22 00:00 | Esophagogastroduodenoscopy | [facility] | | | (EGD) with closed biopsy | | + + + + | 2022-04-22 00:00 | Esophagogastroduodenoscopy | [facility] | | | (EGD) with closed [...] (missing) | | (unavailable | 10:23 | [facility] | | | | | [...]
--- OUTSIDE RECORDS SUMMARY | ~2023-02-10 | XMS | Continuity of Care Document ---
Demographics + + + | Address | [address] | | | [place] [address] | + + + | Preferred Language | Unknown | + + + | Marital Status | | + + + | Jainism Affiliation | Unknown | + + + | Race | White | + + + | Ethnic Group | Not or | + + + Author + + + | Author | [facility] | + + + | Organization | [facility] | + + + | Address | [address] | | | [place] [address] | + + + | Phone | | + + + Care Team Providers + + + + | Care Control Systems Designer Name | Role | Phone | + [...] + | 2020-12-11 00:00 | Tdap | [facility] | + + + + | 2020-12-11 00:00 | Tdap | [facility] | + + + + | 2020-12-11 00:00 | Tdap | [facility] | + + + + | 2020-12-11 00:00 | Tdap | [facility] | + + + + Medications + + + + | date | description | facility | + + + + | 2022-09-04 00:00 | OXYCODONE HCL | [facility] | + + + + | 2022-11-11 00:00 | OXYCODONE HCL | [facility] | + + + + | 2014-09-20 00:00 | OXYCODONE HCL | [facility] | + + + + | 2014-09-20 00:00 | OXYCODONE HCL | [facility] | + + + + | 2014-09-20 00:00 | OXYCODONE HCL | [facility] | + + + + | 2014-09-20 00:00 | OXYCODONE HCL | [facility] | + + + + | 2022-07-02 00:00 | OXYCODONE HCL | [facility] | + + + + | 2014-09-20 00:00 | RIVAROXABAN | [facility] | + + + + | 2014-09-20 00:00 | RIVAROXABAN | [facility] | + + + + | 2014-09-20 00:00 | RIVAROXABAN | [facility] | + + + + | 2014-09-20 00:00 | RIVAROXABAN | [facility] | + + + + | 2022-03-25 00:00 | RIVAROXABAN | [facility] | + + + + | 2022-04-22 00:00 | RIVAROXABAN | [facility] | + + + + | 2022-05-10 00:00 | RIVAROXABAN | [facility] | + + + + | 2022-06-08 00:00 | RIVAROXABAN | [facility] | + + + + | 2022-09-04 00:00 | RIVAROXABAN | [facility] | + + + + | 2022-11-11 00:00 | RIVAROXABAN | [facility] | + + + + | 2022-03-25 00:00 | DIGOXIN | [facility] | + + + + | 2022-04-22 00:00 | DIGOXIN | [facility] | + + + + | 2022-05-10 00:00 | DIGOXIN | [facility] | + + + + | 2022-06-08 00:00 | DIGOXIN | [facility] | + + + + | 2022-05-10 00:00 | DOCUSATE SODIUM | [facility] | + + + + | 2022-11-11 00:00 | POTASSIUM GLUCONATE | [facility] | + + + + | 2022-09-04 00:00 | APIXABAN | [facility] | + + + + | 2022-11-11 00:00 | APIXABAN | [facility] | + + + + | 2020-12-23 00:00 | APIXABAN | [facility] | + + + + | 2020-12-23 00:00 | APIXABAN | [facility] | + + + + | 2022-03-25 00:00 | APIXABAN | [facility] | + + + + | 2022-04-22 00:00 | APIXABAN | [facility] | + + + + | 2022-05-10 00:00 | APIXABAN | [facility] | + + + + | 2022-06-08 00:00 | APIXABAN | [facility] | + + + + | 2022-09-04 00:00 | APIXABAN | [facility] | + + + + | 2022-11-11 00:00 | APIXABAN | [facility] | + + + + | 2020-12-23 00:00 | POTASSIUM CHLORIDE | [facility] | + + + + | 2020-12-23 00:00 | POTASSIUM CHLORIDE | [facility] | + + + + | 2020-12-23 00:00 | POTASSIUM CHLORIDE | [facility] | + + + + | 2020-12-23 00:00 | POTASSIUM CHLORIDE | [facility] | + + + + | 2022-03-25 00:00 | POTASSIUM CHLORIDE | [facility] | + + + + | 2022-04-22 00:00 | POTASSIUM CHLORIDE | [facility] | + + + + | 2022-05-10 00:00 | POTASSIUM CHLORIDE | [facility] | + + + + | 2022-06-08 00:00 | POTASSIUM CHLORIDE | [facility] | + + + + | 2022-09-04 00:00 | POTASSIUM CHLORIDE | [facility] | + + + + | 2022-11-11 00:00 | POTASSIUM CHLORIDE | [facility] | + + + + | 2022-03-25 00:00 | EMPAGLIFLOZIN | [facility] | + + + + | 2022-04-22 00:00 | EMPAGLIFLOZIN | [facility] | + + + + | 2022-05-10 00:00 | EMPAGLIFLOZIN | [facility] | + + + + | 2022-06-08 00:00 | EMPAGLIFLOZIN | [facility] | + + + + | 2022-09-04 00:00 | EMPAGLIFLOZIN | [facility] | + + + + | 2022-11-11 00:00 | EMPAGLIFLOZIN | [facility] | + + + + | 2020-12-14 00:00 | Bacitracin | [facility] | + + + + | 2020-12-14 00:00 | Bacitracin | [facility] | + + + + | 2020-12-14 00:00 | Bacitracin | [facility] | + + + + | 2020-12-14 00:00 | Bacitracin | [facility] | + + + + | 2022-03-25 00:00 | DOXYCYCLINE MONOHYDRATE | [facility] | + + + + | 2022-04-22 00:00 | DOXYCYCLINE MONOHYDRATE | [facility] | + + + + | 2022-05-10 00:00 | DOXYCYCLINE MONOHYDRATE | [facility] | + + + + | 2022-06-08 00:00 | DOXYCYCLINE MONOHYDRATE | [facility] | + + + + | 2022-09-04 00:00 | DOXYCYCLINE MONOHYDRATE | [facility] | + + + + | 2022-11-11 00:00 | DOXYCYCLINE MONOHYDRATE | [facility] | + + + + | 2022-03-25 00:00 | AMLODIPINE BESYLATE | [facility] | + + + + | 2022-04-22 00:00 | AMLODIPINE BESYLATE | [facility] | + + + + | 2022-05-10 00:00 | AMLODIPINE BESYLATE | [facility] | + + + + | 2022-06-08 00:00 | AMLODIPINE BESYLATE | [facility] | + + + + | 2022-09-04 00:00 | AMLODIPINE BESYLATE | [facility] | + + + + | 2022-11-11 00:00 | AMLODIPINE BESYLATE | [facility] | + + + + | 2022-03-25 00:00 | ATENOLOL | [facility] | + + + + | 2022-04-22 00:00 | ATENOLOL | [facility] | + + + + | 2022-05-10 00:00 | ATENOLOL | [facility] | + + + + | 2022-06-08 00:00 | ATENOLOL | [facility] | + + + + | 2022-09-04 00:00 | ATENOLOL | [facility] | + + + + | 2022-11-11 00:00 | ATENOLOL | [facility] | + + + + | 2022-03-25 00:00 | ATENOLOL | [facility] | + + + + | 2022-04-22 00:00 | ATENOLOL | [facility] | + + + + | 2022-05-10 00:00 | ATENOLOL | [facility] | + + + + | 2022-06-08 00:00 | ATENOLOL | [facility] | + + + + | 2022-09-04 00:00 | ATENOLOL | [facility] | + + + + | 2022-11-11 00:00 | ATENOLOL | [facility] | + + + + | 2018-07-06 00:00 | HYDROCORTISONE | [facility] | + + + + | 2018-07-06 00:00 | HYDROCORTISONE | [facility] | + + + + | 2018-07-06 00:00 | HYDROCORTISONE | [facility] | + + + + | 2018-07-06 00:00 | HYDROCORTISONE | [facility] | + + + + | 2020-12-23 00:00 | HYDROCORTISONE | [facility] | + + + + | 2020-12-23 00:00 | HYDROCORTISONE | [facility] | + + + + | 2022-07-02 00:00 | HYDROCORTISONE | [facility] | + + + + | 2022-07-02 00:00 | HYDROCORTISONE | [facility] | + + + + | 2022-09-04 00:00 | HYDROCORTISONE | [facility] | + + + + | 2022-11-11 00:00 | HYDROCORTISONE | [facility] | + + + + | 2022-03-25 00:00 | OMEPRAZOLE | [facility] | + + + + | 2022-04-22 00:00 | OMEPRAZOLE | [facility] | + + + + | 2022-05-10 00:00 | OMEPRAZOLE | [facility] | + + + + | 2022-06-08 00:00 | OMEPRAZOLE | [facility] | + + + + | 2022-11-11 00:00 | OMEPRAZOLE | [facility] | + + + + | 2022-11-11 00:00 | TORSEMIDE | [facility] | + + + + | 2021-07-10 00:00 | ACETAMINOPHEN | [facility] | + + + + | 2021-07-10 00:00 | ACETAMINOPHEN | [facility] | + + + + | 2021-07-10 00:00 | ACETAMINOPHEN | [facility] | + + + + | 2021-07-10 00:00 | ACETAMINOPHEN | [facility] | + + + + | 2022-03-25 00:00 | ACETAMINOPHEN | [facility] | + + + + | 2022-04-22 00:00 | ACETAMINOPHEN | [facility] | + + + + | 2022-05-10 00:00 | ACETAMINOPHEN | [facility] | + + + + | 2022-06-08 00:00 | ACETAMINOPHEN | [facility] | + + + + | 2022-09-04 00:00 | ACETAMINOPHEN | [facility] | + + + + | 2022-11-11 00:00 | ACETAMINOPHEN | [facility] | + + + + | 2022-09-04 00:00 | DEXTROSE | [facility] | + + + + | 2022-11-11 00:00 | MAGNESIUM OXIDE | [facility] | + + + + | 2022-03-25 00:00 | SIMVASTATIN | [facility] | + + + + | 2022-04-22 00:00 | SIMVASTATIN | [facility] | + + + + | 2022-05-10 00:00 | SIMVASTATIN | [facility] | + + + + | 2022-06-08 00:00 | SIMVASTATIN | [facility] | + + + + | 2022-09-04 00:00 | SIMVASTATIN | [facility] | + + + + | 2022-11-11 00:00 | SIMVASTATIN | [facility] | + + + + | 2022-03-25 00:00 | FUROSEMIDE | [facility] | + + + + | 2022-04-22 00:00 | FUROSEMIDE | [facility] | + + + + | 2022-05-10 00:00 | FUROSEMIDE | [facility] | + + + + | 2022-06-08 00:00 | FUROSEMIDE | [facility] | + + + + | 2022-09-04 00:00 | FUROSEMIDE | [facility] | + + + + | 2022-11-11 00:00 | FUROSEMIDE | [facility] | + + + + | 2022-03-25 00:00 | ATENOLOL | [facility] | + + + + | 2022-04-22 00:00 | ATENOLOL | [facility] | + + + + | 2022-05-10 00:00 | ATENOLOL | [facility] | + + + + | 2022-06-08 00:00 | ATENOLOL | [facility] | + + + + | 2022-09-04 00:00 | ATENOLOL | [facility] | + + + + | 2022-11-11 00:00 | ATENOLOL | [facility] | + + + + | 2015-08-13 00:00 | CIPROFLOXACIN HCL | [facility] | + + + + | 2015-08-13 00:00 | CIPROFLOXACIN HCL | [facility] | + + + + | 2015-08-13 00:00 | CIPROFLOXACIN HCL | [facility] | + + + + | 2015-08-13 00:00 | CIPROFLOXACIN HCL | [facility] | + + + + | 2018-06-29 00:00 | CIPROFLOXACIN HCL | [facility] | + + + + | 2018-06-29 00:00 | CIPROFLOXACIN HCL | [facility] | + + + + | 2018-06-29 00:00 | CIPROFLOXACIN HCL | [facility] | + + + + | 2018-06-29 00:00 | CIPROFLOXACIN HCL | [facility] | + + + + | 2015-08-13 00:00 | METRONIDAZOLE | [facility] | + + + + | 2015-08-13 00:00 | METRONIDAZOLE | [facility] | + + + + | 2015-08-13 00:00 | METRONIDAZOLE | [facility] | + + + + | 2015-08-13 00:00 | METRONIDAZOLE | [facility] | + + + + | 2018-06-29 00:00 | METRONIDAZOLE | [facility] | + + + + | 2018-06-29 00:00 | METRONIDAZOLE | [facility] | + + + + | 2018-06-29 00:00 | METRONIDAZOLE | [facility] | + + + + | 2018-06-29 00:00 | METRONIDAZOLE | [facility] | + + + + | 2020-12-23 00:00 | MAGNESIUM OXIDE | [facility] | + + + + | 2020-12-23 00:00 | MAGNESIUM OXIDE | [facility] | + + + + | 2022-03-25 00:00 | MAGNESIUM OXIDE | [facility] | + + + + | 2022-04-22 00:00 | MAGNESIUM OXIDE | [facility] | + + + + | 2022-05-10 00:00 | MAGNESIUM OXIDE | [facility] | + + + + | 2022-06-08 00:00 | MAGNESIUM OXIDE | [facility] | + + + + | 2022-09-04 00:00 | MAGNESIUM OXIDE | [facility] | + + + + | 2022-11-11 00:00 | MAGNESIUM OXIDE | [facility] | + + + + | 2022-09-04 00:00 | MAGNESIUM HYDROXIDE | [facility] | + + + + | 2022-11-11 00:00 | ATORVASTATIN CALCIUM | [facility] | + + + + | 2022-11-11 00:00 | DIGOXIN | [facility] | + + + + | 2022-09-04 00:00 | OSELTAMIVIR PHOSPHATE | [facility] | + + + + | 2022-11-11 00:00 | OSELTAMIVIR PHOSPHATE | [facility] | + + + + | 2022-03-25 00:00 | ATORVASTATIN | [facility] | + + + + | 2022-04-22 00:00 | ATORVASTATIN | [facility] | + + + + | 2022-05-10 00:00 | ATORVASTATIN | [facility] | + + + + | 2022-06-08 00:00 | ATORVASTATIN | [facility] | + + + + | 2022-09-04 00:00 | ASCORBIC ACID | [facility] | + + + + | 2022-03-25 00:00 | ASPIRIN | [facility] | + + + + | 2022-04-22 00:00 | ASPIRIN | [facility] | + + + + | 2022-05-10 00:00 | ASPIRIN | [facility] | + + + + | 2022-06-08 00:00 | ASPIRIN | [facility] | + + + + | 2022-09-04 00:00 | ASPIRIN | [facility] | + + + + | 2022-11-11 00:00 | ASPIRIN | [facility] | + + + + | 2020-12-23 00:00 | CEPHALEXIN | [facility] | + + + + | 2020-12-23 00:00 | CEPHALEXIN | [facility] | + + + + | 2020-12-23 00:00 | CEPHALEXIN | [facility] | + + + + | 2020-12-23 00:00 | CEPHALEXIN | [facility] | + + + + | 2022-03-25 00:00 | CEPHALEXIN | [facility] | + + + + | 2022-04-22 00:00 | CEPHALEXIN | [facility] | + + + + | 2022-05-10 00:00 | CEPHALEXIN | [facility] | + + + + | 2022-06-08 00:00 | CEPHALEXIN | [facility] | + + + + | 2022-09-04 00:00 | CEPHALEXIN | [facility] | + + + + | 2022-11-11 00:00 | CEPHALEXIN | [facility] | + + + + | 2022-11-11 00:00 | CYANOCOBALAMIN (VITAMIN | [facility] | | | B-12) | | + + + + | 2022-09-04 00:00 | Ferrous Sulfate | [facility] | + + + + | 2022-09-04 00:00 | ONDANSETRON | [facility] | + + + + | 2022-11-11 00:00 | ONDANSETRON | [facility] | + + + + | 2020-12-02 00:00 | predniSONE | [facility] | + + + + | 2020-12-02 00:00 | predniSONE | [facility] | + + + + | 2020-12-02 00:00 | predniSONE | [facility] | + + + + | 2020-12-02 00:00 | predniSONE | [facility] | + + + + | 2022-03-25 00:00 | FUROSEMIDE | [facility] | + + + + | 2022-04-22 00:00 | FUROSEMIDE | [facility] | + + + + | 2022-05-10 00:00 | FUROSEMIDE | [facility] | + + + + | 2022-06-08 00:00 | FUROSEMIDE | [facility] | + + + + | 2022-09-04 00:00 | FUROSEMIDE | [facility] | + + + + | 2022-09-04 00:00 | PANTOPRAZOLE SODIUM | [facility] | + + + + | 2022-09-04 00:00 | SUCRALFATE | [facility] | + + + + | 2022-09-04 00:00 | SENNOSIDES | [facility] | + + + + | 2020-12-23 00:00 | ATORVASTATIN | [facility] | + + + + | 2020-12-23 00:00 | ATORVASTATIN | [facility] | + + + + | 2020-12-23 00:00 | ATORVASTATIN | [facility] | + + + + | 2020-12-23 00:00 | ATORVASTATIN | [facility] | + + + + | 2022-03-25 00:00 | ATORVASTATIN | [facility] | + + + + | 2022-04-22 00:00 | ATORVASTATIN | [facility] | + + + + | 2022-05-10 00:00 | ATORVASTATIN | [facility] | + + + + | 2022-06-08 00:00 | ATORVASTATIN | [facility] | + + + + | 2022-09-04 00:00 | ATORVASTATIN | [facility] | + + + + | 2022-11-11 00:00 | ATORVASTATIN | [facility] | + + + + | 2022-11-11 00:00 | POTASSIUM CHLORIDE | [facility] | + + + + | 2022-09-04 00:00 | ALBUTEROL SULFATE | [facility] | + + + + | 2021-12-22 00:00 | POTASSIUM CHLORIDE | [facility] | + + + + | 2021-12-22 00:00 | POTASSIUM CHLORIDE | [facility] | + + + + | 2021-12-22 00:00 | POTASSIUM CHLORIDE | [facility] | + + + + | 2021-12-22 00:00 | POTASSIUM CHLORIDE | [facility] | + + + + | 2022-03-25 00:00 | ASPIRIN | [facility] | + + + + | 2022-04-22 00:00 | ASPIRIN | [facility] | + + + + | 2022-05-10 00:00 | ASPIRIN | [facility] | + + + + | 2022-06-08 00:00 | ASPIRIN | [facility] | + + + + | 2022-09-04 00:00 | ASPIRIN | [facility] | + + + + | 2022-11-11 00:00 | ASPIRIN | [facility] | + + + + | 2020-12-23 00:00 | DILTIAZEM HCL | [facility] | + + + + | 2020-12-23 00:00 | DILTIAZEM HCL | [facility] | + + + + | 2020-12-23 00:00 | DILTIAZEM HCL | [facility] | + + + + | 2020-12-23 00:00 | DILTIAZEM HCL | [facility] | + + + + | 2022-09-04 00:00 | Diclofenac Sodium | [facility] | + + + + | 2022-05-10 00:00 | HYDROCODONE | [facility] | | | BIT/ACETAMINOPHEN | | + + + + | 2014-07-30 00:00 | HYDROCODONE | [facility] | | | BIT/ACETAMINOPHEN | | + + + + | 2014-07-30 00:00 | HYDROCODONE | [facility] | | | BIT/ACETAMINOPHEN | | + + + + | 2014-07-30 00:00 | HYDROCODONE | [facility] | | | BIT/ACETAMINOPHEN | | + + + + | 2014-07-30 00:00 | HYDROCODONE | [facility] | | | BIT/ACETAMINOPHEN | | + + + + | 2015-08-13 00:00 | HYDROCODONE | [facility] | | | BIT/ACETAMINOPHEN | | + + + + | 2015-08-13 00:00 | HYDROCODONE | [facility] | | | BIT/ACETAMINOPHEN | | + + + + | 2015-08-13 00:00 | HYDROCODONE | [facility] | | | BIT/ACETAMINOPHEN | | + + + + | 2015-08-13 00:00 | HYDROCODONE | [facility] | | | BIT/ACETAMINOPHEN | | + + + + | 2014-09-20 00:00 | HYDROCODONE | [facility] | | | BIT/ACETAMINOPHEN | | + + + + | 2014-09-20 00:00 | HYDROCODONE | [facility] | | | BIT/ACETAMINOPHEN | | + + + + | 2014-09-20 00:00 | HYDROCODONE | [facility] | | | BIT/ACETAMINOPHEN | | + + + + | 2014-09-20 00:00 | HYDROCODONE | [facility] | | | BIT/ACETAMINOPHEN | | + + + + | 2022-03-25 00:00 | ALBUTEROL SULFATE | [facility] | + + + + | 2022-04-22 00:00 | ALBUTEROL SULFATE | [facility] | + + + + | 2022-05-10 00:00 | ALBUTEROL SULFATE | [facility] | + + + + | 2022-06-08 00:00 | ALBUTEROL SULFATE | [facility] | + + + + | 2022-09-04 00:00 | ALBUTEROL SULFATE | [facility] | + + + + | 2022-11-11 00:00 | ALBUTEROL SULFATE | [facility] | + + + + | 2022-03-25 00:00 | METOPROLOL SUCCINATE | [facility] | + + + + | 2022-04-22 00:00 | METOPROLOL SUCCINATE | [facility] | + + + + | 2022-05-10 00:00 | METOPROLOL SUCCINATE | [facility] | + + + + | 2022-06-08 00:00 | METOPROLOL SUCCINATE | [facility] | + + + + | 2022-09-04 00:00 | METOPROLOL SUCCINATE | [facility] | + + + + | 2022-11-11 00:00 | METOPROLOL SUCCINATE | [facility] | + + + + | 2022-03-25 00:00 | METOPROLOL SUCCINATE | [facility] | + + + + | 2022-04-22 00:00 | METOPROLOL SUCCINATE | [facility] | + + + + | 2022-05-10 00:00 | METOPROLOL SUCCINATE | [facility] | + + + + | 2022-06-08 00:00 | METOPROLOL SUCCINATE | [facility] | + + + + | 2022-09-04 00:00 | METOPROLOL SUCCINATE | [facility] | + + + + | 2022-11-11 00:00 | METOPROLOL SUCCINATE | [facility] | + + + + | 2022-11-11 00:00 | METOPROLOL SUCCINATE | [facility] | + + + + | 2022-09-04 00:00 | METOPROLOL SUCCINATE | [facility] | + + + + | 2022-11-11 00:00 | METOPROLOL SUCCINATE | [facility] | + + + + | 2014-09-20 00:00 | POLYETHYLENE GLYCOL 3350 | [facility] | + + + + | 2014-09-20 00:00 | POLYETHYLENE GLYCOL 3350 | [facility] | + + + + | 2014-09-20 00:00 | POLYETHYLENE GLYCOL 3350 | [facility] | + + + + | 2014-09-20 00:00 | POLYETHYLENE GLYCOL 3350 | [facility] | + + + + | 2022-09-04 00:00 | POLYETHYLENE GLYCOL 3350 | [facility] | + + + + | 2022-03-25 00:00 | LOSARTAN POTASSIUM | [facility] | + + + + | 2022-04-22 00:00 | LOSARTAN POTASSIUM | [facility] | + + + + | 2022-05-10 00:00 | LOSARTAN POTASSIUM | [facility] | + + + + | 2022-06-08 00:00 | LOSARTAN POTASSIUM | [facility] | + + + + | 2022-09-04 00:00 | LOSARTAN POTASSIUM | [facility] | + + + + | 2022-11-11 00:00 | LOSARTAN POTASSIUM | [facility] | + + + + | 2022-03-25 00:00 | LOSARTAN POTASSIUM | [facility] | + + + + | 2022-04-22 00:00 | LOSARTAN POTASSIUM | [facility] | + + + + | 2022-05-10 00:00 | LOSARTAN POTASSIUM | [facility] | + + + + | 2022-06-08 00:00 | LOSARTAN POTASSIUM | [facility] | + + + + | 2022-09-04 00:00 | LOSARTAN POTASSIUM | [facility] | + + + + | 2022-11-11 00:00 | LOSARTAN POTASSIUM | [facility] | + + + + | 2022-03-25 00:00 | LOSARTAN POTASSIUM | [facility] | + + + + | 2022-04-22 00:00 | LOSARTAN POTASSIUM | [facility] | + + + + | 2022-05-10 00:00 | LOSARTAN POTASSIUM | [facility] | + + + + | 2022-06-08 00:00 | LOSARTAN POTASSIUM | [facility] | + + + + | 2022-09-04 00:00 | LOSARTAN POTASSIUM | [facility] | + + + + | 2022-11-11 00:00 | LOSARTAN POTASSIUM | [facility] | + + + + | 2022-09-04 00:00 | MICONAZOLE NITRATE | [facility] | + + + + Problems + + + + | date | description | facility | + + + + | 2015-08-13 00:00 | Diverticulitis of large | [facility] | | | intestine | | + + + + | 2015-08-13 00:00 | Diverticulitis of large | [facility] | | | intestine | | + + + + | 2015-08-13 00:00 | Diverticulitis of large | [facility] | | | intestine | | + + + + | 2015-08-13 00:00 | Diverticulitis of large | [facility] | | | intestine | | + + + + | 2017-05-12 00:00 | Abrasion of ear canal | [facility] | + + + + | 2017-05-12 00:00 | Abrasion of ear canal | [facility] | + + + + | 2017-05-12 00:00 | Abrasion of ear canal | [facility] | + + + + | 2017-05-12 00:00 | Abrasion of ear canal | [facility] | + + + + | 2017-11-29 00:00 | Hypotension | [facility] | + + + + | 2017-11-29 00:00 | Hypotension | [facility] | + + + + | 2017-11-29 00:00 | Hypotension | [facility] | + + + + | 2017-11-29 00:00 | Hypotension | [facility] | + + + + | 2020-12-02 00:00 | Back pain | [facility] | + + + + | 2020-12-02 00:00 | Back pain | [facility] | + + + + | 2020-12-02 00:00 | Back pain | [facility] | + + + + | 2020-12-02 00:00 | Back pain | [facility] | + + + + | 2020-12-13 00:00 | Patient left without being | [facility] | | | seen | | + + + + | 2020-12-13 00:00 | Patient left without being | [facility] | | | seen | | + + + + | 2020-12-13 00:00 | Patient left without being | [facility] | | | seen | | + + + + | 2020-12-13 00:00 | Patient left without being | [facility] | | | seen | | + + + + | 2020-12-17 00:00 | Atrial fibrillation with | [facility] | | | rapid ventricular response | | + + + + | 2020-12-17 00:00 | Atrial fibrillation with | [facility] | | | rapid ventricular response | | + + + + | 2020-12-17 00:00 | Atrial fibrillation with | [facility] | | | rapid ventricular response | | + + + + | 2020-12-17 00:00 | Atrial fibrillation with | [facility] | | | rapid ventricular response | | + + + + | 2020-12-17 00:00 | Cellulitis of left elbow | [facility] | + + + + | 2020-12-17 00:00 | Cellulitis of left elbow | [facility] | + + + + | 2020-12-17 00:00 | Cellulitis of left elbow | [facility] | + + + + | 2020-12-17 00:00 | Cellulitis of left elbow | [facility] | + + + + | [...] + + | 2021-12-22 12:00 | 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 | [employer] | + + + + | 2022-05-10 00:00 | Osteoarthritis of left | [facility] | | | shoulder | | + + + + | 2022-05-10 00:00 | Osteoarthritis of left | [facility] | | | shoulder | | + + + + | 2022-05-10 00:00 | Osteoarthritis of left | [facility] | | | shoulder | | + + + + | 2022-06-08 00:00 | Periprosthetic fracture of | [facility] | | | shaft of femur | | + + + + | 2022-06-08 00:00 | Periprosthetic fracture of | [facility] | | | shaft of femur | | + + + + | 2022-06-08 00:00 | Periprosthetic fracture of | [facility] | | | shaft of femur | | + + + + | 2022-06-12 09:56:20 | 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 | | | | artery without angina | | | | pectoris | | + + + + | 2022-06-27 00:00 | Anemia | [facility] | + + + + | 2022-06-27 00:00 | Anemia | [facility] | + + + + | 2022-06-27 00:00 | Influenza due to influenza | [facility] | | | virus, type A, human | | + + + + | 2022-06-27 00:00 | Influenza due to influenza | [facility] | | | virus, type A, human | | + + + + | 2022-06-27 00:00 | Gastrointestinal | [facility] | | | hemorrhage | | + + + + | 2022-06-27 00:00 | Gastrointestinal | [facility] | | | hemorrhage | | + + + + | 2022-06-27 00:00 | Acute kidney injury | [facility] | + + + + | 2022-06-27 00:00 | Acute kidney injury | [facility] | + + + + | 2022-09-01 00:00 | Syncope | [facility] | + + + + | 2022-09-01 00:00 | Syncope | [facility] | + + + + | 2022-11-05 00:00 | Congestive heart failure | [facility] | + + + + Procedures + + + + | date | description | facility | + + + + | 2022-04-22 00:00 | EXCISION OF STOMACH, | [facility] | | | PYLORUS, ENDO, DIAGN | | + + + + | 2022-04-22 00:00 | EGD BIOPSY SINGLE/MULTIPLE | [facility] | | | | | + + + + | 2022-04-22 00:00 | Esophagogastroduodenoscopy | [facility] | | | (EGD) with closed biopsy | | + + + + | 2022-04-22 00:00 | Esophagogastroduodenoscopy | [facility] | | | (EGD) with closed [...] (missing) | | (unavailable | 05:23:08 | [facility] | | | | | [...]
[~2023-02-10 10:08] MED LIST changes: +ATORVASTATIN CA80 MG PO; +DIGITEK125 MCG PO; +KLOR-CON 1010 MEQ PO; +MAG-OXIDE400 MG PO; +POTASSIUM GLUCO90 MG PO; +TORSEMIDE20 MG PO; +VITAMIN B-121000 MCG PO
--- OUTSIDE RECORDS SUMMARY | 2023-02-10 10:11 | XMS ---
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 \T\ Ankle Surgery Current PHONE: [phone] PATRICE CAMERON Internal Medicine Current PHONE: [phone] OR[place]O DRAKE [facility] 12/02/2020-Current PHONE: Unknown MIGUELANGEL OATES Nurse Practitioner: Family Current PHONE: Unknown ELIZABETH LOO Internal Medicine Current PHONE: [phone] YANI SNIDER Nurse Practitioner: Family Current PHONE: [phone] GRICELDA TINSLEY Nurse Practitioner Current FRACISCO PH[facility]: [phone] [facility] Current PHONE: Unknown SINA GRANT Family Medicine Current PHONE: [phone] Adonis has no Care Guidelines for this patient. Care History Medical/Surgical 12/02/2020 [facility] - Patient is currently established with [facility]. If patient is seen in the ED during business hours. Please contact CHWs at [facility]. Care Recommendation: If this patient has had 5 or more Emergency Department visits in the last 12 months.\T\nbsp; Patient will require education on the scope and purpose of the ED as an acute care provider not a Primary Care Provider and should not be utilized for chronic conditions.\T\nbsp; These are guidelines and the provider should exercise clinical judgment when providing care. EAnnetteD. VISIT COUNT (12 MO.) 3 [facility] 6 [facility] 1 [facility] TOTAL 10 NOTE: Visits indicate total known visits. ED/UCC VISIT TRACKING (12 MO.) 02/10/2023 10:08 [facility] [place] TYPE: Emergency COMPLAINT: - SWOLLEN LEGS 11/05/2022 13:58 [facility] [place] TYPE: Emergency COMPLAINT: - SWELLING/BODY PART 09/01/2022 15:22 [facility] [place] TYPE: Emergency COMPLAINT: - ALTERED LOC 2022 18:02 [facility] Frances LOZANO TYPE: Emergency DIAGNOSES: - Acute respiratory failure with hypoxia - Fluid overload, unspecified - Other pulmonary embolism without acute cor pulmonale - Paroxysmal atrial fibrillation - Pleural effusion, not elsewhere classified - Cough - Shortness of Breath [facility] DIAGNOSES: - Acute bronchiolitis due to respiratory syncytial virus - Candidiasis of skin and nail - COVID-19 - Diaper dermatitis - Cough - Skin Redness (Due To Rash) 07[facility]11[facility]2022 16[facility] DIAGNOSES: - Unspecified sprain [...] Fall - femur fx 06/07/2022 20:12 [facility] TYPE: Emergency COMPLAINT: - FALL DIAGNOSES: - Contact with and (suspected) exposure to COVID-19 - Essential (primary) hypertension - Fall on same level from slipping, tripping and stumbling without subsequent striking against object, initial encounter - Laceration without foreign body of right elbow, initial encounter - group home (current) use of anticoagulants - Old myocardial infarction - Other longterm (current) 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 - Pain in right hip - Periprosthetic fracture around internal prosthetic right hip joint, initial encounter - Unspecified atrial fibrillation - Unspecified fracture of shaft of right femur, initial encounter for closed fracture 05/10/2022 15:51 [facility] [place] TYPE: Emergency COMPLAINT: - LT SHOULDER PAIN DIAGNOSES: - Essential (primary) hypertension - Old myocardial infarction - 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 card 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 (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) 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 - Pain in left shoulder - Primary osteoarthritis, left shoulder - Pure hypercholesterolemia, unspecified - Unspecified atrial fibrillation INPATIENT VISIT TRACKING (12 MO.) 11/05/2022 16:23 [facility] [place] TYPE: Medical Surgical COMPLAINT: - AFIB/CHF DIAGNOSES: - Acute on chronic diastolic (congestive) heart failure - Acute on chronic diastolic (congestive) heart failure - Anemia in chronic kidney disease - Anemia in chronic kidney disease - Chronic atrial fibrillation, unspecified - Chronic kidney disease, stage 3b - Chronic kidney disease, stage 3b - Contact with and (suspected) exposure to COVID-19 - Contact with and (suspected) exposure to COVID-19 - Gastro-esophageal reflux disease without esophagitis - Gastro-esophageal reflux disease without esophagitis - Iron deficiency anemia, unspecified - Iron deficiency anemia, unspecified - 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 - group home (current) use of anticoagulants - group home (current) use of opiate analgesic - 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 - 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 operator intermodal yard (current) use of systemic steroids - group home (current) use of systemic steroids - Nonrheumatic aortic (valve) insufficiency - Nonrheumatic aortic (valve) insufficiency - Nonrheumatic mitral (valve) insufficiency - Nonrheumatic mitral (valve) insufficiency - Old myocardial infarction - Old myocardial infarction - Other longterm (current) 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 - Other specified postprocedural states - Other specified postprocedural states - Permanent atrial fibrillation - Permanent atrial fibrillation - Personal history of other malignant neoplasm of skin - Personal history of other malignant neoplasm of skin - Presence of coronary angioplasty implant and graft - Presence of coronary angioplasty implant and graft - Presence of left artificial shoulder joint - Presence of left artificial shoulder joint - Presence of right artificial hip joint - Presence of right artificial hip joint - Primary adrenocortical insufficiency - Primary adrenocortical insufficiency - Pure hypercholesterolemia, unspecified - Pure hypercholesterolemia, unspecified - Type 2 diabetes mellitus with diabetic chronic kidney disease - Type 2 diabetes mellitus with diabetic chronic kidney disease 09/01/2022 15:23 [facility] [place] TYPE: Observation [...] sites with fat layer exposed - Other longterm (current) 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 - Primary adrenocortical insufficiency - Syncope and collapse - Type 2 diabetes mellitus with foot ulcer - Type 2 diabetes mellitus with other skin ulcer 2022 18:02 [facility] Susan LOZANO TYPE: Medical Surgical DIAGNOSES: - Acute on chronic diastolic (congestive) heart failure - Acute on chronic systolic (congestive) heart failure - Acute respiratory failure with hypoxia - Fluid overload, unspecified - Other pulmonary embolism without acute cor pulmonale - Paroxysmal atrial fibrillation - Pleural effusion, not elsewhere classified - Unspecified atrial fibrillation 06/27/2022 15:44 [facility] [place] TYPE: Medical Surgical COMPLAINT: - MARCIE,GI [...] influenza virus with other respiratory manifestations - 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 TYPE: General Medicine COMPLAINT: - EMS P3 Transfer: Femur Fx DIAGNOSES: - Atherosclerotic heart disease of tangirnaq coronary artery without angina pectoris [email or web address]
[2023-02-10 11:29] LABS: BILIRUBIN, URINE NEGATIVE (negative); BLOOD/HGB, URINE SMALL (Negative); KETONE, URINE NEGATIVE (Negative); LEUK ESTERASE, URINE TRACE (negative); NITRITE, URINE NEGATIVE (negative)
[2023-02-10 11:30] LABS: HEMATOCRIT 36.6 % (35.0-50.0); HEMOGLOBIN 11.3 g/dL (12.0-18.0); MCH 23.4 (27-36); MCHC 30.8 g/dl (30-36); PLATELET COUNT 226 K/uL (140-440); RBC 4.82 M/ul (4.3-5.7); RDW 26.2 (10.5-15.0)
[2023-02-10] MEDS ORDERED: DOXYCYCLINE MO100 M1 PO (11:37)
[2023-02-10 11:38] LABS: CRYSTALS, URINE NONE SEEN (0-1+); EPITHELIAL CELLS, URINE SQUAMOUS 1+ /lpf (0-1+); WHITE BLOOD CELLS, URINE 21-40 /HPF (0-5)
[2023-02-10 11:39] LABS: BACTERIA, URINE 1+ /hpf (negative); CASTS, URINE NONE SEEN \\lpf; COLLECTION TYPE, URINE CLEAN CATCH; REFLEX CULTURE, URINE Yes (No)
[2023-02-10 11:41] LABS: ALBUMIN 2.7 g/dL (3.4-5.0); ALBUMIN/GLOBULIN RATIO 0.71 (1.1-2.4); ANION GAP 13.8 (7-21); BILIRUBIN, TOTAL 0.5 ng/dL (0.2-1.0); BUN/CREATININE RATIO 53.84 (6.0-28.6); CALCIUM 8.7 mg/dL (8.5-10.1); CREATININE, SERUM 1.56 mg/dL (0.70-1.30); POTASSIUM 4.8 mmol/L (3.5-5.1); PROTEIN, TOTAL 6.5 g/dL (6.4-8.2)
[2023-02-10 11:42] LABS: BANDS, MANUAL DIFF 1; LYMPHOCYTES, MANUAL DIFF 9; MONOCYTES, MANUAL DIFF 5; NEUTROPHILS, MANUAL DIFF 85
[2023-02-10 12:30] LABS: LACTIC ACID, BLOOD 2.4 mmol/L (0.4-2.0)
[2023-02-10 14:26] VITALS: BP 152/82
--- NOTE | 2023-02-10 14:30 | NUR ---
Received a call from Kady at [facility]. UPdated she has been attempting to place pt back in their SNF with the assist of Dr. Will. She states just called and pt is in the ER. She would like to know if pt will be an IP and will require a 3 night stay. I let her know I will check with the Er.
--- NOTE | 2023-02-10 15:15 | NUR ---
Returned to my office and checked and pt is an IP. Called and spoke with Dr. Gaviria and he states pt met for Sepsis, UTI, recent toe amputation, and several falls at home. Let him know, [facility] are willing to take this pt whenever he meets criteria for dc. He states the projected stay is 2-3 days. In and spoke with Raji and Luis Fernando. Both state pt is very weak and has not been able to walk since Sat. He has had several falls. She states he was able to walk into surgery for his toe amputation. She is concerned for a UTI and other infections. They cont. to live in their home, daughter lives down the street and assists them. Grandson helps with trash and haz tech. They have a housekeeper hospital that cleans. Raji has resumed driving and orders her groceries on line and cooks. She also drives Luis Fernando to his appts. She states she has not been able to move him since Sat and cannot lift him. They have a cane, walker, and hospital bed at home. I let her know [facility] called and are willing to accept Luis Fernando when he is cleared medically for dc. They will have a bed open on Sat and are willing to accept him. Luis Fernando states he needs to go back as he is unable to walk. I asked if they have attempted to hire cg and they have not. They are also not interested in assisted living. Discussed with transport to SNF. She will pay out of pocket for EMS if Medicare does not cover. I cautioned her, they may not pay if pt is able to ride in a wc. She states she does not care and wants EMS for his comfort. She is aware of the cost.
--- NOTE | 2023-02-10 16:42 | NUR ---
ROUNDED ON PT. PT IS A/O, RESPIRATIONS EVEN AND REGULAR. FLUID BOLUS COMPLETED. CONTINUOUS IV FLUIDS RUNNING. CALL LIGHT WITHIN REACH.
[2023-02-10 17:04] VITALS: BP 146/72
[2023-02-10 19:50] VITALS: BP 121/76
--- NOTE | 2023-02-10 19:52 | NUR ---
Pt teresa. Notified Dr. Garcia about elevated lactic.
--- NOTE | 2023-02-10 19:56 | NUR ---
Got orders to bolus 500 ml once and repeat lactic at 2300. Pt vitals in chart. No acute distress noted. Pt is alert and pleasent.
--- NOTE | 2023-02-10 21:00 | NUR ---
Pt called pt and pt gave phone to me, asking if we could find pt cochlear implant. Notified that I did not see implant on pt. Pt does have a right hearing aid like device.
[2023-02-11] VITALS (8 sets, daily range): BP systolic 141–156; BP diastolic 66–92
--- NOTE | 2023-02-11 03:01 | NUR ---
Did check the entire room, soiled linen bag, and around pt and under the bed. No cochlear implant found, except the one on pt R-ear.
[2023-02-11 05:57] LABS: HEMATOCRIT 34.4 % (35.0-50.0); HEMOGLOBIN 10.4 g/dL (12.0-18.0); MCH 23.3 (27-36); MCHC 30.1 g/dl (30-36); MCV 77.2 fl (81-99); PLATELET COUNT 172 K/uL (140-440); RBC 4.46 M/ul (4.3-5.7); RDW 25.7 (10.5-15.0)
[2023-02-11 06:11] LABS: LYMPHOCYTES, MANUAL DIFF 12; MONOCYTES, MANUAL DIFF 2; NEUTROPHILS, MANUAL DIFF 86
[2023-02-11 06:18] LABS: ALBUMIN 2.1 g/dL (3.4-5.0); ALBUMIN/GLOBULIN RATIO 0.62 (1.1-2.4); ANION GAP 10.2 (7-21); BILIRUBIN, TOTAL 0.4 ng/dL (0.2-1.0); BUN/CREATININE RATIO 57.94 (6.0-28.6); CALCIUM 8.2 mg/dL (8.5-10.1); CREATININE, SERUM 1.07 mg/dL (0.70-1.30); PHOSPHORUS, INORGANIC 3.4 mg/dL (2.5-4.9); POTASSIUM 4.2 mmol/L (3.5-5.1); PROTEIN, TOTAL 5.5 g/dL (6.4-8.2)
--- NOTE | 2023-02-11 06:21 | NUR ---
Pt slept fair overnight. Ordered his breakfast thsi AM, He also says he feels like he can have a BM today. Updated wounds - R heel decubitis ulcer. (pictures in chart)
--- NOTE | 2023-02-11 07:20 | NUR ---
REPORT RECEIVED FROM MICHELLE PICKERING. PT RESTING IN BED WATCHING TV. PT DENIES PAIN AND NAUSEA AT THIS TIME. PT DENIES ADDITIONAL REQUESTS OR COMPLAINTS. TELEMETRY MONITORING SHOWS AFIB RYTHEM WITH RATE IN THE 80-90'S. NO ADDITIONAL REQUESTS OR COMPLAINTS. CALL LIGHT WITHIN REACH. BED RAILS UP.
--- NOTE | 2023-02-11 07:57 | NUR ---
MORNING ASSESSMENT AND MEDICATION DUE. PT AWAKE AND ALERT. PT DENIES PAIN AND NAUSEA. PT ALERT AND OREINTED TO ALL. LUNG SOUNDS CLEAR. HEART TONES REMAIN IRREGULAR WITH AFIB RYTHEM SEEN ON TELEMETRY MONITORING, RATE 80-90'S AT REST. 90-110 WITH ACTIVITY. SEE MAR FOR MEDICATION GIVEN. PT REQUESTS TO GET UP TO BEDSIDE COMODE. BMAT TEST PERFORMED. PT ABLE TO MOVE LEGS OFF THE BED BUT CANNOT SIT UP ON HIS OWN. PT ABLE TO MAINTAIN SITTING POSITION ONCE HE IS HELPED INTO THAT POSITION. PT UP TO STAND WITH DIPIKA STEADY, NEEDS BED SIGNIFICANTLY ELEVATED TO STAND, CANNOT PULL HIMSELF UP WITH HIS ARMS. PT UP TO COMODE. PT HAS SMALL STOOL PRODUCTION, FORMED. PT REPORTS CONSTIPATION. NIO ORDERS PLACED FOR BOWEL CARE. PT UNABLE TO STAND FROM COMODE WITH DIPIKA STEADY. SLING LIFT/JASON LIFT UTALIZED TO ASSIST PT TO STANDING POSITION. WILLI CARE DONE. DEPENDS PLACED. PT UP TO STAND WITH LIFT AND DIPIKA STEADY. PT BACK TO BED HIS UNABLE TO ASSSIT WITH STAND AND DIPIKA STEADY CANNOT FIT UNDER CHAIR IN THIS ROON. WILL AWAIT PHYSICAL THERAPY EVALUATION. CONDOM CATHETER CHANGE. HOOKED TO GRAVITY BAG. MULTIPLE SKIN TEARS OVER ARMS AND LEGS. NON ADHEARANT GAUZE DRESSINGS REMAINS IN PLACE, C/D/I. ALLVYN TO LEFT HEAL CHANGED, WOUND UNCHANGED, NO DRAINAGE PRESENT. MULTIPLE BRUISES OVER WHOLE BODY. BLOOD SUGAR 70, 4 OZ ORANGE JUICE GIVEN, CRACKERS WITH PEANUT BUTTER GIVEN. PT EATS/ DRINKS ALL. BLOOD SUGAR RECHECKED, NOW . MEDICATIONS GIVEN. PT TALKING WITH FRIENDS ON THE PHONE. NO ADDITIONAL REQUESTS OR COMPLAINTS AT THIST KATHIA. BED RAILS UP. CALL LIGHT WITHIN REACH. BED ALARM ON.
--- NOTE | 2023-02-11 08:30 | NUR ---
BREAKFAST DELIVERED TO PT. LAB TO BEDSIDE FOR LAB DRAW. PTS UPDATED PER PTS REQUEST BY PHONE. PTS STATES HER QUESTIONS HAVE BEEN ANSWERED. PT EATING BREAKFAST. NO ADDITIONAL REQUESTS OR COMPLAINTS. CALL LIGHT WITHIN REACH. BED RAILS UP.
[2023-02-11] MEDS ORDERED: METOPROLOL SUC200 MG PO (08:42)
--- NOTE | 2023-02-11 09:37 | NUR ---
DR THOMAS TO BEDSIDE. LACTIC ACID LAB ELEVATED. MD AWARE. MD UPDATED ON PTS ACTIVITY THIS MORNING WELL EXTENDED LAB DRAW TIME WITH TERNIQUATE IN PLACE. NEW ORDERS GIVEN FOR IV FLUIDS, MD STATES TO GIVE BOLUS CONCURRENTLY WITH IV CONTINIOUS RATE. STARTED PER MD ORDER. PHYSICAL THERAPY TO BEDSIDE AND STATES PT IS UNABLE TO MEANINFULLY CONTRIBUTE TO SITTING AT EDGE OF BED. UNABLE TO USE JASON LIFT. MD STATES HE WOULD LIKE PT UP TO CHAIR. RISK FOR SKIN TEARS HIGH, BEDSHEET JASON LIFT USED TO LIFT PT (WHILE FALT) UP TO CHAIR. PT TOELARTED WELL. NO NEW SKIN ABNORMALITIES SEEN. PT CONTINUES WORKING WITH PHSYICAL THERAPY WHILE UP TO CHAIR. MEDICAITONS GIVEN FOR CONSTIPATION. PT DENIES ADDITIONAL REQUESTS OR COMPLAINTS. CALL LIGHT WITHIN REACH. CHAIR ALARM ON.
--- NOTE | 2023-02-11 10:16 | NUR ---
THIS RN TO ROOM TO CHECK ON PT. PT REMAINS UP TO CHAIR. WORKING WITH OCCUPATIONAL THERAPY, WASHING FACE, AND BRUSHING TEETH. PT ABLE TO PARTICIPATE IN THESE ACTIVITYS WELL. PT LEANING TOWARD LEFT SIDE. BOOSTED WITH PILLOWS. PT DENIES PAIN AND NAUSEA.NO ADDITIONAL REQUESTS OR COMPLAINTS. CALL LIGHT WITHIN REACH. CHAIR ALARM ON.
--- NOTE | 2023-02-11 10:45 | NUR ---
Spoke with Luis Fernando and Raji. She states she received a call from someone attempting to schedule transport for Luis Fernando. I let her know, this was not me. I asked if they have changed their minds about EMS. Both are in agreement he needs to go per EMT as he is not able to stand alone does not do well with the steristeady. Pts skin is very fragile and he gets skin tears with transfers. I received a message from Kady at [facility]. They would like morning admission. Asked her to give a time and I will schedule transport. She requests 10 am transport. I will schedule EMS tomorrow and send the chart and orders tomorrow for Sat. discharge as I am not here on Sat.
--- NOTE | 2023-02-11 10:52 | NUR ---
PTS DEPENDS SATURATED, CONDOM CATHETER NO LONGER IN PLACE. WILLI CARE DONE. DEPENDS CHANGED. NEW CONDOM CATHETER PLACED. PTS ARRIVED TO ROOM, VISITING WITH CASE MANAGEMENT. NO ADDITIONAL NEEDS AT THIS TIME. CALL LIGHT WITHIN REACH. CHAIR ALARM ON.
--- NOTE | 2023-02-11 11:43 | NUR ---
THIS RN TO ROOM TO CHECK ON PT. PT REMAINS UP TO CHAIR. CONDOM CATHETER CONTINUES TO FALL OFF. REMOVED AND MALE INCONTINANCE PADS PLACED. PT VISITING WITH HIS . PT DENIES PAIN AND NAUSEA. NO ADDITIONAL NEEDS AT THIS TIME. CHAIR ALARM ON. CALL LIGHT WITHIN REACH.
--- NOTE | 2023-02-11 12:10 | NUR ---
PT CALL LIGHT ON. PT REQUEST TYLENOL FOR PAIN. WHEN ASKED WHAT HURTS PT REPORTS SORENESS IN LEGS, ARMS AND URINARY TRACT. SEE MAR FOR MEDICATION GIVEN. PT REAMINS UP TO CHAIR. PT REPORTS HIS FEET HURT THE MOST AT 6/10. LEGS SLIGHTLY LOWERED IN CHAIR. PT REUESTS TO GO BACK TO BED. PT ENCOURAGED TO FINISH LUNCH FIRST AND THEN GET BACK TO BED. HEART RATE REMAINS 90-110 IN AFIB RYTHM. NO ADITIONAL NEEDS AT THIS TIME. CALL LIGHT CHAZ RIVERA. PTS AT BEDSIDE.
--- NOTE | 2023-02-11 12:46 | NUR ---
PT CALL LIGHT ON. PTS STATES PT IS VERY AGITATED. PT STATES HE WANTS TO USE THE COMODE. PT ADVISED THAT HE IS NOT STRONG ENOUGH FOR COMODE USE BUT CAN GET BACK TO BED AND USE THE BED PHIPPS. 2 PERSON ASSIST WITH JASON SHEET LIFT BACK TO BED. BED PHIPPS PLACED. PT REPORTS HE WANTS TO SIT ON THE BED PHIPPS "FOR AN HOUR AND A HALF OR SO." PT ADVISED THAT THIS IS NOT RECCOMENDED REATED TO HIS SKIN FRAGILITY AND SORES. PT GIVEN 10 MINUTES OF TIME ON THE BED PHIPPS. WILLI CARE DONE. DEPENDS SATURATED, CHANGED. NO ADDITIONAL NEEDS AT THIS TIME. PT REMAINS IN BED WITH HEAD OF BED ELEVATED TO 30 DEGREES. BED RAILS UP. CALL LIGHT WITHIN REACH. PTS AT BEDSIDE.
--- NOTE | 2023-02-11 13:24 | NUR ---
AFTERNOON ASSESSMENT DUE. PT CONTINUES RESTING IN BED. FINSIHED WITH LUNCH. ATE ABOUT 25% OF LUNCH. PT DENIES NASUEA. PT REPORTS PAIN IS "NOT BAD NOW." REPORTSING 4/10 PAIN IN ARMS AND LEGS AT THIS TIME. PT DENIES NEED FOR ADDITIONAL PAIN MEDICATION. PT REMAINS ALERT AND OREINTED TO ALL. GENERALIZED WEAKNESS PROMINANT PT IS ONLY ABLE TO ASSIST WITH SIDE ROLES AND MOVEMENT VERY MINIMALLY. PT IS ABLE TO FEED SELF WITH SPOON AND LIFT GLASS OF WATER ON HIS ONW. LUNG SOUNDS REAMINS CLEAR. HEART TONES IRREGULAR WITH AFIB RYTHM ON MONIOR WITH RATE IN THE 90'S. ABDOMEN REMAINS SOFT AND NON TENDER. BOWEL TONES VERY ACTIVE. PT CONTINUES TO REPORT CONSTIPATION. PT ENCORUAGED TO FINISH HIS MIRALAX DOSE GIVEN THIS MORNING. DEPENDS CHANGED, EXTRA MALE ABSORBANT PAD IN PLACE. PT VOIDING LARGE AMOUNTS PAD IS SATURATED EVERY TIME. SKIN UNCHANGED. VERY FRAGIL. DRESSINGS REMAIN IN PLACE. NO NEW DRAIANGE SEE. BRUISES OVER WHOLE BODY CONTINUE IN VARIOUS STAGES OF HEALING. PT DRIFTS OFF OT SLEEP. HEAD OF BED AT 30 DEGREES. PTS AT BEDSIDE. BED RAILS UP. CALL LIGHT WITHIN REACH. BED ALARM ON.
--- NOTE | 2023-02-11 14:11 | NUR ---
THIS RN TO ROOM TO CHECK ON PT. PT RESTING WITH EYES CLOSED, RESPIRATIONS EVEN AND UNLABORED. OXGYEN SATUARTION OF 90%, FINGERS COLD, NO INCREASED WORK OF BREATHING PRESENT. PTS ARMS WRAPPED IN WARM BLANKETS. PT AWAKENS BRIEFLY TO TOUCH. NEW IV FLUID BAG HUNG.NO ADDITIONAL NEEDS AT THIS TIME. PT ALLOWED TO REST. BED RAILS UP. CALL LIGHT WITHIN REACH. PT ALLOWED TO REST.
--- NOTE | 2023-02-11 14:27 | NUR ---
PT HERE FOR UTI AND SEPSIS. PT UNABLE TO GET UP TO STAND EVEN WITH DIPIKA STEADY AND PHYSICAL THERAPY ASSISTANCE. JASON LIFT SHEET USED TO GET PT UP TO CHAIR. PT TOLEARTS POORLY WANTING BACK TO BED AND WITH INCREASED PAIN TO ARMS AND LEGS. PRN PAIN MEDICAITON GIVEN. CONDOM CATHETER DOES NOT REMAIN IN PLACE. DEPENDS CHANGED FREQUENTLY. PT VOIDING QUANITTY SUFFICIENT. IV FLUID BOLUS GIVEN RELATED TO INCREASED LACTIC, NOTED THAT LACTIC WAS DRAWN AFETER STRENOUS ACTIVITY ATTEMPT. MULTIPLE SKIN TEARS AND BRUISES REMAIN, UNCHNAGED. PT ALERT AND OREINTED TO ALL AND DOES MAKES NEEDS KNOWN. TELEMETRY MONITORING IN PLACE WITH MIR LI IN THE 80-90'S SEEN THIS SHIFT. PT REPORTS CONSTIPATION. BOWEL MEDICATIONS STARTED. PTS AT BEDSIDE AND UPDATED ON PLAN OF CARE. BED/CHAIR ALARMS FOR SAFETY.
--- NOTE | 2023-02-11 14:40 | NUR ---
THIS RN TO ROOM TO CHECK ON PT. PT RESTING WITH EYES CLOSED. RESPRATIONS EVEN AND UNLABORED. OXGYEN SATURATIONS REASSESESSED, NLW 96% ON ROOM AIR. PT ALLOWED TO REST. CALL LIGHT WITHIN REACH. PTS AT BEDSIDE. BED RAILS UP. BED ALARM ON.
--- NOTE | 2023-02-11 14:53 | NUR ---
ATTEMPTED SEVERAL TIMES TO VISIT. PT WAS RECEIVING CARE EACH TIME. WAS UNABLE TO VISIT. PRAYED SILENT PRAYER FOR HEALING FROM [facility].
--- NOTE | 2023-02-11 15:25 | NUR ---
PATIENT IN BED. PATIENT IS SLEEPING. LEFT.
--- NOTE | 2023-02-11 15:34 | NUR ---
THIS RN TO ROOM TO CHECK ON PT. PT RESTING WITH EYES CLOSED. RESPIRATIONS EVEN AND UNLABORED. HEAD OF BED ELEVATED TO 40 DEGREES. BED RAILS UP. CALL LIGHT WITHIN REACH. PT ALLOWED TO REST.
--- NOTE | 2023-02-11 16:31 | NUR ---
THIS RN TO ROOM TO CHECK ON PT. PT RESTING IN BED WITH EYES CLOSED. RESPIRATIONS EVEN AND UNLABORED. BED RAILS UP. CALL LIGHT WITHIN REACH. PT ALLOWED TO REST.
--- NOTE | 2023-02-11 16:43 | NUR ---
MED REC COMPLETE
--- NOTE | 2023-02-11 17:42 | NUR ---
DINNER DELIVERD TO PT. PT AWAKE. DEPENDS SATURATED WITH URINE. WILLI CARE DONE. DEPENDS CHANGED WITH MALE INCONTINANCE PAD IN PLACE. PT REPOSITIONED IN BED, SEMIFOLWER WITH HEAD OF BED AT 50 DEGREES FOR DINNER. PT WATCHING TV AND EATING DINNER. INSULIN GIVEN. PT ASKS QUESTIONS ABOUT PLAN OF CARE, PT REMINDED OF PLAN OF CARE AND QUESTIONS ARE ANSWERED. PT DENIES ADDITIONAL REQUESTS OR COMPLAINTS. CALL LIGHT WITHIN REACH. BED RAILS UP. BED ALARM ON.
--- NOTE | 2023-02-11 18:27 | NUR ---
THIS RN TO ROOM TO CHECK ON PT. PT REQUESTS TYLENOL FOR 4/10 LEG PAIN. SEE MAR FOR MEDICATION GIVEN. PT FINISHED WITH DINNER. REPOSITIONED TO RIGHT SIDE, SUPPORTED WITH PILLOWS. PT AWAKE AND ALERT AND RESPONDING APPROPRIATLY. ICE WATER REFILLED. CALL LIGHT WITHIN REACH. BED RAILS UP. BED ALARM ON.
--- NOTE | 2023-02-11 19:41 | NUR ---
Pt assesed. Got 2 new IVs as previous one was leaking. Pt has no complains at the moment.
--- NOTE | 2023-02-11 19:52 | NUR ---
Recieved Critical lactic of 2.[address] Garcia
--- NOTE | 2023-02-11 23:07 | NUR ---
Pt reposition to left side. Socks removed due to edema. Removed pt denture and placed in cup. Brief changed. Called Dr. Sharif as pt complained of r leg pain, got orders for toradol once.
[2023-02-12] VITALS (7 sets, daily range): BP systolic 116–155; BP diastolic 66–91
--- NOTE | 2023-02-12 02:41 | NUR ---
Got call from ICU that pt had 16 beats vtach. Reviewed tele strip, Dr. Garcia Notified. Got orders for AM magnesium. Otherwise pt is sleeping no other complaints.
--- NOTE | 2023-02-12 05:41 | NUR ---
Pt had a fair night. Wounds and brusing still has no change. Extremely fragile skin. Pt r leg pain kept him up, tylenol works the best. Pt is very weak, helps minimal during turns in bed. Offloading side to side to prevent skin breakdown.
[2023-02-12 06:11] LABS: HEMOGLOBIN 9.3 g/dL (12.0-18.0); MCV 76.8 fl (81-99)
[2023-02-12 06:12] LABS: HEMATOCRIT 29.9 % (35.0-50.0); MCH 23.9 (27-36); MCHC 31.2 g/dl (30-36); PLATELET COUNT 162 K/uL (140-440); RDW 25.9 (10.5-15.0)
[2023-02-12 06:28] LABS: BANDS, MANUAL DIFF 1; LYMPHOCYTES, MANUAL DIFF 12; MONOCYTES, MANUAL DIFF 3; NEUTROPHILS, MANUAL DIFF 84
[2023-02-12 06:31] LABS: ALBUMIN/GLOBULIN RATIO 0.65 (1.1-2.4); ANION GAP 10.5 (7-21); BILIRUBIN, TOTAL 0.4 ng/dL (0.2-1.0); BUN/CREATININE RATIO 54.2 (6.0-28.6); CALCIUM 7.8 mg/dL (8.5-10.1); CREATININE, SERUM 1.07 mg/dL (0.70-1.30); MAGNESIUM 1.9 mg/dL (1.8-2.4); POTASSIUM 4.5 mmol/L (3.5-5.1); PROTEIN, TOTAL 5.1 g/dL (6.4-8.2)
--- NOTE | 2023-02-12 06:40 | NUR ---
Pt complained of right leg pain throughout the night, changed R leg posterior dressing, took updated picture (copy in chart).
--- NOTE | 2023-02-12 07:30 | NUR ---
REPORT RECEIVED FROM RAHEEL MARTINEZ. PT RESTING IN SEMIFOWLER POSITION, HEAD OF BED AT 25 DEGREES. PT REPORTS 8/10 PAIN IN "LEGS AND ARMS". PRN PAIN MEDICAITON AVALIABLE SOON. SKIN WOUNDS WORSENING PER REPORT FROM RAHEEL, SUPPLY CHAIN MANAGER UPDATED AND CALL PLACED FOR ADDITIONAL WOUND CONSULTATION. PT DENIES ADDITIONAL REQUESTS OR COMPLAINTS. DECLINES REPOSITIONING AT THIS TIME. CALL LIGHT WITHIN REACH. BED RAILS UP.
--- NOTE | 2023-02-12 07:59 | NUR ---
MORNING ASSESSMENT AND MEDICATION DUE. PT AWAKE AND ALERT. OREINTED TO ALL. PT REPORTS 4/10 IN LEGS AND ARMS AT THIS TIME AND REQUESTS TYELNOL. SEE MAR FOR MEDICATION GIVEN. WILLI CARE DONE, MALE INCONTINANCE CONE SATURATED. BARRIER CREAM APPLIED. NEW CONE AND DEPENDS IN PLACE. JASON LIFT UP TO CHAIR, PT TOLEARTES WELL. HEART TONES REMAINS IRREGULAR WITH AFIB RYTHM ON MONITOR AND RATE 90-100'S. LUNG SOUNDS CLEAR. WORK OF BREATHING WNL. IV FLUID RATE DECREASED PER MD ORDER. RIGHT AC IV DC'D BY RAILROAD CAR REPAIRMAN. LEFT AND RIGHT FORARM IVs WNL, PLACED BY RAILROAD CAR REPAIRMAN. +1 EDEMA SEEN IN BLE. SCRTAL EDEMA ALSO PRESENT. SKIN VERY FRAGILE. WOUNDS NOT IMPROVING. WOUND TO BACK OF RIGHT LOWER LEG APPEARS DEEPER, PHOTOGRAPHS TAKEN BY STAND, RN DURING RAILROAD CAR REPAIRMAN. DRESSIGNS REMAIN IN PLACE. MESSAGE SENT TO WOUND CONSULT RN FOR ADDITONAL EVALUATION AND DRESSING CHANGES. MULTIPLE BRUISES OVER ARMS, LEGS, BACK AND CHEST, MD AWARE. ABDOMEN SOFT AND NON TENDER, BOWEL TONES ACTIVE. PT CONTINUES TO REPORT CONSIPATION, SEE MAR FOR MEDICATION GIVEN. PT WATCHING TV. BLOOD SUGAR FOUND TO BE 64, JUICE AND CHEESE PROVIDED. ADDITONAL BLOOD SUGAR TAKEN, NOW 72, ADDITONAL 4 OUNCES PROVIDED. NO ADDITIONAL NEEDS AT THIS TIME. CALL LIGHT WITHIN REACH.
--- NOTE | 2023-02-12 08:43 | NUR ---
PATIENT BLOODSUGAR WAS 72 AT 0830. PT SET UP WITH BREAKFAST. CALL LIGHT WITHIN REACH.
--- NOTE | 2023-02-12 09:00 | NUR ---
BEDSIDE BS RECHECK 106.
--- NOTE | 2023-02-12 09:15 | NUR ---
Spoke with Luis Fernando. He is still planning on dc to [facility] tomorrow. Faxed progress notes and PT notes to Kady. Reviewed IM letter with Luis Fernando and he states he is leaving not matter what tomorrow.
--- NOTE | 2023-02-12 09:20 | NUR ---
ENEDELIA, WOUND RN FROM DAY SURGERY, TO ROOM TO ASSESS PT. SEE NOTE. PTS BLOOD SUGAR HAD RETUNRED TO NORMAL LIMITS. PT WAS ABLE TO EAT BREAKFAST. PT REPORTS LEG AND ARM PAIN IS "BETTER NOW." PT RATES PAIN AT 4/10 AND DENIES NEED FOR ADDITIONAL PAIN MEDICATION. PT REMAINS UP TO CHAIR. FEET LOWERED PER PT REQUEST. PT DENIES ADDITIONAL REQUESTS OR COMPLAINTS. CALL LIGHT WITHIN REACH.
--- NOTE | 2023-02-12 09:43 | NUR ---
LE 0915: MED SURG CHARGE CALLS DOWN TO DS FOR A WOUND REASSESS ON THIS PT WITH CONCERNS OF WOUNDS BEING WORSE. PT'S RN IS PRIMARILY CONCERNS ABOUT THE WOUNDS ON THE RIGHT POSTERIOR LEG, LEFT HEEL, AND THE LOWER BACK. RIGHT POSTERIOR LEG: AFTER REVIEWEING PHOTOS AND ASSESSING THE WOUND, IT ACTUALLY LOOKS BETTER. THE WOUND BED IS REGISTERED NURSE FLOAT POOL, WITH NO SLOUGH PRESENT. THE AREA IS VISUALLY SMALLER WELL. THE DRESSING ORDER IS CHANGED TO COLLAGEN FROM MEDIHONE[employer], BUT NON-ADHERENT PADS AND KERLEX REMAIN THE SAME. LEFT HEEL: THIS WOUND ALSO LOOKS BETTER. DR. CAMPOS HAS BEEN TREATING THIS WOUND AND HAD PLACED A PAD ON THE HEEL THAT HASN'T BEEN STAYING ON. AT THIS TIME IT IS COVERED WITH A GENTLE BORDER ADHESIVE FOAM DRESSING. IT IS RECOMMENDED THAT THE PT'S RN CONTACT DR. CAMPOS REGARDING THIS WOUND. LOWER BACK: THIS AREA IS COVERED WITH A GENTLE BORDER FOAM. THIS IS MOST DEFINITELY A SKIN TEAR. MEDIHONEY IS APPLIED TO THE WOUND BED, THEN RECOVERED WITH AN GENTLE BORDER FOAM. PT'S RN IS ASKED IF THE DRESSINGS ARE BEING PULLED BACK TO LOOK AT THE WOUNDS DAILY, SHE CONFIRMS THEY HAVE NOT BEEN. SHE ALSO HAS CONCERNS ABOUT REMOVING CURRENT DRESSINGS. SHE IS EDUCATED THAT SHE CAN WET THE NON-ADHERENT PADS WITH NS AND THEY WILL COME RIGHT OFF WITHOUT DAMAGE TO SKIN. SHE IS ALSO EDUCATED THAT SINCE THE PT IS ON A BLOOD THINNER, HAS FRAGILE SKIN, AND CURRENT SKIN TEARS THEY WILL LOOK WORSE BEFORE THEY GET BETTER. PT IS ADJUSTED BACK TO A COMFORTABLE POSITION.
--- NOTE | 2023-02-12 09:46 | NUR ---
PT IN CHAIR JUST FINISHING UP BREAKFAST. STATES IS FEELING BETTER. ANTICIPATING DISCHARGE TO FACILITY FOR ONGOING THERAPY. CONSENTED TO PRAYER. PRAYED FOR ONGOING HEALING AND ABIDING PEACE.
--- NOTE | 2023-02-12 10:31 | NUR ---
THIS RN TO ROOM WITH PHYSCIAL THERAPY. PT ASSISTED WITH EXERCISES AND ASSISTED TO SITTING POSITION IN CHAIR. PT ABLE TO SIT AND LEAN BACK ON HIS OWN X5. PT TIRES AND BREATHING MORE HEAVILY WITH ACTIVITY. PT REQUESTS TO GET BACK TO BED. JASON LIFT WITH 3 PERSON ASSIST BACK TO BED. MALE INCONTINANCE PAD SATURATED, GISELAD, WILLI CARE DONE. WORK OF BREATHING RETURNS TO NORMAL. PT DENIES ADDITIONAL REQUESTS OR COMPLAINTS. REPORTS HE FEELS 'MORE COMFROTABLE." NOW. CALL LIGHT WITHINR EACH. BED RAILS UP.
--- NOTE | 2023-02-12 11:30 | NUR ---
THIS RN TO ROOM TO CHECK ON PT. PT RESTING WITH EYES CLOSED ON LEFT SIDE, SUPPORTED WITH PILLOWS. RESPRIRATIONS EVEN AND UNLABORED. CALL LIGHT WITHIN RECH. BED RAILS UP. PT ALLOWED TO REST.
--- NOTE | 2023-02-12 12:21 | NUR ---
MEDICATION DUE. PT SITTING UP IN BED WITH HEAD OF BED AT 45 DEGREES FOR LUNCH. PT FEEDING SELF. PT REPORTS ONGOING 4/10 PAIN THAT IS WELL CONTROLLED AT THIS TIME. PT DENIES NEED FOR PAIN MEDICATION. PTS UPDATED ON PT STAUTS AND PLAN OF CARE. PT DECLINES TIME UP TO CHAIR AT THIS TIME STATING HE IS TOO TIRED. NO ADDITIONAL REQUESTS OR COMPLAINTS. CALL LIGHT WITHIN REACH. BED RAILS UP.
--- NOTE | 2023-02-12 13:22 | NUR ---
AFTERNOON ASSESSMENT AND MEDICATION DUE. DR. THOMAS TO BEDSIDE FOR ROUNDS. PT AND FAMILY UPDATED ON PT STAUTS AND PLAN OF CARE. PT AND FAMILY VERBALIZE UNDERSTANDING AND STATE THEIR QUESTIONS HAVE BEEN ANSWERED. PT INTERACTIVE WITH CONVERSATION AND ASKS QUESTIONS OF HIS OWN. PT REPORTS 4/10 PAIN IN HIS LEGS AND ARMS AT THIS TIME AND DENIES NEED FOR PAIN MEDICATION. MD UPDATED ON SKIN AND WOUND STATUS. NO NEW ORDERS AT THIS TIME. +2 PITTING EDEMA TO BLE BELOW THE KNEES. MD ORDERS GIVEN TO SALINE LOCK IV AT THIS TIME. IV FLUSHED AND SALINE LOCKED, ALCOHOL CAP APPLIED. PT REMAINS ALERT AND ORIENTED TO ALL. FORGETFUL AT TIMES BUT ALSO VERY HARD OF HEARING, POSSIBLE THAT PT DOES NOT HEAR INFORMATION, RESPONDS APPROPRIATLY WHEN HE HEARS INFORMATION. HEAR TONES REMAIN IRREGULAR WITH AFIB RYTHEM ON MONITOR. HEART RATE 70-90'S. LUNG SOUNDS CLEAR. ABDOMEN REMAINS SOFT AND NON TENDER. BOWEL TONES ACTIVE. PT REQUESTS A SNACK. STRING CHEESE PROVIDED. PT ENCORUAGED TO DRINK FLUIDS, FRESH ICE WATER PROVIDED. NO ADDITONAL REQUESTS OR COMPLAINTS. CALL LIGHT WITHIN REACH. FAMILY REAMINS AT BEDSIDE.
--- NOTE | 2023-02-12 14:00 | NUR ---
[facility] orders printed and given to Dr. Garcia.
--- NOTE | 2023-02-12 14:30 | NUR ---
THIS RN TO ROOM TO CHECK ON PT. PT RESTING IN BED, PT DECLINES TIME UP TO CHAIR. PTS LEAVING FOR THE DAY. PT REQUESTS TYLENOL, GIVEN BY MICHELLE POTTS. PT DENIES ADDITIONAL REQUETS OR COMPLAINTS. PT REMAINS ALERT AND OREINTED. DEPENDS DRY. CALL LIGHT WITHIN REACH. BED RAILS UP.
--- NOTE | 2023-02-12 15:01 | NUR ---
Called and spoke with Maximino from EMS and schedule transport for 10 am tomorrow.
--- NOTE | 2023-02-12 15:05 | NUR ---
Note given to Ilana RN with EMS number and number for nurse to call report tomorrow.
[2023-02-12] MEDS ORDERED: CEFPODOXIME PR200 MG PO (15:43)
--- NOTE | 2023-02-12 16:03 | NUR ---
THIS RN TO ROOM TO CHECK ON PT. PT RESTING WITH EYES CLOSED, RESPIRATIONS EVEN AND UNLABORED. PT ALLOWED TO REST AT THIS TIME IN ATTEMPT TO CLUSTER CARES. BED RAILS UP. CALL LIGHT WITHIN REACH.
--- NOTE | 2023-02-12 16:17 | NUR ---
PT HERE FOR UTI/SEPSIS. JASON LIFT SHEET USED TO GET PT UP TO CHAIR. PT TOLEARTS POORLY WANTING BACK TO BED AND WITH INCREASED PAIN TO ARMS AND LEGS. PT SPENT MOST OF THE DAY IN BED BUT WAS ABLE TO PULL SELF FOWARD TO SITTING POSITION WHILE UP TO CHAIR WITH ASSISTANC FROM PHYSICAL THERAPY. PRN PAIN MEDICAITON GIVEN. MALE INCONTANCE PAD AND DEPENDS CHANGED FREQUENTLY. PT VOIDING QUANITTY SUFFICIENT. MULTIPLE SKIN TEARS AND BRUISES REMAIN. WOUND RN TO BEDSIDE THIS SHIFT WIHT NEW ORDERS FOR DRESSING CHANGES TO BACK OF RIGHT LEG. OTHER ORDERS REMAIN. PT OREINTED TO ALL AND DOES MAKES NEEDS KNOWN. TELEMETRY MONITORING IN PLACE WITH MIR LI IN THE 80-110'S SEEN THIS SHIFT. PT REPORTS CONSTIPATION. BOWEL MEDICATIONS CONTINUE. PTS AT BEDSIDE AND UPDATED ON PLAN OF CARE. BED/CHAIR ALARMS FOR SAFETY. PT VERBALIZES UNDERSTANDING OF PLAN FOR TRANSFER TOMORROW.
--- NOTE | 2023-02-12 16:47 | NUR ---
MEDICATION DUE. PT AWAKE AFTER NAP. PT REQUESTS A SNACK. BLOOD SUGAR TAKEN, INSULIN GIVEN. PUDDING AND CHEESE PROVIDED. PT DENIES PAIN AND NAUSEA. VITAL SIGNS STABLE. MEDICATION GIVEN. DEPENDS AND INCONTINANCE PAD CHANGED. BARRIER CREAM APPLIED. PT DENIES ADDITIONAL REQUESTS OR COMPLAINTS. CALL LIGHT WITHIN REACH. BED RAILS UP.
--- NOTE | 2023-02-12 17:44 | NUR ---
THIS RN TO ROOM TO CHECK ON PT. PT VISITING WITH FAMILY AND EATING DINNER SLOWLY. PT REPORTS 4/10 PAIN IN LEGS THAT IS TOELRABLE AT THIS TIME. PT DENIES NEED FOR ADDITONA PAIN MEDICATION. PT DECLINES TIME UP TO CHAIR. PT DECLINES REPOSITIONING. NO ADDITIONAL REQUESTS OR COMPLAINTS. CALL LIGHT WITHIN REACH. BED RAILS UP. ICE WATER REFILLED.
--- NOTE | 2023-02-12 18:35 | NUR ---
THIS RN TO ROOM TO CHECK ON PT. PT CONTINUES VISITING WITH FAMILY. PT DENIES PAIN AND NAUSEA. MALE INCONTINANCE PAD MILDY WET, WILLI CARE DONE, BARRIER CREAM APPLIED, PAD CHANGED. PT STATES HE DIDN'T CARE FOR HIS MEAL, REQUESTS CHEESE AND PUDDING, PROVIDED. ORAL FLUIDS ENCOURAGED. PT DENIES ADDITIONAL REQUESTS OR COMPLAINTS, CONTINUES TO DECLINE REPOSITIONING. CALL LIGHT WITHIN REACH. BED RAILS UP.
--- NOTE | 2023-02-12 20:30 | NUR ---
Bedside report given by Ilana. Patient stable, resting in bed without any questions.
[2023-02-13 01:52] VITALS: BP 152/84
[2023-02-13 05:08] VITALS: BP 148/92
--- NOTE | 2023-02-13 05:21 | NUR ---
Luis Fernando has slept well through the night. Alert and orient, VSS have been stable, Tele remains intact - ap irreqular, Denies CP or SOB, Given tylenol per request for leg and arm discomfort. Incontinent care provided several times during the night. Multiple dressing remain intact, clean and dry.
[2023-02-13 05:26] LABS: BASOPHILS 0.4 % (0-2); EOSINOPHILS 0.3 % (0-6); HEMATOCRIT 30.8 % (35.0-50.0); HEMOGLOBIN 9.6 g/dL (12.0-18.0); LYMPHOCYTES 8.8 % (24-44); MCH 23.7 (27-36); MCHC 31.1 g/dl (30-36); MCV 76.3 fl (81-99); MONOCYTES 7.1 % (0-12); NEUTROPHILS 83.4 % (39-80); PLATELET COUNT 170 K/uL (140-440); RBC 4.04 M/ul (4.3-5.7); RDW 24.8 (10.5-15.0)
[2023-02-13 05:41] LABS: ALBUMIN/GLOBULIN RATIO 0.63 (1.1-2.4); ANION GAP 13.3 (7-21); BILIRUBIN, TOTAL 0.4 ng/dL (0.2-1.0); BUN/CREATININE RATIO 56.56 (6.0-28.6); CALCIUM 8.3 mg/dL (8.5-10.1); CREATININE, SERUM 0.99 mg/dL (0.70-1.30); POTASSIUM 4.3 mmol/L (3.5-5.1); PROTEIN, TOTAL 5.2 g/dL (6.4-8.2)
--- NOTE | 2023-02-13 07:16 | NUR ---
REPORT RECEIVED FROM [facility]. PT RESTING IN BED. PT CONCERNED ABOUT CONSTIPATION AND REQUESTS A SUPPOSITORY, NIO ORDER PLACED. PT REPORTS 4-5/10 PAIN IN HIS LEGS AND ARMS, SEE MAR FOR MEDICATION (GIVEN BY MICHELLE PICKERING). PT SEEN TO USE BED CONTROLS ON HIS OWN. ELEVATES HIS BED ON HIS OWN TO 32 DEGREES. PT DENIES ADDITIONAL REQUESTS OR COMPLAINTS. CALL LIGHT WITHIN REACH. BED RAILS UP.
--- NOTE | 2023-02-13 07:38 | NUR ---
MORNING ASSESSMENT AND MEDICATION DUE. PT WATCHING THE NEWS ON TV. PT REPORTS 4/10 PAIN THAT IS "MOSTLY RIGHT HERE IN MY GUT." POINTING TO LEFT LOWER QUADRANT. PT CONTINUES TO REPORT CONSTIPATION. SEE MAR FOR MEDICATION GIVEN. SKIN CARE AND WILLI CARE DONE. DEPENDS IN PLACE AND FRESH MALE INCONTINANCE PAD IN PLACE AFTER SUPOSITIORY WAS GIVEN. PT REMAINS ALERT AND ORIENTED TO ALL. VERY HARD OF HEARING BUT INTERACTS WITH QUESTIONS AND FOLLOWING DIRECTIONS WELL. LUNG SOUNDS CLEAR. PT TOLERATING ROOM AIR. HEART TONES REMAIN IRREGULAR WITH AFIB RYTHM SEEN ON MONITOR, RATES 80-90'S. OCCATIONAL PVCs SEEN. +2 PITTING EDEMA CONTINUES IN BLE. SCROTAL EDEMA ALSO SEEN IN GROIN. ABDOMEN SOFT AND NON TENDER. PT HELPED ONTO BED PHIPPS AND IS ABLE TO HAVE LARGE SOFT BROWN BOWEL MOVEMENT. WILLI CARE DONE. DEPENDS CHANGED. SKIN REMAINS UNCHNAGED WITH MULTIPLE SKIN TEARS AND BRUISES THROUGHOUT BODY. SMALL LEAKING SPOT SEEN ON LEFT VENTURA, ALLEVYN APPLIED. DRESSING TO UPPER LEFT ARM SKIN TEAR FALLING OFF. NEW DRESSING APPLIED. DRESSING TO LEFT HEAL ALSO LOOSE, NEW DRESSING APPLIED. OTHER DRESSINGS REMAIN C/D/I INCLUDING PREVENTITIVE PAD OVER COCCYX. PT RESTING IN BED, DECLINES TIME UP TO CHAIR. BED RAILS UP. HEAD OF BED ELEVATED TO 40 DEGREES FOR BREAKFAST. CALL LIGHT WITHIN REACH. BED RAILS UP.
--- NOTE | 2023-02-13 08:48 | NUR ---
PUMP ALARMING, INFUSION AND FLUSH COMPLETE. IV FLUSHED AND SALINE LOCKED, ALCOHOL CAP APPLIED. PT CONTINUES TO REPORT FEELINGS OF CONSTIPATION. PO FLUIDS AND MIRALAX ENCOURAGED. PT VERBALIZES UNDERSTANDING. NO ADDIATIONAL REQUESTS OR COMPLAINTS. CALL LIGHT WITHIN REACH. BED RAILS UP.
[2023-02-13 09:09] VITALS: BP 137/95
--- NOTE | 2023-02-13 09:12 | NUR ---
REPORT CALLED TO SOL[facility]AD IN [facility] WHO STATES HER QUESTIONS HAVE BEEN ANSWERED. PT UPDATED ON PLAN FOR DISCHARGE. IV'D DC'D PERPROTOCOL. GAUZE AND COBAN APPLIED. PT REPORTS HE DOES NOT WANT TO GET DRESS AND WOULD PREFER TO STAY IN HIS GOWN FOR TRANSFER. FRESH GOWN IN PLACE. PT UPDATED ON PLAN OF CARE AND PLAN FOR TRANSFER. NO ADDITIONAL NEEDS AT THIS TIME. AWAITING TRANSPORT [facility].
--- NOTE | 2023-02-13 10:20 | NUR ---
THIS RN TO ROOM TO CHECK ON PT. PT REPORTS "i FEEL MUCH BETTER NOW" AFTER BOWEL MOVEMENT. NON [facility] TRANSPORT STATES THEY ARE ON THEIR WAY. PT REPORTS HIS QUESTIONS HAVE BEEN ANSWERED. PT DENIES ADDITIONAL REQUESTS OR COMPLAINTS. FAMILY REMAINS AT BEDSIDE. AWAITING TRANSPORT ARRIVAL.
--- NOTE | 2023-02-13 10:55 | NUR ---
REPORT GIVEN TO MR MARLEY, NON [facility] TRANSP[facility]. PT TRANSFERED TO [facility] WITH [facility]. BELONGINGS WITH PT. DISCHARGE PACKET GIVEN TO NON [facility] TRANSPORT [facility].
== END 2023-02-13 10:55 | DRG 872 ==
LOC: ED 10:08 → MS 13:26
PROVIDERS: Emergency Medicine; ADMIT Family Medicine; ATTEND Family Medicine
DX: A41.50 Gram-negative sepsis, unspecified (principal); N39.0 Urinary tract infection, site not specified; N17.9 Acute kidney failure, unspecified; E27.1 Primary adrenocortical insufficiency; D50.9 Iron deficiency anemia, unspecified; I48.91 Unspecified atrial fibrillation; I10 Essential (primary) hypertension; E86.0 Dehydration; K59.00 Constipation, unspecified; S80.10XA Contusion of unspecified lower leg, initial encounter; S40.029A Contusion of unspecified upper arm, initial encounter; E78.00 Pure hypercholesterolemia, unspecified; E11.649 Type 2 diabetes mellitus with hypoglycemia without coma; Z85.828 Personal history of other malignant neoplasm of skin; Z95.5 Presence of coronary angioplasty implant and graft; Z79.01 Long term (current) use of anticoagulants; Z96.21 Cochlear implant status; Z89.421 Acquired absence of other right toe(s); Z98.890 Other specified postprocedural states; Z79.4 Long term (current) use of insulin; Z79.899 Other long term (current) 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; Z79.2 Long term (current) use of antibiotics; I25.2 Old myocardial infarction; Z79.02 Long term (current) use of antithrombotics/antiplatelets; W19.XXXA Unspecified fall, initial encounter
CPT/HCPCS: 36415; 80053; 81001; 83605; 83735; 84100; 85025; 87040; 87088; 96365; 99285-25; A9270; J0696; J1815; J1885; J7030; J7040